=== PATIENT | female | born 1960 | race Caucasian/White ===

== ENCOUNTER 2019-02-10 11:21 | Outpatient (CLI) | payer OTHER, SELFPAY ==
[2019-02-10 11:37] LABS: Basophils Absolute Auto 0.11 K/mm3 (0.00-0.10); Basophils Percent Auto 0.9 % (0.0-1.0); Eosinophils Absolute Auto 0.34 K/mm3 (0.02-0.50); Eosinophils Percent Auto 2.9 % (1.0-6.0); Hematocrit 50.7 % (35.0-49.0); Immature Granulocyte Absolute 0.04 K/mm3 (0.00-0.00); Immature Granulocyte Percent A 0.3 % (0.0-0.0); Lymphocytes Absolute Auto 2.85 K/mm3 (1.10-4.50); Mean Corpuscular HGB Conc 31.6 g/dL (32.0-36.0); Mean Corpuscular Hemoglobin 30.5 pg (27.0-31.0); Mean Corpuscular Volume 96.6 fL (78.0-102.0); Mean Platelet Volume 9.9 fl (9.2-11.8); Monocytes Absolute Auto 1.31 K/mm3 (0.10-0.90); Neutrophils Absolute Auto 7.2 K/mm3 (1.7-7.2); Neutrophils Percent Auto 60.9 % (50.0-70.0); Platelet Count Result 319 K/mm3 (150-420); Red Blood Count 5.25 M/mm3 (4.20-5.40); Red Cell Distribution Width 14.5 % (11.6-14.4); White Blood Count 11.9 K/mm3 (4.8-10.8)
[2019-02-10 11:46] LABS: Add Urine Microscopic? YES; Appearance Urine Clear (Clear); Bilirubin Urine Negative (Negative); Blood Urine Negative (Negative); Color Urine Yellow (Yellow); Glucose Urine UA Negative (Negative); Ketones Urine Negative (Negative); Leukocyte Esterase Ur Negative (Negative); Nitrate Urine Negative (Negative); Protein Urine 1+ (Negative); Specific Grav Ur >= 1.030 (1.010-1.020); Urobilinogen Urine 0.2 mg/dL (0.2-1.0)
[2019-02-10 12:06] LABS: Bacteria Urine 1+ /hpf; RBC Urine 0-2 /hpf (0-2); Squamous Epithelial Cell Urine Moderate /hpf (Few); WBC Urine 0-3 /hpf (0-3)
[2019-02-10 12:45] LABS: Erythrocyte Sedimentation Rate 6 mm/hr (0-20)
[2019-02-10 13:26] LABS: Alanine Aminotransferase 14 U/L (14-59); Albumin Level 3.6 g/dL (3.4-5.0); Alkaline Phosphatase 106 U/L (46-116); Anion Gap 13.3 mmol/L (7-16); Aspartate Amino Transferase 11 U/L (15-37); Bilirubin,Total 0.4 mg/dL (0.00-1.00); Blood Urea Nitrogen 12 mg/dL (7-18); CRP 1.4 mg/dL (0.0-0.9); Carbon Dioxide 29 mmol/L (21-32); Chloride 105 mmol/L (98-108); Estimated Glomerular Filt Rate > 60; Glucose 107 mg/dL (70-99); Osmolality Calculated 295 mOsm/kg (285-295); Potassium 4.3 mmol/L (3.5-5.1); Sodium 143 mmol/L (136-145); Total Protein 7.3 g/dL (6.4-8.2)
== END 2019-02-10 11:22 | disposition home or self-care (01) ==
PROVIDERS: PCP Internal Medicine; Visit Provider Internal Medicine
DX: M05.9 Rheumatoid arthritis with rheumatoid factor, unspecified (principal); I27.20 Pulmonary hypertension, unspecified; M85.80 Other specified disorders of bone density and structure, unspecified site; Z99.81 Dependence on supplemental oxygen; M06.30 Rheumatoid nodule, unspecified site; R74.0 Nonspecific elevation of levels of transaminase and lactic acid dehydrogenase [LDH]
CPT/HCPCS: 36415; 80053; 81001; 85025; 85652; 86140

== ENCOUNTER 2019-06-01 12:06 | Outpatient (CLI) | payer OTHER, SELFPAY ==
--- NOTE | ~2019-06-01 | XR_ITS ---
EXAMINATION: XR chest 2V DATE: 06/01/2019 12:28 INDICATION: Cough. Chronic obstructive pulmonary disease. TECHNIQUE: Frontal and lateral views of the chest were obtained. COMPARISON: Chest 2 views 09/06/2018, chest CT 09/01/2018 FINDINGS: There is mild atelectasis in left mid and lower lung zones. There are airspace opacities in right lower lung zone. No pleural effusion or pneumothorax. The heart size is normal. IMPRESSION: 1. Airspace opacities in right lower lung zone with interval improvement, consistent with atelectasis /scarring versus pneumonia. 2. Mild atelectasis in left mid and lower lung zones. Reviewed, dictated and finalized at location A. GER MAINTENANCE IMPRESSION: 1. Airspace opacities in right lower lung zone with interval improvement, consi stent with atelectasis/scarring versus pneumonia. 2. Mild atelectasis in left mid and lower lung zones.
[2019-06-01 12:33] LABS: Influenza Control Valid (Valid)
== END 2019-06-01 12:07 | disposition home or self-care (01) ==
LOC: CHSLAB 12:08
PROVIDERS: PCP Family Medicine; Visit Provider Family Medicine
DX: R05 Cough (principal)
CPT/HCPCS: 71046; 87804

== ENCOUNTER 2019-10-11 07:08 | Outpatient (CLI) | payer OTHER, SELFPAY ==
[2019-10-11 07:26] LABS: Basophils Absolute Auto 0.16 K/mm3 (0.00-0.10); Basophils Percent Auto 1.4 % (0.0-1.0); Eosinophils Absolute Auto 0.34 K/mm3 (0.02-0.50); Hematocrit 47.6 % (35.0-49.0); Hemoglobin 15.4 g/dL (12.0-15.0); Immature Granulocyte Absolute 0.04 K/mm3 (0.00-0.00); Immature Granulocyte Percent A 0.4 % (0.0-0.0); Lymphocytes Absolute Auto 2.42 K/mm3 (1.10-4.50); Lymphocytes Percent Auto 21.2 % (18.0-42.0); Mean Corpuscular HGB Conc 32.4 g/dL (32.0-36.0); Mean Corpuscular Hemoglobin 32.1 pg (27.0-31.0); Mean Corpuscular Volume 99.2 fL (78.0-102.0); Mean Platelet Volume 9.6 fl (9.2-11.8); Monocytes Absolute Auto 1.23 K/mm3 (0.10-0.90); Monocytes Percent Auto 10.8 % (2.0-11.0); Neutrophils Absolute Auto 7.2 K/mm3 (1.7-7.2); Neutrophils Percent Auto 63.2 % (50.0-70.0); Platelet Count Result 320 K/mm3 (150-420); Red Cell Distribution Width 13.5 % (11.6-14.4); White Blood Count 11.4 K/mm3 (4.8-10.8)
[2019-10-11 07:58] LABS: Creatinine Urine 87.43 mg/dL (40-278)
[2019-10-11 07:59] LABS: MALB Creatinine Ratio 281.5 mg/g (0-30); Microalbumin Urine Random 246.2 mg/L
[2019-10-11 08:25] LABS: Alanine Aminotransferase 18 U/L (14-59); Albumin Level 3.6 g/dL (3.4-5.0); Alkaline Phosphatase 105 U/L (46-116); Anion Gap 10.3 mmol/L (7-16); Aspartate Amino Transferase 12 U/L (15-37); Bilirubin,Total 0.4 mg/dL (0.00-1.00); Blood Urea Nitrogen 13 mg/dL (7-18); Calcium 8.8 mg/dL (8.5-10.1); Carbon Dioxide 30 mmol/L (21-32); Chloride 102 mmol/L (98-108); Cholesterol 215 mg/dL (0-200); Estimated Glomerular Filt Rate > 60; Glucose 115 mg/dL (70-99); HDL Direct 81 mg/dL (40-60); LDL Cholesterol Calculated 124 mg/dL (<130); Osmolality Calculated 287 mOsm/kg (285-295); Potassium 4.3 mmol/L (3.5-5.1); Sodium 138 mmol/L (136-145); Total Protein 7.3 g/dL (6.4-8.2); Triglycerides 51 mg/dL (0-150)
== END 2019-10-11 07:09 | disposition home or self-care (01) ==
PROVIDERS: PCP Family Medicine; Visit Provider Family Medicine
DX: E78.2 Mixed hyperlipidemia (principal); E11.9 Type 2 diabetes mellitus without complications; I10 Essential (primary) hypertension; D50.9 Iron deficiency anemia, unspecified
CPT/HCPCS: 36415; 80053; 80061; 82043; 83036; 85025

== ENCOUNTER 2020-01-20 08:15 | Outpatient (CLI) | payer OTHER, SELFPAY ==
[2020-01-20 08:27] LABS: Basophils Absolute Auto 0.14 K/mm3 (0.00-0.10); Basophils Percent Auto 1.4 % (0.0-1.0); Eosinophils Absolute Auto 0.38 K/mm3 (0.02-0.50); Eosinophils Percent Auto 3.8 % (1.0-6.0); Hematocrit 49.9 % (35.0-49.0); Hemoglobin 15.3 g/dL (12.0-15.0); Immature Granulocyte Absolute 0.04 K/mm3 (0.00-0.00); Immature Granulocyte Percent A 0.4 % (0.0-0.0); Lymphocytes Absolute Auto 3.26 K/mm3 (1.10-4.50); Lymphocytes Percent Auto 32.5 % (18.0-42.0); Mean Corpuscular HGB Conc 30.7 g/dL (32.0-36.0); Mean Corpuscular Hemoglobin 30.8 pg (27.0-31.0); Mean Corpuscular Volume 100.6 fL (78.0-102.0); Mean Platelet Volume 9.5 fl (9.2-11.8); Monocytes Absolute Auto 1.11 K/mm3 (0.10-0.90); Monocytes Percent Auto 11.1 % (2.0-11.0); Neutrophils Absolute Auto 5.1 K/mm3 (1.7-7.2); Neutrophils Percent Auto 50.8 % (50.0-70.0); Platelet Count Result 294 K/mm3 (150-420); Red Blood Count 4.96 M/mm3 (4.20-5.40); Red Cell Distribution Width 12.7 % (11.6-14.4)
[2020-01-20 08:37] LABS: Hemoglobin A1C 5.1 % (<5.7)
[2020-01-20 09:27] LABS: Anion Gap 8 mmol/L (8-16); Blood Urea Nitrogen 16 mg/dL (7-18); Carbon Dioxide 29 mmol/L (21-32); Chloride 104 mmol/L (98-108); Cholesterol 163 mg/dL (0-200); Estimated Glomerular Filt Rate > 60; Glucose 116 mg/dL (70-99); HDL Direct 68 mg/dL (40-60); LDL Cholesterol Calculated 83 mg/dL (<130); Osmolality Calculated 294 mOsm/kg (285-295); Potassium 4.5 mmol/L (3.5-5.1); Sodium 141 mmol/L (136-145); Triglycerides 61 mg/dL (0-150)
== END 2020-01-20 08:16 | disposition home or self-care (01) ==
LOC: CHSLAB 08:16
PROVIDERS: PCP Family Medicine; Visit Provider Family Medicine
DX: E11.65 Type 2 diabetes mellitus with hyperglycemia (principal)
CPT/HCPCS: 36415; 80048; 80061; 83036; 85025

== ENCOUNTER 2020-02-01 10:31 | Outpatient (CLI) | payer OTHER, SELFPAY ==
--- NOTE | ~2020-02-01 | XR_ITS ---
EXAMINATION: XR lumbar spine 2-3V EXAM DATE: 02/01/2020 10:57 INDICATION: Low back pain for 6 months, lower extremity numbness on the left side. No known injury. TECHNIQUE: Lumber spine frontal, lateral, lateral L5-S1 projections for interpretation. Comparison is made to prior examination from 12/28/2018. FINDINGS: There is moderate disc disease at L2-3, mild at the other lumbar levels. The vertebral bod ies are aligned in the AP dimension. Mild upper lumbar, moderate lower lumbar facet arthropathy. Mini mal lumbar levoscoliosis. No endplate erosive change. Sacrum, sacroiliac joints, sacral arcuate lines are intact. Paraspinal soft tissue is unremarkable. Difficult appreciate any significant interval ch gaudencio. IMPRESSION: 1. Mild to moderate lumbar spondylosis. Reviewed, dictated and finalized at location B. 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
[2020-02-01 12:04] LABS: Thyroid Stimulating Hormone 1.49 uIU/mL (0.36-3.74)
== END 2020-02-01 10:32 | disposition home or self-care (01) ==
LOC: CHSLAB 10:33
PROVIDERS: PCP Family Medicine; Visit Provider Family Medicine
DX: L63.9 Alopecia areata, unspecified (principal); M54.5 Low back pain; M47.816 Spondylosis without myelopathy or radiculopathy, lumbar region
CPT/HCPCS: 36415; 72100; 84443

== ENCOUNTER 2020-05-12 09:57 | Outpatient (CLI) | payer OTHER, SELFPAY ==
[2020-05-12 10:21] LABS: Basophils Absolute Auto 0.18 K/mm3 (0.00-0.10); Basophils Percent Auto 1.5 % (0.0-1.0); Eosinophils Percent Auto 5.1 % (1.0-6.0); Hemoglobin 16.7 g/dL (12.0-15.0); Immature Granulocyte Absolute 0.04 K/mm3 (0.00-0.00); Immature Granulocyte Percent A 0.3 % (0.0-0.0); Lymphocytes Percent Auto 20.5 % (18.0-42.0); Mean Corpuscular HGB Conc 31.5 g/dL (32.0-36.0); Mean Corpuscular Volume 95.2 fL (78.0-102.0); Mean Platelet Volume 9.7 fl (9.2-11.8); Monocytes Absolute Auto 1.43 K/mm3 (0.10-0.90); Monocytes Percent Auto 12.2 % (2.0-11.0); Neutrophils Absolute Auto 7.1 K/mm3 (1.7-7.2); Neutrophils Percent Auto 60.4 % (50.0-70.0); Platelet Count Result 349 K/mm3 (150-420); Red Blood Count 5.57 M/mm3 (4.20-5.40); Red Cell Distribution Width 14.5 % (11.6-14.4); White Blood Count 11.7 K/mm3 (4.8-10.8)
[2020-05-12 10:24] LABS: Add Urine Microscopic? NO; Appearance Urine Clear (Clear); Bilirubin Urine Negative (Negative); Blood Urine Negative (Negative); Color Urine Yellow (Yellow); Glucose Urine UA Negative (Negative); Ketones Urine Negative (Negative); Leukocyte Esterase Ur Negative (Negative); Nitrate Urine Negative (Negative); Protein Urine Negative (Negative); Specific Grav Ur 1.015 (1.010-1.020); Urobilinogen Urine 0.2 mg/dL (0.2-1.0); pH Urine 5.5 (5.0-8.0)
[2020-05-12 10:29] LABS: Hemoglobin A1C 6.6 % (<5.7)
[2020-05-12 10:51] LABS: MALB Creatinine Ratio 265.5 mg/g (0-30); Microalbumin Urine Random 111.8 mg/L
== END 2020-05-12 09:58 | disposition home or self-care (01) ==
LOC: CHSLAB 09:59
PROVIDERS: PCP Family Medicine; Visit Provider Family Medicine
DX: E11.9 Type 2 diabetes mellitus without complications (principal); E78.2 Mixed hyperlipidemia; I10 Essential (primary) hypertension
CPT/HCPCS: 36415; 81003; 82043; 83036; 84443; 85025

== ENCOUNTER 2020-08-11 12:47 | Outpatient (CLI) | payer OTHER, SELFPAY ==
[2020-08-11 12:59] LABS: Basophils Absolute Auto 0.14 K/mm3 (0.00-0.10); Basophils Percent Auto 1.1 % (0.0-1.0); Eosinophils Absolute Auto 0.34 K/mm3 (0.02-0.50); Eosinophils Percent Auto 2.6 % (1.0-6.0); Hematocrit 60.2 % (35.0-49.0); Hemoglobin 18.8 g/dL (12.0-15.0); Immature Granulocyte Absolute 0.05 K/mm3 (0.00-0.00); Immature Granulocyte Percent A 0.4 % (0.0-0.0); Lymphocytes Absolute Auto 2.57 K/mm3 (1.10-4.50); Lymphocytes Percent Auto 19.7 % (18.0-42.0); Mean Corpuscular HGB Conc 31.2 g/dL (32.0-36.0); Mean Corpuscular Hemoglobin 29.7 pg (27.0-31.0); Mean Corpuscular Volume 95.1 fL (78.0-102.0); Mean Platelet Volume 9.7 fl (9.2-11.8); Monocytes Absolute Auto 1.08 K/mm3 (0.10-0.90); Monocytes Percent Auto 8.3 % (2.0-11.0); Neutrophils Absolute Auto 8.9 K/mm3 (1.7-7.2); Neutrophils Percent Auto 67.9 % (50.0-70.0); Platelet Count Result 283 K/mm3 (150-420); Red Blood Count 6.33 M/mm3 (4.20-5.40); Red Cell Distribution Width 14.8 % (11.6-14.4); White Blood Count 13.1 K/mm3 (4.8-10.8)
[2020-08-11 13:08] LABS: Hemoglobin A1C 6.6 % (<5.7)
[2020-08-11 13:31] LABS: Magnesium 1.7 mg/dL (1.8-2.4)
== END 2020-08-11 12:48 | disposition home or self-care (01) ==
LOC: CHSLAB 12:49
PROVIDERS: PCP Family Medicine; Visit Provider Family Medicine
DX: E11.65 Type 2 diabetes mellitus with hyperglycemia (principal); E83.42 Hypomagnesemia; E78.2 Mixed hyperlipidemia
CPT/HCPCS: 36415; 83036; 83735; 85025

== ENCOUNTER 2020-11-30 09:57 | Outpatient (CLI) | payer OTHER, SELFPAY ==
[2020-11-30 10:08] LABS: Basophils Absolute Auto 0.13 K/mm3 (0.00-0.10); Eosinophils Absolute Auto 0.43 K/mm3 (0.02-0.50); Eosinophils Percent Auto 3.2 % (1.0-6.0); Hematocrit 60.5 % (35.0-49.0); Immature Granulocyte Absolute 0.05 K/mm3 (0.00-0.00); Immature Granulocyte Percent A 0.4 % (0.0-0.0); Lymphocytes Percent Auto 23.7 % (18.0-42.0); Mean Corpuscular HGB Conc 31.4 g/dL (32.0-36.0); Mean Corpuscular Hemoglobin 30.6 pg (27.0-31.0); Mean Corpuscular Volume 97.4 fL (78.0-102.0); Mean Platelet Volume 9.7 fl (9.2-11.8); Monocytes Absolute Auto 1.01 K/mm3 (0.10-0.90); Monocytes Percent Auto 7.5 % (2.0-11.0); Neutrophils Absolute Auto 8.7 K/mm3 (1.7-7.2); Neutrophils Percent Auto 64.2 % (50.0-70.0); Platelet Count Result 284 K/mm3 (150-420); Red Blood Count 6.21 M/mm3 (4.20-5.40); Red Cell Distribution Width 15.4 % (11.6-14.4); White Blood Count 13.5 K/mm3 (4.8-10.8)
[2020-11-30 10:19] LABS: Hemoglobin A1C 7.2 % (<5.7)
[2020-11-30 10:57] LABS: Alanine Aminotransferase 41 U/L (14-59); Albumin Level 3.5 g/dL (3.4-5.0); Alkaline Phosphatase 124 U/L (46-116); Anion Gap 6 mmol/L (8-16); Aspartate Amino Transferase 22 U/L (15-37); Bilirubin,Total 0.3 mg/dL (0.00-1.00); Blood Urea Nitrogen 16 mg/dL (7-18); Calcium 9.2 mg/dL (8.5-10.1); Carbon Dioxide 32 mmol/L (21-32); Chloride 104 mmol/L (98-108); Estimated Glomerular Filt Rate > 60; Glucose 128 mg/dL (70-99); Osmolality Calculated 297 mOsm/kg (285-295); Potassium 4.6 mmol/L (3.5-5.1); Sodium 142 mmol/L (136-145); Total Protein 7.6 g/dL (6.4-8.2)
== END 2020-11-30 09:58 | disposition home or self-care (01) ==
LOC: CHSLAB 09:59
PROVIDERS: PCP Family Medicine; Visit Provider Family Medicine
DX: E11.9 Type 2 diabetes mellitus without complications (principal)
CPT/HCPCS: 36415; 80053; 83036; 84443; 85025

== ENCOUNTER 2021-04-16 11:15 | Outpatient (CLI) | payer OTHER, SELFPAY ==
[2021-04-16 11:42] LABS: Basophils Absolute Auto 0.11 K/mm3 (0.00-0.10); Eosinophils Absolute Auto 0.44 K/mm3 (0.02-0.50); Eosinophils Percent Auto 4.1 % (1.0-6.0); Hemoglobin 20.1 g/dL (12.0-15.0); Immature Granulocyte Absolute 0.03 K/mm3 (0.00-0.00); Immature Granulocyte Percent A 0.3 % (0.0-0.0); Lymphocytes Absolute Auto 2.34 K/mm3 (1.10-4.50); Lymphocytes Percent Auto 21.7 % (18.0-42.0); Mean Corpuscular HGB Conc 31.4 g/dL (32.0-36.0); Mean Corpuscular Hemoglobin 31.6 pg (27.0-31.0); Mean Corpuscular Volume 100.6 fL (78.0-102.0); Mean Platelet Volume 9.7 fl (9.2-11.8); Monocytes Absolute Auto 1.03 K/mm3 (0.10-0.90); Monocytes Percent Auto 9.6 % (2.0-11.0); Neutrophils Absolute Auto 6.8 K/mm3 (1.7-7.2); Neutrophils Percent Auto 63.3 % (50.0-70.0); Platelet Count Result 281 K/mm3 (150-420); Red Blood Count 6.36 M/mm3 (4.20-5.40); Red Cell Distribution Width 14.7 % (11.6-14.4); White Blood Count 10.8 K/mm3 (4.8-10.8)
[2021-04-16 16:12] LABS: Alanine Aminotransferase 31 U/L (14-59); Albumin Level 3.7 g/dL (3.4-5.0); Alkaline Phosphatase 117 U/L (46-116); Anion Gap 10 mmol/L (8-16); Aspartate Amino Transferase 19 U/L (15-37); Bilirubin,Total 0.3 mg/dL (0.00-1.00); Blood Urea Nitrogen 12 mg/dL (7-18); Calcium 9.3 mg/dL (8.5-10.1); Carbon Dioxide 31 mmol/L (21-32); Chloride 101 mmol/L (98-108); Cholesterol 259 mg/dL (0-200); Estimated Glomerular Filt Rate > 60; Glucose 109 mg/dL (70-99); HDL Direct 75 mg/dL (40-60); LDL Cholesterol Calculated 167 mg/dL (<130); Osmolality Calculated 294 mOsm/kg (285-295); Potassium 5.3 mmol/L (3.5-5.1); Sodium 142 mmol/L (136-145); Triglycerides 83 mg/dL (0-150)
== END 2021-04-16 11:16 | disposition home or self-care (01) ==
LOC: CHSLAB 11:17
PROVIDERS: PCP Family Medicine; Visit Provider Family Medicine
DX: E11.9 Type 2 diabetes mellitus without complications (principal); I10 Essential (primary) hypertension; E78.5 Hyperlipidemia, unspecified
CPT/HCPCS: 36415; 80053; 80061; 83036; 85025

== ENCOUNTER 2021-05-20 11:32 | Outpatient (CLI) | payer MEDICARE, MEDICAID, SELFPAY ==
[2021-05-20 12:08] LABS: Basophils Absolute Auto 0.11 K/mm3 (0.00-0.10); Basophils Percent Auto 0.9 % (0.0-1.0); Eosinophils Absolute Auto 0.28 K/mm3 (0.02-0.50); Eosinophils Percent Auto 2.3 % (1.0-6.0); Hemoglobin 20.4 g/dL (12.0-15.0); Immature Granulocyte Absolute 0.03 K/mm3 (0.00-0.00); Immature Granulocyte Percent A 0.3 % (0.0-0.0); Lymphocytes Absolute Auto 2.02 K/mm3 (1.10-4.50); Lymphocytes Percent Auto 16.9 % (18.0-42.0); Mean Corpuscular HGB Conc 31.4 g/dL (32.0-36.0); Mean Corpuscular Hemoglobin 31.2 pg (27.0-31.0); Mean Corpuscular Volume 99.5 fL (78.0-102.0); Mean Platelet Volume 10.1 fl (9.2-11.8); Monocytes Absolute Auto 0.89 K/mm3 (0.10-0.90); Monocytes Percent Auto 7.4 % (2.0-11.0); Neutrophils Absolute Auto 8.6 K/mm3 (1.7-7.2); Neutrophils Percent Auto 72.2 % (50.0-70.0); Platelet Count Result 270 K/mm3 (150-420); Red Blood Count 6.53 M/mm3 (4.20-5.40); Red Cell Distribution Width 14.6 % (11.6-14.4)
== END 2021-05-20 11:33 | disposition home or self-care (01) ==
LOC: CHSLAB 11:37
PROVIDERS: PCP Family Medicine; Visit Provider Internal Medicine Hematology & Oncology
DX: D75.1 Secondary polycythemia (principal)
CPT/HCPCS: 36415; 85025

== ENCOUNTER 2021-08-07 16:37 | Outpatient (CLI) | payer MEDICARE, MEDICAID, SELFPAY ==
[2021-08-07 16:51] LABS: Basophils Absolute Auto 0.15 K/mm3 (0.00-0.10); Eosinophils Absolute Auto 0.27 K/mm3 (0.02-0.50); Eosinophils Percent Auto 1.8 % (1.0-6.0); Hematocrit 57.9 % (35.0-49.0); Hemoglobin 18.4 g/dL (12.0-15.0); Immature Granulocyte Absolute 0.07 K/mm3 (0.00-0.00); Immature Granulocyte Percent A 0.5 % (0.0-0.0); Lymphocytes Absolute Auto 2.66 K/mm3 (1.10-4.50); Mean Corpuscular HGB Conc 31.8 g/dL (32.0-36.0); Mean Corpuscular Hemoglobin 31.3 pg (27.0-31.0); Mean Corpuscular Volume 98.5 fL (78.0-102.0); Mean Platelet Volume 9.9 fl (9.2-11.8); Monocytes Absolute Auto 1.35 K/mm3 (0.10-0.90); Monocytes Percent Auto 9.1 % (2.0-11.0); Neutrophils Absolute Auto 10.3 K/mm3 (1.7-7.2); Neutrophils Percent Auto 69.6 % (50.0-70.0); Platelet Count Result 343 K/mm3 (150-420); Red Blood Count 5.88 M/mm3 (4.20-5.40); Red Cell Distribution Width 14.3 % (11.6-14.4); White Blood Count 14.8 K/mm3 (4.8-10.8)
[2021-08-07 17:01] LABS: Hemoglobin A1C 5.8 % (<5.7)
[2021-08-07 17:15] LABS: Alanine Aminotransferase 28 U/L (14-59); Albumin Level 3.5 g/dL (3.4-5.0); Alkaline Phosphatase 118 U/L (46-116); Anion Gap 7 mmol/L (8-16); Aspartate Amino Transferase 10 U/L (15-37); Bilirubin,Total 0.2 mg/dL (0.00-1.00); Blood Urea Nitrogen 16 mg/dL (7-18); Calcium 9.3 mg/dL (8.5-10.1); Carbon Dioxide 31 mmol/L (21-32); Chloride 103 mmol/L (98-108); Estimated Glomerular Filt Rate > 60; Potassium 4.3 mmol/L (3.5-5.1); Sodium 141 mmol/L (136-145); Thyroid Stimulating Hormone 0.91 uIU/mL (0.36-3.74); Total Protein 8.3 g/dL (6.4-8.2)
[2021-08-07 17:21] LABS: Glucose 99 mg/dL (70-99); Osmolality Calculated 293 mOsm/kg (285-295)
== END 2021-08-07 16:38 | disposition home or self-care (01) ==
LOC: CHSLAB 16:39
PROVIDERS: PCP Family Medicine; Visit Provider Internal Medicine Hematology & Oncology
DX: D75.1 Secondary polycythemia (principal); I10 Essential (primary) hypertension; E11.65 Type 2 diabetes mellitus with hyperglycemia
CPT/HCPCS: 36415; 80053; 83036; 84443; 85025

== ENCOUNTER 2021-11-13 07:43 | Outpatient (CLI) | payer MEDICARE, MEDICAID, SELFPAY ==
[2021-11-13 07:56] LABS: Basophils Absolute Auto 0.15 K/mm3 (0.00-0.10); Basophils Percent Auto 1.1 % (0.0-1.0); Eosinophils Percent Auto 2.9 % (1.0-6.0); Hematocrit 50.6 % (35.0-49.0); Hemoglobin 15.7 g/dL (12.0-15.0); Immature Granulocyte Absolute 0.05 K/mm3 (0.00-0.00); Immature Granulocyte Percent A 0.4 % (0.0-0.0); Lymphocytes Absolute Auto 3.46 K/mm3 (1.10-4.50); Lymphocytes Percent Auto 25.5 % (18.0-42.0); Mean Corpuscular Volume 96.7 fL (78.0-102.0); Mean Platelet Volume 9.4 fl (9.2-11.8); Monocytes Absolute Auto 1.41 K/mm3 (0.10-0.90); Monocytes Percent Auto 10.4 % (2.0-11.0); Neutrophils Absolute Auto 8.1 K/mm3 (1.7-7.2); Neutrophils Percent Auto 59.7 % (50.0-70.0); Platelet Count Result 404 K/mm3 (150-420); Red Blood Count 5.23 M/mm3 (4.20-5.40); Red Cell Distribution Width 14.3 % (11.6-14.4); White Blood Count 13.6 K/mm3 (4.8-10.8)
[2021-11-13 08:13] LABS: Anion Gap 3 mmol/L (8-16); Blood Urea Nitrogen 14 mg/dL (7-18); Calcium 8.7 mg/dL (8.5-10.1); Carbon Dioxide 32 mmol/L (21-32); Chloride 104 mmol/L (98-108); Cholesterol 203 mg/dL (0-200); Estimated Glomerular Filt Rate > 60; Glucose 110 mg/dL (70-99); HDL Direct 78 mg/dL (40-60); LDL Cholesterol Calculated 111 mg/dL (<130); Osmolality Calculated 289 mOsm/kg (285-295); Potassium 4.5 mmol/L (3.5-5.1); Sodium 139 mmol/L (136-145); Triglycerides 68 mg/dL (0-150)
[2021-11-13 08:15] LABS: Hemoglobin A1C 6.3 % (<5.7)
== END 2021-11-13 07:44 | disposition home or self-care (01) ==
LOC: CHSLAB 07:46
PROVIDERS: PCP Family Medicine; Visit Provider Internal Medicine Hematology & Oncology
DX: D75.1 Secondary polycythemia (principal); I10 Essential (primary) hypertension; E11.9 Type 2 diabetes mellitus without complications; E78.2 Mixed hyperlipidemia
CPT/HCPCS: 36415; 80048; 80061; 83036; 85025

== ENCOUNTER 2022-03-03 16:58 | Outpatient (CLI) | payer MEDICARE, SELFPAY ==
[2022-03-03 17:30] LABS: Basophils Absolute Auto 0.12 K/mm3 (0.00-0.10); Eosinophils Absolute Auto 0.32 K/mm3 (0.02-0.50); Eosinophils Percent Auto 2.6 % (1.0-6.0); Hematocrit 50.6 % (35.0-49.0); Hemoglobin 15.3 g/dL (12.0-15.0); Immature Granulocyte Absolute 0.04 K/mm3 (0.00-0.00); Immature Granulocyte Percent A 0.3 % (0.0-0.0); Lymphocytes Absolute Auto 2.87 K/mm3 (1.10-4.50); Lymphocytes Percent Auto 23.3 % (18.0-42.0); Mean Corpuscular HGB Conc 30.2 g/dL (32.0-36.0); Mean Corpuscular Hemoglobin 27.4 pg (27.0-31.0); Mean Corpuscular Volume 90.5 fL (78.0-102.0); Mean Platelet Volume 9.7 fl (9.2-11.8); Monocytes Absolute Auto 1.24 K/mm3 (0.10-0.90); Monocytes Percent Auto 10.1 % (2.0-11.0); Neutrophils Absolute Auto 7.7 K/mm3 (1.7-7.2); Neutrophils Percent Auto 62.7 % (50.0-70.0); Platelet Count Result 421 K/mm3 (150-420); Red Blood Count 5.59 M/mm3 (4.20-5.40); Red Cell Distribution Width 15.7 % (11.6-14.4); White Blood Count 12.3 K/mm3 (4.8-10.8)
[2022-03-03 17:38] LABS: Hemoglobin A1C 6.2 % (<5.7)
[2022-03-03 17:41] LABS: Anion Gap 6 mmol/L (8-16); Blood Urea Nitrogen 15 mg/dL (7-18); Carbon Dioxide 33 mmol/L (21-32); Chloride 106 mmol/L (98-108); Estimated Glomerular Filt Rate > 60; Glucose 128 mg/dL (70-99); Osmolality Calculated 302 mOsm/kg (285-295); Potassium 4.6 mmol/L (3.5-5.1); Sodium 145 mmol/L (136-145)
== END 2022-03-03 16:59 | disposition home or self-care (01) ==
LOC: CHSLAB 17:02
PROVIDERS: PCP Family Medicine; Visit Provider Family Medicine
DX: E11.9 Type 2 diabetes mellitus without complications (principal)
CPT/HCPCS: 36415; 80048; 83036; 85025

== ENCOUNTER 2022-07-30 14:35 | Outpatient (CLI) | payer MEDICARE, SELFPAY ==
[2022-07-30 14:56] LABS: Basophils Absolute Auto 0.14 K/mm3 (0.00-0.10); Eosinophils Absolute Auto 0.35 K/mm3 (0.02-0.50); Eosinophils Percent Auto 2.5 % (1.0-6.0); Hematocrit 49.9 % (35.0-49.0); Hemoglobin 15.1 g/dL (12.0-15.0); Immature Granulocyte Absolute 0.04 K/mm3 (0.00-0.00); Immature Granulocyte Percent A 0.3 % (0.0-0.0); Lymphocytes Absolute Auto 2.41 K/mm3 (1.10-4.50); Lymphocytes Percent Auto 17.5 % (18.0-42.0); Mean Corpuscular HGB Conc 30.3 g/dL (32.0-36.0); Mean Corpuscular Hemoglobin 28.2 pg (27.0-31.0); Mean Corpuscular Volume 93.3 fL (78.0-102.0); Mean Platelet Volume 9.7 fl (9.2-11.8); Monocytes Absolute Auto 1.28 K/mm3 (0.10-0.90); Monocytes Percent Auto 9.3 % (2.0-11.0); Neutrophils Absolute Auto 9.6 K/mm3 (1.7-7.2); Neutrophils Percent Auto 69.4 % (50.0-70.0); Platelet Count Result 388 K/mm3 (150-420); Red Blood Count 5.35 M/mm3 (4.20-5.40); Red Cell Distribution Width 15.8 % (11.6-14.4); White Blood Count 13.8 K/mm3 (4.8-10.8)
[2022-07-30 14:58] LABS: Appearance Urine Clear (Clear); Bilirubin Urine Negative (Negative); Blood Urine Trace-Intact (Negative); Color Urine Light Yellow (Yellow); Glucose Urine UA Negative (Negative); Ketones Urine Negative (Negative); Leukocyte Esterase Ur Negative (Negative); Nitrate Urine Negative (Negative); Protein Urine Trace (Negative); Specific Grav Ur <= 1.005 (1.010-1.020); Urobilinogen Urine 0.2 mg/dL (0.2-1.0)
[2022-07-30 15:02] LABS: Add Urine Microscopic? YES; RBC Urine None seen /hpf (0-2); Squamous Epithelial Cell Urine Few /hpf (Few); WBC Urine None seen /hpf (0-3)
[2022-07-30 15:03] LABS: Bacteria Urine Rare /hpf
[2022-07-30 15:09] LABS: Hemoglobin A1C 6.4 % (<5.7)
[2022-07-30 15:12] LABS: Creatinine Urine < 13.00 mg/dL (40-278)
[2022-07-30 15:16] LABS: Microalbumin Urine Random 158.7 mg/L
[2022-07-30 15:43] LABS: Alanine Aminotransferase 18 U/L (14-59); Albumin Level 3.2 g/dL (3.4-5.0); Alkaline Phosphatase 138 U/L (46-116); Anion Gap 6 mmol/L (8-16); Aspartate Amino Transferase 12 U/L (15-37); Bilirubin,Total 0.2 mg/dL (0.00-1.00); Blood Urea Nitrogen 10 mg/dL (7-18); Carbon Dioxide 34 mmol/L (21-32); Chloride 104 mmol/L (98-108); Estimated Glomerular Filt Rate > 60; Glucose 109 mg/dL (70-99); Osmolality Calculated 298 mOsm/kg (285-295); Potassium 4.5 mmol/L (3.5-5.1); Sodium 144 mmol/L (136-145); Total Protein 7.9 g/dL (6.4-8.2)
[2022-08-03 19:24] LABS: Vitamin D 25 Hydroxy 16 ng/mL (30-100)
== END 2022-07-30 14:36 | disposition home or self-care (01) ==
LOC: CHSLAB 14:39
PROVIDERS: PCP Family Medicine; Visit Provider Family Medicine
DX: E11.9 Type 2 diabetes mellitus without complications (principal); E55.9 Vitamin D deficiency, unspecified
CPT/HCPCS: 36415; 80053; 81001; 82043; 82306; 83036; 84443; 85025

== ENCOUNTER 2022-08-28 12:55 | Outpatient (CLI) | payer MEDICARE, MEDICAID, SELFPAY ==
[2022-08-28 13:52] LABS: Basophils Absolute Auto 0.14 K/mm3 (0.00-0.10); Basophils Percent Auto 1.1 % (0.0-1.0); Eosinophils Absolute Auto 0.28 K/mm3 (0.02-0.50); Eosinophils Percent Auto 2.3 % (1.0-6.0); Hematocrit 53.6 % (35.0-49.0); Hemoglobin 15.9 g/dL (12.0-15.0); Immature Granulocyte Absolute 0.05 K/mm3 (0.00-0.00); Immature Granulocyte Percent A 0.4 % (0.0-0.0); Mean Corpuscular HGB Conc 29.7 g/dL (32.0-36.0); Mean Corpuscular Hemoglobin 27.3 pg (27.0-31.0); Mean Corpuscular Volume 91.9 fL (78.0-102.0); Mean Platelet Volume 10.4 fl (9.2-11.8); Monocytes Absolute Auto 0.96 K/mm3 (0.10-0.90); Monocytes Percent Auto 7.8 % (2.0-11.0); Neutrophils Absolute Auto 8.4 K/mm3 (1.7-7.2); Neutrophils Percent Auto 67.4 % (50.0-70.0); Platelet Count Result 424 K/mm3 (150-420); Red Blood Count 5.83 M/mm3 (4.20-5.40); Red Cell Distribution Width 14.8 % (11.6-14.4); White Blood Count 12.4 K/mm3 (4.8-10.8)
[2022-08-28 15:16] LABS: Anion Gap 5 mmol/L (8-16); Blood Urea Nitrogen 11 mg/dL (7-18); Calcium 9.3 mg/dL (8.5-10.1); Carbon Dioxide 35 mmol/L (21-32); Chloride 103 mmol/L (98-108); Estimated Glomerular Filt Rate > 60; Glucose 112 mg/dL (70-99); Osmolality Calculated 296 mOsm/kg (285-295); Potassium 4.7 mmol/L (3.5-5.1); Sodium 143 mmol/L (136-145)
== END 2022-08-28 12:56 | disposition home or self-care (01) ==
PROVIDERS: PCP Family Medicine; Visit Provider Internal Medicine Hematology & Oncology
DX: D75.1 Secondary polycythemia (principal)
CPT/HCPCS: 36415; 80048; 85025

== ENCOUNTER 2022-11-08 16:23 | Emergency (ER) | payer MEDICARE, MEDICAID, SELFPAY ==
[2022-11-08] VITALS (28 sets, daily range): BP systolic 132–191; BP diastolic 51–100; PULSE 88–112; RESP 16–39; TEMP 36.1–36.4; O2SAT 90–97
--- NOTE | ~2022-11-08 | XR_ITS ---
EXAMINATION: XR chest 1V portable DATE: 11/08/2022 16:40 INDICATION: Shortness of breath. Cough. TECHNIQUE: A single frontal view of the chest was obtained. COMPARISON: Chest 2 views 06/01/2019, chest CT 09/01/18 FINDINGS: There is a diffuse interstitial pattern in the lungs. There are are mild airspace opacities in the mid and lower lung zones. There are small pleural effusions. No pneumothorax. Cardiomegaly is noted. IMPRESSION: 1. Diffuse lung disease, likely mild pulmonary edema and mild atelectasis. 2. Small pleural effusions. 3. Cardiomegaly. Reviewed, dictated and finalized at location E.
--- NOTE | 2022-11-08 16:28 | ECG_ITS ---
Measurements Intervals [place] Rate: 111 P: 57 NE: 171 QRS: -31 QRSD: 81 T: 56 QT: 347 QTc: 472 Interpretive Statements SINUS TACHYCARDIA LEFT AXIS DEVIATION [QRS AXIS < -30] SEPTAL MYOCARDIAL INFARCTION , PROBABLY OLD [40+ ms Q WAVE IN V1/V2] ABNORMAL ECG NO PREVIOUS ECG AVAILABLE FOR COMPARISON Electronically Signed On 11-09-2022 9:59:10 CDT by Ish Peralta M.D.
--- NOTE | 2022-11-08 16:37 | ED.SOB ---
HPI - SOB/Dyspnea General Chief Complaint: Shortness of Breath/Dyspnea Stated Complaint: Respiratory Distress Time Seen by Provider: 11/08/22 16:28 Source: patient and EMS Mode of arrival: EMS Limitations: clinical condition History of Present Illness HPI Narrative: patient is a 62-year-old female with known COPD. Patient has been having trouble for the past hour at home. EMS arrived and she was 60% on room air. She was given 2 DuoNebs and Solu-Medrol 125 mg. She has proceeded to get better and was placed on CPAP. No active chest pain. Acute shortness of breath. No history of CHF. patient has history of polycythemia vera and gets blood drawn which was done last week to remove hemoglobin. Also patient has chronic elevated white blood count secondary to rheumatoid arthritis. MD elicited complaint: shortness of breath Pertinent past history: COPD Onset (ago): hour(s) Context: recent illness ( Patient has been coughing with some congestion for the past week) and anxiety Timing: constant Severity: similar to previous episodes Exacerbating factors: nothing Relieving factors: nothing Known history of: COPD Associated symptoms: chest pain Treatment prior to arrival: oxygen, bronchodilator and NIPPV Related Data Home oxygen amount: none Home Medications Medication Instructions Recorded Confirmed aspirin 325 mg tablet 325 mg PO DAILY 10/08/21 10/30/22 bupropion HCl 150 mg 24 hr tablet, 150 mg PO QAM 10/08/21 10/30/22 extended release losartan 50 mg tablet 50 mg PO DAILY 10/08/21 10/30/22 metformin 500 mg tablet 500 mg PO BID 10/08/21 10/30/22 keuvehfhjzao-zxfkegbo-ckcpcv tablet 1 tablet PO DAILY 10/08/21 10/30/22 venlafaxine 75 mg tablet,extended 75 mg PO DAILY 10/08/21 10/30/22 release 24 hr ergocalciferol (vitamin D2) 1,250 1,250 mcg PO WEEKLY 09/04/22 10/30/22 mcg (50,000 unit) capsule (Vitamin D2) Allergies Allergy/AdvReac Type Severity Reaction Status Date / Time clarithromycin Allergy Unknown Rash Verified 11/08/22 16:36 clindamycin Allergy Unknown Rash Verified 11/08/22 16:36 Review of Systems Review of Systems: All systems reviewed & are unremarkable except as noted in HPI and below Constitutional: Constitutional: Reports no additional constitutional complaints Eyes: Eyes: Reports no additional eye complaints ENT: Reports system reviewed and no additional complaints, except as documented Cardiovascular: Cardiovascular: Reports no additional cardiovascular complaints Respiratory: Respiratory: Reports no additional respiratory complaints Gastrointestinal: Gastrointestinal: Reports no additional gastrointestinal complaints Genitourinary: Genitourinary: Reports no additional female genitourinary complaints Musculoskeletal: Musculoskeletal: Reports no additional musculoskeletal complaints Integumentary/Breasts: Skin/Breast: Reports system reviewed and no additional complaints, except as docu Neurologic: Reports system reviewed and no additional complaints, except as documented Psychiatric: Psychiatric: Reports no additional psychiatric complaints Endocrine: Endocrine: Reports no additional endocrine complaints Hematologic/Lymphatic: Hematologic/Lymphatic: Reports no additional hematologic/lymphatic complaints Allergic/Immunologic: Allergic/Immunologic: Reports no additional allergic/immunologic complaints PMFSH Social History Social History Smoking status: Current every day smoker Exam Const: General: alert, diaphoretic and ill appearing Nutritional Appearance: well nourished Limitations: other limitations (CPAP in place) HENMT: Head: normal to inspection Ears: external ears normal Face/Nose/Sinus: Normal external nose present Eyes: Conjunctivae: conjunctivae normal Pupils: Equal, round and reactive pupils present EOM: EOMs intact bilaterally Neck: Neck: normal visual inspection Chest: Chest palpation & inspection: no
[2022-11-08 16:47] LABS: Basophils Absolute Auto 0.08 K/mm3 (0.00-0.10); Basophils Percent Auto 0.4 % (0.0-1.0); Eosinophils Absolute Auto 0.04 K/mm3 (0.02-0.50); Eosinophils Percent Auto 0.2 % (1.0-6.0); Hematocrit 52.1 % (35.0-49.0); Hemoglobin 14.9 g/dL (12.0-15.0); Immature Granulocyte Absolute 0.09 K/mm3 (0.00-0.00); Immature Granulocyte Percent A 0.5 % (0.0-0.0); Lymphocytes Absolute Auto 1.09 K/mm3 (1.10-4.50); Lymphocytes Percent Auto 5.9 % (18.0-42.0); Mean Corpuscular HGB Conc 28.6 g/dL (32.0-36.0); Mean Corpuscular Hemoglobin 26.4 pg (27.0-31.0); Mean Corpuscular Volume 92.4 fL (78.0-102.0); Mean Platelet Volume 10.8 fl (9.2-11.8); Monocytes Absolute Auto 1.45 K/mm3 (0.10-0.90); Monocytes Percent Auto 7.9 % (2.0-11.0); Neutrophils Absolute Auto 15.6 K/mm3 (1.7-7.2); Neutrophils Percent Auto 85.1 % (50.0-70.0); Nucleated Red Blood Cells Absolute Auto 0.02 K/mm3 (0.00-0.00); Nucleated Red Blood Cells Perc 0.1 % (0-0.0); Platelet Count Result 410 K/mm3 (150-420); Red Blood Count 5.64 M/mm3 (4.20-5.40); Red Cell Distribution Width 17.3 % (11.6-14.4); White Blood Count 18.4 K/mm3 (4.8-10.8)
[2022-11-08 16:58] LABS: INR 0.9; Partial Thromboplastin Time 26.1 SEC (23.90-30.70); Prothrombin Time 10.2 Seconds (9.50-12.10)
[2022-11-08 17:01] LABS: Base Excess ABG 10.6 mmol/L (0-2); HCO3 ABG 40.9 mmol/L (23-29); Oxygen Content ABG 19.3 %vol (16.0-22.0); Oxyhemoglobin 90.7 % (94-100); PO2 ABG 78.6 mmHg (80-90); Total Hemoglobin 15.1 g/dL (12.0-18.0); pH ABG 7.31 (7.35-7.45)
[2022-11-08 17:03] LABS: Alanine Aminotransferase 12 U/L (14-59); Albumin Level 2.8 g/dL (3.4-5.0); Alkaline Phosphatase 142 U/L (46-116); Anion Gap 6 mmol/L (8-16); Aspartate Amino Transferase < 10 U/L (15-37); Bilirubin,Total 0.3 mg/dL (0.00-1.00); Blood Urea Nitrogen 14 mg/dL (7-18); Calcium 9.2 mg/dL (8.5-10.1); Carbon Dioxide 38 mmol/L (21-32); Chloride 100 mmol/L (98-108); Estimated CRCL calculation 97 ml/min; Estimated Glomerular Filt Rate > 60; Glucose 178 mg/dL (70-99); Lactic Acid Reflex 1.3 mmol/L (0.4-2.0); Osmolality Calculated 302 mOsm/kg (285-295); Potassium 3.9 mmol/L (3.5-5.1); Sodium 144 mmol/L (136-145); Total Protein 8.3 g/dL (6.4-8.2); Troponin I 34.2 ng/L (0.00-60.4)
[2022-11-08 17:05] LABS: Device CPAP; Modified Allen's Test Pass; Site Drawn LEFT RADIAL
[2022-11-08] MEDS: FUROSEMIDE INJ 20 MG/2 ML VIAL IV PUSH (17:05)
[2022-11-08 17:06] LABS: PCO2 ABG 83.1 mmHg (35-45)
[2022-11-08] MEDS: SODIUM CHLORIDE 0.9% IV 1,000 ML 999 ML IV CONT (17:06)
[2022-11-08] MEDS: PIPERACILLN/TAZ 3.375GM/NS50ML 3.375 GM/50 ML BAG IVPB (17:07)
[2022-11-08 17:31] LABS: NT Pro B Type Natriuretic Pept 2932 pg/mL (0-125)
[2022-11-08 17:52] LABS: Influenza A QL RT-PCR Negative (Negative); Influenza B QL RT-PCR Negative (Negative); SARS-CoV-2 RNA PCR Negative (Negative)
[2022-11-08 17:57] LABS: Base Excess ABG 7.6 mmol/L (0-2); HCO3 ABG 35.9 mmol/L (23-29); Oxygen Content ABG 18.7 %vol (16.0-22.0); Oxygen Saturation ABG 91.5 % (95-97); Oxyhemoglobin 87.5 % (94-100); PCO2 ABG 66.6 mmHg (35-45); PO2 ABG 62.6 mmHg (80-90); Total Hemoglobin 15.2 g/dL (12.0-18.0); pH ABG 7.35 (7.35-7.45)
[2022-11-08 17:58] LABS: RSV RNA, RT-PCR Negative (Negative)
[2022-11-08 17:58] LABS: Device BIPAP; Modified Allen's Test Pass; Site Drawn LEFT RADIAL
[2022-11-08 17:59] LABS: Expiratory Pressure 6 cmH2O; Inspiratory Pressure 12 cmH2O
[2022-11-08 18:03] LABS: Appearance Urine Clear (Clear); Bilirubin Urine Negative (Negative); Blood Urine Trace-Intact (Negative); Color Urine Light Yellow (Yellow); Glucose Urine UA Negative (Negative); Ketones Urine 1+ (Negative); Leukocyte Esterase Ur Negative LEU/UL (Negative); Nitrate Urine Negative (Negative); Protein Urine 2+ (Negative); Specific Grav Ur 1.025 (1.010-1.020); Urobilinogen Urine 0.2 mg/dL (0.2-1.0)
[2022-11-08 18:08] LABS: Add Urine Microscopic? YES; Amorphous Sediment Urine Few; RBC Urine 0-2 /hpf (0-2); Squamous Epithelial Cell Urine Few /hpf (Few)
[2022-11-08 18:09] LABS: Bacteria Urine Trace /hpf
--- NOTE | 2022-11-15 12:12 | PC.NURSE ---
Final blood culture report: No growth in 5 days, no further treatment or action needed.
== END 2022-11-08 20:17 | disposition short-term general hospital (02) ==
PROVIDERS: Emergency Provider Emergency Medicine; PCP Family Medicine
DX: J44.1 Chronic obstructive pulmonary disease with (acute) exacerbation (principal); I50.9 Heart failure, unspecified; J18.9 Pneumonia, unspecified organism; F17.200 Nicotine dependence, unspecified, uncomplicated; Z20.822 Contact with and (suspected) exposure to COVID-19
CPT/HCPCS: 36415; 36600; 71045; 80053; 81001; 82805; 83605; 83880; 84484; 85025; 85610; 85730; 87040; 87637; 93005; 96361; 96365; 96375; 99285; J1940; J2543; J7030

== ENCOUNTER 2022-11-08 21:04 | Inpatient (IN) | payer MEDICARE, MEDICAID, SELFPAY ==
--- NOTE | ~2022-11-08 | XR_ITS ---
EXAMINATION: XR chest 1V portable DATE: 11/10/2022 09:30 INDICATION: Pneumonia. Fluid overload. TECHNIQUE: A single frontal view of the chest was obtained. COMPARISON: Chest single view 11/08/2022 FINDINGS: There are small pleural effusions. There are airspace opacities in the mid and lower lung z ones. No pneumothorax. Cardiomegaly is noted. IMPRESSION: 1. Stable airspace opacities in the mid and lower lung zones, consistent with atelectasis versus pneu monia. 2. Stable small pleural effusions. 3. Cardiomegaly. Reviewed, dictated and finalized at location A. IMPRESSION: 1. Stable airspace opacities in the mid and lower lung zones, consistent with a telectasis versus pneumonia. 2. Stable small pleural effusions. 3. Cardiomegaly.
--- NOTE | ~2022-11-08 | CT_ITS ---
EXAMINATION: CTA chest PE protocol DATE: 11/10/2022 18:25 INDICATION: R/O PE. ILD TECHNIQUE: Computed tomography angiography (CTA) of the chest was performed with 100 mL Omnipaque-350 intravenous contrast timed to evaluate the pulmonary arteries. Coronal maximum intensity projection 3D-reconstructions were created by the technologist. The dose-length product (DLP) was 794.77 mGy-cm. Automated exposure control and iterative reconstruction technique were employed. COMPARISON: 09/01/2018; x-ray chest 11/10/2022. FINDINGS: Lung parenchyma and airways: Scattered lung scarring. Minimal dependent atelectasis. Airways clear. Pleura: Unremarkable. Thoracic inlet, axillae and chest wall: Subcentimeter left thyroid lobe hypodensity, requiring no add itional workup. No axillary lymphadenopathy Thoracic aorta: Normal. Mediastinum: Enlarged precarinal, subcarinal and bilateral hilar lymph nodes. Enlarged central pulmon ba arteries as can be seen with pulmonary arterial hypertension. Heart and pericardium: Cardiomegaly. Mild mitral and aortic valve calcification. Coronary artery calcifications: Mild. Upper abdomen: No significant finding. Bones: No acute osseous finding. Severe arthritic changes in the bilateral shoulders. Erosive arthrit ic changes in the bilateral sternoclavicular joints, decreased associated soft tissue mass, biopsy-pr oven rheumatoid arthritis. Pulmonary arteries: Study quality: Adequate. No pulmonary emboli detected. IMPRESSION: No CT evidence of acute pulmonary embolus. Mediastinal lymphadenopathy. Scattered areas of lung scarring and atelectasis, no focal consolidation concerning for pneumonia. Reviewed, dictated and finalized at location K. IMPRESSION: No CT evidence of acute pulmonary embolus. Mediastinal lymphadenopathy. Scattered areas of lung scarring and atelectasis, no focal consolidation concer steve for pneumonia.
--- NOTE | ~2022-11-08 | XR_ITS ---
EXAMINATION: XR chest 1V portable DATE: 11/08/2022 21:22 INDICATION: Respiratory failure. TECHNIQUE: A single frontal view of the chest was obtained. COMPARISON: Chest single view 11/08/2022 at 4:35 PM FINDINGS: There are airspace opacities in the mid and lower lung zones. There are small pleural effus ions. No pneumothorax. Cardiomegaly is noted. IMPRESSION: 1. Airspace opacities in the mid and lower lung zones with mild worsening on the right, consistent wi th atelectasis versus pneumonia. 2. Stable small pleural effusions. 3. Cardiomegaly. Reviewed, dictated and finalized at location E. IMPRESSION: 1. Airspace opacities in the mid and lower lung zones with mild worsening on th e right, consistent with atelectasis versus pneumonia. 2. Stable small pleural effusions. 3. Cardiomegaly.
--- NOTE | 2022-11-08 21:10 | PM.IMHP ---
H&P: HPI History of Present Illness Date/Time: 11/08/22 21:10 Chief Complaint: SOB Narrative: THIS IS A 62-YEAR-OLD FEMALE WITH PAST MEDICAL HISTORY SIGNIFICANT FOR CHRONIC RESPIRATORY FAILURE WITH HYPOXIA AND HYPERCARBIA PATIENT IS ON 2 L BY NASAL CANNULA AT REST AND 4 L WITH ACTIVITY AT HOME AT NIGHTTIME SHE WEARS OXYGEN WELL 2 L, COPD/EMPHYSEMA, TYPE 2 DIABETES MELLITUS, TOBACCO DEPENDENCE. PATIENT COMES A TRANSFER FROM ON EMERGENCY ROOM FROM OUTSIDE HOSPITAL DUE TO RESPIRATORY FAILURE REQUIRING BIPAP. HISTORY TAKING IS LIMITED DUE TO THE USE OF BIPAP AT THE TIME OF MY VISIT PATIENT IS ON BIPAP THERAPY. PRELIMINARY WORKUP WAS SIGNIFICANT FOR ABG WITH PH OF 7.31 PCO2 83 PO2 78 EXAMINATION: XR chest 1V portable DATE: 11/08/2022 21:22 INDICATION: Respiratory failure. TECHNIQUE: A single frontal view of the chest was obtained. COMPARISON: Chest single view 11/08/2022 at 4:35 PM FINDINGS: There are airspace opacities in the mid and lower lung zones. There are small pleural effusions. No pneumothorax. Cardiomegaly is noted. IMPRESSION: 1. Airspace opacities in the mid and lower lung zones with mild worsening on the right, consistent with atelectasis versus pneumonia. 2. Stable small pleural effusions. 3. Cardiomegaly. EKG Rate 111 MN 171 QRSd 81 QT 347 QTc 472 --[place]-- P 57 QRS -31 T 56 SINUS TACHYCARDIA LEFT AXIS DEVIATION [QRS AXIS < -30] SEPTAL MYOCARDIAL INFARCTION , PROBABLY OLD [40+ ms Q WAVE IN V1/V2] NO PREVIOUS ECG AVAI Review of Systems Review of Systems: ROS unobtainable: Yes unobtainable due to medical condition ( RESPIRATORY FAILURE ON BIPAP) [facility] Social History Social History Years smoked: 40 Smoking status: Current every day smoker Tobacco type: cigarettes Second hand tobacco smoke exposure: Yes Alcohol intake: former Drinks per week: 7 Substance use: never Substance use type: does not use Lack of Transportation: No Lack of Food: Never True Current Housing: I Have Housing Concerned About Future Housing: No Difficulty Paying Gas/Electric Bills: No Difficulty Paying for Meds: No Currently Unemployed: No Education: Associate Degree Difficulty w/ Childcare or Family Care: No Spiritual care concerns: No Meds Home Medications and Allergies Home Medications Medication Instructions Recorded Confirmed Type aspirin 325 mg tablet 325 mg PO DAILY 10/08/21 11/08/22 History bupropion HCl 150 mg 24 hr tablet, 150 mg PO QAM 10/08/21 11/08/22 History extended release losartan 50 mg tablet 50 mg PO DAILY 10/08/21 11/08/22 History metformin 500 mg tablet 500 mg PO BID 10/08/21 11/08/22 History vhdvleyojmdw-bivwhfig-pifons tablet 1 tablet PO DAILY 10/08/21 11/08/22 History venlafaxine 75 mg tablet,extended 75 mg PO DAILY 10/08/21 11/08/22 History release 24 hr ergocalciferol (vitamin D2) 1,250 1,250 mcg PO WEEKLY 09/04/22 11/08/22 History mcg (50,000 unit) capsule (Vitamin D2) Allergies Allergy/AdvReac Type Severity Reaction Status Date / Time clarithromycin Allergy Unknown Rash Verified 11/08/22 16:36 clindamycin Allergy Unknown Rash Verified 11/08/22 16:36 Exam Narrative: PATIENT IS IN SEMI UPRIGHT POSITION IN BED BIPAP ON Const: General: comfortable, no acute distress, well developed, alert, awake, ill appearing chronically and obese Nutritional Appearance: average body habitus Orientation/consciousness: patient oriented x3 HENMT: Head: normal to inspection, normocephalic and atraumatic Ears: hearing grossly normal bilaterally Face/Nose/Sinus: normal facial exam Face and sinus: normal facial exam Eyes: General: appearance normal, both eyes and all related structures Pupils: Equal, round and reactive pupils present EOM: EOMs intact bilaterally Neck: Neck: full ROM, no lymphadenopathy and no JVD Thyroid: thyroid normal Lymphatic: no lymphadenopathy noted Resp: Effort &
[2022-11-08 21:11] VITALS: BP 102/87; PULSE 104; RESP 28; TEMP 36.4; O2SAT 90
--- NOTE | 2022-11-08 21:19 | ADMGEN ---
This patient, Minda Francois, was admitted to IMU Room 214-01 at 2111. Patient/family oriented to hospital policies and general routines including ID bracelet, bed and alarms, visiting hours, pain management, procedures, bathroom and other care routines, personal items, smoking policy, room service/diet, and visiting hours. Information on how to activate the Rapid Response Team has been discussed. Patient/Family are encouraged to report perceived risks to care and to ask questions if they do not understand what they are told or what they should do.
[2022-11-08 21:23] VITALS: PULSE 121; RESP 40; O2SAT 92
[2022-11-08 21:36] VITALS: BMI 33.6
[2022-11-08 21:45] LABS: Basophils Absolute Auto 0.1 K/mm3 (0.0-0.1); Basophils Percent Auto 0.5 % (0.2-1.2); Hematocrit 52.6 % (37.0-47.0); Hemoglobin 15.2 g/dL (12.0-15.0); Immature Granulocyte Absolute 0.07 K/mm3 (0.00-0.031); Immature Granulocyte Percent A 0.4 % (0-0.5); Lymphocytes Absolute Auto 0.33 K/mm3 (0.9-3.2); Lymphocytes Percent Auto 1.8 % (18.3-44.2); Mean Corpuscular HGB Conc 28.9 g/dl (32-36); Mean Corpuscular Hemoglobin 26.6 pg (26-34); Mean Platelet Volume 10.5 fl (7.4-10.4); Monocytes Absolute Auto 0.1 K/mm3 (0.1-0.6); Monocytes Percent Auto 0.7 % (2.6-8.5); Neutrophils Absolute Auto 17.8 K/mm3 (1.3-6.7); Neutrophils Percent Auto 96.6 % (45.5-73.1); Nucleated Red Blood Cells Perc 0.1 % (0.0-0.2); Platelet Count Result 358 k/mm3 (150-375); Red Blood Count 5.72 M/mm3 (4.2-5.4); Red Cell Distribution Width 18.4 % (11.5-14.5); White Blood Count 18.5 K/mm3 (4.5-10.0)
[2022-11-08 21:53] LABS: Hypochromasia 1+ (NORMAL); Platelet Estimate Adequate (Adequate); Schistocytes None Seen (NORMAL)
[2022-11-08] MEDS: MORPHINE SULFATE (*CRX) 2 MG/ML INJ IV PUSH (21:53)
[2022-11-08 21:56] VITALS: BMI 33.6
[2022-11-08 21:56] LABS: Prothrombin Time 13.1 Seconds (11.1-14.7)
[2022-11-08 21:57] LABS: Anion Gap 6 mmol/L (8-16); Blood Urea Nitrogen 14 mg/dL (7-17); Calcium 8.7 mg/dL (8.4-10.2); Carbon Dioxide 39 mmol/L (22-30); Chloride 95 mmol/L (98-107); Estimated CRCL calculation 137 ml/min; Estimated Glomerular Filt Rate > 60; Glucose 215 mg/dL (65-110); Lactic Acid Reflex 1.2 mmol/L (0.7-2.0); Magnesium 1.9 mg/dL (1.6-2.3); Phosphorus 3.9 mg/dL (2.5-4.5); Potassium 4.2 mmol/L (3.4-5.0); Sodium 140 mmol/L (137-145)
[2022-11-08 22:00] VITALS: PULSE 105
[2022-11-08 22:06] LABS: NT Pro B Type Natriuretic Pept 3010 pg/mL (19.9-100)
[2022-11-08 23:45] VITALS: BP 112/75; PULSE 84; RESP 30; TEMP 36.7; O2SAT 92
[2022-11-09] VITALS (34 sets, daily range): BP systolic 89–163; BP diastolic 61–79; PULSE 54–105; RESP 20–32; TEMP 35.8–36.6; O2SAT 92–100
[2022-11-09] MEDS: methylPREDNISolone SOD SUCC 125 MG VIAL 60 MG IV PUSH ×5 (00:09→23:49)
[2022-11-09] MEDS: IPRATROPIUM BR 0.02% INH SOLN 0.5 MG/2.5 ML VIAL INHALATION ×6 (00:11→19:50)
[2022-11-09] MEDS: ALBUTEROL SULFATE NEB 2.5 MG/3 ML INH INHALATION ×6 (00:11→19:50)
[2022-11-09 00:33] LABS: Alveolar/Arterial O2 Gradient 210.5 mmHg; Base Excess ABG 8.3 mEq/l (+/-2.0); Carboxyhemoglobin 2.2 % THb (0-2.0); Fractional Inspired Oxygen 50 %; HCO3 ABG 37.8 mEq/l (22.0-26.0); Methemoglobin ABG 0.3 %THb (0-1.5); Oxygen Saturation ABG 89.3 % (95.0-100.0); Oxyhemoglobin 88.4 % THb (90.0-100.0); PO2 ABG 62.6 mmHg (80.0-100.0); PO2 FiO2 Ratio Arterial Blood 1.25 %; Reduced Hemoglobin 9.1 %THb (0-5.0); Total Hemoglobin 16.1 g/dL (12.0-18.0); pH ABG 7.326 (7.350-7.450)
[2022-11-09 00:36] LABS: Device BIPAP; Modified Allen's Test Pass; Site Drawn LEFT RADIAL
[2022-11-09 00:37] LABS: Expiratory Pressure 6 cmH2O; Inspiratory Pressure 12 cmH2O
[2022-11-09] MEDS: MORPHINE SULFATE (*CRX) 2 MG/ML INJ IV PUSH ×2 (01:57→05:33)
[2022-11-09] MEDS: cefTRIAXone 2 GM/NS 100 ML 2 GM/100 ML BAG IVPB (04:18)
[2022-11-09] MEDS: DOXYCYCLINE 100 MG/NS 100 ML 100 MG/100 ML BAG IVPB (04:19)
[2022-11-09 06:01] LABS: Alveolar/Arterial O2 Gradient 326.5 mmHg; Base Excess ABG 7.8 mEq/l (+/-2.0); Fractional Inspired Oxygen 70 %; Oxygen Content ABG 18.8 %vol (16.0-22.0); Oxyhemoglobin 94.4 % THb (90.0-100.0); PO2 ABG 91.9 mmHg (80.0-100.0); PO2 FiO2 Ratio Arterial Blood 1.31 %; Total Hemoglobin 14.1 g/dL (12.0-18.0); pH ABG 7.311 (7.350-7.450)
[2022-11-09 06:04] LABS: PCO2 ABG 75.1 mmHg (35.0-45.0); Site Drawn RIGHT RADIAL
[2022-11-09 06:05] LABS: Device BIPAP; Expiratory Pressure 10 cmH2O; Inspiratory Pressure 18 cmH2O; Modified Allen's Test Pass
[2022-11-09] MEDS: VENLAFAXINE HCL XR 75 MG CAP.ER.24H PO (10:17)
[2022-11-09] MEDS: LOSARTAN POTASSIUM 50 MG TABLET PO (10:17)
[2022-11-09] MEDS: ASPIRIN 325 MG TABLET PO (10:17)
[2022-11-09] MEDS: ENOXAPARIN 40 MG/0.4 ML SYRINGE SUB-Q (10:18)
[2022-11-09] MEDS: buPROPion HCL XL (24 HR) 150 MG TABCR PO (10:18)
--- NOTE | 2022-11-09 11:10 | PM.IMPN ---
Progress Note: A&P Assessment and Plan (1) Acute on chronic respiratory failure with hypoxia and hypercapnia: Code(s): J96.21 - Acute and chronic respiratory failure with hypoxia; J96.22 - Acute and chronic respiratory failure with hypercapnia Status: Acute Assessment and Plan: ADMIT TO IMU CURRENTLY ON BIPAP TRY AND KEEP OXYGEN SATURATION BETWEEN 92-94% CONTINUOUS PULSE OX CONTINUOUS TELEMETRY PULMONOLOGY CONSULT SUPPORTIVE CARE CONTINUE TO MONITOR (2) Emphysema/COPD: Code(s): J43.9 - Emphysema, unspecified Status: Acute Assessment and Plan: ACUTE EXACERBATION BREATHING TREATMENTS Q.4 HOURS (3) Tobacco dependence: Code(s): F17.200 - Nicotine dependence, unspecified, uncomplicated Status: Acute Assessment and Plan: NICOTINE PATCH NEEDED (4) Pneumonia: Code(s): J18.9 - Pneumonia, unspecified organism Status: Acute Assessment and Plan: WILL START ROCEPHIN AND DOXYCYCLINE CULTURES IN PROGRESS Subjective Date/time seen: 11/09/22 11:10 Interval history: No complaints On BiPAP Exam Narrative: PATIENT IS IN SEMI UPRIGHT POSITION IN BED BIPAP ON Const: General: comfortable, no acute distress, well developed, alert, awake, ill appearing chronically, average body habitus and obese Nutritional Appearance: average body habitus and obese Orientation/consciousness: patient oriented x3 HENMT: Head: normal to inspection, normocephalic and atraumatic Ears: hearing grossly normal bilaterally Face/Nose/Sinus: normal facial exam Face and sinus: normal facial exam Eyes: General: appearance normal, both eyes and all related structures Pupils: Equal, round and reactive pupils present EOM: EOMs intact bilaterally Neck: Neck: full ROM, no lymphadenopathy and no JVD Thyroid: thyroid normal Lymphatic: no lymphadenopathy noted Resp: Effort & Inspection: normal respiratory effort, no audible wheezes, not labored, no paradoxical thoraco-abdom movements, not tachypneic and symmetric chest movement Auscultation: diminished lung sounds Cardio: Jugular venous distension: no JVD Rate: regular rate Rhythm: regular rhythm Heart sounds: S1 normal heart sound present and S2 normal heart sound present GI: Inspection: Pannus present and obesity : General: Yes deferred Skin: Rashes: no rashes Wounds: no wounds Neuro: General: patient oriented x3, CN's II-XI intact bilaterally and Unable to assess gait Cranial nerves: Yes CN's II-XII intact bilaterally and Yes Equal, round and reactive pupils present Cognition (Neuro): normal cognition Speech: normal speech Gait exam (Neuro): Unable to assess gait Motor exam (neuro): 5/5 motor strength present throughout Extrem: General: normal to inspection, full ROM, no joint enlargement and no pedal edema Objective Data Vital Signs Vital Signs: Vital Signs - 24 hr 11/08/22 21:11 11/08/22 21:23 11/08/22 22:00 Temperature 97.6 F Pulse Rate 104 H 121 H 105 H Respiratory Rate 28 H 40 H Blood Pressure 102/87 Pulse Oximetry 90 92 Oxygen Delivery BiPAP Oxygen Flow Rate Fraction of Inspired Oxygen 11/08/22 23:45 11/09/22 00:11 11/09/22 00:27 Temperature 98.1 F Pulse Rate 84 99 100 Respiratory Rate 30 H 32 H 32 H Blood Pressure 112/75 Pulse Oximetry 92 Oxygen Delivery Oxygen Flow Rate Fraction of Inspired Oxygen 11/09/22 00:00 11/09/22 00:00 11/09/22 01:09 Temperature Pulse Rate 87 87 96 Respiratory Rate 24 H 20 Blood Pressure Pulse Oximetry 93 98 Oxygen Delivery BiPAP BiPAP Oxygen Flow Rate 18 22 Fraction of Inspired Oxygen 50 70 11/09/22 02:00 11/09/22 04:00 11/09/22 04:00 Temperature 98 F Pulse Rate 85 87 Respiratory Rate 23 H Blood Pressure 89/63 L 147/68 H Pulse Oximetry 98 Oxygen Delivery Oxygen Flow Rate Fraction of Inspired Oxygen 11/09/22 04:57 11/09/22 02:20 11/09/22 04:00 Temperature Pulse
[2022-11-09 12:03] LABS: Alveolar/Arterial O2 Gradient 266.3 mmHg; Base Excess ABG 12.8 mEq/l (+/-2.0); Fractional Inspired Oxygen 65 %; HCO3 ABG 43.4 mEq/l (22.0-26.0); Oxygen Content ABG 19.6 %vol (16.0-22.0); Oxygen Saturation ABG 96.7 % (95.0-100.0); Oxyhemoglobin 95.2 % THb (90.0-100.0); PO2 ABG 101.2 mmHg (80.0-100.0); PO2 FiO2 Ratio Arterial Blood 1.56 %; Total Hemoglobin 14.6 g/dL (12.0-18.0)
[2022-11-09 12:06] LABS: PCO2 ABG 88.2 mmHg (35.0-45.0)
[2022-11-09 12:07] LABS: Device NON-INVASIVE VENT; Modified Allen's Test Pass; Non-Invasive Expiratory Pressure 10 CMH2O; Non-Invasive Inspiratory Pressure 18 CMH2O; Non-Invasive Vent Rate 22 /MIN; Site Drawn RIGHT RADIAL
[2022-11-09 17:59] LABS: Alveolar/Arterial O2 Gradient 162.7 mmHg; Base Excess ABG 13.6 mEq/l (+/-2.0); Carboxyhemoglobin 2.2 % THb (0-2.0); Fractional Inspired Oxygen 45 %; HCO3 ABG 43.1 mEq/l (22.0-26.0); Methemoglobin ABG 0.3 %THb (0-1.5); Oxygen Content ABG 18.3 %vol (16.0-22.0); Oxygen Saturation ABG 91.9 % (95.0-100.0); Oxyhemoglobin 90.4 % THb (90.0-100.0); PO2 ABG 68.3 mmHg (80.0-100.0); PO2 FiO2 Ratio Arterial Blood 1.52 %; Reduced Hemoglobin 7.1 %THb (0-5.0); Total Hemoglobin 14.4 g/dL (12.0-18.0); pH ABG 7.355 (7.350-7.450)
[2022-11-09 18:01] LABS: Device NON-INVASIVE VENT; Modified Allen's Test Pass; Non-Invasive Expiratory Pressure 10 CMH2O; Non-Invasive Inspiratory Pressure 18 CMH2O; Non-Invasive Vent Rate 22 /MIN; Site Drawn RIGHT RADIAL
[2022-11-09] MEDS: ACETAMINOPHEN 500 MG TABLET 1000 MG PO (21:30)
[2022-11-09] MEDS: LORazepam INJ (*CRX) 2 MG/ML VIAL 1 MG IV PUSH (21:31)
[2022-11-10] VITALS (28 sets, daily range): BP systolic 108–156; BP diastolic 53–90; PULSE 78–107; RESP 17–31; TEMP 36.1–37.4; O2SAT 89–100
--- NOTE | 2022-11-10 | ECHO_ITS ---
Patient Info Name: Minda Francois Age: 62 years : 1960 Gender: Female Ht: 66 in Wt: 209 lbs BSA: 2.14 m2 HR: 87 bpm BP: 156 / 82 mmHg Heart Rhythm: Sinus Rhythm Technical Quality: Fair Exam Date: 11/10/2022 11:15 AM Exam Location: [facility] Patient Status: Inpatient Admit Date: 11/08/2022 Staff Ordering Physician: Rupa Whitfield MD [place] Operator: Kim Barry RDCS Attending Provider: Rupa Whitfield MD Referring Physician: Roseann LUNDBERG; Exam Type: CA echo doppler color flow Study Info Indications - respiratory failure Complete two-dimensional, color flow and Doppler transthoracic echocardiogram is performed. Summary 1. Complete two-dimensional, color flow and Doppler transthoracic echocardiogram is performed. 2. Left ventricular chamber dimension is mildly enlarged. 3. Left ventricular systolic function is normal, estimated at 55-60%. 4. The left ventricular diastolic function is abnormal. 5. E/e' 23 is elevated. 6. Right atrial chamber dimension is mildly enlarged. 7. The aortic valve is not well visualized. Cannot determine number of aortic valve leaflets. 8. The mitral valve has moderately calcified annulus. 9. There is trace tricuspid valve regurgitation. 10. No pulmonary hypertension, estimated pulmonary arterial systolic pressure is 26 mmHg. Left Ventricle E/e' 23 is elevated. Left ventricular chamber dimension is mildly enlarged. Left ventricular systolic function is normal, estimated at 55-60%. The left ventricular diastolic function is abnormal. Right Ventricle Right ventricular systolic function is normal and with normal TAPSE 2.1 cm. Right ventricular chamber dimension is normal. Left Atria Left atrial chamber dimension is normal. Right Atria Right atrial chamber dimension is mildly enlarged. Aortic Valve The aortic valve is not well visualized. Cannot determine number of aortic valve leaflets. There is no aortic valve stenosis based on valve gradients and velocity. There is no aortic valve regurgitation. Pulmonic Valve There is no pulmonic regurgitation. Mitral Valve The mitral valve has moderately calcified annulus. There is no mitral valve stenosis. There is no mitral valve regurgitation. Tricuspid Valve There is trace tricuspid valve regurgitation. No pulmonary hypertension, estimated pulmonary arterial systolic pressure is 26 mmHg. Pericardium/Pleural There is no pericardial effusion. Inferior Vena Cava Normal inferior vena cava with >50% collapse upon inspiration consistent with normal right atrial pressure, 5 mmHg. Aorta The aortic root size at the sinus of Valsalva is normal. Left Ventricular Outflow Tract Name Value Normal LVOT 2D LVOT Diameter 2.0 cm LVOT Doppler LVOT Peak Gradient 3 mmHg LVOT Mean Gradient 1 mmHg LVOT VTI 18 cm LVOT VTI/AV VTI Ratio 0.7 LVOT Stroke Volume 54 ml LVOT CO 4.4 l/min LVOT CI 2.0 l/min/m2 Pulmonic Valve
[2022-11-10] MEDS: IPRATROPIUM BR 0.02% INH SOLN 0.5 MG/2.5 ML VIAL INHALATION ×6 (00:11→20:39)
[2022-11-10] MEDS: ALBUTEROL SULFATE NEB 2.5 MG/3 ML INH INHALATION ×6 (00:12→20:39)
[2022-11-10] MEDS: cefTRIAXone 2 GM/NS 100 ML 2 GM/100 ML BAG IVPB (04:26)
[2022-11-10] MEDS: DOXYCYCLINE 100 MG/NS 100 ML 100 MG/100 ML BAG IVPB (04:26)
[2022-11-10 04:52] LABS: Basophils Percent Auto 0.1 % (0.2-1.2); Hematocrit 45.7 % (37.0-47.0); Hemoglobin 13.4 g/dL (12.0-15.0); Immature Granulocyte Absolute 0.09 K/mm3 (0.00-0.031); Immature Granulocyte Percent A 0.5 % (0-0.5); Lymphocytes Absolute Auto 0.38 K/mm3 (0.9-3.2); Lymphocytes Percent Auto 2.2 % (18.3-44.2); Mean Corpuscular HGB Conc 29.3 g/dl (32-36); Mean Corpuscular Hemoglobin 26.4 pg (26-34); Mean Corpuscular Volume 90.1 fl (80-100); Mean Platelet Volume 10.3 fl (7.4-10.4); Monocytes Absolute Auto 0.5 K/mm3 (0.1-0.6); Monocytes Percent Auto 2.8 % (2.6-8.5); Neutrophils Percent Auto 94.4 % (45.5-73.1); Platelet Count Result 385 k/mm3 (150-375); Red Blood Count 5.07 M/mm3 (4.2-5.4); Red Cell Distribution Width 17.1 % (11.5-14.5); White Blood Count 16.9 K/mm3 (4.5-10.0)
[2022-11-10 05:12] LABS: Blood Urea Nitrogen 41 mg/dL (7-17); Calcium 8.8 mg/dL (8.4-10.2); Carbon Dioxide > 40 mmol/L (22-30); Chloride 95 mmol/L (98-107); Estimated CRCL calculation 113 ml/min; Estimated Glomerular Filt Rate > 60; Glucose 216 mg/dL (65-110); Potassium 4.6 mmol/L (3.4-5.0); Sodium 136 mmol/L (137-145)
[2022-11-10] MEDS: methylPREDNISolone SOD SUCC 125 MG VIAL 60 MG IV PUSH ×3 (05:22→17:32)
[2022-11-10 05:27] LABS: Platelet Estimate Adequate (Adequate)
[2022-11-10 05:28] LABS: Schistocytes None Seen (NORMAL)
[2022-11-10 05:29] LABS: Hypochromasia 1+ (NORMAL)
[2022-11-10 05:42] LABS: Alveolar/Arterial O2 Gradient 272.6 mmHg; Base Excess ABG 12.1 mEq/l (+/-2.0); Carboxyhemoglobin 0.9 % THb (0-2.0); Fractional Inspired Oxygen 60 %; Methemoglobin ABG 0.3 %THb (0-1.5); Oxygen Content ABG 18.3 %vol (16.0-22.0); Oxygen Saturation ABG 95.5 % (95.0-100.0); Oxyhemoglobin 94.8 % THb (90.0-100.0); PO2 ABG 81.1 mmHg (80.0-100.0); PO2 FiO2 Ratio Arterial Blood 1.35 %; Total Hemoglobin 13.7 g/dL (12.0-18.0); pH ABG 7.391 (7.350-7.450)
[2022-11-10 05:46] LABS: Modified Allen's Test Pass; PCO2 ABG 67.4 mmHg (35.0-45.0); Site Drawn RIGHT RADIAL
[2022-11-10 05:47] LABS: Device NON-INVASIVE VENT
[2022-11-10 05:48] LABS: Non-Invasive Expiratory Pressure 8 CMH2O; Non-Invasive Inspiratory Pressure 20 CMH2O; Non-Invasive Vent Rate 16 /MIN
[2022-11-10] MEDS: ENOXAPARIN 40 MG/0.4 ML SYRINGE SUB-Q (09:01)
[2022-11-10] MEDS: buPROPion HCL XL (24 HR) 150 MG TABCR PO (09:01)
[2022-11-10] MEDS: LOSARTAN POTASSIUM 50 MG TABLET PO (09:01)
[2022-11-10] MEDS: VENLAFAXINE HCL XR 75 MG CAP.ER.24H PO (09:01)
[2022-11-10] MEDS: ASPIRIN 325 MG TABLET PO (09:01)
[2022-11-10 10:52] LABS: NT Pro B Type Natriuretic Pept 1630 pg/mL (19.9-100)
[2022-11-10 11:00] LABS: Free T4 Free Thyroxine 1.31 ng/mL (0.78-2.19)
[2022-11-10 11:19] LABS: Thyroid Stimulating Hormone 0.038 uIU/mL (0.465-4.680)
--- NOTE | 2022-11-10 12:55 | PM.IMPN ---
Progress Note: A&P Assessment and Plan (1) Acute on chronic respiratory failure with hypoxia and hypercapnia: Code(s): J96.21 - Acute and chronic respiratory failure with hypoxia; J96.22 - Acute and chronic respiratory failure with hypercapnia Status: Acute Assessment and Plan: ADMIT TO IMU Now off BiPAP. Continue nebulizers, antibiotics, prednisone. Appreciate pulmonary input. Continue oxygen. (2) Emphysema/COPD: Code(s): J43.9 - Emphysema, unspecified Status: Acute Assessment and Plan: Acute exacerbation, see plan above (3) Tobacco dependence: Code(s): F17.200 - Nicotine dependence, unspecified, uncomplicated Status: Acute Assessment and Plan: NICOTINE PATCH NEEDED (4) Pneumonia: Code(s): J18.9 - Pneumonia, unspecified organism Status: Acute Assessment and Plan: WILL START ROCEPHIN AND DOXYCYCLINE CULTURES IN PROGRESS Subjective Date/time seen: 11/10/22 12:55 Interval history: Breathing is better. Taken off BiPAP this morning. She is now on high-flow nasal cannula. Wants to eat. Exam Narrative: PATIENT IS IN SEMI UPRIGHT POSITION IN BED BIPAP ON Const: General: comfortable, no acute distress, well developed, alert, awake, ill appearing chronically, average body habitus and obese Nutritional Appearance: average body habitus and obese Orientation/consciousness: patient oriented x3 HENMT: Head: normal to inspection, normocephalic and atraumatic Ears: hearing grossly normal bilaterally Face/Nose/Sinus: normal facial exam Face and sinus: normal facial exam Eyes: General: appearance normal, both eyes and all related structures Pupils: Equal, round and reactive pupils present EOM: EOMs intact bilaterally Neck: Neck: full ROM, no lymphadenopathy and no JVD Thyroid: thyroid normal Lymphatic: no lymphadenopathy noted Resp: Effort & Inspection: normal respiratory effort, no audible wheezes, not labored, no paradoxical thoraco-abdom movements, not tachypneic and symmetric chest movement Auscultation: diminished lung sounds Cardio: Jugular venous distension: no JVD Rate: regular rate Rhythm: regular rhythm Heart sounds: S1 normal heart sound present and S2 normal heart sound present GI: Inspection: Pannus present and obesity : General: Yes deferred Skin: Rashes: no rashes Wounds: no wounds Neuro: General: patient oriented x3, CN's II-XI intact bilaterally and Unable to assess gait Cranial nerves: Yes CN's II-XII intact bilaterally and Yes Equal, round and reactive pupils present Cognition (Neuro): normal cognition Speech: normal speech Gait exam (Neuro): Unable to assess gait Motor exam (neuro): 5/5 motor strength present throughout Extrem: General: normal to inspection, full ROM, no joint enlargement and no pedal edema Objective Data Vital Signs Vital Signs: Vital Signs - 24 hr 11/09/22 16:46 11/09/22 16:54 11/09/22 16:55 Temperature Pulse Rate 90 90 94 Respiratory Rate 29 H 29 H 28 H Blood Pressure Pulse Oximetry 93 Oxygen Delivery BiPAP Fraction of Inspired Oxygen 11/09/22 14:00 11/09/22 16:00 11/09/22 16:00 Temperature Pulse Rate 97 102 H Respiratory Rate Blood Pressure Pulse Oximetry 94 Oxygen Delivery BiPAP Fraction of Inspired Oxygen 40 11/09/22 16:00 11/09/22 18:00 11/09/22 18:19 Temperature 96.4 F L Pulse Rate 92 94 92 Respiratory Rate 27 H 26 H Blood Pressure 120/79 Pulse Oximetry 95 94 Oxygen Delivery BiPAP Fraction of Inspired Oxygen 11/09/22 19:50 11/09/22 19:57 11/09/22 19:59 Temperature Pulse Rate 94 95 86 Respiratory Rate 25 H 25 H 25 H Blood Pressure Pulse Oximetry 94 Oxygen Delivery BiPAP Fraction of Inspired Oxygen 11/09/22 21:17 11/09/22 22:59 11/09/22 23:43 Temperature 97.5 F L 97.9 F Pulse Rate 99 95 81 Respiratory Rate 28 H 23 H 22 H Blood Pressure 136/69 145/73 H Pulse Oximetry 94 94 92
--- NOTE | 2022-11-10 13:23 | PM.CNPUL ---
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 She has removed the birds from her house and only had intermittent issues when she walks outside and gets exposed to the chickens that live on her property. Over the last few years she has not been outside due to her chronic back pain. On 10/31/2022 the patient was exposed to these check ins and immediately developed shortness of breath and wheezing which progressively worsened until she presented on 11/08/2021. 11/10 The patient stated she was improved and that she has felt 50% back to normal, she had no phlegm production in the cough was 80% better. She had wheezing on exam. She felt she could come off the BiPAP and I placed her on high-flow nasal cannula at 6 L and her saturations were 88%. She only tolerated this for 1 hour and was placed back on BiPAP. Plan: I will treat this as an acute allergic reaction to birds and will continue Solu-Medrol at 60 mg IV q.6 hours. I will continue albuterol and ipratropium nebulizers q.[address] Swanson. Will follow with you. (2) Emphysema/COPD: Code(s): J43.9 - Emphysema, unspecified Status: Acute Assessment and Plan: The patient has approximately 25 pack year history tobacco use in currently smoking a few puffs a day, alpha 1 anti trypsin genotype MS with a normal level, PFTs on 11/09/2018 with a severe obstructive abnormality, an FEV1 of 0.97, 38% predicted, FEV1: FVC ratio 68%, positive bronchodilator response, total lung capacity 89% and a DLCO unadjusted for hemoglobin and carboxyhemoglobin at 55 and when adjusted for alveolar volume at 111. Patient is on 2 L oxygen at rest and 4 with ambulation and 2 when she sleeps. 11/10/22 Plan: The patient may also have COPD. Will continue with IV steroids, albuterol and ipratropium nebulizers q.4 hours and empiric antibiotics. (3) Acute on chronic respiratory failure with hypoxia and hypercapnia: Code(s): J96.21 - Acute and chronic respiratory failure with hypoxia; J96.22 - Acute and chronic respiratory failure with hypercapnia Status: Acute Assessment and Plan: Etiology of patient's acute on chronic hypercarbic and hypoxemic respiratory failure include chronic hypersensitivity pneumonitis, COPD, obesity hypoventilation syndrome, thyroid disease and untreated obstructive sleep apnea 11/10: when I entered the room the patient was on BiPAP rate of 16 breathing 20 5 times a minute pressures 20/8, inspiratory time 1.2 sec, rise of 3 and 60% FiO2 with saturations 99%. The patient stated the mask was very uncomfortable. Since he has pressures were intolerable I placed her on a noninvasive ventilator with the AVAPS mode and adjusted the settings to comfort resulting in rate of 20, tidal volume 500, EPAP 7, minimal inspiratory pressure 8, maximal inspiratory pressure 25, inspiratory time 1.2, rise of 5, the slowest, and FiO2 of 40%. Plan: Low likelihood for bacterial infection but at this time will continue ceftriaxone and doxycycline pending cultures. I will order CT angiogram of the chest to exclude PE. I will order an echocardiogram to assess LV function, RV function and pulmonary pressures. I will repeat a BMP and check thyroid studies. History of Present Illness History of Present Illness Consult date: 11/10/22 Chief complaint: acute respiratory failure Narrative: 11/10/2022: This is a new pulmonary consult for respiratory failure. 62-year-old with a history of bird dander hypersensitivity diagnosed in 1999, asthma, COPD on 2 L oxygen at rest and 4 L with activity, obstructive sleep apnea with a sleep study in July of 2018 but has not worn her
--- NOTE | 2022-11-10 20:02 | PC.NURSE ---
pt went to CT on bipap with RN and respiratory present. pt tolerated procedure well.
[2022-11-10] MEDS: ACETAMINOPHEN 325 MG TABLET 650 MG PO (20:25)
[2022-11-10] MEDS: MORPHINE SULFATE (*CRX) 2 MG/ML INJ IV PUSH (21:00)
[2022-11-11] VITALS (28 sets, daily range): BP systolic 139–158; BP diastolic 50–86; PULSE 65–105; RESP 18–30; TEMP 36.1–37.1; O2SAT 80–98
[2022-11-11] MEDS: methylPREDNISolone SOD SUCC 125 MG VIAL 60 MG IV PUSH ×2 (00:38→04:29)
[2022-11-11] MEDS: IPRATROPIUM BR 0.02% INH SOLN 0.5 MG/2.5 ML VIAL INHALATION ×6 (00:44→20:46)
[2022-11-11] MEDS: ALBUTEROL SULFATE NEB 2.5 MG/3 ML INH INHALATION ×6 (00:44→20:47)
[2022-11-11] MEDS: cefTRIAXone 2 GM/NS 100 ML 2 GM/100 ML BAG IVPB (04:30)
[2022-11-11] MEDS: DOXYCYCLINE 100 MG/NS 100 ML 100 MG/100 ML BAG IVPB ×2 (04:30→16:50)
[2022-11-11 04:39] LABS: Glucose Point of Care 219 mg/dl (65-105)
[2022-11-11 04:54] LABS: Alveolar/Arterial O2 Gradient 163.2 mmHg; Fractional Inspired Oxygen 45 %; Oxygen Content ABG 19.6 %vol (16.0-22.0); Oxygen Saturation ABG 97.5 % (95.0-100.0); Oxyhemoglobin 96.3 % THb (90.0-100.0); PCO2 ABG 54.6 mmHg (35.0-45.0); PO2 ABG 95.5 mmHg (80.0-100.0); PO2 FiO2 Ratio Arterial Blood 2.12 %; Total Hemoglobin 14.4 g/dL (12.0-18.0); pH ABG 7.461 (7.350-7.450)
[2022-11-11 04:56] LABS: Modified Allen's Test Pass; Site Drawn RIGHT RADIAL
[2022-11-11 04:57] LABS: Device NON-INVASIVE VENT
[2022-11-11 04:59] LABS: Non-Invasive Vent Rate 20 /MIN
[2022-11-11] MEDS: ONDANSETRON INJ 4 MG/2 ML VIAL IV PUSH (06:22)
[2022-11-11] MEDS: VENLAFAXINE HCL XR 75 MG CAP.ER.24H PO (08:23)
[2022-11-11] MEDS: buPROPion HCL XL (24 HR) 150 MG TABCR PO (08:24)
[2022-11-11] MEDS: ENOXAPARIN 40 MG/0.4 ML SYRINGE SUB-Q (08:24)
[2022-11-11] MEDS: ASPIRIN 325 MG TABLET PO (08:24)
[2022-11-11] MEDS: ACETAMINOPHEN 325 MG TABLET 650 MG PO ×2 (08:24→17:53)
[2022-11-11] MEDS: LOSARTAN POTASSIUM 50 MG TABLET PO (08:24)
--- NOTE | 2022-11-11 09:15 | PM.PNPUL ---
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 She has removed the birds from her house and only had intermittent issues when she walks outside and gets exposed to the chickens that live on her property. Over the last few years she has not been outside due to her chronic back pain. On 10/31/2022 the patient was exposed to these check ins and immediately developed shortness of breath and wheezing which progressively worsened until she presented on 11/08/2021. 11/10 The patient stated she was improved and that she has felt 50% back to normal, she had no phlegm production in the cough was 80% better. She had wheezing on exam. She felt she could come off the BiPAP and I placed her on high-flow nasal cannula at 6 L and her saturations were 88%. She only tolerated this for 1 hour and was placed back on BiPAP. Plan: I will treat this as an acute allergic reaction to birds and will continue Solu-Medrol at 60 mg IV q.6 hours. I will continue albuterol and ipratropium nebulizers q.4 hours. 11/11: Patient states she was improved today. She says she was 75% back to her normal. She has a little bit of cough but her [place] green mucus is now resolved. She has no wheezes. She is afebrile. Plan: I will place patient on prednisone 40 mg p.o. q.day and continue albuterol and ipratropium nebulizers q.[address] Swanson. Will follow with you. (2) Emphysema/COPD: Code(s): J43.9 - Emphysema, unspecified Status: Acute Assessment and Plan: The patient has approximately 30 pack year history tobacco use in currently smoking a few puffs a day, alpha 1 anti trypsin genotype MS with a normal level, PFTs on 11/09/2018 with a severe obstructive abnormality, an FEV1 of 0.97, 38% predicted, FEV1: FVC ratio 68%, positive bronchodilator response, total lung capacity 89% and a DLCO unadjusted for hemoglobin and carboxyhemoglobin at 55 and when adjusted for alveolar volume at 111. Patient has chronic hypercarbic respiratory failure and chronic hypoxemic respiratory failure on 2 L oxygen at rest and 4 with ambulation and 2 when she sleeps. Patient was on albuterol inhaler and albuterol nebulizers at home and these did provide help and she was using the inhaler 3 to 4 times a day when she was at her baseline. During this acute illness she was using albuterol inhaler 6 times a day and albuterol nebulizer 3 times a day. The patient has COPD with chronic hypercarbic respiratory failure with initial blood gas of 7.31/83/78 on admission and a serum bicarbonate of 38 on 11/08/2022. On 03/03/2022 patient's serum bicarbonate was 33. The patient would benefit from noninvasive ventilation to prevent further deterioration and subsequent hospitalizations. She has failed BiPAP previously and during this admission could not tolerate the pressures. I have placed her on noninvasive ventilation with the AVAPS mode and she has tolerated this well. 11/10/22 Plan: The patient has COPD. Will continue with IV steroids, albuterol and ipratropium nebulizers q.4 hours and empiric antibiotics. 11/11: Patient has no wheezing today and as above I will decrease her to prednisone 40 mg a day continue albuterol and ipratropium nebulizers. (3) Acute on chronic respiratory failure with hypoxia and hypercapnia: Code(s): J96.21 - Acute and chronic respiratory failure with hypoxia; J96.22 - Acute and chronic respiratory failure with hypercapnia Status: Acute Assessment and Plan: The patient has COPD with chronic hypercarbic respiratory failure with initial blood gas of 7.31/83/78 on admission and a serum bicarbonate of 38 on 11/08/2022. On 03/03/20
--- NOTE | 2022-11-11 10:39 | PCRCNOTE ---
Addendum entered by [employer], FIELD MACHINIST 11/11/22 10:41: PT. HAS OXYGEN WITH [facility] ALREADY. Original Note: TRILOGY ORDER AND PAPERWORK SENT TO [facility] [phone]. PLEASE CALL THEM WHEN PATIENT IS READY TO DISCHARGE.
[2022-11-11] MEDS: predniSONE 20 MG TABLET 40 MG PO (11:23)
[2022-11-11] MEDS: INSULIN ASPART (*BKC) 100 UNITS/ML SUB-Q ×3 (11:34→20:29)
--- NOTE | 2022-11-11 11:43 | PM.IMPN ---
Progress Note: A&P Assessment and Plan (1) Acute on chronic respiratory failure with hypoxia and hypercapnia: Code(s): J96.21 - Acute and chronic respiratory failure with hypoxia; J96.22 - Acute and chronic respiratory failure with hypercapnia Status: Acute Assessment and Plan: ADMIT TO IMU Now off BiPAP. Continue nebulizers, antibiotics, prednisone. Appreciate pulmonary input. Plan to try Non invasive ventilator at night - adjustments per pulmnoary. Continue oxygen. (2) Emphysema/COPD: Code(s): J43.9 - Emphysema, unspecified Status: Acute Assessment and Plan: Acute exacerbation, see plan above (3) Tobacco dependence: Code(s): F17.200 - Nicotine dependence, unspecified, uncomplicated Status: Acute Assessment and Plan: NICOTINE PATCH NEEDED (4) Pneumonia: Code(s): J18.9 - Pneumonia, unspecified organism Status: Acute Assessment and Plan: cta noted -? pna ? need for abx - will defer to pulmonary Subjective Date/time seen: 11/11/22 11:43 Interval history: No new complaints. Breathing is better. Exam Narrative: PATIENT IS IN SEMI UPRIGHT POSITION IN BED BIPAP ON Const: General: comfortable, no acute distress, well developed, alert, awake, ill appearing chronically, average body habitus and obese Nutritional Appearance: average body habitus and obese Orientation/consciousness: patient oriented x3 HENMT: Head: normal to inspection, normocephalic and atraumatic Ears: hearing grossly normal bilaterally Face/Nose/Sinus: normal facial exam Face and sinus: normal facial exam Eyes: General: appearance normal, both eyes and all related structures Pupils: Equal, round and reactive pupils present EOM: EOMs intact bilaterally Neck: Neck: full ROM, no lymphadenopathy and no JVD Thyroid: thyroid normal Lymphatic: no lymphadenopathy noted Resp: Effort & Inspection: normal respiratory effort, no audible wheezes, not labored, no paradoxical thoraco-abdom movements, not tachypneic and symmetric chest movement Auscultation: diminished lung sounds Cardio: Jugular venous distension: no JVD Rate: regular rate Rhythm: regular rhythm Heart sounds: S1 normal heart sound present and S2 normal heart sound present GI: Inspection: Pannus present and obesity : General: Yes deferred Skin: Rashes: no rashes Wounds: no wounds Neuro: General: patient oriented x3, CN's II-XI intact bilaterally and Unable to assess gait Cranial nerves: Yes CN's II-XII intact bilaterally and Yes Equal, round and reactive pupils present Cognition (Neuro): normal cognition Speech: normal speech Gait exam (Neuro): Unable to assess gait Motor exam (neuro): 5/5 motor strength present throughout Extrem: General: normal to inspection, full ROM, no joint enlargement and no pedal edema Objective Data Vital Signs Vital Signs: Vital Signs - 24 hr 11/10/22 12:00 11/10/22 12:00 11/10/22 12:00 Temperature 99.4 F Pulse Rate 78 107 H 83 Respiratory Rate 24 H 22 H Blood Pressure 151/64 H Pulse Oximetry 95 98 Pulse Oximetry [With Activity During Therapy Session] Oxygen Delivery BiPAP Oxygen Flow Rate Fraction of Inspired Oxygen 60 11/10/22 14:00 11/10/22 16:27 11/10/22 16:28 Temperature Pulse Rate 107 H 92 97 Respiratory Rate 27 H 27 H Blood Pressure Pulse Oximetry 92 Pulse Oximetry [With Activity During Therapy Session] Oxygen Delivery CPAP Oxygen Flow Rate Fraction of Inspired Oxygen 11/10/22 11:53 11/10/22 16:00 11/10/22 16:00 Temperature 97.6 F Pulse Rate 85 100 97 Respiratory Rate 24 H 17 27 H Blood Pressure 108/78 Pulse Oximetry 95 92 Pulse Oximetry [With Activity During Therapy Session] Oxygen Delivery BiPAP Oxygen Flow Rate Fraction of Inspired Oxygen 60 11/10/22 16:00 11/10/22 18:00 11/10/22 20:40 Temperature Pulse Rate 103 H 97 102 H Respiratory Rate 31 H Blood Pressure P
[2022-11-11 12:35] LABS: Glucose Point of Care 296 mg/dl (65-105)
[2022-11-11 16:44] LABS: Glucose Point of Care 234 mg/dl (65-105)
[2022-11-11 20:02] LABS: Glucose Point of Care 269 mg/dl (65-105)
[2022-11-12] VITALS (32 sets, daily range): BP systolic 148–164; BP diastolic 67–84; PULSE 62–110; RESP 16–28; TEMP 36–36.5; O2SAT 84–99
[2022-11-12] MEDS: MORPHINE SULFATE (*CRX) 2 MG/ML INJ IV PUSH ×2 (02:14→21:51)
[2022-11-12] MEDS: ALBUTEROL SULFATE NEB 2.5 MG/3 ML INH INHALATION ×3 (04:49→20:22)
[2022-11-12] MEDS: IPRATROPIUM BR 0.02% INH SOLN 0.5 MG/2.5 ML VIAL INHALATION ×3 (04:49→20:22)
[2022-11-12 05:09] LABS: Alveolar/Arterial O2 Gradient 107.9 mmHg; Base Excess ABG 10.6 mEq/l (+/-2.0); Fractional Inspired Oxygen 36 %; HCO3 ABG 39.1 mEq/l (22.0-26.0); Oxygen Content ABG 18.2 %vol (16.0-22.0); Oxyhemoglobin 91.3 % THb (90.0-100.0); PO2 ABG 67.2 mmHg (80.0-100.0); PO2 FiO2 Ratio Arterial Blood 1.87 %; Total Hemoglobin 14.2 g/dL (12.0-18.0); pH ABG 7.363 (7.350-7.450)
[2022-11-12] MEDS: DOXYCYCLINE 100 MG/NS 100 ML 100 MG/100 ML BAG IVPB ×2 (05:15→16:22)
[2022-11-12] MEDS: cefTRIAXone 2 GM/NS 100 ML 2 GM/100 ML BAG IVPB (05:15)
[2022-11-12 05:16] LABS: Device OTHER DEVICE; Modified Allen's Test Pass; PCO2 ABG 70.3 mmHg (35.0-45.0); Site Drawn LEFT RADIAL
[2022-11-12 06:39] LABS: Hematocrit 43.9 % (37.0-47.0); Hemoglobin 12.9 g/dL (12.0-15.0); Mean Corpuscular HGB Conc 29.4 g/dl (32-36); Mean Corpuscular Hemoglobin 26.3 pg (26-34); Mean Corpuscular Volume 89.4 fl (80-100); Platelet Count Result 333 k/mm3 (150-375); Red Blood Count 4.91 M/mm3 (4.2-5.4); Red Cell Distribution Width 16.8 % (11.5-14.5)
[2022-11-12 07:09] LABS: Blood Urea Nitrogen 37 mg/dL (7-17); Calcium 8.2 mg/dL (8.4-10.2); Carbon Dioxide > 40 mmol/L (22-30); Chloride 94 mmol/L (98-107); Estimated CRCL calculation 113 ml/min; Estimated Glomerular Filt Rate > 60; Glucose 129 mg/dL (65-110); Potassium 4.1 mmol/L (3.4-5.0); Sodium 136 mmol/L (137-145)
--- NOTE | 2022-11-12 08:01 | PM.PNPUL ---
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 She has removed the birds from her house and only had intermittent issues when she walks outside and gets exposed to the chickens that live on her property. Over the last few years she has not been outside due to her chronic back pain. On 10/31/2022 the patient was exposed to these check ins and immediately developed shortness of breath and wheezing which progressively worsened until she presented on 11/08/2021. 11/10 The patient stated she was improved and that she has felt 50% back to normal, she had no phlegm production in the cough was 80% better. She had wheezing on exam. She felt she could come off the BiPAP and I placed her on high-flow nasal cannula at 6 L and her saturations were 88%. She only tolerated this for 1 hour and was placed back on BiPAP. Plan: I will treat this as an acute allergic reaction to birds and will continue Solu-Medrol at 60 mg IV q.6 hours. I will continue albuterol and ipratropium nebulizers q.4 hours. 11/11: Patient states she was improved today. She says she was 75% back to her normal. She has a little bit of cough but her [place] green mucus is now resolved. She has no wheezes. She is afebrile. Plan: I will place patient on prednisone 40 mg p.o. q.day and continue albuterol and ipratropium nebulizers q.4 hours. 11/12 patient states she is breathing better than she has in the last year. She continues to improve. She has a dry cough but no phlegm and no hemoptysis. Currently she is on 6 L nasal cannula saturations 96%. White blood cell count 12.0, creatinine 0.5. Patient wore the hospital noninvasive ventilator overnight and did well. Plan: Continue prednisone 40 mg p.o. q.day, will continue albuterol and ipratropium nebulizers today. Patient tells me she has made arrangements for her chickens to be moved 1/4 mi away from her residence. The plan is to have patient's home noninvasive ventilator set up in the hospital tonight and wear it tonight and be discharged tomorrow. If patient remains stable overnight will plan on discharge on 11/13/2022 on these pulmonary medications: Prednisone 40 mg PO Q day X 2 days Doxycycline 100 mg PO BID X 2 days Beta agonist and muscarinic antagonist that insurance will cover. She does not tolerate dry powder inhalers (stiolto respimat 2.5/2.5 at 1 puff BID, bevespi aerosphere 9 mcg/4.8 at 2 puffs BID, combivent respimat at 2 puffs Q 4 HR or separate albuterol and atrovent inhalers at 2 puffs Q 4 HR) Oxygen at rest and with ambulation perform a home O2 assessment which I have ordered today. When she naps or sleeps, home noninvasive ventilator through [facility] Patient with the AVAPS AE mode with a rate of 20, tidal volume 500, EPAP minimum 5, EPAP maximum 20, pressure support minimum 8, pressure support maximum 25 and 6 L bleed in. Discussed with Dr. Swanson. Will follow with you. (2) Emphysema/COPD: Code(s): J43.9 - Emphysema, unspecified Status: Acute Assessment and Plan: The patient has approximately 30 pack year history tobacco use in currently smoking a few puffs a day, alpha 1 anti trypsin genotype MS with a normal level, PFTs on 11/09/2018 with a severe obstructive abnormality, an FEV1 of 0.97, 38% predicted, FEV1: FVC ratio 68%, positive bronchodilator response, total lung capacity 89% and a DLCO unadjusted for hemoglobin and carboxyhemoglobin at 55 and when adjusted for alveolar volume at 111. Patient has chronic hypercarbic respiratory failure and chronic hypoxemic respiratory failure on 2 L oxygen at rest and 4 with ambulation and 2 when she sleeps. Patient was on albuterol inhaler and al
[2022-11-12] MEDS: LOSARTAN POTASSIUM 50 MG TABLET PO (08:17)
[2022-11-12] MEDS: ERGOCALCIFEROL 50,000 UNITS CAPSULE 50000 UNITS PO (08:17)
[2022-11-12] MEDS: predniSONE 20 MG TABLET 40 MG PO (08:17)
[2022-11-12] MEDS: VENLAFAXINE HCL XR 75 MG CAP.ER.24H PO (08:17)
[2022-11-12] MEDS: ASPIRIN 325 MG TABLET PO (08:17)
[2022-11-12] MEDS: buPROPion HCL XL (24 HR) 150 MG TABCR PO (08:17)
[2022-11-12] MEDS: ENOXAPARIN 40 MG/0.4 ML SYRINGE SUB-Q (08:18)
[2022-11-12 08:32] LABS: Glucose Point of Care 114 mg/dl (65-105)
--- NOTE | 2022-11-12 11:12 | HOMEO2EVAL ---
Evaluation was performed at [facility] Home Oxygen Evaluation RC: Home Oxygen (O2) Evaluation Start: 11/12/22 08:19 Freq: ONCE Status: Active Protocol: RPE Activity Type Activity Date Activity User E-sign Co-sign Detail Recorded Client Recorded Date Recorded By Document 11/12/22 10:20 [email or web address] [email or web address] 11/12/22 11:12 DJO Document 11/12/22 10:25 [email or web address] [email or web address] 11/12/22 11:12 DJO Document 11/12/22 10:30 [email or web address] [email or web address] 11/12/22 11:12 DJO Document 11/12/22 10:35 [email or web address] [email or web address] 11/12/22 11:12 DJO Document 11/12/22 10:40 [email or web address] [email or web address] 11/12/22 11:12 DJO Document 11/12/22 10:45 [email or web address] [email or web address] 11/12/22 11:12 DJO Document 11/12/22 10:50 [email or web address] [email or web address] 11/12/22 11:12 DJO Document 11/12/22 11:10 [email or web address] [email or web address] 11/12/22 11:12 DJO 11/12/22 11/12/22 11/12/22 10:20 10:25 10:30 Home O2 Evaluation [Oxygen] -Test Phase Resting Resting Resting -Oxygen Delivery Room Air Nasal Cannula Nasal Cannula -Oxygen Flow Rate (L/min) 2 3 [Pulse Oximetry] -Pulse Oximetry (90-100 %) 85 L 88 L 91 [Pulse Rate] -Pulse Rate (60-100 beats/min) 82 79 78 [Evaluation] -Activity Tolerance [Charges] -Treatment Charges O2 Evaluation - Inpatient 11/12/22 11/12/22 11/12/22 10:35 10:40 10:45 Home O2 Evaluation [Oxygen] -Test Phase Exercise Exercise Exercise -Oxygen Delivery Nasal Cannula Nasal Cannula Nasal Cannula -Oxygen Flow Rate (L/min) 4 6 7 [Pulse Oximetry] -Pulse Oximetry (90-100 %) 84 L 85 L 87 L [Pulse Rate] -Pulse Rate (60-100 beats/min) 95 96 96 [Evaluation] -Activity Tolerance [Charges] -Treatment Charges 11/12/22 11/12/22 10:50 11:10 Home O2 Evaluation [Oxygen] -Test Phase Exercise Resting -Oxygen Delivery Nasal Cannula Nasal Cannula -Oxygen Flow Rate (L/min) 8 3 [Pulse Oximetry] -Pulse Oximetry (90-100 %) 90 91 [Pulse Rate] -Pulse Rate (60-100 beats/min) 97 79 [Evaluation] -Activity Tolerance Good [Charges] -Treatment Charges
--- NOTE | 2022-11-12 11:17 | PM.IMPN ---
Progress Note: A&P Assessment and Plan (1) Acute on chronic respiratory failure with hypoxia and hypercapnia: Code(s): J96.21 - Acute and chronic respiratory failure with hypoxia; J96.22 - Acute and chronic respiratory failure with hypercapnia Status: Acute Assessment and Plan: Patient feels much better. Currently treated for pneumonia and COPD exacerbation. Tolerating noninvasive ventilation. Plan is for patient to have home noninvasive ventilation which will be set up this evening. She can be discharged tomorrow on her home oxygen and noninvasive ventilation. Appreciate Pulmonary input (2) Emphysema/COPD: Code(s): J43.9 - Emphysema, unspecified Status: Acute Assessment and Plan: Patient with acute COPD exacerbation. Currently on prednisone. Only faint wheezing appreciated. Continue steroids. Continue nebulizer treatments. (3) Pneumonia: Code(s): J18.9 - Pneumonia, unspecified organism Status: Acute Assessment and Plan: Chest x-ray results noted. Patient did have a CTA of the chest on 11/10/2022 which shows scattered lung scarring and dependent atelectasis otherwise clear lung spence. No pulmonary embolism. Patient has been started on antibiotics probably for acute bronchitis. She did have an elevated white count on admission prior to starting steroids. No fevers. Continue current antibiotics. (4) Tobacco dependence: Code(s): F17.200 - Nicotine dependence, unspecified, uncomplicated Status: Acute Assessment and Plan: Patient was educated about the benefits of smoking cessation Subjective Date/time seen: 11/12/22 11:17 Interval history: 62yo female with hx of bird dander hypersensitivity diagnosed in 1999, asthma, COPD, chronic resp failure on 2 L O2 at rest and 4 L with activity, LUIS but has not worn her CPAP in over a year and PCV with her last blood draw 1 week ago here for shortness of breath, wheezing and dyspnea on exertion.? Assuming care. Chart reviewed. She feels well today. She denies chest pain or shortness of breath. She just walked back from the bathroom and had very little dyspnea on exertion. No nausea or vomiting. Exam Narrative: AF 97.7 164/84 79 16 91% 3L Gen - NARD lying almost flat in bed Chest - bibasilar dry crackles with distant breath sounds with faint expiratory wheezes CV - RRR S1/S2. Tele showing PVCs and one episode on NSVT Abd - Soft, obese, NT, Positive BS Ext - No pedal edema Psych - Nml mood and affect Skin - Warm and dry Objective Data Vital Signs Vital Signs: Vital Signs - 24 hr 11/11/22 12:00 11/11/22 12:00 11/11/22 13:07 Temperature 97.3 F L Pulse Rate 100 99 Respiratory Rate 20 20 Blood Pressure 154/71 H Pulse Oximetry 90 94 Oxygen Delivery Nasal Cannula Oxygen Flow Rate 5 Fraction of Inspired Oxygen 11/11/22 13:35 11/11/22 12:00 11/11/22 14:00 Temperature Pulse Rate 102 H 94 86 Respiratory Rate 20 Blood Pressure Pulse Oximetry Oxygen Delivery Oxygen Flow Rate Fraction of Inspired Oxygen 11/11/22 16:00 11/11/22 16:00 11/11/22 16:00 Temperature 97.6 F Pulse Rate 93 90 Respiratory Rate 19 Blood Pressure 151/63 H Pulse Oximetry 97 92 Oxygen Delivery Nasal Cannula Oxygen Flow Rate 5 Fraction of Inspired Oxygen 11/11/22 17:30 11/11/22 17:47 11/11/22 18:00 Temperature Pulse Rate 101 H 98 97 Respiratory Rate 18 18 Blood Pressure Pulse Oximetry Oxygen Delivery Oxygen Flow Rate Fraction of Inspired Oxygen 11/11/22 20:00 11/11/22 20:48 11/11/22 20:49 Temperature 97.7 F Pulse Rate 79 93 Respiratory Rate 29 H 18 Blood Pressure 139/55 L Pulse Oximetry 98 93 Oxygen Delivery High Flow Nasal Cannula Oxygen Flow Rate 6 Fraction of Inspired Oxygen 11/11/22 22:32 11/11/22 20:00 11/11/22 20:00 Temperature Pulse Rate 94 90 97 Respiratory Rate 27 H 25 H
--- NOTE | 2022-11-12 11:53 | PCOTNOTE ---
Patient unable to participate at this time. Patient having a device set-up for home at this time.
[2022-11-12 12:05] LABS: Glucose Point of Care 184 mg/dl (65-105)
[2022-11-12] MEDS: INSULIN ASPART (*BKC) 100 UNITS/ML SUB-Q ×3 (17:23→20:30)
[2022-11-12 17:43] LABS: Glucose Point of Care 356 mg/dl (65-105)
[2022-11-12 19:59] LABS: Glucose Point of Care 211 mg/dl (65-105)
[2022-11-13] VITALS (11 sets, daily range): BP systolic 148–173; BP diastolic 73–88; PULSE 66–108; RESP 20–24; TEMP 36.1–36.6; O2SAT 91–96
--- NOTE | 2022-11-13 02:51 | PC.NURSE ---
Patient unable to tolerate home trelegy machine and is insisting on discontinuing treatment. Hospitalist and MANUAL TRAINING TEACHER notified. Patient will be moved to hospital non-invasion ventilation.
[2022-11-13 03:16] LABS: Alveolar/Arterial O2 Gradient 192.6 mmHg; Base Excess ABG 13.2 mEq/l (+/-2.0); Fractional Inspired Oxygen 44 %; HCO3 ABG 39.7 mEq/l (22.0-26.0); Oxygen Saturation ABG 89.7 % (95.0-100.0); PCO2 ABG 57.5 mmHg (35.0-45.0); PO2 ABG 55.6 mmHg (80.0-100.0); PO2 FiO2 Ratio Arterial Blood 1.26 %; Total Hemoglobin 14.6 g/dL (12.0-18.0); pH ABG 7.457 (7.350-7.450)
[2022-11-13 03:18] LABS: Device BIPAP; Modified Allen's Test Pass; Site Drawn RIGHT RADIAL
[2022-11-13 03:21] LABS: Oxyhemoglobin 87.8 % THb (90.0-100.0)
--- NOTE | 2022-11-13 03:42 | PCRCNOTE ---
PT DID NOT TOLERATE HOME TRILOGY WELL. HAD TO TAKE PT OFF EARLY DUE TO ANXIETY ATTACK, BUT STILL ENOUGH INFO FOR APNEA LINK AND ABG DONE.
[2022-11-13] MEDS: cefTRIAXone 2 GM/NS 100 ML 2 GM/100 ML BAG IVPB (04:46)
[2022-11-13] MEDS: DOXYCYCLINE 100 MG/NS 100 ML 100 MG/100 ML BAG IVPB (04:48)
[2022-11-13] MEDS: ALBUTEROL SULFATE NEB 2.5 MG/3 ML INH INHALATION (08:00)
[2022-11-13] MEDS: IPRATROPIUM BR 0.02% INH SOLN 0.5 MG/2.5 ML VIAL INHALATION (08:00)
[2022-11-13 08:45] LABS: Glucose Point of Care 126 mg/dl (65-105)
--- NOTE | 2022-11-13 09:01 | PM.PNPUL ---
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 She has removed the birds from her house and only had intermittent issues when she walks outside and gets exposed to the chickens that live on her property. Over the last few years she has not been outside due to her chronic back pain. On 10/31/2022 the patient was exposed to these check ins and immediately developed shortness of breath and wheezing which progressively worsened until she presented on 11/08/2021. 11/10 The patient stated she was improved and that she has felt 50% back to normal, she had no phlegm production in the cough was 80% better. She had wheezing on exam. She felt she could come off the BiPAP and I placed her on high-flow nasal cannula at 6 L and her saturations were 88%. She only tolerated this for 1 hour and was placed back on BiPAP. Plan: I will treat this as an acute allergic reaction to birds and will continue Solu-Medrol at 60 mg IV q.6 hours. I will continue albuterol and ipratropium nebulizers q.4 hours. 11/11: Patient states she was improved today. She says she was 75% back to her normal. She has a little bit of cough but her [place] green mucus is now resolved. She has no wheezes. She is afebrile. Plan: I will place patient on prednisone 40 mg p.o. q.day and continue albuterol and ipratropium nebulizers q.4 hours. 11/12 patient states she is breathing better than she has in the last year. She continues to improve. She has a dry cough but no phlegm and no hemoptysis. Currently she is on 6 L nasal cannula saturations 96%. White blood cell count 12.0, creatinine 0.5. Patient wore the hospital noninvasive ventilator overnight and did well. Plan: Continue prednisone 40 mg p.o. q.day, will continue albuterol and ipratropium nebulizers today. Patient tells me she has made arrangements for her chickens to be moved 1/4 mi away from her residence. The plan is to have [facility] and be discharged tomorrow. 11/13 patient continues to do well and states she is breathing better than she has in the last year. Minimal cough, no phlegm or hemoptysis. Currently she is on 4 L with saturations 89%. No wheezing on exam. If patient remains stable overnight will plan on discharge on 11/13/2022 on these pulmonary medications: Prednisone 40 mg PO Q day X 2 days Doxycycline 100 mg PO BID X 2 days Bevespi aerosphere 9 mcg/4.8 at 2 puffs BID, Rescue albuterol 2 puffs q.4 hours p.r.n. shortness of breath Rescue albuterol nebulizer 2.5 mg q.4 hours p.r.n. shortness of breath Oxygen she requires 3 L at rest and 8 with exertion. High flow concentrator arranged. When she naps or sleeps, home noninvasive ventilator through [facility] [place] Patient with the AVAPS AE mode with a rate of 20, tidal volume 500, EPAP minimum 5, EPAP maximum 20, pressure support minimum 8, pressure support maximum 25 and 7 L bleed in. Follow-up in the Pulmonary Clinic in 3-4 weeks. I gave her our business card and informed our emerging solutions executive. 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 Patient
[2022-11-13] MEDS: buPROPion HCL XL (24 HR) 150 MG TABCR PO (09:39)
[2022-11-13] MEDS: DOXYCYCLINE HYCLATE 100 MG TABLET PO (09:39)
[2022-11-13] MEDS: predniSONE 20 MG TABLET 40 MG PO (09:39)
[2022-11-13] MEDS: ASPIRIN 325 MG TABLET PO (09:39)
[2022-11-13] MEDS: LOSARTAN POTASSIUM 50 MG TABLET PO (09:39)
[2022-11-13] MEDS: VENLAFAXINE HCL XR 75 MG CAP.ER.24H PO (09:40)
[2022-11-13] MEDS: ENOXAPARIN 40 MG/0.4 ML SYRINGE SUB-Q (09:40)
--- NOTE | 2022-11-13 11:41 | PM.DS ---
DS: Admitting Diagnosis Discharge Date 11/13/22 Admitting Diagnosis Shortness of breath DS: Discharge Diagnosis Discharge Diagnosis (1) Acute on chronic respiratory failure with hypoxia and hypercapnia: Code(s): J96.21 - Acute and chronic respiratory failure with hypoxia; J96.22 - Acute and chronic respiratory failure with hypercapnia Status: Acute (2) Emphysema/COPD: Code(s): J43.9 - Emphysema, unspecified Status: Acute (3) Pneumonia: Code(s): J18.9 - Pneumonia, unspecified organism Status: Acute (4) Tobacco dependence: Code(s): F17.200 - Nicotine dependence, unspecified, uncomplicated Status: Acute DS: Summary Hospital Course Reason for hospitalization: 62yo female with hx of bird dander hypersensitivity diagnosed in 1999, asthma, COPD, chronic resp failure on 2 L O2 at rest and 4 L with activity, LUIS but has not worn her CPAP in over a year and PCV with her last blood draw 1 week ago here for shortness of breath, wheezing and dyspnea on exertion.? Please see H&P for details Hospital Course: Patient presents with SOB and was found to have pneumonia and COPD exacerbation.?She was treated with noninvasive ventilation.? She was treated with steroids and nebulizer treatments. Patient did have a CTA of the chest on 11/10/2022 which shows scattered lung scarring and dependent atelectasis otherwise clear lung spence.? No pulmonary embolism.? Patient has been started on antibiotics probably for acute bronchitis vs occult PNA.? She did have an elevated white count on admission prior to starting steroids.? No fevers.?WBC trended down. Patient continues to smoke. She was educated about the benefits of smoking cessation. Pulmonary was consulted. Patient tolerated noninvasive ventilation. Her settings were adjusted. Patient had clinical improvement. She overall did well was able be discharged 11/13/2022. Status at Discharge Cognitive/behavioral status at discharge: stable Time Spent with Patient Time attestation: Total time spent providing and/or coordinating discharge services: 35 minutes Time spent: Greater than 30 minutes Exam Narrative: AF 96.9 173/88 89 20 93% 4L Gen - NARD Chest - clear, distant breath sounds CV - RRR S1/S2. Tele showing no significant dysrhythmias Abd - Soft, obese, NT, Positive BS Ext - No pedal edema Psych - Nml mood and affect Skin - Warm and dry DS: Data Data Completed and Pending Labs on day of discharge: Labs from last 24 hours 11/13/22 11/13/22 11/12/22 07:42 02:55 19:40 Puncture Site Right radial ABG pH 7.457 H ABG pCO2 57.5 H ABG pO2 55.6 L ABG PO2/FiO2 Ratio 1.26 ABG HCO3 39.7 H ABG O2 Saturation 89.7 L ABG O2 Content 18.0 ABG Base Excess 13.2 A-a Gradient 192.6 Oxyhemoglobin 87.8 L* Total Hemoglobin 14.6 O2 Delivery Device Bipap O2 Liters/Min 6.0 FiO2 44 Expiratory Pressure Pending Inspiratory Pressure Pending POC Capillary Glucose 126 H 211 H 11/12/22 11/12/22 17:04 11:40 Puncture Site ABG pH ABG pCO2 ABG pO2 ABG PO2/FiO2 Ratio ABG HCO3 ABG O2 Saturation ABG O2 Content ABG Base Excess A-a Gradient Oxyhemoglobin Total Hemoglobin O2 Delivery Device O2 Liters/Min FiO2 Expiratory Pressure Inspiratory Pressure POC Capillary Glucose 356 H 184 H Preliminary micro results at discharge 11/09/22 04:24 Blood Culture - Preliminary Blood 11/09/22 04:24 Blood Culture - Preliminary Blood Discharge Plan Discharge Attending physician on discharge: Jaime Shaikh Consulting providers: Lucía Sahni Discharging Clinician: Jaime Shaikh Anticipated Discharge Date/Time: 11/13/22 11:46 Patient Disposition: Home, Self-Care Activity: as tolerated Diet: diabetic Discharge Instructions: Please check glucose before meals and before bed. Record and bring into your d
[2022-11-13 11:51] LABS: Glucose Point of Care 264 mg/dl (65-105)
--- NOTE | 2022-11-13 11:51 | PCRCNOTE ---
2 [employer] [facility] tanks are in pt room for transport home. RN notified
[2022-11-13] MEDS: INSULIN ASPART (*BKC) 100 UNITS/ML SUB-Q (12:02)
== END 2022-11-13 13:43 | disposition home or self-care (01) | DRG 189 ==
PROVIDERS: Chiropractor; Internal Medicine Pulmonary Disease; Admitting Provider Internal Medicine; PCP Family Medicine; Visit Provider Internal Medicine
DX: J96.22 Acute and chronic respiratory failure with hypercapnia (principal); J67.8 Hypersensitivity pneumonitis due to other organic dusts; J44.0 Chronic obstructive pulmonary disease with (acute) lower respiratory infection; J96.21 Acute and chronic respiratory failure with hypoxia; E11.9 Type 2 diabetes mellitus without complications; M06.9 Rheumatoid arthritis, unspecified; T78.49XA Other allergy, initial encounter; F17.210 Nicotine dependence, cigarettes, uncomplicated; Z79.82 Long term (current) use of aspirin; Z99.81 Dependence on supplemental oxygen
CPT/HCPCS: 36415; 36600; 71045; 71275; 80048; 82375; 82805; 82948; 83050; 83605; 83735; 83880; 84100; 84439; 84443; 85025; 85027; 85610; 87040; 93306; 94002; 94003; 94618; 94640; 94762; 97161; 97165; 97530; 97535; A9270; J0696; J1650; J1815; J2060; J2270; J2405; J2930; J7512; Q9967

== ENCOUNTER 2022-12-08 10:41 | Outpatient (CLI) | payer OTHER, SELFPAY ==
[2022-12-08 11:08] LABS: Basophils Percent Auto 0.9 % (0.0-1.0); Eosinophils Absolute Auto 0.35 K/mm3 (0.02-0.50); Eosinophils Percent Auto 3.3 % (1.0-6.0); Hematocrit 48.1 % (35.0-49.0); Hemoglobin 14.7 g/dL (12.0-15.0); Immature Granulocyte Absolute 0.05 K/mm3 (0.00-0.00); Immature Granulocyte Percent A 0.5 % (0.0-0.0); Lymphocytes Absolute Auto 2.25 K/mm3 (1.10-4.50); Mean Corpuscular HGB Conc 30.6 g/dL (32.0-36.0); Mean Corpuscular Volume 88.3 fL (78.0-102.0); Mean Platelet Volume 9.6 fl (9.2-11.8); Monocytes Absolute Auto 1.15 K/mm3 (0.10-0.90); Monocytes Percent Auto 10.7 % (2.0-11.0); Neutrophils Absolute Auto 6.8 K/mm3 (1.7-7.2); Neutrophils Percent Auto 63.6 % (50.0-70.0); Platelet Count Result 321 K/mm3 (150-420); Red Blood Count 5.45 M/mm3 (4.20-5.40); White Blood Count 10.7 K/mm3 (4.8-10.8)
[2022-12-08 11:09] LABS: Appearance Urine Clear (Clear); Bilirubin Urine Negative (Negative); Blood Urine Trace-Intact (Negative); Color Urine Light Yellow (Yellow); Glucose Urine UA Negative (Negative); Ketones Urine Negative (Negative); Leukocyte Esterase Ur Negative (Negative); Nitrate Urine Negative (Negative); Protein Urine 2+ (Negative); Specific Grav Ur >= 1.030 (1.010-1.020); Urobilinogen Urine 0.2 mg/dL (0.2-1.0)
[2022-12-08 11:14] LABS: Add Urine Microscopic? YES; Bacteria Urine 2+ /hpf; RBC Urine 0-2 /hpf (0-2); Squamous Epithelial Cell Urine Few /hpf (Few); WBC Urine None seen /hpf (0-3)
[2022-12-08 11:23] LABS: Hemoglobin A1C 7.1 % (<5.7)
[2022-12-08 11:29] LABS: Creatinine Urine 110.82 mg/dL (40-278); MALB Creatinine Ratio 360.9 mg/g (0-30); Microalbumin Urine Random > 400.0 mg/L
[2022-12-08 12:04] LABS: Alanine Aminotransferase 19 U/L (14-59); Albumin Level 3.4 g/dL (3.4-5.0); Alkaline Phosphatase 110 U/L (46-116); Anion Gap 9 mmol/L (8-16); Aspartate Amino Transferase 11 U/L (15-37); Bilirubin,Total 0.2 mg/dL (0.00-1.00); Blood Urea Nitrogen 13 mg/dL (7-18); Calcium 9.1 mg/dL (8.5-10.1); Carbon Dioxide 28 mmol/L (21-32); Chloride 105 mmol/L (98-108); Estimated Glomerular Filt Rate > 60; Glucose 133 mg/dL (70-99); Osmolality Calculated 296 mOsm/kg (285-295); Potassium 4.4 mmol/L (3.5-5.1); Sodium 142 mmol/L (136-145); Thyroid Stimulating Hormone 0.61 uIU/mL (0.36-3.74); Total Protein 6.9 g/dL (6.4-8.2)
== END 2022-12-08 10:42 | disposition home or self-care (01) ==
LOC: CHSLAB 10:43
PROVIDERS: PCP Family Medicine; Visit Provider Family Medicine
DX: E11.9 Type 2 diabetes mellitus without complications (principal)
CPT/HCPCS: 36415; 80053; 81001; 82043; 83036; 84443; 85025

== ENCOUNTER 2023-04-16 11:01 | Outpatient (CLI) | payer OTHER, SELFPAY ==
--- NOTE | 2023-04-21 09:03 | WPDPFTINT ---
PFT Procedure Performed PFT Procedure Performed Spirometry with Pre/Post Bronchodilator Plethysmography (Lung Vol) Diffusing Cap (DLCO) Flow Vol Loop PFT Interpretation DOS: 04/16/2023 REQUESTING: Dr. Santiago Deleon REASON FOR TESTING: emphysema PULMONARY FUNCTION TESTS Spirometry: pre bronchodilator FEV1 is 1.00 L, 41%, severely reduced. Pre bronchodilator FVC is 1.63 L, 53%, moderately reduced. FEV1/FVC ratio is 62%, reduced consistent with airflow obstruction. After bronchodilator, FEV1 is 1.13 L, 46% predicted, 12% increase. After bronchodilator FVC is 1.79 L, 59% predicted, a 10% increase. These are not statistically significant changes. The post bronchodilator FEV1/FVC ratio is 63%. Lung volumes: Total lung capacity is 6.87 L, 130% predicted consistent with mild hyperinflation. Residual volume is 4.93 L, 244% predicted, consistent with severe air trapping. RV/TLC is 72% extremely high. Airway resistance is 313%, elevated. Diffusion: DLCO is 17.1, 68% predicted, borderline decreased. DLCO/VA is 4.48, 119% normal. Flow volume loop: There is coving of the expiratory limb consistent with airflow obstruction. IMPRESSION: This study shows severe obstructive ventilatory impairment with insignificant response to bronchodilator, mild hyperinflation with severe air trapping, borderline diffusion impairment that corrects for alveolar volume. Lack of response to bronchodilator should not preclude use of clinically indicated. There are no prior studies for comparison. Lucía Sahni MD
== END 2023-04-16 11:02 | disposition home or self-care (01) ==
LOC: CHSCARD 11:03
PROVIDERS: PCP Family Medicine; Visit Provider Internal Medicine Pulmonary Disease
DX: J43.9 Emphysema, unspecified (principal); R94.2 Abnormal results of pulmonary function studies
CPT/HCPCS: 94060; 94726; 94729

== ENCOUNTER 2023-05-19 12:22 | Outpatient (CLI) | payer OTHER, SELFPAY ==
--- NOTE | ~2023-05-19 | XR_ITS ---
Clinical Indication: URI PA and lateral views of the chest: Comparison: The Findings: Probable minimal right pleural effusion present. There is mild bibasilar atelectatic change .. Cardiomediastinal silhouette is within normal limits. Bones and soft tissues are unremarkable. Impression: Minimal right pleural effusion with probable mild bibasilar atelectatic change. Possible COPD. Reviewed, dictated and finalized at location M. CON[employer]CTOR [employer] ETCH OPERATOR Impression: Minimal right pleural effusion with probable mild bibasilar atelectatic change. Possible COPD.
== END 2023-05-19 12:23 | disposition home or self-care (01) ==
PROVIDERS: PCP Family Medicine; Visit Provider Family Medicine
DX: J06.9 Acute upper respiratory infection, unspecified (principal); J90 Pleural effusion, not elsewhere classified
CPT/HCPCS: 71046

== ENCOUNTER 2023-12-03 11:12 | Outpatient (CLI) | payer OTHER, SELFPAY ==
[2023-12-03 11:26] LABS: Hematocrit 44.5 % (35.0-49.0); Hemoglobin 14.1 g/dL (12.0-15.0); Mean Corpuscular HGB Conc 31.7 g/dL (32-36); Mean Corpuscular Hemoglobin 30.1 pg (27.0-31.0); Mean Corpuscular Volume 95.1 fL (78.0-102.0); Mean Platelet Volume 9.5 fl (9.2-11.8); Platelet Count Result 400 K/mm3 (150-420); Red Blood Count 4.68 M/mm3 (4.20-5.40); Red Cell Distribution Width 13.2 % (11.6-14.4); White Blood Count 15.7 K/mm3 (4.8-10.8)
[2023-12-03 11:51] LABS: Appearance Urine Clear (Clear); Color Urine Light Yellow (Yellow); Glucose Urine UA Negative (Negative); Protein Urine Trace (Negative); Specific Grav Ur 1.015 (1.010-1.020)
[2023-12-03 11:52] LABS: Add Urine Microscopic? YES; Bacteria Urine 3+ /hpf; Bilirubin Urine Negative (Negative); Blood Urine Negative (Negative); Ketones Urine Negative (Negative); Leukocyte Esterase Ur Negative (Negative); Nitrate Urine Negative (Negative); RBC Urine 0-2 /hpf (0-2); Squamous Epithelial Cell Urine Few /hpf (Few); Urobilinogen Urine 0.2 mg/dL (0.2-1.0); WBC Urine 0-3 /hpf (0-3)
[2023-12-04 09:26] LABS: Alanine Aminotransferase 21 U/L (6-35); Albumin Level 4.4 g/dL (3.5-5.1); Alkaline Phosphatase 117 U/L (38-126); Anion Gap 13 mmol/L (4-12); Aspartate Amino Transferase 22 U/L (14-36); Bilirubin,Total 0.4 mg/dL (0.2-1.3); Blood Urea Nitrogen 19 mg/dL (7-17); Calcium 9.8 mg/dL (8.4-10.2); Carbon Dioxide 27 mmol/L (22-30); Chloride 101 mmol/L (98-107); Cholesterol 167 mg/dL (0-200); Estimated Glomerular Filt Rate > 60; Glucose 188 mg/dL (65-110); HDL Direct 78 mg/dL; LDL Cholesterol Calculated 72 mg/dL (<130); Osmolality Calculated 299 mOsm/kg (285-295); Potassium 5.4 mmol/L (3.4-5.0); Sodium 141 mmol/L (137-145); Triglycerides 83 mg/dL (<150)
[2023-12-04 10:30] LABS: MALB Creatinine Ratio 731.5 mg/g (0-30); Microalbumin Urine Random 241.4 mg/L (0-16.7)
[2023-12-04 12:44] LABS: Hemoglobin A1C 7.1 % (<5.7)
== END 2023-12-03 11:13 | disposition home or self-care (01) ==
PROVIDERS: PCP Family Medicine; Visit Provider Family Medicine
DX: E11.65 Type 2 diabetes mellitus with hyperglycemia (principal); D50.9 Iron deficiency anemia, unspecified
CPT/HCPCS: 36415; 80053; 80061; 81001; 82043; 83036; 84443; 85027

== ENCOUNTER 2023-12-09 11:07 | Outpatient (CLI) | payer OTHER, SELFPAY ==
[2023-12-09 11:50] LABS: Creatinine Urine 98.84 mg/dL (40-278)
[2023-12-09 12:37] LABS: MALB Creatinine Ratio 404.6 mg/g (0-30); Microalbumin Urine Random > 400.0 mg/L
[2023-12-09 13:18] LABS: Anion Gap 11 mmol/L (4-12); Blood Urea Nitrogen 19 mg/dL (7-18); Calcium 9.6 mg/dL (8.5-10.1); Carbon Dioxide 27 mmol/L (21-32); Chloride 103 mmol/L (98-108); Estimated Glomerular Filt Rate > 60; Glucose 161 mg/dL (70-99); Osmolality Calculated 297 mOsm/kg (285-295); Potassium 4.6 mmol/L (3.5-5.1); Sodium 141 mmol/L (136-145)
== END 2023-12-09 11:08 | disposition home or self-care (01) ==
LOC: CHSLAB 11:09
PROVIDERS: PCP Family Medicine; Visit Provider Family Medicine
DX: I10 Essential (primary) hypertension (principal)
CPT/HCPCS: 36415; 80048; 82043

== ENCOUNTER 2024-02-01 11:29 | Outpatient (CLI) | payer OTHER, SELFPAY ==
[2024-02-01 11:56] LABS: Hematocrit 43.9 % (35.0-49.0); Hemoglobin 14.4 g/dL (12.0-15.0); Mean Corpuscular HGB Conc 32.8 g/dL (32-36); Mean Corpuscular Hemoglobin 30.1 pg (27.0-31.0); Mean Corpuscular Volume 91.8 fL (78.0-102.0); Mean Platelet Volume 9.8 fl (9.2-11.8); Platelet Count Result 369 K/mm3 (150-420); Red Blood Count 4.78 M/mm3 (4.20-5.40); Red Cell Distribution Width 13.1 % (11.6-14.4); White Blood Count 11.2 K/mm3 (4.8-10.8)
[2024-02-01 11:58] LABS: Add Urine Microscopic? YES; Appearance Urine Clear (Clear); Bilirubin Urine Negative (Negative); Blood Urine Negative (Negative); Color Urine Light Yellow (Yellow); Glucose Urine UA 1+ (Negative); Ketones Urine Negative (Negative); Leukocyte Esterase Ur Negative LEU/UL (Negative); Nitrate Urine Negative (Negative); Protein Urine 2+ (Negative); Urobilinogen Urine 0.2 mg/dL (0.2-1.0)
[2024-02-01 12:04] LABS: Bacteria Urine 1+ /hpf; RBC Urine None seen /hpf (0-2); Squamous Epithelial Cell Urine Few /hpf (Few); WBC Urine None seen /hpf (0-3)
[2024-02-01 12:05] LABS: Eosinophil Urine 0 % (0-0); Urine Eos QC 2nd Tech Confirmed
[2024-02-01 12:20] LABS: MALB Creatinine Ratio 2025.6 mg/g (0-30); Microalbumin Urine Random 332.2 mg/L
[2024-02-01 12:58] LABS: Albumin Level 3.5 g/dL (3.4-5.0); Anion Gap 13 mmol/L (4-12); Blood Urea Nitrogen 12 mg/dL (7-18); Calcium 9.1 mg/dL (8.5-10.1); Carbon Dioxide 24 mmol/L (21-32); Chloride 105 mmol/L (98-108); Estimated Glomerular Filt Rate > 60; Glucose 227 mg/dL (70-99); Osmolality Calculated 300 mOsm/kg (285-295); Phosphorus 3.7 mg/dL (2.6-4.7); Potassium 4.6 mmol/L (3.5-5.1); Sodium 142 mmol/L (136-145)
[2024-02-02 13:02] LABS: Complement C3 180 mg/dL (83-193)
[2024-02-02 13:39] LABS: Parathyroid Intact 41 pg/mL (16-77)
[2024-02-03 05:49] LABS: Vitamin D 25 Hydroxy 62 ng/mL (30-100)
[2024-02-03 07:23] LABS: Hepatitis B Surface Antigen NON-REACTIVE (NON-REACTIVE); Hepatitis C Virus Antibody NON-REACTIVE (NON-REACTIVE)
[2024-02-03 09:28] LABS: Creatinine, Random Urine 21 mg/dL (20-275); Total Prot/Creat ratio mg/mg 2.571 (0.024-0.184); Total Protein/Creatinine Ratio 2571 mg/g creat (24-184)
[2024-02-04 14:58] LABS: Anti Nuclear Antibody Pattern Nuclear, Speckled
[2024-02-04 15:22] LABS: Anti Glomerular Basement Memb <1.0 AI
[2024-02-05 17:54] LABS: Alpha 1 Globulin 0.3 g/dL (0.2-0.3); Beta 1 Globulin 0.5 g/dL (0.4-0.6); Gamma Globulin 0.9 g/dL (0.8-1.7)
[2024-02-10 23:29] LABS: ANCA Screen NEGATIVE (NEGATIVE)
== END 2024-02-01 11:30 | disposition home or self-care (01) ==
PROVIDERS: PCP Family Medicine; Visit Provider Internal Medicine Nephrology
DX: R80.9 Proteinuria, unspecified (principal); E11.65 Type 2 diabetes mellitus with hyperglycemia; D50.9 Iron deficiency anemia, unspecified; D75.1 Secondary polycythemia; E55.9 Vitamin D deficiency, unspecified; Z11.59 Encounter for screening for other viral diseases
CPT/HCPCS: 36415; 80069; 81001; 82043; 82306; 82570; 83520; 83970; 84155; 84156; 84165; 84166; 85027; 85999; 86036; 86038; 86039; 86160; 86803; 87340

== ENCOUNTER 2024-02-29 12:22 | Outpatient (CLI) | payer OTHER, SELFPAY ==
[2024-02-29 12:43] LABS: Hematocrit 45.1 % (35.0-49.0); Hemoglobin 14.4 g/dL (12.0-15.0); Mean Corpuscular HGB Conc 31.9 g/dL (32-36); Mean Corpuscular Hemoglobin 29.4 pg (27.0-31.0); Mean Platelet Volume 9.7 fl (9.2-11.8); Platelet Count Result 386 K/mm3 (150-420); Red Cell Distribution Width 13.2 % (11.6-14.4); White Blood Count 12.3 K/mm3 (4.8-10.8)
[2024-02-29 13:12] LABS: Creatinine Urine < 13.00 mg/dL (40-278)
[2024-02-29 13:29] LABS: Albumin Level 3.8 g/dL (3.4-5.0); Anion Gap 8 mmol/L (4-12); Blood Urea Nitrogen 13 mg/dL (7-18); Calcium 9.7 mg/dL (8.5-10.1); Carbon Dioxide 30 mmol/L (21-32); Chloride 104 mmol/L (98-108); Estimated Glomerular Filt Rate > 60; Glucose 194 mg/dL (70-99); Osmolality Calculated 299 mOsm/kg (285-295); Sodium 142 mmol/L (136-145)
[2024-02-29 13:32] LABS: Microalbumin Urine Random 144.8 mg/L
[2024-03-03 08:40] LABS: Anti Nuclear Antibody Pattern Nuclear, Speckled
== END 2024-02-29 12:23 | disposition home or self-care (01) ==
LOC: CHSLAB 12:24
PROVIDERS: PCP Family Medicine; Visit Provider Internal Medicine Nephrology
DX: R80.9 Proteinuria, unspecified (principal)
CPT/HCPCS: 36415; 80069; 82043; 85027; 86038; 86039

== ENCOUNTER 2024-04-13 21:00 | Emergency (ER) | payer OTHER, SELFPAY ==
[2024-04-13] VITALS (18 sets, daily range): BP systolic 165–201; BP diastolic 65–78; PULSE 73–108; RESP 18–22; TEMP 36.6–37.1; O2SAT 92–95
--- NOTE | ~2024-04-13 | CT_ITS ---
EXAMINATION: CT abdomen pelvis wo con DATE: 04/13/2024 21:56 INDICATION: Perineal pain TECHNIQUE: Computed tomography (CT) of the abdomen and pelvis was performed without intravenous contr ast. The dose-length product was 1107.83 mGy-cm. Automated exposure control and iterative reconstruct ion technique were employed. COMPARISON: CT dated 11/12/2004 FINDINGS: The liver, spleen, pancreas, adrenal glands and right kidney are unremarkable. No stones or significant hydronephrosis. Colonic diverticulosis without evidence for diverticulitis. There is ath erosclerosis without aneurysm. No lymphadenopathy. Gallbladder is present. No abnormal pelvic masses or fluid collections. No free air or free fluid. Moderate lumbar spondylosis most advanced at L2-3. T here is bibasilar atelectasis/scarring. IMPRESSION: 1. No acute abdominal abnormality. Reviewed, dictated and finalized at location A. 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
--- NOTE | 2024-04-13 21:12 | ED_ITS ---
HPI - Female Genitourinary General Chief complaint: Urogenital-Female Stated complaint: urinary Time Seen by Provider: 04/13/24 21:12 Source: patient and EMS Mode of arrival: ambulatory Limitations: no limitations History of Present Illness HPI Narrative: 63-year-old female, smoker with COPD on home oxygen 3 liters/minute, AVAPS, hypertension, diabetes mellitus, rheumatoid arthritis, proteinuria status post CT-guided left kidney biopsy 5 days ago developed perineal pain, nausea and vomiting. The patient was started on Cipro by her primary care physician. She presents to the ED with a 2 day history of -- perineal/vaginal spasms. No abdominal pain. No vaginal discharge. -- subjective fever with chills -- hematuria. no clots noted. No dysuria noted. MD elicited complaint: pelvic pain Pertinent past history: hysterectomy and diabetes Onset (ago): day(s) ( Two days) Related Data Home Medications ?Medication ?Instructions ?Recorded ?Confirmed ?Last Taken ?Type aspirin 325 mg tablet 325 mg PO DAILY 10/08/21 10/07/23 Unknown History bupropion HCl 150 mg 24 hr tablet, 150 mg PO QAM 10/08/21 10/07/23 Unknown History extended release losartan 50 mg tablet 50 mg PO DAILY 10/08/21 10/07/23 Unknown History metformin 500 mg tablet 500 mg PO BID 10/08/21 10/07/23 Unknown History [id number] tablet 1 tablet PO DAILY 10/08/21 10/07/23 Unknown History venlafaxine 75 mg tablet,extended 75 mg PO DAILY 10/08/21 10/07/23 Unknown History release 24 hr ergocalciferol (vitamin D2) 1,250 1,250 mcg PO WEEKLY 09/04/22 10/07/23 Unknown History mcg (50,000 unit) capsule (Vitamin D2) Allergies Allergy/AdvReac Type Severity Reaction Status Date / Time clarithromycin Allergy Unknown Rash Verified 04/13/24 21:38 clindamycin Allergy Unknown Rash Verified 04/13/24 21:38 Review of Systems 2 Review of Systems: All systems reviewed & are unremarkable except as noted in HPI and below Constitutional: Constitutional: Reports as per HPI and Reports no additional constitutional complaints Eyes: Eyes: Reports as per HPI and Reports no additional eye complaints ENT: Reports system reviewed and no additional complaints, except as documented and Reports as per HPI Cardiovascular: Cardiovascular: Reports as per HPI and Reports no additional cardiovascular complaints Respiratory: Respiratory: Reports as per HPI and Reports no additional respiratory complaints Gastrointestinal: Gastrointestinal: Reports as per HPI and Reports no additional gastrointestinal complaints Genitourinary: Genitourinary: Reports hematuria, Reports nocturia, Reports dysuria and Reports pelvic pain Musculoskeletal: Musculoskeletal: Reports no additional musculoskeletal complaints and Reports as per HPI Integumentary/Breasts: Skin/Breast: Reports system reviewed and no additional complaints, except as docu and Reports as per HPI Neurologic: Reports system reviewed and no additional complaints, except as documented and Reports as per HPI Psychiatric: Psychiatric: Reports no additional psychiatric complaints, Reports as per HPI and Reports anxiety Endocrine: Endocrine: Reports no additional endocrine complaints and Reports as per HPI Hematologic/Lymphatic: Hematologic/Lymphatic: Reports no additional hematologic/lymphatic complaints and Reports as per HPI Allergic/Immunologic: Allergic/Immunologic: Reports no additional allergic/immunologic complaints and Reports as per HPI [facility] Surgical History Surgical History (Updated 04/14/24 @ 00:00 by Dale England MD) H/O biopsy of kidney Social History Social History Years smoked: 40 Smoking status: Former smoker (Quit 11/08/2022) Tobacco type: cigarettes Second hand tobacco smoke exposure: Yes Smoking end date: 01/07/23 Alcohol intake: former Drinks per week: 7 Substance use: never Substance use type: does not use Lack of Transportation: No Lack of Food: Never True Current Housing: I Have Housing Concerned About Future Housing: No Difficulty Paying Gas/Electric Bills: No Difficulty Paying for Meds: No Currently Unemployed: No Education: Associate Degree Difficulty w/ Childcare or Family Care: No Spiritual care concerns: No Exam 2 Narrative: tachycardia with a heart rate of 108. Blood pressure 166/78. Afebrile. Respiratory rate of 22. Oxygen saturation of 92% on 4 L of O2. Const: General: ill appearing Nutritional Appearance: obese O rientation/consciousness: patient oriented x3 Limitations: no limitations HENMT: Head: normal to inspection Ears: external ears normal F geovanny/Nose/Sinus: Normal external nose present Face and sinus: normal facial exam Mouth: Yes Normal oral and palatal mucosa present Throat: posterior oropharynx normal ( Crowded oropharynx. Unable to visualize the posterior pharyngeal wall) Eyes: Conjunctivae: conjunctivae normal Pupils: Equal, round and reactive pupils present EOM: EOMs intact bilaterally Direct Ophthalmoscopy: no photophobia Neck: Neck: normal visual inspection, no lymphadenopathy and no meningeal signs Chest: Chest palpation & inspection: normal inspection of the chest Resp: Effort & Inspection: uses accessory muscles Auscultation: rhonchi and diminished lung sounds Cardio: Rate: tachycardic Rhythm: regular rhythm GI: GI Palp: Yes Soft to palpation Auscultation: normal bowel sounds O ther: no tenderness/rigidity / rebound. : General: Yes bladder normal to palpation and Yes no CVA tenderness E xternal Female Exam: normal external appearance Speculum Exam - Vagina: n ormal appearance of the vagina Speculum Exam - Cervix: normal appearance of the cervix ( Vaginal orifice was very narrow. Unable to pass the speculum. ) Other: unable to introduce the 4 finger into the vagina. No tenderness noted. No vaginal discharge noted. Urinary Catheter: Urinary Catheter: urine dark ( No clots noted in the urine.) and other ( Blood clots noted around the urethral orifice.) Back/Spine/Pelvis: Back: no CVA tenderness Skin: General skin exam: normal color Other: Chronic venous stasis changes both legs. Neuro: General: patient oriented x3, moves all extremities, no meningeal signs, no focal motor deficits and CN's II-XI intact bilaterally Cranial nerves: Yes Nystagmus not present Speech: normal speech Extrem: General: normal to inspection and no clubbing, cyanosis or edema Psych: Appearance: grossly normal Affect: Anxious affect present A ttitude: cooperative Course Course Emergency Course: Pelvic pain-- No tenderness noted on pelvic examination. CT of the abdomen and pelvis did not show any acute findings. no fluid collection in the pelvis noted. Patient received Dilaudid with resolution of pelvic pain. hematuria/ UTI-- patient has been started on Cipro. Would give 1 L of IV fluids to flush the bladder. the patient's H&H decreased from 14.4/45.1 done on February 28 to a current reading of 13.2/39.7. hyperglycemia-- Will give 3 units of subcu insulin Vital Signs Vital signs: Vital Signs Temperature 36.6 C 04/13/24 21:03 Pulse Rate 73 04/13/24 21:03 Respiratory Rate 18 04/13/24 21:03 Blood Pressure 188/65 H 01/15/25 21:03 Pulse Oximetry 93 04/13/24 21:03 Oxygen Delivery Room Air 04/13/24 21:03 Temperature 37.1 C 04/13/24 23:15 Pulse Rate 108 H 04/13/24 23:15 Respiratory Rate 22 H 04/13/24 23:15 Blood Pressure 166/78 H 04/13/24 21:37 Pulse Oximetry 92 04/13/24 23:30 Oxygen Delivery Nasal Cannula 04/13/24 23:15 Oxygen Flow Rate 4 04/13/24 23:15 MDM - Female Genitourinary MDM Narrative Medical decision making narrative: pelvic pain hematuria hyperglycemia Differential Diagnosis Differential diagnosis: Likely urinary tract infection Medical Records Attestation: I reviewed the patient's medical records. Lab Data Attestation: I reviewed the patient's lab results. 04/13/24 22:00 04/13/24 22:00 Labs: Lab Results 04/13/24 Range/Units 22:00 WBC 17.7 H (4.8-10.8) K/mm3 RBC 4.60 (4.20-5.40) M/mm3 Hgb 13.2 (12.0-15.0) g/dL Hct 39.7 (35.0-49.0) % MCV 86.3 (78.0-102.0) fL MCH 28.7 (27.0-31.0) pg MCHC 33.2 (32-36) g/dL RDW 13.5 (11.6-14.4) % Plt Count 206 (150-420) K/mm3 MPV 11.3 (9.2-11.8) fl Immature Gran % (Auto) 0.8 H (0.0-0.0) % Neut % (Auto) 79.7 H (50.0-70.0) % Lymph % (Auto) 7.8 L (18.0-42.0) % [place] % (Auto) 10.5 (2.0-11.0) % Eos % (Auto) 0.8 L (1.0-6.0) % Baso % (Auto) 0.4 (0.0-1.0) % Lymph # (Auto) 1.38 (1.10-4.50) K/mm3 Summers # (Auto) 1.87 H (0.10-0.90) K/mm3 Eos # (Auto) 0.15 (0.02-0.50) K/mm3 Baso # (Auto) 0.07 (0.00-0.10) K/mm3 Abs Immat Gran (auto) 0.15 H (0.00-0.00) K/mm3 Absolute Neuts (auto) 14.11 H (1.70-7.20) K/mm3 Absolute Nucleated RBC 0.00 (0.00-0.00) K/mm3 Nucleated RBC % 0.0 (0-0.0) % PT 9.8 (9.50-12.1) Seconds INR 0.9 APTT 23.9 (23.9-30.70) Sec Sodium 137 (136-145) mmol/L Potassium 3.3 L (3.5-5.1) mmol/L Chloride 98 (98-108) mmol/L Carbon Dioxide 25 (21-32) mmol/L Anion Gap 14 H (4-12) mmol/L BUN 19 H (7-18) mg/dL Creatinine 0.85 (0.55-1.02) mg/dL Estim Creat Clear Calc 69 ml/min Estimated GFR > 60 (59 - ) Glucose 319 H (70-99) mg/dL Calculated Osmolality 298 H (285-295) mOsm/kg Lactic Acid 1.4 (0.4-2.0) mmol/L Calcium 9.1 (8.5-10.1) mg/dL Total Bilirubin 0.4 (0.00-1.00) mg/dL AST 13 L (15-37) U/L ALT 29 (14-59) U/L Alkaline Phosphatase 141 H (46-116) U/L Total Protein 7.2 (6.4-8.2) g/dL Albumin 2.5 L (3.4-5.0) g/dL Lipase 21 (16-77) U/L Urine Color Dark brown (Yellow) Urine Appearance Cloudy A (Clear) Urine pH 6.5 (5.0-8.0) Ur Specific [place] 1.020 (1.010-1.020) Urine Protein 3+ H (Negative) Urine Glucose (UA) 3+ H (Negative) Urine Ketones 2+ H (Negative) Ur Blood (Man) 3+ H (Negative) Urine Nitrate Positive H (Negative) Urine Bilirubin Negative (Negative) Urine Urobilinogen 2.0 H (0.2-1.0) mg/dL Leukocyte Esterase Rfl 2+ H (Negative) DANNY/UL Urine RBC >75 H (0-2) /hpf Urine WBC >75 H (0-3) /hpf Ur Squamous Epith Cells Moderate H (Few) /hpf Urine Bacteria 3+ H (None) /hpf Discharge Plan Discharge Clinical Impression: Pelvic pain, Hyperglycemia Urinary tract infection Qualifiers: Urinary tract infection type: site unspecified Hematuria presence: with hematuria Qualified Code(s): N39.0 - Urinary tract infection, site not specified Patient Disposition: Home, Self-Care Condition: Stable Instructions: Antibiotic Form, Urinary Tract Infection in Women (ED), Hematuria (ED) Additional Instructions: continue Cipro Patient Language: Icelandic Prescriptions: No Action losartan 50 mg Tablet 50 mg PO DAILY metformin 500 mg Tablet 500 mg PO BID aspirin 325 mg Tablet 325 mg PO DAILY [id number]-[id number]-[id number] Tablet 1 tablet PO DAILY bupropion HCl 150 mg Tablet Extended Release 24 Hr 150 mg PO QAM venlafaxine 75 mg Tablet Extended Release 24hr 75 mg PO DAILY ergocalciferol (vitamin D2) [Vitamin D2] 1,250 mcg (50,000 unit) Capsule 1,250 mcg PO WEEKLY albuterol sulfate [ProAir HFA] 90 mcg/actuation HFA aerosol inhaler 2 puff inhalation QID PRN (Reason: shortness of breath or wheezing) Qty: 8.5 0RF Bevespi Aerosphere 9-4.8 mcg HFA aerosol inhaler 2 puff inhalation BID Qty: 10.7 1RF Follow-up/Referrals: Negro Hein MD [Primary Care Provider] - Time of Disposition: 00:11
--- NOTE | 2024-04-13 21:41 | PC.NURSE ---
patient to imaging via wheelchair per radiation oncologist.
[2024-04-13 22:03] LABS: Basophils Absolute Auto 0.07 K/mm3 (0.00-0.10); Basophils Percent Auto 0.4 % (0.0-1.0); Eosinophils Absolute Auto 0.15 K/mm3 (0.02-0.50); Eosinophils Percent Auto 0.8 % (1.0-6.0); Hematocrit 39.7 % (35.0-49.0); Hemoglobin 13.2 g/dL (12.0-15.0); Immature Granulocyte Absolute 0.15 K/mm3 (0.00-0.00); Immature Granulocyte Percent A 0.8 % (0.0-0.0); Lymphocytes Absolute Auto 1.38 K/mm3 (1.10-4.50); Lymphocytes Percent Auto 7.8 % (18.0-42.0); Mean Corpuscular HGB Conc 33.2 g/dL (32-36); Mean Corpuscular Hemoglobin 28.7 pg (27.0-31.0); Mean Corpuscular Volume 86.3 fL (78.0-102.0); Mean Platelet Volume 11.3 fl (9.2-11.8); Monocytes Absolute Auto 1.87 K/mm3 (0.10-0.90); Monocytes Percent Auto 10.5 % (2.0-11.0); Neutrophils Absolute Auto 14.11 K/mm3 (1.70-7.20); Neutrophils Percent Auto 79.7 % (50.0-70.0); Platelet Count Result 206 K/mm3 (150-420); Red Cell Distribution Width 13.5 % (11.6-14.4); White Blood Count 17.7 K/mm3 (4.8-10.8)
[2024-04-13 22:04] LABS: Appearance Urine Cloudy (Clear); Bilirubin Urine Negative (Negative); Blood Urine 3+ (Negative); Glucose Urine UA 3+ (Negative); Ketones Urine 2+ (Negative); Leukocyte Esterase Ur 2+ LEU/UL (Negative); Nitrate Urine Positive (Negative); Protein Urine 3+ (Negative); pH Urine 6.5 (5.0-8.0)
[2024-04-13 22:12] LABS: Add Urine Microscopic? YES; Color Urine Dark Brown (Yellow)
[2024-04-13 22:13] LABS: Bacteria Urine 3+ /hpf; RBC Urine >75 /hpf (0-2); Squamous Epithelial Cell Urine Moderate /hpf (Few); WBC Urine >75 /hpf (0-3)
[2024-04-13 22:18] LABS: INR 0.9; Partial Thromboplastin Time 23.9 Sec (23.9-30.70); Prothrombin Time 9.8 Seconds (9.50-12.1)
[2024-04-13 22:22] LABS: Lactic Acid Reflex 1.4 mmol/L (0.4-2.0)
[2024-04-13 22:25] LABS: Alanine Aminotransferase 29 U/L (14-59); Albumin Level 2.5 g/dL (3.4-5.0); Alkaline Phosphatase 141 U/L (46-116); Anion Gap 14 mmol/L (4-12); Aspartate Amino Transferase 13 U/L (15-37); Bilirubin,Total 0.4 mg/dL (0.00-1.00); Blood Urea Nitrogen 19 mg/dL (7-18); Calcium 9.1 mg/dL (8.5-10.1); Carbon Dioxide 25 mmol/L (21-32); Chloride 98 mmol/L (98-108); Estimated CRCL calculation 69 ml/min; Estimated Glomerular Filt Rate > 60; Glucose 319 mg/dL (70-99); Osmolality Calculated 298 mOsm/kg (285-295); Potassium 3.3 mmol/L (3.5-5.1); Sodium 137 mmol/L (136-145); Total Protein 7.2 g/dL (6.4-8.2)
[2024-04-13 22:26] LABS: Lipase 21 U/L (16-77)
--- NOTE | 2024-04-13 22:50 | PC.NURSE ---
RN at bedside to medicate patient however IV placed per EMS not working. After evaluating IV, line was pulled due to kink in catheter and new IV started. patient medicated per order, see MAR and spouse at bedside. call light within reach.
[2024-04-13] MEDS: ONDANSETRON HCL ODT 4 MG TABLET PO (22:57)
[2024-04-13] MEDS: HYDROmorphone HCL INJ (*CRX) 2 MG/ML VIAL 0.5 MG IV PUSH (22:57)
[2024-04-13] MEDS: LACTATED RINGERS 1,000 ML 999 ML IV CONT (22:58)
--- NOTE | 2024-04-13 23:28 | PC.NURSE ---
RN at bedside as IV pump beeping. restarted. IV site evaluated and remains WNL. RN monitoring. spouse left for home, RN will phone patient daughter for ride later if needed. call light within reach. lights dimmed for comfort and patient adjusted on stretcher.
[2024-04-14] VITALS (18 sets, daily range): BP systolic 144–176; BP diastolic 53–85; PULSE 105; RESP 22; TEMP 36.4; O2SAT 91–95
--- NOTE | 2024-04-14 00:10 | PC.NURSE ---
RN at bedside as audit practice intern for pelvic exam. spouse at bedside. shazia
[2024-04-14] MEDS: INSULIN HUMAN REGULAR (*BKC) 1,000 UNITS/10 ML VIAL 3 UNITS SUB-Q (00:24)
--- NOTE | 2024-04-14 00:57 | PC.NURSE ---
RN phoned patient daughter, Aliyah who will be up to get her mother after work; around 30-40 minutes. Patient resting on stretcher, ivf infused. patient reports pain remains albeit less intense. call light within reach.
--- NOTE | 2024-04-16 13:28 | PC.NURSE ---
blood culture preliminary NO GROWTH TO DATE
--- NOTE | 2024-04-16 13:29 | PC.NURSE ---
URINE CULTURE FINAL NO GROWTH
== END 2024-04-14 02:08 | disposition home or self-care (01) ==
PROVIDERS: Emergency Provider Internal Medicine Critical Care Medicine; PCP Family Medicine
DX: E11.65 Type 2 diabetes mellitus with hyperglycemia (principal); N39.0 Urinary tract infection, site not specified; R10.2 Pelvic and perineal pain; J44.9 Chronic obstructive pulmonary disease, unspecified; I10 Essential (primary) hypertension; Z87.891 Personal history of nicotine dependence
CPT/HCPCS: 36415; 74176; 80053; 81001; 83605; 83690; 85025; 85610; 85730; 87040; 87086; 96361; 96372; 96374; 96375; 99284; A9270; J1171; J1815; J7120

== ENCOUNTER 2024-05-09 10:19 | Outpatient (CLI) | payer OTHER, SELFPAY ==
--- NOTE | ~2024-05-09 | CT_ITS ---
EXAMINATION: CT lung screening DATE: 05/09/2024 10:38 INDICATION: SMOKER SCREENING-QUIT X1.5YR AGO,CHRONIC SOB TECHNIQUE: Computed tomography (CT) of the chest was performed without intravenous contrast. Addition al 3D reconstructions utilizing coronal maximum intensity projection (MIP) were performed. Automated exposure control and iterative reconstruction technique were employed. The dose-length product was 19 6.67 mGy-cm. COMPARISON: 11/10/2022 FINDINGS: Postoperative change the left lung with suture line extending along the posterior left upper lobe and lingula. Linear discoid atelectasis/scarring in the bilateral lower lobes, lingula and anteroinferio r aspect of the bilateral upper lobes. Small calcified nodule at the right apex consistent with old g ranulomatous disease. For millimeter noncalcified nodule in the subpleural right middle lobe. 2 mm no dule along the inferior right major fissure. No pulmonary edema, pleural effusion or pneumothorax. He art size normal. Atherosclerotic coronary artery calcification is and aortic valve calcific lesion. T horacic aorta is normal in caliber. There is dense atherosclerotic calcification along the aortic arc h and particularly at the origin of the left subclavian artery where there appears be a likely hemody namically significant stenosis. No pathologically enlarged thoracic lymphadenopathy. Visualized upper abdomen is unremarkable. Mild thoracic spondylosis. 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 IMPRESSION: 1. . Lung-RADS category 2: Benign appearance or behavior. Continue annual screening with noncontrast low-dose chest CT in 12 months. 2. Prominent atherosclerotic calcifications with potentially minimally since stenosis at the origin o f the left subclavian artery. 2. 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 Reviewed, dictated and finalized at location A. TTING INTERVIEWER IMPRESSION: 1. . Lung-RADS category 2: Benign appearance or behavior. Continue annual scree steve with noncontrast low-dose chest CT in 12 months. 2. Prominent atherosclerotic calcifications with potentially minimally since st enosis at the origin of the left subclavian artery. 2. 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
--- OUTSIDE RECORDS SUMMARY | 2024-05-09 11:10 | XMS_ITS | Patient Health Summary ---
Author Organization [facility] Address [address] [place] [address] Care Team Providers Care Chief Juvenile Probation Officer Name Role Phone Negro Hein MD Primary Care Provider [phone] Note from [facility],non-owned Affiliates and Associated Physician Practices is amultiple site organization consisting of ambulatory clinics and hospital sitesin [place], [place], [place] and [place]. This disclosure is being madepursuant to the Care Everywhere program and may not contain all information available regarding this patient. Last updated 17.[facility] Allergies * Clindamycin(Urticaria) -Medium Criticality * Lisinopril(Rash) -Medium Criticality Medications * Be aware that medications may not be up to date on this document. Alwaysverify current medications with the patient. * citalopram (CELEXA) 40 MG tablet(Started 06/25/2018) Take 40 mg by mouth once daily * losartan (COZAAR) 50 MG tablet(Started 07/19/2018) Take by mouth once daily * metFORMIN (GLUCOPHAGE) 500 MG tablet(Started 07/19/2018) 500 mg 2 times daily with morning and evening meal * albuterol HFA (PROVENTIL;VENTOLIN;PROAIR) 108 (90 Base) MCG/ACT inhaler (Started 07/05/2018) Inhale 2 puffs by mouth every 6 hours * acetaminophen (TYLENOL) 500 MG tablet Take 500 mg by mouth every 4 hours as needed for Fever or Pain Maximum allowable Acetaminophen amount = 4 Grams (4000 mg) / 24 hours. * aspirin (ASPIRIN) 81 MG tablet Take 81 mg by mouth once daily * ANORO ELLIPTA 62.5-25 MCG/INH inhaler(Started 10/22/2018) Inhale 62.5 mcg by mouth 2 times daily as needed * hydroxychloroquine (PLAQUENIL) 200 MG tablet(Started 09/08/2019) Take 1 tablet by mouth 2 times daily 3 refills by 09/07/2020 * sulfaSALAzine (AZULFIDINE) 500 MG tablet(Started 09/08/2019) Take 3 tablets by mouth 2 times daily 3 refills by 09/07/2020 * vitamin D, ergocalciferol, (DRISDOL) 1.25 MG (54425 UT) capsule(Started 09/15/2019) Take 1 capsule by mouth once a week Active Problems No known active problems Immunizations * INFLUENZA VACCINE, QUADR. (FLUZONE; FLULAVAL; FLUARIX; AFLURIA QUADRIVALENT; 6MO+), 0.5 ML (IIV4)(Given 01/11/2019) Social History Tobacco Use Types Packs/Day Years Used Date Smoking Tobacco: Every Day Cigarettes 1 40 Smokeless Tobacco: Never Alcohol Use Standard Drinks/Week Comments No 0 (1 standard drink = 0.6 oz pur e alcohol) Sex and Gender Information Value Date Recorded Sex Assigned at Not on file Gender Identity Not on file Sexual Orientation Not on file Last Filed Vital Signs Vital Sign Reading Time Taken Comments Blood Pressure 158/72 05/24/2019 12:10 PM INVOICE CLASSIFICATION CLERK Pulse 84 05/24/2019 12:10 PM INVOICE CLASSIFICATION CLERK Temperature 36.9 C (98.4 F) 05/24/2019 12:10 PM INVOICE CLASSIFICATION CLERK Respiratory Rate - - Oxygen Saturation - - Inhaled Oxygen Concentration - - Weight 83.5 kg (184 lb) 05/24/2019 12:10 PM INVOICE CLASSIFICATION CLERK Height 167.6 cm (5' 6 ) 05/24/2019 12:10 PM INVOICE CLASSIFICATION CLERK Body Mass Index 29.7 05/24/2019 12:10 PM INVOICE CLASSIFICATION CLERK Procedures * XR KNEE LEFT 2VW OR LESS(Performed 07/20/2018) Performed for Inflammatory arthritis, Rheumatoid nodule (HCC), Flexion contracture joint of multiple sites, Dry mouth, TMJ arthritis, Tobacco use disorder * XR KNEE RIGHT 2VW OR LESS(Performed 07/20/2018) Performed for Inflammatory arthritis, Rheumatoid nodule (HCC), Flexion contracture joint of multiple sites, Dry mouth, TMJ arthritis, Tobacco use disorder * XR WRIST LEFT 3VW OR MORE(Performed 07/20/2018) Performed for Inflammatory arthritis, Rheumatoid nodule (HCC), Flexion contracture joint of multiple sites, Dry mouth, TMJ arthritis, Tobacco use disorder * XR WRIST RIGHT 3VW OR MORE(Performed 07/20/2018) Performed for Inflammatory arthritis, Rheumatoid nodule (HCC), Flexion contracture joint of multiple sites, Dry mouth, TMJ arthritis, Tobacco use disorder * XR HAND LEFT 3VW OR MORE(Performed 07/20/2018) Performed for Inflammatory arthritis, Rheumatoid nodule (HCC), Flexion contracture joint of multiple sites, Dry mouth, TMJ arthritis, Tobacco use disorder * XR HAND RIGHT 3VW OR MORE(Performed 07/20/2018) Performed for Inflammatory arthritis, Rheumatoid nodule (HCC), Flexion contracture joint of multiple sites, Dry mouth, TMJ arthritis, Tobacco use disorder * XR FOOT LEFT 2VW(Performed 07/20/2018) Performed for Inflammatory arthritis, Rheumatoid nodule (HCC), Flexion contracture joint of multiple sites, Dry mouth, TMJ arthritis, Tobacco use disorder * XR FOOT RIGHT 2VW(Performed 07/20/2018) Performed for Inflammatory arthritis, Rheumatoid nodule (HCC), Flexion contracture joint of multiple sites, Dry mouth, TMJ arthritis, Tobacco use disorder * XR ELBOW RIGHT 2VW(Performed 07/20/2018) Performed for Inflammatory arthritis, Rheumatoid nodule (HCC), Flexion contracture joint of multiple sites, Dry mouth, TMJ arthritis, Tobacco use disorder * XR ELBOW LEFT 2VW(Performed 07/20/2018) Performed for Inflammatory arthritis, Rheumatoid nodule (HCC), Flexion contracture joint of multiple sites, Dry mouth, TMJ arthritis, Tobacco use disorder * XR ANKLE LEFT 2VW(Performed 07/20/2018) Performed for Inflammatory arthritis, Rheumatoid nodule (HCC), Flexion contracture joint of multiple sites, Dry mouth, TMJ arthritis, Tobacco use disorder * XR ANKLE RIGHT 2VW(Performed 07/20/2018) Performed for Inflammatory arthritis, Rheumatoid nodule (HCC), Flexion contracture joint of multiple sites, Dry mouth, TMJ arthritis, Tobacco use disorder * XR CHEST 2VW(Performed 07/20/2018) Performed for Inflammatory arthritis, Rheumatoid nodule (HCC), Flexion contracture joint of multiple sites, Dry mouth, TMJ arthritis, Tobacco use disorder * FLOYD STAINING PATTERNS REFLEXED(Performed 07/20/2018) Performed for Inflammatory arthritis, Rheumatoid nodule (HCC), Flexion contracture joint of multiple sites, Dry mouth, TMJ arthritis, Tobacco use disorder * RBC MORPHOLOGY(Performed 07/20/2018) Performed for Inflammatory arthritis, Rheumatoid nodule (HCC), Flexion contracture joint of multiple sites, Dry mouth, TMJ arthritis, Tobacco use disorder * QUANTIFERON-TB GOLD PLUS 4-TUBE(Performed 07/20/2018) Performed for Inflammatory arthritis * URIC ACID BLOOD(Performed 07/20/2018) Performed for Inflammatory arthritis, Rheumatoid nodule (HCC), Flexion contracture joint of multiple sites, Dry mouth, TMJ arthritis, Tobacco use disorder * HLA TYPING B27(Performed 07/20/2018) Performed for Inflammatory arthritis, Rheumatoid nodule (HCC), Flexion contracture joint of multiple sites, Dry mouth, TMJ arthritis, Tobacco use disorder * SS-B (SJOGREN'S) ANTIBODY(Performed 07/20/2018) Performed for Inflammatory arthritis, Rheumatoid nodule (HCC), Flexion contracture joint of multiple sites, Dry mouth, TMJ arthritis, Tobacco use disorder * SS-A (SJOGREN'S) ANTIBODY(Performed 07/20/2018) Performed for Inflammatory arthritis, Rheumatoid nodule (HCC), Flexion contracture joint of multiple sites, Dry mouth, TMJ arthritis, Tobacco use disorder * RHEUMATOID FACTOR BLOOD QUANTITATIVE(Performed 07/20/2018) Performed for Inflammatory arthritis, Rheumatoid nodule (HCC), Flexion contracture joint of multiple sites, Dry mouth, TMJ arthritis, Tobacco use disorder * CYCLIC CITRUL PEPTIDE ANTIBODY IGG/IGA (CCP)(Performed 07/20/2018) Performed for Inflammatory arthritis, Rheumatoid nodule (HCC), Flexion contracture joint of multiple sites, Dry mouth, TMJ arthritis, Tobacco use disorder * ANNA BLOOD SCREEN W/REFLEX TITER(Performed 07/20/2018) Performed for Inflammatory arthritis, Rheumatoid nodule (HCC), Flexion contracture joint of multiple sites, Dry mouth, TMJ arthritis, Tobacco use disorder * HIV-1 HIV-2 ANTIGEN/ANTIBODY(Performed 07/20/2018) Performed for Inflammatory arthritis, Rheumatoid nodule (HCC), Flexion contracture joint of multiple sites, Dry mouth, TMJ arthritis, Tobacco use disorder * HEPATITIS C ANTIBODY(Performed 07/20/2018) Performed for Inflammatory arthritis, Rheumatoid nodule (HCC), Flexion contracture joint of multiple sites, Dry mouth, TMJ arthritis, Tobacco use disorder * HEPATITIS B SURFACE ANTIGEN W RFLX CONFIRMATION(Performed 07/20/2018) Performed for Inflammatory arthritis, Rheumatoid nodule (HCC), Flexion contracture joint of multiple sites, Dry mouth, TMJ arthritis, Tobacco use disorder * T4 FREE(Performed 07/20/2018) Performed for Inflammatory arthritis, Rheumatoid nodule (HCC), Flexion contracture joint of multiple sites, Dry mouth, TMJ arthritis, Tobacco use disorder * THYROGLOBULIN ANTIBODY(Performed 07/20/2018) Performed for Inflammatory arthritis, Rheumatoid nodule (HCC), Flexion contracture joint of multiple sites, Dry mouth, TMJ arthritis, Tobacco use disorder * THYROID PEROXIDASE ANTIBODY(Performed 07/20/2018) Performed for Inflammatory arthritis, Rheumatoid nodule (HCC), Flexion contracture joint of multiple sites, Dry mouth, TMJ arthritis, Tobacco use disorder * TSH(Performed 07/20/2018) Performed for Inflammatory arthritis, Rheumatoid nodule (HCC), Flexion contracture joint of multiple sites, Dry mouth, TMJ arthritis, Tobacco use disorder * VITAMIN D 25-HYDROXY(Performed 07/20/2018) Performed for Inflammatory arthritis, Rheumatoid nodule (HCC), Flexion contracture joint of multiple sites, Dry mouth, TMJ arthritis, Tobacco use disorder * ERYTHROCYTE SEDIMENTATION RATE(Performed 07/20/2018) Performed for Inflammatory arthritis, Rheumatoid nodule (HCC), Flexion contracture joint of multiple sites, Dry mouth, TMJ arthritis, Tobacco use disorder * C-REACTIVE PROTEIN(Performed 07/20/2018) Performed for Inflammatory arthritis, Rheumatoid nodule (HCC), Flexion contracture joint of multiple sites, Dry mouth, TMJ arthritis, Tobacco use disorder * COMPREHENSIVE METABOLIC PANEL(Performed 07/20/2018) Performed for Inflammatory arthritis, Rheumatoid nodule (HCC), Flexion contracture joint of multiple sites, Dry mouth, TMJ arthritis, Tobacco use disorder * CBC W AUTO DIFFERENTIAL(Performed 07/20/2018) Performed for Inflammatory arthritis, Rheumatoid nodule (HCC), Flexion contracture joint of multiple sites, Dry mouth, TMJ arthritis, Tobacco use disorder * LDH BLOOD(Performed 07/20/2018) Performed for Inflammatory arthritis, Rheumatoid nodule (HCC), Flexion contracture joint of multiple sites, Dry mouth, TMJ arthritis, Tobacco use disorder * CK BLOOD(Performed 07/20/2018) Performed for Inflammatory arthritis, Rheumatoid nodule (HCC), Flexion contracture joint of multiple sites, Dry mouth, TMJ arthritis, Tobacco use disorder * ALDOLASE(Performed 07/20/2018) Performed for Inflammatory arthritis, Rheumatoid nodule (HCC), Flexion contracture joint of multiple sites, Dry mouth, TMJ arthritis, Tobacco use disorder Results * XR FOOT RIGHT 2VW (07/20/2018 10:39 AM CDT) Anatomical Region Laterality Modality Ankle / Foot Radiographic Sakshi ging 07/20/2018 12:5 2 PM CDT Impressions 07/21/2018 9:16 AM CDT IMPRESSION: 1. Right hand: Moderate to severe erosive arthritis, greatest at the third metacarpophalangeal joint. A lytic lesion involves much of the third digit proximal phalanx resulting in cortical thinning, probably representing a large erosion propagating through the shaft of the bone, less likely an enchondroma or lytic lesion of other etiology. 2. Left hand: Severe erosive arthropathy, greatest at the third and fifth metacarpophalangeal joints. 3. 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 4. 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 5. Right elbow: Moderate to severe erosive arthritis. Olecranon bursitis. joint effusion. 6. Left elbow: Mild to moderate erosive arthritis. Olecranon bursitis. Joint effusion. 7. Right knee: Mild tricompartmental arthritis without definite erosion. 8. Left knee: Mild tricompartmental arthritis with a relatively large erosion in the superior aspect of the patella. 9. Right ankle: Mild arthritis. 10. Left ankle: Mild arthritis. Effusion. 11. Right foot: Mild to moderate erosive arthritis in the forefoot. 12. Left foot: Mild to moderate erosive arthritis in the forefoot. Report dictated by Mallory Jeffries MD (president and chief operating officer). I, Dr. DAVID NOLAN MD have personally reviewed and interpreted this examination/study. This report was electronically signed by DAVID NOLAN MD on 07/21/2018 9:16 AM . Narrative 07/21/2018 9:16 AM CDT EXAMINATION: 1. Right hand: 3 views. 2. Left hand, 3 views. 3. Right wrist, 3 views. 4. Left wrist, 3 views. 5. Right elbow, 2 views. 6. Left elbow, 2 views. 7. Right ankle, 2 views. 8. Left ankle, 2 views. 9. Right foot, 2 views. 10. Left foot, 2 views. 11. Right knee, 2 views. Weightbearing exam. 12. Left knee, 2 views. Weightbearing exam. HISTORY: Erosive arthropathy , rheumatoid arthritis. COMPARISON: No prior study is available for comparison at the time of this dictation. FINDINGS: Right hand: Moderate to severe erosive arthritis is present at multiple joints, greatest at the third metacarpophalangeal joint where there is essentially [id number] contact. A lytic lesion is present in the third proximal phalanx involving most of the bone, resulting in severe cortical thinning. This probably represents a large erosion propagating through the shaft of the bone, less likely an enchondroma or other lytic lesion. Erosions are also seen at the second, fourth, fifth metacarpophalangeal joints and third proximal interphalangeal joint. Soft tissue nodules are present at the third and fifth proximal interphalangeal joints. There are also suggested the dorsal aspect of the metacarpal phalangeal joints. Soft tissue swelling is present around the arthritic joints. The bones are osteopenic including in the periarticular regions. No fracture is noted. Left hand: As on the right there is severe erosive arthritis at multiple joints, greatest at the second, third, and fifth metacarpophalangeal joints. There is more mild involvement of several interphalangeal joints. Large erosions are present including a 1.3 cm and in the third proximal phalanx base, a 1.3 cm erosions in the fifth metacarpal distal shaft/neck, and a smaller large erosion in the third metacarpal head. Soft tissue swelling is seen around several joints including nodular soft tissue swelling. There is osteopenia including in the periarticular regions. No fracture is noted. Right wrist: There is severe erosive arthropathy of the carpal bones with joint space narrowing, erosions, and ankylosis of several intercarpal joints. There is severe joint space narrowing of the radiocarpal and ulnar carpal joints. No fracture is noted. Soft tissue swelling is present. Osteopenia is noted. Left wrist: Advanced erosive arthropathy of the wrist with collapse and ankylosis of the carpal bones and multiple erosions. There is ankylosis of multiple intercarpal joints. No fracture is noted. Soft tissue swelling is present. Osteopenia is noted. Right elbow: No acute fracture or dislocation. There is severe erosive arthritis of the right elbow joint with joint space narrowing and erosions. There is a joint effusion. There is diffuse mild osteopenia. There is soft tissue swelling of the posterior aspect of the elbow which suggests olecranon bursitis. Left elbow: No acute fracture or dislocation. There is mild to moderate erosive arthropathy of the left elbow with erosions of the lateral and medial humeral condyles. There is focal soft tissue swelling of the posterior aspect of the elbow, consistent with olecranon bursitis. There is a joint effusion. Osteopenia is present. Right knee: No acute fracture or dislocation is identified. There is mild tricompartmental joint arthritis with subchondral sclerosis and osteophytes, without erosion. Diffuse mild osteopenia is noted. There is no joint effusion. There is an enthesophyte arising from the superior aspect of the patella. Left knee: No fracture or dislocation is identified. There is mild tricompartmental joint arthritis with subchondral sclerosis and osteophytes. There is a 1 cm erosion in the superior aspect of the patella. Diffuse mild osteopenia is noted. There is no joint effusion. There is an enthesophyte arising from the superior aspect of the patella. Right ankle: No acute fracture or dislocation is identified. There are some small subchondral cysts versus erosions in the medial malleolus and medial aspect of the talotibial joint. Soft tissue swelling is present. Small plantar and dorsal calcaneal spurs are present. Left ankle: No acute fracture or dislocation is identified. There are some erosions versus subchondral cyst in the medial malleolus. Soft tissue swelling is present. Small plantar and dorsal calcaneal spurs are present. An effusion is noted. Right foot: No fracture or dislocation is identified. There is hallux valgus. There is moderate osteoarthritis at the first metatarsophalangeal joint. There is moderate erosive arthritis at the first metatarsophalangeal joint and mild erosive arthritis at the fifth metatarsophalangeal joint. Soft tissue swelling is present, greatest on the first interphalangeal joint . Small plantar and calcaneal spurs are present. Left foot: No acute fracture or dislocation is identified. There is hallux valgus deformity of the first digit with deformity of the head of the first metatarsal. There is moderate arthritis at the first metatarsophalangeal joint, probably with small erosions. Erosions are noted at the first interphalangeal joint with overlying soft tissue swelling. The second through fifth metatarsophalangeal joints are not well evaluated due to positioning and possibly subluxation; arthritis is likely present at these joints. Diffuse osteopenia is present. Diffuse soft tissue tissue swelling is noted. Small plantar and dorsal calcaneal spurs are present. Procedure Note David Nolan MD - 07/21/2018 EXAMINATION: 1. Right hand: 3 views. 2. Left hand, 3 views. 3. Right wrist, 3 views. 4. Left wrist, 3 views. 5. Right elbow, 2 views. 6. Left elbow, 2 views. 7. Right ankle, 2 views. 8. Left ankle, 2 views. 9. Right foot, 2 views. 10. Left foot, 2 views. 11. Right knee, 2 views. Weightbearing exam. 12. Left knee, 2 views. Weightbearing exam. HISTORY: Erosive arthropathy , rheumatoid arthritis. COMPARISON: No prior study is available for comparison at the time of this dictation. FINDINGS: Right hand: Moderate to severe erosive arthritis is present at multiple joints, greatest at the third metacarpophalangeal joint where there is essentially [id number] contact. A lytic lesion is present in the third proximal phalanx involving most of the bone, resulting in severecortical thinning. This probably represents a large erosion propagating throughthe shaft of the bone, less likely an enchondroma or other lytic lesion. Erosions are also seen at the second, fourth, fifth metacarpophalangeal joints and third proximal interphalangeal joint. Soft tissue nodules are present at the third and fifth proximal interphalangeal joints. Thereare also suggested the dorsal aspect of the metacarpal phalangeal joints.Soft tissue swelling is present around the arthritic joints. The bones are osteopenic including in the periarticular regions. No fracture is noted. Left hand: As on the right there is severe erosive arthritis at multiple joints, greatest at the second, third, and fifth metacarpophalangeal joints.There is more mild involvement of several interphalangeal joints. Largeerosions are present including a 1.3 cm and in the third proximal phalanx base, a 1.3 cm erosions in the fifth metacarpal distal shaft/neck, and a smaller large erosion in the third metacarpal head. Soft tissue swelling is seen around several joints including nodular soft tissue swelling. There is osteopenia including in the periarticular regions. No fracture isnoted. Right wrist: There is severe erosive arthropathy of the carpal bones with joint space narrowing, erosions, and ankylosis of several intercarpal joints. Thereis severe joint space narrowing of the radiocarpal and ulnar carpal joints. No fracture is noted. Soft tissue swelling is present. Osteopenia is noted. Left wrist: Advanced erosive arthropathy of the wrist with collapse and ankylosis of the carpal bones and multiple erosions. There is ankylosis of multiple intercarpal joints. No fracture is noted. Soft tissue swelling ispresent. Osteopenia is noted. Right elbow: No acute fracture or dislocation. There is severe erosive arthritis ofthe right elbow joint with joint space narrowing and erosions. There is a joint effusion. There is diffuse mild osteopenia. There is soft tissue swelling of the posterior aspect of the elbow which suggests olecranon bursitis. Left elbow: No acute fracture or dislocation. There is mild to moderate erosive arthropathy of the left elbow with erosions of the lateral and medial humeral condyles. There is focal soft tissue swelling of the posterior aspect of the elbow, consistent with olecranon bursitis. There is a joint effusion. Osteopenia is present. Right knee: No acute fracture or dislocation is identified. There is mild tricompartmental joint arthritis with subchondral sclerosis and osteophytes, without erosion. Diffuse mild osteopenia is noted. There is no joint effusion. There is an enthesophyte arising from the superior aspect of the patella. Left knee: No fracture or dislocation is identified. There is mild tricompartmental joint arthritis with subchondral sclerosis and osteophytes. There is a 1 cm erosion in the superior aspect of the patella. Diffuse mildosteopenia is noted. There is no joint effusion. There is an enthesophyte arising from the superior aspect of the patella. Right ankle: No acute fracture or dislocation is identified. There are some small subchondral cysts versus erosions in the medial malleolus and medial aspect of the talotibial joint. Soft tissue swelling is present. Small plantar and dorsal calcaneal spurs are present. Left ankle: No acute fracture or dislocation is identified. There are some erosions versus subchondral cyst in the medial malleolus. Soft tissue swelling is present. Small plantar and dorsal calcaneal spurs are present. Aneffusion is noted. Right foot: No fracture or dislocation is identified. There is hallux valgus. Thereis moderate osteoarthritis at the first metatarsophalangeal joint. There is moderate erosive arthritis at the first metatarsophalangeal joint andmild erosive arthritis at the fifth metatarsophalangeal joint. Soft tissue swelling is present, greatest on the first interphalangeal joint . Small plantar and calcaneal spurs are present. Left foot: No acute fracture or dislocation is identified. There is hallux valgus deformity of the first digit with deformity of the head of the first metatarsal. There is moderate arthritis at the first metatarsophalangeal joint, probably with small erosions. Erosions are noted at the first interphalangeal joint with overlying soft tissue swelling. The second through fifth metatarsophalangeal joints are not well evaluated due to positioning and possibly subluxation; arthritis is likely present atthese joints. Diffuse osteopenia is present. Diffuse soft tissue tissueswelling is noted. Small plantar and dorsal calcaneal spurs are present. IMPRESSION: 1. Right hand: Moderate to severe erosive arthritis, greatest at thethird metacarpophalangeal joint. A lytic lesion involves much of the thirddigit proximal phalanx resulting in cortical thinning, probably representing a large erosion propagating through the shaft of the bone, less likely an enchondroma or lytic lesion of other etiology. 2. Left hand: Severe erosive arthropathy, greatest at the third andfifth metacarpophalangeal joints. 3. 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 4. 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 5. Right elbow: Moderate to severe erosive arthritis. Olecranonbursitis. joint effusion. 6. Left elbow: Mild to moderate erosive arthritis. Olecranon bursitis. Joint effusion. 7. Right knee: Mild tricompartmental arthritis without definite erosion. 8. Left knee: Mild tricompartmental arthritis with a relatively large erosion in the superior aspect of the patella. 9. Right ankle: Mild arthritis. 10. Left ankle: Mild arthritis. Effusion. 11. Right foot: Mild to moderate erosive arthritis in the forefoot. 12. Left foot: Mild to moderate erosive arthritis in the forefoot. Report dictated by Mallory Jeffries MD (president and chief operating officer). Dr. DAVID Mayen MD have personally reviewed and interpreted this examination/study. This report was electronically signed by DAVID NOLAN MD on07/21/2018 9:16 AM . Genesis Maradiaga DO DIAGNOSTIC IMAGING O RDERABLES * XR FOOT LEFT 2VW (07/20/2018 10:39 AM CDT) Anatomical Region Laterality Modality Ankle / Foot Radiographic Sakshi ging 07/20/2018 12:5 2 PM CDT Impressions 07/21/2018 9:16 AM CDT IMPRESSION: 1. Right hand: Moderate to severe erosive arthritis, greatest at the third metacarpophalangeal joint. A lytic lesion involves much of the third digit proximal phalanx resulting in cortical thinning, probably representing a large erosion propagating through the shaft of the bone, less likely an enchondroma or lytic lesion of other etiology. 2. Left hand: Severe erosive arthropathy, greatest at the third and fifth metacarpophalangeal joints. 3. 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 4. 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 5. Right elbow: Moderate to severe erosive arthritis. Olecranon bursitis. joint effusion. 6. Left elbow: Mild to moderate erosive arthritis. Olecranon bursitis. Joint effusion. 7. Right knee: Mild tricompartmental arthritis without definite erosion. 8. Left knee: Mild tricompartmental arthritis with a relatively large erosion in the superior aspect of the patella. 9. Right ankle: Mild arthritis. 10. Left ankle: Mild arthritis. Effusion. 11. Right foot: Mild to moderate erosive arthritis in the forefoot. 12. Left foot: Mild to moderate erosive arthritis in the forefoot. Report dictated by Mallory Jeffries MD (president and chief operating officer). Dr. DAVID Mayen MD have personally reviewed and interpreted this examination/study. This report was electronically signed by DAVID NOLAN MD on 07/21/2018 9:16 AM . Narrative 07/21/2018 9:16 AM CDT EXAMINATION: 1. Right hand: 3 views. 2. Left hand, 3 views. 3. Right wrist, 3 views. 4. Left wrist, 3 views. 5. Right elbow, 2 views. 6. Left elbow, 2 views. 7. Right ankle, 2 views. 8. Left ankle, 2 views. 9. Right foot, 2 views. 10. Left foot, 2 views. 11. Right knee, 2 views. Weightbearing exam. 12. Left knee, 2 views. Weightbearing exam. HISTORY: Erosive arthropathy , rheumatoid arthritis. COMPARISON: No prior study is available for comparison at the time of this dictation. FINDINGS: Right hand: Moderate to severe erosive arthritis is present at multiple joints, greatest at the third metacarpophalangeal joint where there is essentially [id number] contact. A lytic lesion is present in the third proximal phalanx involving most of the bone, resulting in severe cortical thinning. This probably represents a large erosion propagating through the shaft of the bone, less likely an enchondroma or other lytic lesion. Erosions are also seen at the second, fourth, fifth metacarpophalangeal joints and third proximal interphalangeal joint. Soft tissue nodules are present at the third and fifth proximal interphalangeal joints. There are also suggested the dorsal aspect of the metacarpal phalangeal joints. Soft tissue swelling is present around the arthritic joints. The bones are osteopenic including in the periarticular regions. No fracture is noted. Left hand: As on the right there is severe erosive arthritis at multiple joints, greatest at the second, third, and fifth metacarpophalangeal joints. There is more mild involvement of several interphalangeal joints. Large erosions are present including a 1.3 cm and in the third proximal phalanx base, a 1.3 cm erosions in the fifth metacarpal distal shaft/neck, and a smaller large erosion in the third metacarpal head. Soft tissue swelling is seen around several joints including nodular soft tissue swelling. There is osteopenia including in the periarticular regions. No fracture is noted. Right wrist: There is severe erosive arthropathy of the carpal bones with joint space narrowing, erosions, and ankylosis of several intercarpal joints. There is severe joint space narrowing of the radiocarpal and ulnar carpal joints. No fracture is noted. Soft tissue swelling is present. Osteopenia is noted. Left wrist: Advanced erosive arthropathy of the wrist with collapse and ankylosis of the carpal bones and multiple erosions. There is ankylosis of multiple intercarpal joints. No fracture is noted. Soft tissue swelling is present. Osteopenia is noted. Right elbow: No acute fracture or dislocation. There is severe erosive arthritis of the right elbow joint with joint space narrowing and erosions. There is a joint effusion. There is diffuse mild osteopenia. There is soft tissue swelling of the posterior aspect of the elbow which suggests olecranon bursitis. Left elbow: No acute fracture or dislocation. There is mild to moderate erosive arthropathy of the left elbow with erosions of the lateral and medial humeral condyles. There is focal soft tissue swelling of the posterior aspect of the elbow, consistent with olecranon bursitis. There is a joint effusion. Osteopenia is present. Right knee: No acute fracture or dislocation is identified. There is mild tricompartmental joint arthritis with subchondral sclerosis and osteophytes, without erosion. Diffuse mild osteopenia is noted. There is no joint effusion. There is an enthesophyte arising from the superior aspect of the patella. Left knee: No fracture or dislocation is identified. There is mild tricompartmental joint arthritis with subchondral sclerosis and osteophytes. There is a 1 cm erosion in the superior aspect of the patella. Diffuse mild osteopenia is noted. There is no joint effusion. There is an enthesophyte arising from the superior aspect of the patella. Right ankle: No acute fracture or dislocation is identified. There are some small subchondral cysts versus erosions in the medial malleolus and medial aspect of the talotibial joint. Soft tissue swelling is present. Small plantar and dorsal calcaneal spurs are present. Left ankle: No acute fracture or dislocation is identified. There are some erosions versus subchondral cyst in the medial malleolus. Soft tissue swelling is present. Small plantar and dorsal calcaneal spurs are present. An effusion is noted. Right foot: No fracture or dislocation is identified. There is hallux valgus. There is moderate osteoarthritis at the first metatarsophalangeal joint. There is moderate erosive arthritis at the first metatarsophalangeal joint and mild erosive arthritis at the fifth metatarsophalangeal joint. Soft tissue swelling is present, greatest on the first interphalangeal joint . Small plantar and calcaneal spurs are present. Left foot: No acute fracture or dislocation is identified. There is hallux valgus deformity of the first digit with deformity of the head of the first metatarsal. There is moderate arthritis at the first metatarsophalangeal joint, probably with small erosions. Erosions are noted at the first interphalangeal joint with overlying soft tissue swelling. The second through fifth metatarsophalangeal joints are not well evaluated due to positioning and possibly subluxation; arthritis is likely present at these joints. Diffuse osteopenia is present. Diffuse soft tissue tissue swelling is noted. Small plantar and dorsal calcaneal spurs are present. Procedure Note David Nolan MD - 07/21/2018 EXAMINATION: 1. Right hand: 3 views. 2. Left hand, 3 views. 3. Right wrist, 3 views. 4. Left wrist, 3 views. 5. Right elbow, 2 views. 6. Left elbow, 2 views. 7. Right ankle, 2 views. 8. Left ankle, 2 views. 9. Right foot, 2 views. 10. Left foot, 2 views. 11. Right knee, 2 views. Weightbearing exam. 12. Left knee, 2 views. Weightbearing exam. HISTORY: Erosive arthropathy , rheumatoid arthritis. COMPARISON: No prior study is available for comparison at the time of this dictation. FINDINGS: Right hand: Moderate to severe erosive arthritis is present at multiple joints, greatest at the third metacarpophalangeal joint where there is essentially [id number] contact. A lytic lesion is present in the third proximal phalanx involving most of the bone, resulting in severecortical thinning. This probably represents a large erosion propagating throughthe shaft of the bone, less likely an enchondroma or other lytic lesion. Erosions are also seen at the second, fourth, fifth metacarpophalangeal joints and third proximal interphalangeal joint. Soft tissue nodules are present at the third and fifth proximal interphalangeal joints. Thereare also suggested the dorsal aspect of the metacarpal phalangeal joints.Soft tissue swelling is present around the arthritic joints. The bones are osteopenic including in the periarticular regions. No fracture is noted. Left hand: As on the right there is severe erosive arthritis at multiple joints, greatest at the second, third, and fifth metacarpophalangeal joints.There is more mild involvement of several interphalangeal joints. Largeerosions are present including a 1.3 cm and in the third proximal phalanx base, a 1.3 cm erosions in the fifth metacarpal distal shaft/neck, and a smaller large erosion in the third metacarpal head. Soft tissue swelling is seen around several joints including nodular soft tissue swelling. There is osteopenia including in the periarticular regions. No fracture isnoted. Right wrist: There is severe erosive arthropathy of the carpal bones with joint space narrowing, erosions, and ankylosis of several intercarpal joints. Thereis severe joint space narrowing of the radiocarpal and ulnar carpal joints. No fracture is noted. Soft tissue swelling is present. Osteopenia is noted. Left wrist: Advanced erosive arthropathy of the wrist with collapse and ankylosis of the carpal bones and multiple erosions. There is ankylosis of multiple intercarpal joints. No fracture is noted. Soft tissue swelling ispresent. Osteopenia is noted. Right elbow: No acute fracture or dislocation. There is severe erosive arthritis ofthe right elbow joint with joint space narrowing and erosions. There is a joint effusion. There is diffuse mild osteopenia. There is soft tissue swelling of the posterior aspect of the elbow which suggests olecranon bursitis. Left elbow: No acute fracture or dislocation. There is mild to moderate erosive arthropathy of the left elbow with erosions of the lateral and medial humeral condyles. There is focal soft tissue swelling of the posterior aspect of the elbow, consistent with olecranon bursitis. There is a joint effusion. Osteopenia is present. Right knee: No acute fracture or dislocation is identified. There is mild tricompartmental joint arthritis with subchondral sclerosis and osteophytes, without erosion. Diffuse mild osteopenia is noted. There is no joint effusion. There is an enthesophyte arising from the superior aspect of the patella. Left knee: No fracture or dislocation is identified. There is mild tricompartmental joint arthritis with subchondral sclerosis and osteophytes. There is a 1 cm erosion in the superior aspect of the patella. Diffuse mildosteopenia is noted. There is no joint effusion. There is an enthesophyte arising from the superior aspect of the patella. Right ankle: No acute fracture or dislocation is identified. There are some small subchondral cysts versus erosions in the medial malleolus and medial aspect of the talotibial joint. Soft tissue swelling is present. Small plantar and dorsal calcaneal spurs are present. Left ankle: No acute fracture or dislocation is identified. There are some erosions versus subchondral cyst in the medial malleolus. Soft tissue swelling is present. Small plantar and dorsal calcaneal spurs are present. Aneffusion is noted. Right foot: No fracture or dislocation is identified. There is hallux valgus. Thereis moderate osteoarthritis at the first metatarsophalangeal joint. There is moderate erosive arthritis at the first metatarsophalangeal joint andmild erosive arthritis at the fifth metatarsophalangeal joint. Soft tissue swelling is present, greatest on the first interphalangeal joint . Small plantar and calcaneal spurs are present. Left foot: No acute fracture or dislocation is identified. There is hallux valgus deformity of the first digit with deformity of the head of the first metatarsal. There is moderate arthritis at the first metatarsophalangeal joint, probably with small erosions. Erosions are noted at the first interphalangeal joint with overlying soft tissue swelling. The second through fifth metatarsophalangeal joints are not well evaluated due to positioning and possibly subluxation; arthritis is likely present atthese joints. Diffuse osteopenia is present. Diffuse soft tissue tissueswelling is noted. Small plantar and dorsal calcaneal spurs are present. IMPRESSION: 1. Right hand: Moderate to severe erosive arthritis, greatest at thethird metacarpophalangeal joint. A lytic lesion involves much of the thirddigit proximal phalanx resulting in cortical thinning, probably representing a large erosion propagating through the shaft of the bone, less likely an enchondroma or lytic lesion of other etiology. 2. Left hand: Severe erosive arthropathy, greatest at the third andfifth metacarpophalangeal joints. 3. 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 4. 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 5. Right elbow: Moderate to severe erosive arthritis. Olecranonbursitis. joint effusion. 6. Left elbow: Mild to moderate erosive arthritis. Olecranon bursitis. Joint effusion. 7. Right knee: Mild tricompartmental arthritis without definite erosion. 8. Left knee: Mild tricompartmental arthritis with a relatively large erosion in the superior aspect of the patella. 9. Right ankle: Mild arthritis. 10. Left ankle: Mild arthritis. Effusion. 11. Right foot: Mild to moderate erosive arthritis in the forefoot. 12. Left foot: Mild to moderate erosive arthritis in the forefoot. Report dictated by Mallory Jeffries MD (president and chief operating officer). Dr. DAVID Mayen MD have personally reviewed and interpreted this examination/study. This report was electronically signed by DAVID NOLAN MD on07/21/2018 9:16 AM . Genesis Maradiaga DO DIAGNOSTIC IMAGING O RDERABLES * XR ANKLE RIGHT 2VW (07/20/2018 10:39 AM CDT) Anatomical Region Laterality Modality Lower Extremity Radiographic Skashi ging 07/20/2018 12:5 2 PM CDT Impressions 07/21/2018 9:16 AM CDT IMPRESSION: 1. Right hand: Moderate to severe erosive arthritis, greatest at the third metacarpophalangeal joint. A lytic lesion involves much of the third digit proximal phalanx resulting in cortical thinning, probably representing a large erosion propagating through the shaft of the bone, less likely an enchondroma or lytic lesion of other etiology. 2. Left hand: Severe erosive arthropathy, greatest at the third and fifth metacarpophalangeal joints. 3. 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 4. 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 5. Right elbow: Moderate to severe erosive arthritis. Olecranon bursitis. joint effusion. 6. Left elbow: Mild to moderate erosive arthritis. Olecranon bursitis. Joint effusion. 7. Right knee: Mild tricompartmental arthritis without definite erosion. 8. Left knee: Mild tricompartmental arthritis with a relatively large erosion in the superior aspect of the patella. 9. Right ankle: Mild arthritis. 10. Left ankle: Mild arthritis. Effusion. 11. Right foot: Mild to moderate erosive arthritis in the forefoot. 12. Left foot: Mild to moderate erosive arthritis in the forefoot. Report dictated by Mallory Jeffries MD (president and chief operating officer). IDr. DAVID MD have personally reviewed and interpreted this examination/study. This report was electronically signed by DAVID NOLAN MD on 07/21/2018 9:16 AM . Narrative 07/21/2018 9:16 AM CDT EXAMINATION: 1. Right hand: 3 views. 2. Left hand, 3 views. 3. Right wrist, 3 views. 4. Left wrist, 3 views. 5. Right elbow, 2 views. 6. Left elbow, 2 views. 7. Right ankle, 2 views. 8. Left ankle, 2 views. 9. Right foot, 2 views. 10. Left foot, 2 views. 11. Right knee, 2 views. Weightbearing exam. 12. Left knee, 2 views. Weightbearing exam. HISTORY: Erosive arthropathy , rheumatoid arthritis. COMPARISON: No prior study is available for comparison at the time of this dictation. FINDINGS: Right hand: Moderate to severe erosive arthritis is present at multiple joints, greatest at the third metacarpophalangeal joint where there is essentially [id number] contact. A lytic lesion is present in the third proximal phalanx involving most of the bone, resulting in severe cortical thinning. This probably represents a large erosion propagating through the shaft of the bone, less likely an enchondroma or other lytic lesion. Erosions are also seen at the second, fourth, fifth metacarpophalangeal joints and third proximal interphalangeal joint. Soft tissue nodules are present at the third and fifth proximal interphalangeal joints. There are also suggested the dorsal aspect of the metacarpal phalangeal joints. Soft tissue swelling is present around the arthritic joints. The bones are osteopenic including in the periarticular regions. No fracture is noted. Left hand: As on the right there is severe erosive arthritis at multiple joints, greatest at the second, third, and fifth metacarpophalangeal joints. There is more mild involvement of several interphalangeal joints. Large erosions are present including a 1.3 cm and in the third proximal phalanx base, a 1.3 cm erosions in the fifth metacarpal distal shaft/neck, and a smaller large erosion in the third metacarpal head. Soft tissue swelling is seen around several joints including nodular soft tissue swelling. There is osteopenia including in the periarticular regions. No fracture is noted. Right wrist: There is severe erosive arthropathy of the carpal bones with joint space narrowing, erosions, and ankylosis of several intercarpal joints. There is severe joint space narrowing of the radiocarpal and ulnar carpal joints. No fracture is noted. Soft tissue swelling is present. Osteopenia is noted. Left wrist: Advanced erosive arthropathy of the wrist with collapse and ankylosis of the carpal bones and multiple erosions. There is ankylosis of multiple intercarpal joints. No fracture is noted. Soft tissue swelling is present. Osteopenia is noted. Right elbow: No acute fracture or dislocation. There is severe erosive arthritis of the right elbow joint with joint space narrowing and erosions. There is a joint effusion. There is diffuse mild osteopenia. There is soft tissue swelling of the posterior aspect of the elbow which suggests olecranon bursitis. Left elbow: No acute fracture or dislocation. There is mild to moderate erosive arthropathy of the left elbow with erosions of the lateral and medial humeral condyles. There is focal soft tissue swelling of the posterior aspect of the elbow, consistent with olecranon bursitis. There is a joint effusion. Osteopenia is present. Right knee: No acute fracture or dislocation is identified. There is mild tricompartmental joint arthritis with subchondral sclerosis and osteophytes, without erosion. Diffuse mild osteopenia is noted. There is no joint effusion. There is an enthesophyte arising from the superior aspect of the patella. Left knee: No fracture or dislocation is identified. There is mild tricompartmental joint arthritis with subchondral sclerosis and osteophytes. There is a 1 cm erosion in the superior aspect of the patella. Diffuse mild osteopenia is noted. There is no joint effusion. There is an enthesophyte arising from the superior aspect of the patella. Right ankle: No acute fracture or dislocation is identified. There are some small subchondral cysts versus erosions in the medial malleolus and medial aspect of the talotibial joint. Soft tissue swelling is present. Small plantar and dorsal calcaneal spurs are present. Left ankle: No acute fracture or dislocation is identified. There are some erosions versus subchondral cyst in the medial malleolus. Soft tissue swelling is present. Small plantar and dorsal calcaneal spurs are present. An effusion is noted. Right foot: No fracture or dislocation is identified. There is hallux valgus. There is moderate osteoarthritis at the first metatarsophalangeal joint. There is moderate erosive arthritis at the first metatarsophalangeal joint and mild erosive arthritis at the fifth metatarsophalangeal joint. Soft tissue swelling is present, greatest on the first interphalangeal joint . Small plantar and calcaneal spurs are present. Left foot: No acute fracture or dislocation is identified. There is hallux valgus deformity of the first digit with deformity of the head of the first metatarsal. There is moderate arthritis at the first metatarsophalangeal joint, probably with small erosions. Erosions are noted at the first interphalangeal joint with overlying soft tissue swelling. The second through fifth metatarsophalangeal joints are not well evaluated due to positioning and possibly subluxation; arthritis is likely present at these joints. Diffuse osteopenia is present. Diffuse soft tissue tissue swelling is noted. Small plantar and dorsal calcaneal spurs are present. Procedure Note David Nolan MD - 07/21/2018 EXAMINATION: 1. Right hand: 3 views. 2. Left hand, 3 views. 3. Right wrist, 3 views. 4. Left wrist, 3 views. 5. Right elbow, 2 views. 6. Left elbow, 2 views. 7. Right ankle, 2 views. 8. Left ankle, 2 views. 9. Right foot, 2 views. 10. Left foot, 2 views. 11. Right knee, 2 views. Weightbearing exam. 12. Left knee, 2 views. Weightbearing exam. HISTORY: Erosive arthropathy , rheumatoid arthritis. COMPARISON: No prior study is available for comparison at the time of this dictation. FINDINGS: Right hand: Moderate to severe erosive arthritis is present at multiple joints, greatest at the third metacarpophalangeal joint where there is essentially [id number] contact. A lytic lesion is present in the third proximal phalanx involving most of the bone, resulting in severecortical thinning. This probably represents a large erosion propagating throughthe shaft of the bone, less likely an enchondroma or other lytic lesion. Erosions are also seen at the second, fourth, fifth metacarpophalangeal joints and third proximal interphalangeal joint. Soft tissue nodules are present at the third and fifth proximal interphalangeal joints. Thereare also suggested the dorsal aspect of the metacarpal phalangeal joints.Soft tissue swelling is present around the arthritic joints. The bones are osteopenic including in the periarticular regions. No fracture is noted. Left hand: As on the right there is severe erosive arthritis at multiple joints, greatest at the second, third, and fifth metacarpophalangeal joints.There is more mild involvement of several interphalangeal joints. Largeerosions are present including a 1.3 cm and in the third proximal phalanx base, a 1.3 cm erosions in the fifth metacarpal distal shaft/neck, and a smaller large erosion in the third metacarpal head. Soft tissue swelling is seen around several joints including nodular soft tissue swelling. There is osteopenia including in the periarticular regions. No fracture isnoted. Right wrist: There is severe erosive arthropathy of the carpal bones with joint space narrowing, erosions, and ankylosis of several intercarpal joints. Thereis severe joint space narrowing of the radiocarpal and ulnar carpal joints. No fracture is noted. Soft tissue swelling is present. Osteopenia is noted. Left wrist: Advanced erosive arthropathy of the wrist with collapse and ankylosis of the carpal bones and multiple erosions. There is ankylosis of multiple intercarpal joints. No fracture is noted. Soft tissue swelling ispresent. Osteopenia is noted. Right elbow: No acute fracture or dislocation. There is severe erosive arthritis ofthe right elbow joint with joint space narrowing and erosions. There is a joint effusion. There is diffuse mild osteopenia. There is soft tissue swelling of the posterior aspect of the elbow which suggests olecranon bursitis. Left elbow: No acute fracture or dislocation. There is mild to moderate erosive arthropathy of the left elbow with erosions of the lateral and medial humeral condyles. There is focal soft tissue swelling of the posterior aspect of the elbow, consistent with olecranon bursitis. There is a joint effusion. Osteopenia is present. Right knee: No acute fracture or dislocation is identified. There is mild tricompartmental joint arthritis with subchondral sclerosis and osteophytes, without erosion. Diffuse mild osteopenia is noted. There is no joint effusion. There is an enthesophyte arising from the superior aspect of the patella. Left knee: No fracture or dislocation is identified. There is mild tricompartmental joint arthritis with subchondral sclerosis and osteophytes. There is a 1 cm erosion in the superior aspect of the patella. Diffuse mildosteopenia is noted. There is no joint effusion. There is an enthesophyte arising from the superior aspect of the patella. Right ankle: No acute fracture or dislocation is identified. There are some small subchondral cysts versus erosions in the medial malleolus and medial aspect of the talotibial joint. Soft tissue swelling is present. Small plantar and dorsal calcaneal spurs are present. Left ankle: No acute fracture or dislocation is identified. There are some erosions versus subchondral cyst in the medial malleolus. Soft tissue swelling is present. Small plantar and dorsal calcaneal spurs are present. Aneffusion is noted. Right foot: No fracture or dislocation is identified. There is hallux valgus. Thereis moderate osteoarthritis at the first metatarsophalangeal joint. There is moderate erosive arthritis at the first metatarsophalangeal joint andmild erosive arthritis at the fifth metatarsophalangeal joint. Soft tissue swelling is present, greatest on the first interphalangeal joint . Small plantar and calcaneal spurs are present. Left foot: No acute fracture or dislocation is identified. There is hallux valgus deformity of the first digit with deformity of the head of the first metatarsal. There is moderate arthritis at the first metatarsophalangeal joint, probably with small erosions. Erosions are noted at the first interphalangeal joint with overlying soft tissue swelling. The second through fifth metatarsophalangeal joints are not well evaluated due to positioning and possibly subluxation; arthritis is likely present atthese joints. Diffuse osteopenia is present. Diffuse soft tissue tissueswelling is noted. Small plantar and dorsal calcaneal spurs are present. IMPRESSION: 1. Right hand: Moderate to severe erosive arthritis, greatest at thethird metacarpophalangeal joint. A lytic lesion involves much of the thirddigit proximal phalanx resulting in cortical thinning, probably representing a large erosion propagating through the shaft of the bone, less likely an enchondroma or lytic lesion of other etiology. 2. Left hand: Severe erosive arthropathy, greatest at the third andfifth metacarpophalangeal joints. 3. 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 4. 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 5. Right elbow: Moderate to severe erosive arthritis. Olecranonbursitis. joint effusion. 6. Left elbow: Mild to moderate erosive arthritis. Olecranon bursitis. Joint effusion. 7. Right knee: Mild tricompartmental arthritis without definite erosion. 8. Left knee: Mild tricompartmental arthritis with a relatively large erosion in the superior aspect of the patella. 9. Right ankle: Mild arthritis. 10. Left ankle: Mild arthritis. Effusion. 11. Right foot: Mild to moderate erosive arthritis in the forefoot. 12. Left foot: Mild to moderate erosive arthritis in the forefoot. Report dictated by Mallory Jeffries MD (president and chief operating officer). I, Dr. DAVID NOLAN MD have personally reviewed and interpreted this examination/study. This report was electronically signed by DAVID NOLAN MD on07/21/2018 9:16 AM . Genesis Tolentino Hiren DO DIAGNOSTIC IMAGING O RDERABLES * XR ANKLE LEFT 2VW (07/20/2018 10:39 AM CDT) Anatomical Region Laterality Modality Lower Extremity Radiographic Sakshi ging 07/20/2018 12:5 2 PM CDT Impressions 07/21/2018 9:16 AM CDT IMPRESSION: 1. Right hand: Moderate to severe erosive arthritis, greatest at the third metacarpophalangeal joint. A lytic lesion involves much of the third digit proximal phalanx resulting in cortical thinning, probably representing a large erosion propagating through the shaft of the bone, less likely an enchondroma or lytic lesion of other etiology. 2. Left hand: Severe erosive arthropathy, greatest at the third and fifth metacarpophalangeal joints. 3. 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 4. 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 5. Right elbow: Moderate to severe erosive arthritis. Olecranon bursitis. joint effusion. 6. Left elbow: Mild to moderate erosive arthritis. Olecranon bursitis. Joint effusion. 7. Right knee: Mild tricompartmental arthritis without definite erosion. 8. Left knee: Mild tricompartmental arthritis with a relatively large erosion in the superior aspect of the patella. 9. Right ankle: Mild arthritis. 10. Left ankle: Mild arthritis. Effusion. 11. Right foot: Mild to moderate erosive arthritis in the forefoot. 12. Left foot: Mild to moderate erosive arthritis in the forefoot. Report dictated by Mallory Jeffries MD (president and chief operating officer). I, Dr. DAVID NOLAN MD have personally reviewed and interpreted this examination/study. This report was electronically signed by DAVID NOLAN MD on 07/21/2018 9:16 AM . Narrative 07/21/2018 9:16 AM CDT EXAMINATION: 1. Right hand: 3 views. 2. Left hand, 3 views. 3. Right wrist, 3 views. 4. Left wrist, 3 views. 5. Right elbow, 2 views. 6. Left elbow, 2 views. 7. Right ankle, 2 views. 8. Left ankle, 2 views. 9. Right foot, 2 views. 10. Left foot, 2 views. 11. Right knee, 2 views. Weightbearing exam. 12. Left knee, 2 views. Weightbearing exam. HISTORY: Erosive arthropathy , rheumatoid arthritis. COMPARISON: No prior study is available for comparison at the time of this dictation. FINDINGS: Right hand: Moderate to severe erosive arthritis is present at multiple joints, greatest at the third metacarpophalangeal joint where there is essentially [id number] contact. A lytic lesion is present in the third proximal phalanx involving most of the bone, resulting in severe cortical thinning. This probably represents a large erosion propagating through the shaft of the bone, less likely an enchondroma or other lytic lesion. Erosions are also seen at the second, fourth, fifth metacarpophalangeal joints and third proximal interphalangeal joint. Soft tissue nodules are present at the third and fifth proximal interphalangeal joints. There are also suggested the dorsal aspect of the metacarpal phalangeal joints. Soft tissue swelling is present around the arthritic joints. The bones are osteopenic including in the periarticular regions. No fracture is noted. Left hand: As on the right there is severe erosive arthritis at multiple joints, greatest at the second, third, and fifth metacarpophalangeal joints. There is more mild involvement of several interphalangeal joints. Large erosions are present including a 1.3 cm and in the third proximal phalanx base, a 1.3 cm erosions in the fifth metacarpal distal shaft/neck, and a smaller large erosion in the third metacarpal head. Soft tissue swelling is seen around several joints including nodular soft tissue swelling. There is osteopenia including in the periarticular regions. No fracture is noted. Right wrist: There is severe erosive arthropathy of the carpal bones with joint space narrowing, erosions, and ankylosis of several intercarpal joints. There is severe joint space narrowing of the radiocarpal and ulnar carpal joints. No fracture is noted. Soft tissue swelling is present. Osteopenia is noted. Left wrist: Advanced erosive arthropathy of the wrist with collapse and ankylosis of the carpal bones and multiple erosions. There is ankylosis of multiple intercarpal joints. No fracture is noted. Soft tissue swelling is present. Osteopenia is noted. Right elbow: No acute fracture or dislocation. There is severe erosive arthritis of the right elbow joint with joint space narrowing and erosions. There is a joint effusion. There is diffuse mild osteopenia. There is soft tissue swelling of the posterior aspect of the elbow which suggests olecranon bursitis. Left elbow: No acute fracture or dislocation. There is mild to moderate erosive arthropathy of the left elbow with erosions of the lateral and medial humeral condyles. There is focal soft tissue swelling of the posterior aspect of the elbow, consistent with olecranon bursitis. There is a joint effusion. Osteopenia is present. Right knee: No acute fracture or dislocation is identified. There is mild tricompartmental joint arthritis with subchondral sclerosis and osteophytes, without erosion. Diffuse mild osteopenia is noted. There is no joint effusion. There is an enthesophyte arising from the superior aspect of the patella. Left knee: No fracture or dislocation is identified. There is mild tricompartmental joint arthritis with subchondral sclerosis and osteophytes. There is a 1 cm erosion in the superior aspect of the patella. Diffuse mild osteopenia is noted. There is no joint effusion. There is an enthesophyte arising from the superior aspect of the patella. Right ankle: No acute fracture or dislocation is identified. There are some small subchondral cysts versus erosions in the medial malleolus and medial aspect of the talotibial joint. Soft tissue swelling is present. Small plantar and dorsal calcaneal spurs are present. Left ankle: No acute fracture or dislocation is identified. There are some erosions versus subchondral cyst in the medial malleolus. Soft tissue swelling is present. Small plantar and dorsal calcaneal spurs are present. An effusion is noted. Right foot: No fracture or dislocation is identified. There is hallux valgus. There is moderate osteoarthritis at the first metatarsophalangeal joint. There is moderate erosive arthritis at the first metatarsophalangeal joint and mild erosive arthritis at the fifth metatarsophalangeal joint. Soft tissue swelling is present, greatest on the first interphalangeal joint . Small plantar and calcaneal spurs are present. Left foot: No acute fracture or dislocation is identified. There is hallux valgus deformity of the first digit with deformity of the head of the first metatarsal. There is moderate arthritis at the first metatarsophalangeal joint, probably with small erosions. Erosions are noted at the first interphalangeal joint with overlying soft tissue swelling. The second through fifth metatarsophalangeal joints are not well evaluated due to positioning and possibly subluxation; arthritis is likely present at these joints. Diffuse osteopenia is present. Diffuse soft tissue tissue swelling is noted. Small plantar and dorsal calcaneal spurs are present. Procedure Note David Nolan MD - 07/21/2018 EXAMINATION: 1. Right hand: 3 views. 2. Left hand, 3 views. 3. Right wrist, 3 views. 4. Left wrist, 3 views. 5. Right elbow, 2 views. 6. Left elbow, 2 views. 7. Right ankle, 2 views. 8. Left ankle, 2 views. 9. Right foot, 2 views. 10. Left foot, 2 views. 11. Right knee, 2 views. Weightbearing exam. 12. Left knee, 2 views. Weightbearing exam. HISTORY: Erosive arthropathy , rheumatoid arthritis. COMPARISON: No prior study is available for comparison at the time of this dictation. FINDINGS: Right hand: Moderate to severe erosive arthritis is present at multiple joints, greatest at the third metacarpophalangeal joint where there is essentially [id number] contact. A lytic lesion is present in the third proximal phalanx involving most of the bone, resulting in severecortical thinning. This probably represents a large erosion propagating throughthe shaft of the bone, less likely an enchondroma or other lytic lesion. Erosions are also seen at the second, fourth, fifth metacarpophalangeal joints and third proximal interphalangeal joint. Soft tissue nodules are present at the third and fifth proximal interphalangeal joints. Thereare also suggested the dorsal aspect of the metacarpal phalangeal joints.Soft tissue swelling is present around the arthritic joints. The bones are osteopenic including in the periarticular regions. No fracture is noted. Left hand: As on the right there is severe erosive arthritis at multiple joints, greatest at the second, third, and fifth metacarpophalangeal joints.There is more mild involvement of several interphalangeal joints. Largeerosions are present including a 1.3 cm and in the third proximal phalanx base, a 1.3 cm erosions in the fifth metacarpal distal shaft/neck, and a smaller large erosion in the third metacarpal head. Soft tissue swelling is seen around several joints including nodular soft tissue swelling. There is osteopenia including in the periarticular regions. No fracture isnoted. Right wrist: There is severe erosive arthropathy of the carpal bones with joint space narrowing, erosions, and ankylosis of several intercarpal joints. Thereis severe joint space narrowing of the radiocarpal and ulnar carpal joints. No fracture is noted. Soft tissue swelling is present. Osteopenia is noted. Left wrist: Advanced erosive arthropathy of the wrist with collapse and ankylosis of the carpal bones and multiple erosions. There is ankylosis of multiple intercarpal joints. No fracture is noted. Soft tissue swelling ispresent. Osteopenia is noted. Right elbow: No acute fracture or dislocation. There is severe erosive arthritis ofthe right elbow joint with joint space narrowing and erosions. There is a joint effusion. There is diffuse mild osteopenia. There is soft tissue swelling of the posterior aspect of the elbow which suggests olecranon bursitis. Left elbow: No acute fracture or dislocation. There is mild to moderate erosive arthropathy of the left elbow with erosions of the lateral and medial humeral condyles. There is focal soft tissue swelling of the posterior aspect of the elbow, consistent with olecranon bursitis. There is a joint effusion. Osteopenia is present. Right knee: No acute fracture or dislocation is identified. There is mild tricompartmental joint arthritis with subchondral sclerosis and osteophytes, without erosion. Diffuse mild osteopenia is noted. There is no joint effusion. There is an enthesophyte arising from the superior aspect of the patella. Left knee: No fracture or dislocation is identified. There is mild tricompartmental joint arthritis with subchondral sclerosis and osteophytes. There is a 1 cm erosion in the superior aspect of the patella. Diffuse mildosteopenia is noted. There is no joint effusion. There is an enthesophyte arising from the superior aspect of the patella. Right ankle: No acute fracture or dislocation is identified. There are some small subchondral cysts versus erosions in the medial malleolus and medial aspect of the talotibial joint. Soft tissue swelling is present. Small plantar and dorsal calcaneal spurs are present. Left ankle: No acute fracture or dislocation is identified. There are some erosions versus subchondral cyst in the medial malleolus. Soft tissue swelling is present. Small plantar and dorsal calcaneal spurs are present. Aneffusion is noted. Right foot: No fracture or dislocation is identified. There is hallux valgus. Thereis moderate osteoarthritis at the first metatarsophalangeal joint. There is moderate erosive arthritis at the first metatarsophalangeal joint andmild erosive arthritis at the fifth metatarsophalangeal joint. Soft tissue swelling is present, greatest on the first interphalangeal joint . Small plantar and calcaneal spurs are present. Left foot: No acute fracture or dislocation is identified. There is hallux valgus deformity of the first digit with deformity of the head of the first metatarsal. There is moderate arthritis at the first metatarsophalangeal joint, probably with small erosions. Erosions are noted at the first interphalangeal joint with overlying soft tissue swelling. The second through fifth metatarsophalangeal joints are not well evaluated due to positioning and possibly subluxation; arthritis is likely present atthese joints. Diffuse osteopenia is present. Diffuse soft tissue tissueswelling is noted. Small plantar and dorsal calcaneal spurs are present. IMPRESSION: 1. Right hand: Moderate to severe erosive arthritis, greatest at thethird metacarpophalangeal joint. A lytic lesion involves much of the thirddigit proximal phalanx resulting in cortical thinning, probably representing a large erosion propagating through the shaft of the bone, less likely an enchondroma or lytic lesion of other etiology. 2. Left hand: Severe erosive arthropathy, greatest at the third andfifth metacarpophalangeal joints. 3. 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 4. 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 5. Right elbow: Moderate to severe erosive arthritis. Olecranonbursitis. joint effusion. 6. Left elbow: Mild to moderate erosive arthritis. Olecranon bursitis. Joint effusion. 7. Right knee: Mild tricompartmental arthritis without definite erosion. 8. Left knee: Mild tricompartmental arthritis with a relatively large erosion in the superior aspect of the patella. 9. Right ankle: Mild arthritis. 10. Left ankle: Mild arthritis. Effusion. 11. Right foot: Mild to moderate erosive arthritis in the forefoot. 12. Left foot: Mild to moderate erosive arthritis in the forefoot. Report dictated by Mallory Jeffries MD (president and chief operating officer). I, Dr. DAVID NOLAN MD have personally reviewed and interpreted this examination/study. This report was electronically signed by DAVID NOLAN MD on07/21/2018 9:16 AM . Genesis Maradiaga DO DIAGNOSTIC IMAGING O RDERABLES * XR KNEE RIGHT 2VW OR LESS (07/20/2018 10:39 AM CDT) Anatomical Region Laterality Modality Lower Extremity Radiographic Sakshi ging 07/20/2018 12:5 2 PM CDT Impressions 07/21/2018 9:16 AM CDT IMPRESSION: 1. Right hand: Moderate to severe erosive arthritis, greatest at the third metacarpophalangeal joint. A lytic lesion involves much of the third digit proximal phalanx resulting in cortical thinning, probably representing a large erosion propagating through the shaft of the bone, less likely an enchondroma or lytic lesion of other etiology. 2. Left hand: Severe erosive arthropathy, greatest at the third and fifth metacarpophalangeal joints. 3. 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 4. 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 5. Right elbow: Moderate to severe erosive arthritis. Olecranon bursitis. joint effusion. 6. Left elbow: Mild to moderate erosive arthritis. Olecranon bursitis. Joint effusion. 7. Right knee: Mild tricompartmental arthritis without definite erosion. 8. Left knee: Mild tricompartmental arthritis with a relatively large erosion in the superior aspect of the patella. 9. Right ankle: Mild arthritis. 10. Left ankle: Mild arthritis. Effusion. 11. Right foot: Mild to moderate erosive arthritis in the forefoot. 12. Left foot: Mild to moderate erosive arthritis in the forefoot. Report dictated by Mallory Jeffries MD (president and chief operating officer). I, Dr. DAVID NOLAN MD have personally reviewed and interpreted this examination/study. This report was electronically signed by DAVID NOLAN MD on 07/21/2018 9:16 AM . Narrative 07/21/2018 9:16 AM CDT EXAMINATION: 1. Right hand: 3 views. 2. Left hand, 3 views. 3. Right wrist, 3 views. 4. Left wrist, 3 views. 5. Right elbow, 2 views. 6. Left elbow, 2 views. 7. Right ankle, 2 views. 8. Left ankle, 2 views. 9. Right foot, 2 views. 10. Left foot, 2 views. 11. Right knee, 2 views. Weightbearing exam. 12. Left knee, 2 views. Weightbearing exam. HISTORY: Erosive arthropathy , rheumatoid arthritis. COMPARISON: No prior study is available for comparison at the time of this dictation. FINDINGS: Right hand: Moderate to severe erosive arthritis is present at multiple joints, greatest at the third metacarpophalangeal joint where there is essentially [id number] contact. A lytic lesion is present in the third proximal phalanx involving most of the bone, resulting in severe cortical thinning. This probably represents a large erosion propagating through the shaft of the bone, less likely an enchondroma or other lytic lesion. Erosions are also seen at the second, fourth, fifth metacarpophalangeal joints and third proximal interphalangeal joint. Soft tissue nodules are present at the third and fifth proximal interphalangeal joints. There are also suggested the dorsal aspect of the metacarpal phalangeal joints. Soft tissue swelling is present around the arthritic joints. The bones are osteopenic including in the periarticular regions. No fracture is noted. Left hand: As on the right there is severe erosive arthritis at multiple joints, greatest at the second, third, and fifth metacarpophalangeal joints. There is more mild involvement of several interphalangeal joints. Large erosions are present including a 1.3 cm and in the third proximal phalanx base, a 1.3 cm erosions in the fifth metacarpal distal shaft/neck, and a smaller large erosion in the third metacarpal head. Soft tissue swelling is seen around several joints including nodular soft tissue swelling. There is osteopenia including in the periarticular regions. No fracture is noted. Right wrist: There is severe erosive arthropathy of the carpal bones with joint space narrowing, erosions, and ankylosis of several intercarpal joints. There is severe joint space narrowing of the radiocarpal and ulnar carpal joints. No fracture is noted. Soft tissue swelling is present. Osteopenia is noted. Left wrist: Advanced erosive arthropathy of the wrist with collapse and ankylosis of the carpal bones and multiple erosions. There is ankylosis of multiple intercarpal joints. No fracture is noted. Soft tissue swelling is present. Osteopenia is noted. Right elbow: No acute fracture or dislocation. There is severe erosive arthritis of the right elbow joint with joint space narrowing and erosions. There is a joint effusion. There is diffuse mild osteopenia. There is soft tissue swelling of the posterior aspect of the elbow which suggests olecranon bursitis. Left elbow: No acute fracture or dislocation. There is mild to moderate erosive arthropathy of the left elbow with erosions of the lateral and medial humeral condyles. There is focal soft tissue swelling of the posterior aspect of the elbow, consistent with olecranon bursitis. There is a joint effusion. Osteopenia is present. Right knee: No acute fracture or dislocation is identified. There is mild tricompartmental joint arthritis with subchondral sclerosis and osteophytes, without erosion. Diffuse mild osteopenia is noted. There is no joint effusion. There is an enthesophyte arising from the superior aspect of the patella. Left knee: No fracture or dislocation is identified. There is mild tricompartmental joint arthritis with subchondral sclerosis and osteophytes. There is a 1 cm erosion in the superior aspect of the patella. Diffuse mild osteopenia is noted. There is no joint effusion. There is an enthesophyte arising from the superior aspect of the patella. Right ankle: No acute fracture or dislocation is identified. There are some small subchondral cysts versus erosions in the medial malleolus and medial aspect of the talotibial joint. Soft tissue swelling is present. Small plantar and dorsal calcaneal spurs are present. Left ankle: No acute fracture or dislocation is identified. There are some erosions versus subchondral cyst in the medial malleolus. Soft tissue swelling is present. Small plantar and dorsal calcaneal spurs are present. An effusion is noted. Right foot: No fracture or dislocation is identified. There is hallux valgus. There is moderate osteoarthritis at the first metatarsophalangeal joint. There is moderate erosive arthritis at the first metatarsophalangeal joint and mild erosive arthritis at the fifth metatarsophalangeal joint. Soft tissue swelling is present, greatest on the first interphalangeal joint . Small plantar and calcaneal spurs are present. Left foot: No acute fracture or dislocation is identified. There is hallux valgus deformity of the first digit with deformity of the head of the first metatarsal. There is moderate arthritis at the first metatarsophalangeal joint, probably with small erosions. Erosions are noted at the first interphalangeal joint with overlying soft tissue swelling. The second through fifth metatarsophalangeal joints are not well evaluated due to positioning and possibly subluxation; arthritis is likely present at these joints. Diffuse osteopenia is present. Diffuse soft tissue tissue swelling is noted. Small plantar and dorsal calcaneal spurs are present. Procedure Note David Nolan MD - 07/21/2018 EXAMINATION: 1. Right hand: 3 views. 2. Left hand, 3 views. 3. Right wrist, 3 views. 4. Left wrist, 3 views. 5. Right elbow, 2 views. 6. Left elbow, 2 views. 7. Right ankle, 2 views. 8. Left ankle, 2 views. 9. Right foot, 2 views. 10. Left foot, 2 views. 11. Right knee, 2 views. Weightbearing exam. 12. Left knee, 2 views. Weightbearing exam. HISTORY: Erosive arthropathy , rheumatoid arthritis. COMPARISON: No prior study is available for comparison at the time of this dictation. FINDINGS: Right hand: Moderate to severe erosive arthritis is present at multiple joints, greatest at the third metacarpophalangeal joint where there is essentially [id number] contact. A lytic lesion is present in the third proximal phalanx involving most of the bone, resulting in severecortical thinning. This probably represents a large erosion propagating throughthe shaft of the bone, less likely an enchondroma or other lytic lesion. Erosions are also seen at the second, fourth, fifth metacarpophalangeal joints and third proximal interphalangeal joint. Soft tissue nodules are present at the third and fifth proximal interphalangeal joints. Thereare also suggested the dorsal aspect of the metacarpal phalangeal joints.Soft tissue swelling is present around the arthritic joints. The bones are osteopenic including in the periarticular regions. No fracture is noted. Left hand: As on the right there is severe erosive arthritis at multiple joints, greatest at the second, third, and fifth metacarpophalangeal joints.There is more mild involvement of several interphalangeal joints. Largeerosions are present including a 1.3 cm and in the third proximal phalanx base, a 1.3 cm erosions in the fifth metacarpal distal shaft/neck, and a smaller large erosion in the third metacarpal head. Soft tissue swelling is seen around several joints including nodular soft tissue swelling. There is osteopenia including in the periarticular regions. No fracture isnoted. Right wrist: There is severe erosive arthropathy of the carpal bones with joint space narrowing, erosions, and ankylosis of several intercarpal joints. Thereis severe joint space narrowing of the radiocarpal and ulnar carpal joints. No fracture is noted. Soft tissue swelling is present. Osteopenia is noted. Left wrist: Advanced erosive arthropathy of the wrist with collapse and ankylosis of the carpal bones and multiple erosions. There is ankylosis of multiple intercarpal joints. No fracture is noted. Soft tissue swelling ispresent. Osteopenia is noted. Right elbow: No acute fracture or dislocation. There is severe erosive arthritis ofthe right elbow joint with joint space narrowing and erosions. There is a joint effusion. There is diffuse mild osteopenia. There is soft tissue swelling of the posterior aspect of the elbow which suggests olecranon bursitis. Left elbow: No acute fracture or dislocation. There is mild to moderate erosive arthropathy of the left elbow with erosions of the lateral and medial humeral condyles. There is focal soft tissue swelling of the posterior aspect of the elbow, consistent with olecranon bursitis. There is a joint effusion. Osteopenia is present. Right knee: No acute fracture or dislocation is identified. There is mild tricompartmental joint arthritis with subchondral sclerosis and osteophytes, without erosion. Diffuse mild osteopenia is noted. There is no joint effusion. There is an enthesophyte arising from the superior aspect of the patella. Left knee: No fracture or dislocation is identified. There is mild tricompartmental joint arthritis with subchondral sclerosis and osteophytes. There is a 1 cm erosion in the superior aspect of the patella. Diffuse mildosteopenia is noted. There is no joint effusion. There is an enthesophyte arising from the superior aspect of the patella. Right ankle: No acute fracture or dislocation is identified. There are some small subchondral cysts versus erosions in the medial malleolus and medial aspect of the talotibial joint. Soft tissue swelling is present. Small plantar and dorsal calcaneal spurs are present. Left ankle: No acute fracture or dislocation is identified. There are some erosions versus subchondral cyst in the medial malleolus. Soft tissue swelling is present. Small plantar and dorsal calcaneal spurs are present. Aneffusion is noted. Right foot: No fracture or dislocation is identified. There is hallux valgus. Thereis moderate osteoarthritis at the first metatarsophalangeal joint. There is moderate erosive arthritis at the first metatarsophalangeal joint andmild erosive arthritis at the fifth metatarsophalangeal joint. Soft tissue swelling is present, greatest on the first interphalangeal joint . Small plantar and calcaneal spurs are present. Left foot: No acute fracture or dislocation is identified. There is hallux valgus deformity of the first digit with deformity of the head of the first metatarsal. There is moderate arthritis at the first metatarsophalangeal joint, probably with small erosions. Erosions are noted at the first interphalangeal joint with overlying soft tissue swelling. The second through fifth metatarsophalangeal joints are not well evaluated due to positioning and possibly subluxation; arthritis is likely present atthese joints. Diffuse osteopenia is present. Diffuse soft tissue tissueswelling is noted. Small plantar and dorsal calcaneal spurs are present. IMPRESSION: 1. Right hand: Moderate to severe erosive arthritis, greatest at thethird metacarpophalangeal joint. A lytic lesion involves much of the thirddigit proximal phalanx resulting in cortical thinning, probably representing a large erosion propagating through the shaft of the bone, less likely an enchondroma or lytic lesion of other etiology. 2. Left hand: Severe erosive arthropathy, greatest at the third andfifth metacarpophalangeal joints. 3. 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 4. 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 5. Right elbow: Moderate to severe erosive arthritis. Olecranonbursitis. joint effusion. 6. Left elbow: Mild to moderate erosive arthritis. Olecranon bursitis. Joint effusion. 7. Right knee: Mild tricompartmental arthritis without definite erosion. 8. Left knee: Mild tricompartmental arthritis with a relatively large erosion in the superior aspect of the patella. 9. Right ankle: Mild arthritis. 10. Left ankle: Mild arthritis. Effusion. 11. Right foot: Mild to moderate erosive arthritis in the forefoot. 12. Left foot: Mild to moderate erosive arthritis in the forefoot. Report dictated by Mallory Jeffries MD (president and chief operating officer). I, Dr. DAVID NOLAN MD have personally reviewed and interpreted this examination/study. This report was electronically signed by DAVID NOLAN MD on07/21/2018 9:16 AM . Genesis Maradiaga DO DIAGNOSTIC IMAGING O RDERABLES * XR KNEE LEFT 2VW OR LESS (07/20/2018 10:39 AM CDT) Anatomical Region Laterality Modality Lower Extremity Radiographic Sakshi ging 07/20/2018 12:5 2 PM CDT Impressions 07/21/2018 9:16 AM CDT IMPRESSION: 1. Right hand: Moderate to severe erosive arthritis, greatest at the third metacarpophalangeal joint. A lytic lesion involves much of the third digit proximal phalanx resulting in cortical thinning, probably representing a large erosion propagating through the shaft of the bone, less likely an enchondroma or lytic lesion of other etiology. 2. Left hand: Severe erosive arthropathy, greatest at the third and fifth metacarpophalangeal joints. 3. 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 4. 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 5. Right elbow: Moderate to severe erosive arthritis. Olecranon bursitis. joint effusion. 6. Left elbow: Mild to moderate erosive arthritis. Olecranon bursitis. Joint effusion. 7. Right knee: Mild tricompartmental arthritis without definite erosion. 8. Left knee: Mild tricompartmental arthritis with a relatively large erosion in the superior aspect of the patella. 9. Right ankle: Mild arthritis. 10. Left ankle: Mild arthritis. Effusion. 11. Right foot: Mild to moderate erosive arthritis in the forefoot. 12. Left foot: Mild to moderate erosive arthritis in the forefoot. Report dictated by Mallory Jeffries MD (president and chief operating officer). I, Dr. DAVID NOLAN MD have personally reviewed and interpreted this examination/study. This report was electronically signed by DAVID NOLAN MD on 07/21/2018 9:16 AM . Narrative 07/21/2018 9:16 AM CDT EXAMINATION: 1. Right hand: 3 views. 2. Left hand, 3 views. 3. Right wrist, 3 views. 4. Left wrist, 3 views. 5. Right elbow, 2 views. 6. Left elbow, 2 views. 7. Right ankle, 2 views. 8. Left ankle, 2 views. 9. Right foot, 2 views. 10. Left foot, 2 views. 11. Right knee, 2 views. Weightbearing exam. 12. Left knee, 2 views. Weightbearing exam. HISTORY: Erosive arthropathy , rheumatoid arthritis. COMPARISON: No prior study is available for comparison at the time of this dictation. FINDINGS: Right hand: Moderate to severe erosive arthritis is present at multiple joints, greatest at the third metacarpophalangeal joint where there is essentially [id number] contact. A lytic lesion is present in the third proximal phalanx involving most of the bone, resulting in severe cortical thinning. This probably represents a large erosion propagating through the shaft of the bone, less likely an enchondroma or other lytic lesion. Erosions are also seen at the second, fourth, fifth metacarpophalangeal joints and third proximal interphalangeal joint. Soft tissue nodules are present at the third and fifth proximal interphalangeal joints. There are also suggested the dorsal aspect of the metacarpal phalangeal joints. Soft tissue swelling is present around the arthritic joints. The bones are osteopenic including in the periarticular regions. No fracture is noted. Left hand: As on the right there is severe erosive arthritis at multiple joints, greatest at the second, third, and fifth metacarpophalangeal joints. There is more mild involvement of several interphalangeal joints. Large erosions are present including a 1.3 cm and in the third proximal phalanx base, a 1.3 cm erosions in the fifth metacarpal distal shaft/neck, and a smaller large erosion in the third metacarpal head. Soft tissue swelling is seen around several joints including nodular soft tissue swelling. There is osteopenia including in the periarticular regions. No fracture is noted. Right wrist: There is severe erosive arthropathy of the carpal bones with joint space narrowing, erosions, and ankylosis of several intercarpal joints. There is severe joint space narrowing of the radiocarpal and ulnar carpal joints. No fracture is noted. Soft tissue swelling is present. Osteopenia is noted. Left wrist: Advanced erosive arthropathy of the wrist with collapse and ankylosis of the carpal bones and multiple erosions. There is ankylosis of multiple intercarpal joints. No fracture is noted. Soft tissue swelling is present. Osteopenia is noted. Right elbow: No acute fracture or dislocation. There is severe erosive arthritis of the right elbow joint with joint space narrowing and erosions. There is a joint effusion. There is diffuse mild osteopenia. There is soft tissue swelling of the posterior aspect of the elbow which suggests olecranon bursitis. Left elbow: No acute fracture or dislocation. There is mild to moderate erosive arthropathy of the left elbow with erosions of the lateral and medial humeral condyles. There is focal soft tissue swelling of the posterior aspect of the elbow, consistent with olecranon bursitis. There is a joint effusion. Osteopenia is present. Right knee: No acute fracture or dislocation is identified. There is mild tricompartmental joint arthritis with subchondral sclerosis and osteophytes, without erosion. Diffuse mild osteopenia is noted. There is no joint effusion. There is an enthesophyte arising from the superior aspect of the patella. Left knee: No fracture or dislocation is identified. There is mild tricompartmental joint arthritis with subchondral sclerosis and osteophytes. There is a 1 cm erosion in the superior aspect of the patella. Diffuse mild osteopenia is noted. There is no joint effusion. There is an enthesophyte arising from the superior aspect of the patella. Right ankle: No acute fracture or dislocation is identified. There are some small subchondral cysts versus erosions in the medial malleolus and medial aspect of the talotibial joint. Soft tissue swelling is present. Small plantar and dorsal calcaneal spurs are present. Left ankle: No acute fracture or dislocation is identified. There are some erosions versus subchondral cyst in the medial malleolus. Soft tissue swelling is present. Small plantar and dorsal calcaneal spurs are present. An effusion is noted. Right foot: No fracture or dislocation is identified. There is hallux valgus. There is moderate osteoarthritis at the first metatarsophalangeal joint. There is moderate erosive arthritis at the first metatarsophalangeal joint and mild erosive arthritis at the fifth metatarsophalangeal joint. Soft tissue swelling is present, greatest on the first interphalangeal joint . Small plantar and calcaneal spurs are present. Left foot: No acute fracture or dislocation is identified. There is hallux valgus deformity of the first digit with deformity of the head of the first metatarsal. There is moderate arthritis at the first metatarsophalangeal joint, probably with small erosions. Erosions are noted at the first interphalangeal joint with overlying soft tissue swelling. The second through fifth metatarsophalangeal joints are not well evaluated due to positioning and possibly subluxation; arthritis is likely present at these joints. Diffuse osteopenia is present. Diffuse soft tissue tissue swelling is noted. Small plantar and dorsal calcaneal spurs are present. Procedure Note David Nolan MD - 07/21/2018 EXAMINATION: 1. Right hand: 3 views. 2. Left hand, 3 views. 3. Right wrist, 3 views. 4. Left wrist, 3 views. 5. Right elbow, 2 views. 6. Left elbow, 2 views. 7. Right ankle, 2 views. 8. Left ankle, 2 views. 9. Right foot, 2 views. 10. Left foot, 2 views. 11. Right knee, 2 views. Weightbearing exam. 12. Left knee, 2 views. Weightbearing exam. HISTORY: Erosive arthropathy , rheumatoid arthritis. COMPARISON: No prior study is available for comparison at the time of this dictation. FINDINGS: Right hand: Moderate to severe erosive arthritis is present at multiple joints, greatest at the third metacarpophalangeal joint where there is essentially [id number] contact. A lytic lesion is present in the third proximal phalanx involving most of the bone, resulting in severecortical thinning. This probably represents a large erosion propagating throughthe shaft of the bone, less likely an enchondroma or other lytic lesion. Erosions are also seen at the second, fourth, fifth metacarpophalangeal joints and third proximal interphalangeal joint. Soft tissue nodules are present at the third and fifth proximal interphalangeal joints. Thereare also suggested the dorsal aspect of the metacarpal phalangeal joints.Soft tissue swelling is present around the arthritic joints. The bones are osteopenic including in the periarticular regions. No fracture is noted. Left hand: As on the right there is severe erosive arthritis at multiple joints, greatest at the second, third, and fifth metacarpophalangeal joints.There is more mild involvement of several interphalangeal joints. Largeerosions are present including a 1.3 cm and in the third proximal phalanx base, a 1.3 cm erosions in the fifth metacarpal distal shaft/neck, and a smaller large erosion in the third metacarpal head. Soft tissue swelling is seen around several joints including nodular soft tissue swelling. There is osteopenia including in the periarticular regions. No fracture isnoted. Right wrist: There is severe erosive arthropathy of the carpal bones with joint space narrowing, erosions, and ankylosis of several intercarpal joints. Thereis severe joint space narrowing of the radiocarpal and ulnar carpal joints. No fracture is noted. Soft tissue swelling is present. Osteopenia is noted. Left wrist: Advanced erosive arthropathy of the wrist with collapse and ankylosis of the carpal bones and multiple erosions. There is ankylosis of multiple intercarpal joints. No fracture is noted. Soft tissue swelling ispresent. Osteopenia is noted. Right elbow: No acute fracture or dislocation. There is severe erosive arthritis ofthe right elbow joint with joint space narrowing and erosions. There is a joint effusion. There is diffuse mild osteopenia. There is soft tissue swelling of the posterior aspect of the elbow which suggests olecranon bursitis. Left elbow: No acute fracture or dislocation. There is mild to moderate erosive arthropathy of the left elbow with erosions of the lateral and medial humeral condyles. There is focal soft tissue swelling of the posterior aspect of the elbow, consistent with olecranon bursitis. There is a joint effusion. Osteopenia is present. Right knee: No acute fracture or dislocation is identified. There is mild tricompartmental joint arthritis with subchondral sclerosis and osteophytes, without erosion. Diffuse mild osteopenia is noted. There is no joint effusion. There is an enthesophyte arising from the superior aspect of the patella. Left knee: No fracture or dislocation is identified. There is mild tricompartmental joint arthritis with subchondral sclerosis and osteophytes. There is a 1 cm erosion in the superior aspect of the patella. Diffuse mildosteopenia is noted. There is no joint effusion. There is an enthesophyte arising from the superior aspect of the patella. Right ankle: No acute fracture or dislocation is identified. There are some small subchondral cysts versus erosions in the medial malleolus and medial aspect of the talotibial joint. Soft tissue swelling is present. Small plantar and dorsal calcaneal spurs are present. Left ankle: No acute fracture or dislocation is identified. There are some erosions versus subchondral cyst in the medial malleolus. Soft tissue swelling is present. Small plantar and dorsal calcaneal spurs are present. Aneffusion is noted. Right foot: No fracture or dislocation is identified. There is hallux valgus. Thereis moderate osteoarthritis at the first metatarsophalangeal joint. There is moderate erosive arthritis at the first metatarsophalangeal joint andmild erosive arthritis at the fifth metatarsophalangeal joint. Soft tissue swelling is present, greatest on the first interphalangeal joint . Small plantar and calcaneal spurs are present. Left foot: No acute fracture or dislocation is identified. There is hallux valgus deformity of the first digit with deformity of the head of the first metatarsal. There is moderate arthritis at the first metatarsophalangeal joint, probably with small erosions. Erosions are noted at the first interphalangeal joint with overlying soft tissue swelling. The second through fifth metatarsophalangeal joints are not well evaluated due to positioning and possibly subluxation; arthritis is likely present atthese joints. Diffuse osteopenia is present. Diffuse soft tissue tissueswelling is noted. Small plantar and dorsal calcaneal spurs are present. IMPRESSION: 1. Right hand: Moderate to severe erosive arthritis, greatest at thethird metacarpophalangeal joint. A lytic lesion involves much of the thirddigit proximal phalanx resulting in cortical thinning, probably representing a large erosion propagating through the shaft of the bone, less likely an enchondroma or lytic lesion of other etiology. 2. Left hand: Severe erosive arthropathy, greatest at the third andfifth metacarpophalangeal joints. 3. 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 4. 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 5. Right elbow: Moderate to severe erosive arthritis. Olecranonbursitis. joint effusion. 6. Left elbow: Mild to moderate erosive arthritis. Olecranon bursitis. Joint effusion. 7. Right knee: Mild tricompartmental arthritis without definite erosion. 8. Left knee: Mild tricompartmental arthritis with a relatively large erosion in the superior aspect of the patella. 9. Right ankle: Mild arthritis. 10. Left ankle: Mild arthritis. Effusion. 11. Right foot: Mild to moderate erosive arthritis in the forefoot. 12. Left foot: Mild to moderate erosive arthritis in the forefoot. Report dictated by Mallory Jeffries MD (president and chief operating officer). I, Dr. DAVID NOLAN MD have personally reviewed and interpreted this examination/study. This report was electronically signed by DAVID NOLAN MD on07/21/2018 9:16 AM . Genesis Maradiaga DO DIAGNOSTIC IMAGING O RDERABLES * XR HAND RIGHT 3VW OR MORE (07/20/2018 10:39 AM CDT) Anatomical Region Laterality Modality Wrist / Hand Radiographic Sakshi ging 07/20/2018 12:5 2 PM CDT Impressions 07/21/2018 9:16 AM CDT IMPRESSION: 1. Right hand: Moderate to severe erosive arthritis, greatest at the third metacarpophalangeal joint. A lytic lesion involves much of the third digit proximal phalanx resulting in cortical thinning, probably representing a large erosion propagating through the shaft of the bone, less likely an enchondroma or lytic lesion of other etiology. 2. Left hand: Severe erosive arthropathy, greatest at the third and fifth metacarpophalangeal joints. 3. 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 4. 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 5. Right elbow: Moderate to severe erosive arthritis. Olecranon bursitis. joint effusion. 6. Left elbow: Mild to moderate erosive arthritis. Olecranon bursitis. Joint effusion. 7. Right knee: Mild tricompartmental arthritis without definite erosion. 8. Left knee: Mild tricompartmental arthritis with a relatively large erosion in the superior aspect of the patella. 9. Right ankle: Mild arthritis. 10. Left ankle: Mild arthritis. Effusion. 11. Right foot: Mild to moderate erosive arthritis in the forefoot. 12. Left foot: Mild to moderate erosive arthritis in the forefoot. Report dictated by Mallory Jeffries MD (president and chief operating officer). I, Dr. DAVID NOLAN MD have personally reviewed and interpreted this examination/study. This report was electronically signed by DAVID NOLAN MD on 07/21/2018 9:16 AM . Narrative 07/21/2018 9:16 AM CDT EXAMINATION: 1. Right hand: 3 views. 2. Left hand, 3 views. 3. Right wrist, 3 views. 4. Left wrist, 3 views. 5. Right elbow, 2 views. 6. Left elbow, 2 views. 7. Right ankle, 2 views. 8. Left ankle, 2 views. 9. Right foot, 2 views. 10. Left foot, 2 views. 11. Right knee, 2 views. Weightbearing exam. 12. Left knee, 2 views. Weightbearing exam. HISTORY: Erosive arthropathy , rheumatoid arthritis. COMPARISON: No prior study is available for comparison at the time of this dictation. FINDINGS: Right hand: Moderate to severe erosive arthritis is present at multiple joints, greatest at the third metacarpophalangeal joint where there is essentially [id number] contact. A lytic lesion is present in the third proximal phalanx involving most of the bone, resulting in severe cortical thinning. This probably represents a large erosion propagating through the shaft of the bone, less likely an enchondroma or other lytic lesion. Erosions are also seen at the second, fourth, fifth metacarpophalangeal joints and third proximal interphalangeal joint. Soft tissue nodules are present at the third and fifth proximal interphalangeal joints. There are also suggested the dorsal aspect of the metacarpal phalangeal joints. Soft tissue swelling is present around the arthritic joints. The bones are osteopenic including in the periarticular regions. No fracture is noted. Left hand: As on the right there is severe erosive arthritis at multiple joints, greatest at the second, third, and fifth metacarpophalangeal joints. There is more mild involvement of several interphalangeal joints. Large erosions are present including a 1.3 cm and in the third proximal phalanx base, a 1.3 cm erosions in the fifth metacarpal distal shaft/neck, and a smaller large erosion in the third metacarpal head. Soft tissue swelling is seen around several joints including nodular soft tissue swelling. There is osteopenia including in the periarticular regions. No fracture is noted. Right wrist: There is severe erosive arthropathy of the carpal bones with joint space narrowing, erosions, and ankylosis of several intercarpal joints. There is severe joint space narrowing of the radiocarpal and ulnar carpal joints. No fracture is noted. Soft tissue swelling is present. Osteopenia is noted. Left wrist: Advanced erosive arthropathy of the wrist with collapse and ankylosis of the carpal bones and multiple erosions. There is ankylosis of multiple intercarpal joints. No fracture is noted. Soft tissue swelling is present. Osteopenia is noted. Right elbow: No acute fracture or dislocation. There is severe erosive arthritis of the right elbow joint with joint space narrowing and erosions. There is a joint effusion. There is diffuse mild osteopenia. There is soft tissue swelling of the posterior aspect of the elbow which suggests olecranon bursitis. Left elbow: No acute fracture or dislocation. There is mild to moderate erosive arthropathy of the left elbow with erosions of the lateral and medial humeral condyles. There is focal soft tissue swelling of the posterior aspect of the elbow, consistent with olecranon bursitis. There is a joint effusion. Osteopenia is present. Right knee: No acute fracture or dislocation is identified. There is mild tricompartmental joint arthritis with subchondral sclerosis and osteophytes, without erosion. Diffuse mild osteopenia is noted. There is no joint effusion. There is an enthesophyte arising from the superior aspect of the patella. Left knee: No fracture or dislocation is identified. There is mild tricompartmental joint arthritis with subchondral sclerosis and osteophytes. There is a 1 cm erosion in the superior aspect of the patella. Diffuse mild osteopenia is noted. There is no joint effusion. There is an enthesophyte arising from the superior aspect of the patella. Right ankle: No acute fracture or dislocation is identified. There are some small subchondral cysts versus erosions in the medial malleolus and medial aspect of the talotibial joint. Soft tissue swelling is present. Small plantar and dorsal calcaneal spurs are present. Left ankle: No acute fracture or dislocation is identified. There are some erosions versus subchondral cyst in the medial malleolus. Soft tissue swelling is present. Small plantar and dorsal calcaneal spurs are present. An effusion is noted. Right foot: No fracture or dislocation is identified. There is hallux valgus. There is moderate osteoarthritis at the first metatarsophalangeal joint. There is moderate erosive arthritis at the first metatarsophalangeal joint and mild erosive arthritis at the fifth metatarsophalangeal joint. Soft tissue swelling is present, greatest on the first interphalangeal joint . Small plantar and calcaneal spurs are present. Left foot: No acute fracture or dislocation is identified. There is hallux valgus deformity of the first digit with deformity of the head of the first metatarsal. There is moderate arthritis at the first metatarsophalangeal joint, probably with small erosions. Erosions are noted at the first interphalangeal joint with overlying soft tissue swelling. The second through fifth metatarsophalangeal joints are not well evaluated due to positioning and possibly subluxation; arthritis is likely present at these joints. Diffuse osteopenia is present. Diffuse soft tissue tissue swelling is noted. Small plantar and dorsal calcaneal spurs are present. Procedure Note David Nolan MD - 07/21/2018 EXAMINATION: 1. Right hand: 3 views. 2. Left hand, 3 views. 3. Right wrist, 3 views. 4. Left wrist, 3 views. 5. Right elbow, 2 views. 6. Left elbow, 2 views. 7. Right ankle, 2 views. 8. Left ankle, 2 views. 9. Right foot, 2 views. 10. Left foot, 2 views. 11. Right knee, 2 views. Weightbearing exam. 12. Left knee, 2 views. Weightbearing exam. HISTORY: Erosive arthropathy , rheumatoid arthritis. COMPARISON: No prior study is available for comparison at the time of this dictation. FINDINGS: Right hand: Moderate to severe erosive arthritis is present at multiple joints, greatest at the third metacarpophalangeal joint where there is essentially [id number] contact. A lytic lesion is present in the third proximal phalanx involving most of the bone, resulting in severecortical thinning. This probably represents a large erosion propagating throughthe shaft of the bone, less likely an enchondroma or other lytic lesion. Erosions are also seen at the second, fourth, fifth metacarpophalangeal joints and third proximal interphalangeal joint. Soft tissue nodules are present at the third and fifth proximal interphalangeal joints. Thereare also suggested the dorsal aspect of the metacarpal phalangeal joints.Soft tissue swelling is present around the arthritic joints. The bones are osteopenic including in the periarticular regions. No fracture is noted. Left hand: As on the right there is severe erosive arthritis at multiple joints, greatest at the second, third, and fifth metacarpophalangeal joints.There is more mild involvement of several interphalangeal joints. Largeerosions are present including a 1.3 cm and in the third proximal phalanx base, a 1.3 cm erosions in the fifth metacarpal distal shaft/neck, and a smaller large erosion in the third metacarpal head. Soft tissue swelling is seen around several joints including nodular soft tissue swelling. There is osteopenia including in the periarticular regions. No fracture isnoted. Right wrist: There is severe erosive arthropathy of the carpal bones with joint space narrowing, erosions, and ankylosis of several intercarpal joints. Thereis severe joint space narrowing of the radiocarpal and ulnar carpal joints. No fracture is noted. Soft tissue swelling is present. Osteopenia is noted. Left wrist: Advanced erosive arthropathy of the wrist with collapse and ankylosis of the carpal bones and multiple erosions. There is ankylosis of multiple intercarpal joints. No fracture is noted. Soft tissue swelling ispresent. Osteopenia is noted. Right elbow: No acute fracture or dislocation. There is severe erosive arthritis ofthe right elbow joint with joint space narrowing and erosions. There is a joint effusion. There is diffuse mild osteopenia. There is soft tissue swelling of the posterior aspect of the elbow which suggests olecranon bursitis. Left elbow: No acute fracture or dislocation. There is mild to moderate erosive arthropathy of the left elbow with erosions of the lateral and medial humeral condyles. There is focal soft tissue swelling of the posterior aspect of the elbow, consistent with olecranon bursitis. There is a joint effusion. Osteopenia is present. Right knee: No acute fracture or dislocation is identified. There is mild tricompartmental joint arthritis with subchondral sclerosis and osteophytes, without erosion. Diffuse mild osteopenia is noted. There is no joint effusion. There is an enthesophyte arising from the superior aspect of the patella. Left knee: No fracture or dislocation is identified. There is mild tricompartmental joint arthritis with subchondral sclerosis and osteophytes. There is a 1 cm erosion in the superior aspect of the patella. Diffuse mildosteopenia is noted. There is no joint effusion. There is an enthesophyte arising from the superior aspect of the patella. Right ankle: No acute fracture or dislocation is identified. There are some small subchondral cysts versus erosions in the medial malleolus and medial aspect of the talotibial joint. Soft tissue swelling is present. Small plantar and dorsal calcaneal spurs are present. Left ankle: No acute fracture or dislocation is identified. There are some erosions versus subchondral cyst in the medial malleolus. Soft tissue swelling is present. Small plantar and dorsal calcaneal spurs are present. Aneffusion is noted. Right foot: No fracture or dislocation is identified. There is hallux valgus. Thereis moderate osteoarthritis at the first metatarsophalangeal joint. There is moderate erosive arthritis at the first metatarsophalangeal joint andmild erosive arthritis at the fifth metatarsophalangeal joint. Soft tissue swelling is present, greatest on the first interphalangeal joint . Small plantar and calcaneal spurs are present. Left foot: No acute fracture or dislocation is identified. There is hallux valgus deformity of the first digit with deformity of the head of the first metatarsal. There is moderate arthritis at the first metatarsophalangeal joint, probably with small erosions. Erosions are noted at the first interphalangeal joint with overlying soft tissue swelling. The second through fifth metatarsophalangeal joints are not well evaluated due to positioning and possibly subluxation; arthritis is likely present atthese joints. Diffuse osteopenia is present. Diffuse soft tissue tissueswelling is noted. Small plantar and dorsal calcaneal spurs are present. IMPRESSION: 1. Right hand: Moderate to severe erosive arthritis, greatest at thethird metacarpophalangeal joint. A lytic lesion involves much of the thirddigit proximal phalanx resulting in cortical thinning, probably representing a large erosion propagating through the shaft of the bone, less likely an enchondroma or lytic lesion of other etiology. 2. Left hand: Severe erosive arthropathy, greatest at the third andfifth metacarpophalangeal joints. 3. 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 4. 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 5. Right elbow: Moderate to severe erosive arthritis. Olecranonbursitis. joint effusion. 6. Left elbow: Mild to moderate erosive arthritis. Olecranon bursitis. Joint effusion. 7. Right knee: Mild tricompartmental arthritis without definite erosion. 8. Left knee: Mild tricompartmental arthritis with a relatively large erosion in the superior aspect of the patella. 9. Right ankle: Mild arthritis. 10. Left ankle: Mild arthritis. Effusion. 11. Right foot: Mild to moderate erosive arthritis in the forefoot. 12. Left foot: Mild to moderate erosive arthritis in the forefoot. Report dictated by Mallory Jeffries MD (president and chief operating officer). I, Dr. DAVID NOLAN MD have personally reviewed and interpreted this examination/study. This report was electronically signed by DAVID NOLAN MD on07/21/2018 9:16 AM . Genesis Maradiaga DO DIAGNOSTIC IMAGING O RDERABLES * XR HAND LEFT 3VW OR MORE (07/20/2018 10:39 AM CDT) Anatomical Region Laterality Modality Wrist / Hand Radiographic Sakshi ging 07/20/2018 12:5 2 PM CDT Impressions 07/21/2018 9:16 AM CDT IMPRESSION: 1. Right hand: Moderate to severe erosive arthritis, greatest at the third metacarpophalangeal joint. A lytic lesion involves much of the third digit proximal phalanx resulting in cortical thinning, probably representing a large erosion propagating through the shaft of the bone, less likely an enchondroma or lytic lesion of other etiology. 2. Left hand: Severe erosive arthropathy, greatest at the third and fifth metacarpophalangeal joints. 3. 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 4. 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 5. Right elbow: Moderate to severe erosive arthritis. Olecranon bursitis. joint effusion. 6. Left elbow: Mild to moderate erosive arthritis. Olecranon bursitis. Joint effusion. 7. Right knee: Mild tricompartmental arthritis without definite erosion. 8. Left knee: Mild tricompartmental arthritis with a relatively large erosion in the superior aspect of the patella. 9. Right ankle: Mild arthritis. 10. Left ankle: Mild arthritis. Effusion. 11. Right foot: Mild to moderate erosive arthritis in the forefoot. 12. Left foot: Mild to moderate erosive arthritis in the forefoot. Report dictated by Mallory Jeffries MD (president and chief operating officer). I, Dr. DAVID NOLAN MD have personally reviewed and interpreted this examination/study. This report was electronically signed by DAVID NOLAN MD on 07/21/2018 9:16 AM . Narrative 07/21/2018 9:16 AM CDT EXAMINATION: 1. Right hand: 3 views. 2. Left hand, 3 views. 3. Right wrist, 3 views. 4. Left wrist, 3 views. 5. Right elbow, 2 views. 6. Left elbow, 2 views. 7. Right ankle, 2 views. 8. Left ankle, 2 views. 9. Right foot, 2 views. 10. Left foot, 2 views. 11. Right knee, 2 views. Weightbearing exam. 12. Left knee, 2 views. Weightbearing exam. HISTORY: Erosive arthropathy , rheumatoid arthritis. COMPARISON: No prior study is available for comparison at the time of this dictation. FINDINGS: Right hand: Moderate to severe erosive arthritis is present at multiple joints, greatest at the third metacarpophalangeal joint where there is essentially [id number] contact. A lytic lesion is present in the third proximal phalanx involving most of the bone, resulting in severe cortical thinning. This probably represents a large erosion propagating through the shaft of the bone, less likely an enchondroma or other lytic lesion. Erosions are also seen at the second, fourth, fifth metacarpophalangeal joints and third proximal interphalangeal joint. Soft tissue nodules are present at the third and fifth proximal interphalangeal joints. There are also suggested the dorsal aspect of the metacarpal phalangeal joints. Soft tissue swelling is present around the arthritic joints. The bones are osteopenic including in the periarticular regions. No fracture is noted. Left hand: As on the right there is severe erosive arthritis at multiple joints, greatest at the second, third, and fifth metacarpophalangeal joints. There is more mild involvement of several interphalangeal joints. Large erosions are present including a 1.3 cm and in the third proximal phalanx base, a 1.3 cm erosions in the fifth metacarpal distal shaft/neck, and a smaller large erosion in the third metacarpal head. Soft tissue swelling is seen around several joints including nodular soft tissue swelling. There is osteopenia including in the periarticular regions. No fracture is noted. Right wrist: There is severe erosive arthropathy of the carpal bones with joint space narrowing, erosions, and ankylosis of several intercarpal joints. There is severe joint space narrowing of the radiocarpal and ulnar carpal joints. No fracture is noted. Soft tissue swelling is present. Osteopenia is noted. Left wrist: Advanced erosive arthropathy of the wrist with collapse and ankylosis of the carpal bones and multiple erosions. There is ankylosis of multiple intercarpal joints. No fracture is noted. Soft tissue swelling is present. Osteopenia is noted. Right elbow: No acute fracture or dislocation. There is severe erosive arthritis of the right elbow joint with joint space narrowing and erosions. There is a joint effusion. There is diffuse mild osteopenia. There is soft tissue swelling of the posterior aspect of the elbow which suggests olecranon bursitis. Left elbow: No acute fracture or dislocation. There is mild to moderate erosive arthropathy of the left elbow with erosions of the lateral and medial humeral condyles. There is focal soft tissue swelling of the posterior aspect of the elbow, consistent with olecranon bursitis. There is a joint effusion. Osteopenia is present. Right knee: No acute fracture or dislocation is identified. There is mild tricompartmental joint arthritis with subchondral sclerosis and osteophytes, without erosion. Diffuse mild osteopenia is noted. There is no joint effusion. There is an enthesophyte arising from the superior aspect of the patella. Left knee: No fracture or dislocation is identified. There is mild tricompartmental joint arthritis with subchondral sclerosis and osteophytes. There is a 1 cm erosion in the superior aspect of the patella. Diffuse mild osteopenia is noted. There is no joint effusion. There is an enthesophyte arising from the superior aspect of the patella. Right ankle: No acute fracture or dislocation is identified. There are some small subchondral cysts versus erosions in the medial malleolus and medial aspect of the talotibial joint. Soft tissue swelling is present. Small plantar and dorsal calcaneal spurs are present. Left ankle: No acute fracture or dislocation is identified. There are some erosions versus subchondral cyst in the medial malleolus. Soft tissue swelling is present. Small plantar and dorsal calcaneal spurs are present. An effusion is noted. Right foot: No fracture or dislocation is identified. There is hallux valgus. There is moderate osteoarthritis at the first metatarsophalangeal joint. There is moderate erosive arthritis at the first metatarsophalangeal joint and mild erosive arthritis at the fifth metatarsophalangeal joint. Soft tissue swelling is present, greatest on the first interphalangeal joint . Small plantar and calcaneal spurs are present. Left foot: No acute fracture or dislocation is identified. There is hallux valgus deformity of the first digit with deformity of the head of the first metatarsal. There is moderate arthritis at the first metatarsophalangeal joint, probably with small erosions. Erosions are noted at the first interphalangeal joint with overlying soft tissue swelling. The second through fifth metatarsophalangeal joints are not well evaluated due to positioning and possibly subluxation; arthritis is likely present at these joints. Diffuse osteopenia is present. Diffuse soft tissue tissue swelling is noted. Small plantar and dorsal calcaneal spurs are present. Procedure Note David Nolan MD - 07/21/2018 EXAMINATION: 1. Right hand: 3 views. 2. Left hand, 3 views. 3. Right wrist, 3 views. 4. Left wrist, 3 views. 5. Right elbow, 2 views. 6. Left elbow, 2 views. 7. Right ankle, 2 views. 8. Left ankle, 2 views. 9. Right foot, 2 views. 10. Left foot, 2 views. 11. Right knee, 2 views. Weightbearing exam. 12. Left knee, 2 views. Weightbearing exam. HISTORY: Erosive arthropathy , rheumatoid arthritis. COMPARISON: No prior study is available for comparison at the time of this dictation. FINDINGS: Right hand: Moderate to severe erosive arthritis is present at multiple joints, greatest at the third metacarpophalangeal joint where there is essentially [id number]-mx-[id number] contact. A lytic lesion is present in the third proximal phalanx involving most of the bone, resulting in severecortical thinning. This probably represents a large erosion propagating throughthe shaft of the bone, less likely an enchondroma or other lytic lesion. Erosions are also seen at the second, fourth, fifth metacarpophalangeal joints and third proximal interphalangeal joint. Soft tissue nodules are present at the third and fifth proximal interphalangeal joints. Thereare also suggested the dorsal aspect of the metacarpal phalangeal joints.Soft tissue swelling is present around the arthritic joints. The bones are osteopenic including in the periarticular regions. No fracture is noted. Left hand: As on the right there is severe erosive arthritis at multiple joints, greatest at the second, third, and fifth metacarpophalangeal joints.There is more mild involvement of several interphalangeal joints. Largeerosions are present including a 1.3 cm and in the third proximal phalanx base, a 1.3 cm erosions in the fifth metacarpal distal shaft/neck, and a smaller large erosion in the third metacarpal head. Soft tissue swelling is seen around several joints including nodular soft tissue swelling. There is osteopenia including in the periarticular regions. No fracture isnoted. Right wrist: There is severe erosive arthropathy of the carpal bones with joint space narrowing, erosions, and ankylosis of several intercarpal joints. Thereis severe joint space narrowing of the radiocarpal and ulnar carpal joints. No fracture is noted. Soft tissue swelling is present. Osteopenia is noted. Left wrist: Advanced erosive arthropathy of the wrist with collapse and ankylosis of the carpal bones and multiple erosions. There is ankylosis of multiple intercarpal joints. No fracture is noted. Soft tissue swelling ispresent. Osteopenia is noted. Right elbow: No acute fracture or dislocation. There is severe erosive arthritis ofthe right elbow joint with joint space narrowing and erosions. There is a joint effusion. There is diffuse mild osteopenia. There is soft tissue swelling of the posterior aspect of the elbow which suggests olecranon bursitis. Left elbow: No acute fracture or dislocation. There is mild to moderate erosive arthropathy of the left elbow with erosions of the lateral and medial humeral condyles. There is focal soft tissue swelling of the posterior aspect of the elbow, consistent with olecranon bursitis. There is a joint effusion. Osteopenia is present. Right knee: No acute fracture or dislocation is identified. There is mild tricompartmental joint arthritis with subchondral sclerosis and osteophytes, without erosion. Diffuse mild osteopenia is noted. There is no joint effusion. There is an enthesophyte arising from the superior aspect of the patella. Left knee: No fracture or dislocation is identified. There is mild tricompartmental joint arthritis with subchondral sclerosis and osteophytes. There is a 1 cm erosion in the superior aspect of the patella. Diffuse mildosteopenia is noted. There is no joint effusion. There is an enthesophyte arising from the superior aspect of the patella. Right ankle: No acute fracture or dislocation is identified. There are some small subchondral cysts versus erosions in the medial malleolus and medial aspect of the talotibial joint. Soft tissue swelling is present. Small plantar and dorsal calcaneal spurs are present. Left ankle: No acute fracture or dislocation is identified. There are some erosions versus subchondral cyst in the medial malleolus. Soft tissue swelling is present. Small plantar and dorsal calcaneal spurs are present. Aneffusion is noted. Right foot: No fracture or dislocation is identified. There is hallux valgus. Thereis moderate osteoarthritis at the first metatarsophalangeal joint. There is moderate erosive arthritis at the first metatarsophalangeal joint andmild erosive arthritis at the fifth metatarsophalangeal joint. Soft tissue swelling is present, greatest on the first interphalangeal joint . Small plantar and calcaneal spurs are present. Left foot: No acute fracture or dislocation is identified. There is hallux valgus deformity of the first digit with deformity of the head of the first metatarsal. There is moderate arthritis at the first metatarsophalangeal joint, probably with small erosions. Erosions are noted at the first interphalangeal joint with overlying soft tissue swelling. The second through fifth metatarsophalangeal joints are not well evaluated due to positioning and possibly subluxation; arthritis is likely present atthese joints. Diffuse osteopenia is present. Diffuse soft tissue tissueswelling is noted. Small plantar and dorsal calcaneal spurs are present. IMPRESSION: 1. Right hand: Moderate to severe erosive arthritis, greatest at thethird metacarpophalangeal joint. A lytic lesion involves much of the thirddigit proximal phalanx resulting in cortical thinning, probably representing a large erosion propagating through the shaft of the bone, less likely an enchondroma or lytic lesion of other etiology. 2. Left hand: Severe erosive arthropathy, greatest at the third andfifth metacarpophalangeal joints. 3. 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 4. 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 5. Right elbow: Moderate to severe erosive arthritis. Olecranonbursitis. joint effusion. 6. Left elbow: Mild to moderate erosive arthritis. Olecranon bursitis. Joint effusion. 7. Right knee: Mild tricompartmental arthritis without definite erosion. 8. Left knee: Mild tricompartmental arthritis with a relatively large erosion in the superior aspect of the patella. 9. Right ankle: Mild arthritis. 10. Left ankle: Mild arthritis. Effusion. 11. Right foot: Mild to moderate erosive arthritis in the forefoot. 12. Left foot: Mild to moderate erosive arthritis in the forefoot. Report dictated by Mallory Jeffries MD (president and chief operating officer). Dr. DAVID Mayen MD have personally reviewed and interpreted this examination/study. This report was electronically signed by DAVID NOLAN MD on07/21/2018 9:16 AM . Genesis Maradiaga DO DIAGNOSTIC IMAGING O RDERABLES * XR WRIST RIGHT 3VW OR MORE (07/20/2018 10:39 AM CDT) Anatomical Region Laterality Modality Wrist / Hand Radiographic Sakshi ging 07/20/2018 12:5 2 PM CDT Impressions 07/21/2018 9:16 AM CDT IMPRESSION: 1. Right hand: Moderate to severe erosive arthritis, greatest at the third metacarpophalangeal joint. A lytic lesion involves much of the third digit proximal phalanx resulting in cortical thinning, probably representing a large erosion propagating through the shaft of the bone, less likely an enchondroma or lytic lesion of other etiology. 2. Left hand: Severe erosive arthropathy, greatest at the third and fifth metacarpophalangeal joints. 3. 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 4. 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 5. Right elbow: Moderate to severe erosive arthritis. Olecranon bursitis. joint effusion. 6. Left elbow: Mild to moderate erosive arthritis. Olecranon bursitis. Joint effusion. 7. Right knee: Mild tricompartmental arthritis without definite erosion. 8. Left knee: Mild tricompartmental arthritis with a relatively large erosion in the superior aspect of the patella. 9. Right ankle: Mild arthritis. 10. Left ankle: Mild arthritis. Effusion. 11. Right foot: Mild to moderate erosive arthritis in the forefoot. 12. Left foot: Mild to moderate erosive arthritis in the forefoot. Report dictated by Mallory Jeffries MD (president and chief operating officer). Dr. DAVID Mayen MD have personally reviewed and interpreted this examination/study. This report was electronically signed by DAVID NOLAN MD on 07/21/2018 9:16 AM . Narrative 07/21/2018 9:16 AM CDT EXAMINATION: 1. Right hand: 3 views. 2. Left hand, 3 views. 3. Right wrist, 3 views. 4. Left wrist, 3 views. 5. Right elbow, 2 views. 6. Left elbow, 2 views. 7. Right ankle, 2 views. 8. Left ankle, 2 views. 9. Right foot, 2 views. 10. Left foot, 2 views. 11. Right knee, 2 views. Weightbearing exam. 12. Left knee, 2 views. Weightbearing exam. HISTORY: Erosive arthropathy , rheumatoid arthritis. COMPARISON: No prior study is available for comparison at the time of this dictation. FINDINGS: Right hand: Moderate to severe erosive arthritis is present at multiple joints, greatest at the third metacarpophalangeal joint where there is essentially [id number] contact. A lytic lesion is present in the third proximal phalanx involving most of the bone, resulting in severe cortical thinning. This probably represents a large erosion propagating through the shaft of the bone, less likely an enchondroma or other lytic lesion. Erosions are also seen at the second, fourth, fifth metacarpophalangeal joints and third proximal interphalangeal joint. Soft tissue nodules are present at the third and fifth proximal interphalangeal joints. There are also suggested the dorsal aspect of the metacarpal phalangeal joints. Soft tissue swelling is present around the arthritic joints. The bones are osteopenic including in the periarticular regions. No fracture is noted. Left hand: As on the right there is severe erosive arthritis at multiple joints, greatest at the second, third, and fifth metacarpophalangeal joints. There is more mild involvement of several interphalangeal joints. Large erosions are present including a 1.3 cm and in the third proximal phalanx base, a 1.3 cm erosions in the fifth metacarpal distal shaft/neck, and a smaller large erosion in the third metacarpal head. Soft tissue swelling is seen around several joints including nodular soft tissue swelling. There is osteopenia including in the periarticular regions. No fracture is noted. Right wrist: There is severe erosive arthropathy of the carpal bones with joint space narrowing, erosions, and ankylosis of several intercarpal joints. There is severe joint space narrowing of the radiocarpal and ulnar carpal joints. No fracture is noted. Soft tissue swelling is present. Osteopenia is noted. Left wrist: Advanced erosive arthropathy of the wrist with collapse and ankylosis of the carpal bones and multiple erosions. There is ankylosis of multiple intercarpal joints. No fracture is noted. Soft tissue swelling is present. Osteopenia is noted. Right elbow: No acute fracture or dislocation. There is severe erosive arthritis of the right elbow joint with joint space narrowing and erosions. There is a joint effusion. There is diffuse mild osteopenia. There is soft tissue swelling of the posterior aspect of the elbow which suggests olecranon bursitis. Left elbow: No acute fracture or dislocation. There is mild to moderate erosive arthropathy of the left elbow with erosions of the lateral and medial humeral condyles. There is focal soft tissue swelling of the posterior aspect of the elbow, consistent with olecranon bursitis. There is a joint effusion. Osteopenia is present. Right knee: No acute fracture or dislocation is identified. There is mild tricompartmental joint arthritis with subchondral sclerosis and osteophytes, without erosion. Diffuse mild osteopenia is noted. There is no joint effusion. There is an enthesophyte arising from the superior aspect of the patella. Left knee: No fracture or dislocation is identified. There is mild tricompartmental joint arthritis with subchondral sclerosis and osteophytes. There is a 1 cm erosion in the superior aspect of the patella. Diffuse mild osteopenia is noted. There is no joint effusion. There is an enthesophyte arising from the superior aspect of the patella. Right ankle: No acute fracture or dislocation is identified. There are some small subchondral cysts versus erosions in the medial malleolus and medial aspect of the talotibial joint. Soft tissue swelling is present. Small plantar and dorsal calcaneal spurs are present. Left ankle: No acute fracture or dislocation is identified. There are some erosions versus subchondral cyst in the medial malleolus. Soft tissue swelling is present. Small plantar and dorsal calcaneal spurs are present. An effusion is noted. Right foot: No fracture or dislocation is identified. There is hallux valgus. There is moderate osteoarthritis at the first metatarsophalangeal joint. There is moderate erosive arthritis at the first metatarsophalangeal joint and mild erosive arthritis at the fifth metatarsophalangeal joint. Soft tissue swelling is present, greatest on the first interphalangeal joint . Small plantar and calcaneal spurs are present. Left foot: No acute fracture or dislocation is identified. There is hallux valgus deformity of the first digit with deformity of the head of the first metatarsal. There is moderate arthritis at the first metatarsophalangeal joint, probably with small erosions. Erosions are noted at the first interphalangeal joint with overlying soft tissue swelling. The second through fifth metatarsophalangeal joints are not well evaluated due to positioning and possibly subluxation; arthritis is likely present at these joints. Diffuse osteopenia is present. Diffuse soft tissue tissue swelling is noted. Small plantar and dorsal calcaneal spurs are present. Procedure Note David Nolan MD - 07/21/2018 EXAMINATION: 1. Right hand: 3 views. 2. Left hand, 3 views. 3. Right wrist, 3 views. 4. Left wrist, 3 views. 5. Right elbow, 2 views. 6. Left elbow, 2 views. 7. Right ankle, 2 views. 8. Left ankle, 2 views. 9. Right foot, 2 views. 10. Left foot, 2 views. 11. Right knee, 2 views. Weightbearing exam. 12. Left knee, 2 views. Weightbearing exam. HISTORY: Erosive arthropathy , rheumatoid arthritis. COMPARISON: No prior study is available for comparison at the time of this dictation. FINDINGS: Right hand: Moderate to severe erosive arthritis is present at multiple joints, greatest at the third metacarpophalangeal joint where there is essentially [id number] contact. A lytic lesion is present in the third proximal phalanx involving most of the bone, resulting in severecortical thinning. This probably represents a large erosion propagating throughthe shaft of the bone, less likely an enchondroma or other lytic lesion. Erosions are also seen at the second, fourth, fifth metacarpophalangeal joints and third proximal interphalangeal joint. Soft tissue nodules are present at the third and fifth proximal interphalangeal joints. Thereare also suggested the dorsal aspect of the metacarpal phalangeal joints.Soft tissue swelling is present around the arthritic joints. The bones are osteopenic including in the periarticular regions. No fracture is noted. Left hand: As on the right there is severe erosive arthritis at multiple joints, greatest at the second, third, and fifth metacarpophalangeal joints.There is more mild involvement of several interphalangeal joints. Largeerosions are present including a 1.3 cm and in the third proximal phalanx base, a 1.3 cm erosions in the fifth metacarpal distal shaft/neck, and a smaller large erosion in the third metacarpal head. Soft tissue swelling is seen around several joints including nodular soft tissue swelling. There is osteopenia including in the periarticular regions. No fracture isnoted. Right wrist: There is severe erosive arthropathy of the carpal bones with joint space narrowing, erosions, and ankylosis of several intercarpal joints. Thereis severe joint space narrowing of the radiocarpal and ulnar carpal joints. No fracture is noted. Soft tissue swelling is present. Osteopenia is noted. Left wrist: Advanced erosive arthropathy of the wrist with collapse and ankylosis of the carpal bones and multiple erosions. There is ankylosis of multiple intercarpal joints. No fracture is noted. Soft tissue swelling ispresent. Osteopenia is noted. Right elbow: No acute fracture or dislocation. There is severe erosive arthritis ofthe right elbow joint with joint space narrowing and erosions. There is a joint effusion. There is diffuse mild osteopenia. There is soft tissue swelling of the posterior aspect of the elbow which suggests olecranon bursitis. Left elbow: No acute fracture or dislocation. There is mild to moderate erosive arthropathy of the left elbow with erosions of the lateral and medial humeral condyles. There is focal soft tissue swelling of the posterior aspect of the elbow, consistent with olecranon bursitis. There is a joint effusion. Osteopenia is present. Right knee: No acute fracture or dislocation is identified. There is mild tricompartmental joint arthritis with subchondral sclerosis and osteophytes, without erosion. Diffuse mild osteopenia is noted. There is no joint effusion. There is an enthesophyte arising from the superior aspect of the patella. Left knee: No fracture or dislocation is identified. There is mild tricompartmental joint arthritis with subchondral sclerosis and osteophytes. There is a 1 cm erosion in the superior aspect of the patella. Diffuse mildosteopenia is noted. There is no joint effusion. There is an enthesophyte arising from the superior aspect of the patella. Right ankle: No acute fracture or dislocation is identified. There are some small subchondral cysts versus erosions in the medial malleolus and medial aspect of the talotibial joint. Soft tissue swelling is present. Small plantar and dorsal calcaneal spurs are present. Left ankle: No acute fracture or dislocation is identified. There are some erosions versus subchondral cyst in the medial malleolus. Soft tissue swelling is present. Small plantar and dorsal calcaneal spurs are present. Aneffusion is noted. Right foot: No fracture or dislocation is identified. There is hallux valgus. Thereis moderate osteoarthritis at the first metatarsophalangeal joint. There is moderate erosive arthritis at the first metatarsophalangeal joint andmild erosive arthritis at the fifth metatarsophalangeal joint. Soft tissue swelling is present, greatest on the first interphalangeal joint . Small plantar and calcaneal spurs are present. Left foot: No acute fracture or dislocation is identified. There is hallux valgus deformity of the first digit with deformity of the head of the first metatarsal. There is moderate arthritis at the first metatarsophalangeal joint, probably with small erosions. Erosions are noted at the first interphalangeal joint with overlying soft tissue swelling. The second through fifth metatarsophalangeal joints are not well evaluated due to positioning and possibly subluxation; arthritis is likely present atthese joints. Diffuse osteopenia is present. Diffuse soft tissue tissueswelling is noted. Small plantar and dorsal calcaneal spurs are present. IMPRESSION: 1. Right hand: Moderate to severe erosive arthritis, greatest at thethird metacarpophalangeal joint. A lytic lesion involves much of the thirddigit proximal phalanx resulting in cortical thinning, probably representing a large erosion propagating through the shaft of the bone, less likely an enchondroma or lytic lesion of other etiology. 2. Left hand: Severe erosive arthropathy, greatest at the third andfifth metacarpophalangeal joints. 3. 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 4. 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 5. Right elbow: Moderate to severe erosive arthritis. Olecranonbursitis. joint effusion. 6. Left elbow: Mild to moderate erosive arthritis. Olecranon bursitis. Joint effusion. 7. Right knee: Mild tricompartmental arthritis without definite erosion. 8. Left knee: Mild tricompartmental arthritis with a relatively large erosion in the superior aspect of the patella. 9. Right ankle: Mild arthritis. 10. Left ankle: Mild arthritis. Effusion. 11. Right foot: Mild to moderate erosive arthritis in the forefoot. 12. Left foot: Mild to moderate erosive arthritis in the forefoot. Report dictated by Mallory Jeffries MD (president and chief operating officer). I, Dr. DAVID NOLAN MD have personally reviewed and interpreted this examination/study. This report was electronically signed by DAVID NOLAN MD on07/21/2018 9:16 AM . Genesis Maradiaga DO DIAGNOSTIC IMAGING O RDERABLES * XR WRIST LEFT 3VW OR MORE (07/20/2018 10:39 AM CDT) Anatomical Region Laterality Modality Wrist / Hand Radiographic Sakshi ging 07/20/2018 12:5 2 PM CDT Impressions 07/21/2018 9:16 AM CDT IMPRESSION: 1. Right hand: Moderate to severe erosive arthritis, greatest at the third metacarpophalangeal joint. A lytic lesion involves much of the third digit proximal phalanx resulting in cortical thinning, probably representing a large erosion propagating through the shaft of the bone, less likely an enchondroma or lytic lesion of other etiology. 2. Left hand: Severe erosive arthropathy, greatest at the third and fifth metacarpophalangeal joints. 3. 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 4. 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 5. Right elbow: Moderate to severe erosive arthritis. Olecranon bursitis. joint effusion. 6. Left elbow: Mild to moderate erosive arthritis. Olecranon bursitis. Joint effusion. 7. Right knee: Mild tricompartmental arthritis without definite erosion. 8. Left knee: Mild tricompartmental arthritis with a relatively large erosion in the superior aspect of the patella. 9. Right ankle: Mild arthritis. 10. Left ankle: Mild arthritis. Effusion. 11. Right foot: Mild to moderate erosive arthritis in the forefoot. 12. Left foot: Mild to moderate erosive arthritis in the forefoot. Report dictated by Mallory Jeffries MD (president and chief operating officer). I, Dr. DAVID NOLAN MD have personally reviewed and interpreted this examination/study. This report was electronically signed by DAVID NOLAN MD on 07/21/2018 9:16 AM . Narrative 07/21/2018 9:16 AM CDT EXAMINATION: 1. Right hand: 3 views. 2. Left hand, 3 views. 3. Right wrist, 3 views. 4. Left wrist, 3 views. 5. Right elbow, 2 views. 6. Left elbow, 2 views. 7. Right ankle, 2 views. 8. Left ankle, 2 views. 9. Right foot, 2 views. 10. Left foot, 2 views. 11. Right knee, 2 views. Weightbearing exam. 12. Left knee, 2 views. Weightbearing exam. HISTORY: Erosive arthropathy , rheumatoid arthritis. COMPARISON: No prior study is available for comparison at the time of this dictation. FINDINGS: Right hand: Moderate to severe erosive arthritis is present at multiple joints, greatest at the third metacarpophalangeal joint where there is essentially [id number] contact. A lytic lesion is present in the third proximal phalanx involving most of the bone, resulting in severe cortical thinning. This probably represents a large erosion propagating through the shaft of the bone, less likely an enchondroma or other lytic lesion. Erosions are also seen at the second, fourth, fifth metacarpophalangeal joints and third proximal interphalangeal joint. Soft tissue nodules are present at the third and fifth proximal interphalangeal joints. There are also suggested the dorsal aspect of the metacarpal phalangeal joints. Soft tissue swelling is present around the arthritic joints. The bones are osteopenic including in the periarticular regions. No fracture is noted. Left hand: As on the right there is severe erosive arthritis at multiple joints, greatest at the second, third, and fifth metacarpophalangeal joints. There is more mild involvement of several interphalangeal joints. Large erosions are present including a 1.3 cm and in the third proximal phalanx base, a 1.3 cm erosions in the fifth metacarpal distal shaft/neck, and a smaller large erosion in the third metacarpal head. Soft tissue swelling is seen around several joints including nodular soft tissue swelling. There is osteopenia including in the periarticular regions. No fracture is noted. Right wrist: There is severe erosive arthropathy of the carpal bones with joint space narrowing, erosions, and ankylosis of several intercarpal joints. There is severe joint space narrowing of the radiocarpal and ulnar carpal joints. No fracture is noted. Soft tissue swelling is present. Osteopenia is noted. Left wrist: Advanced erosive arthropathy of the wrist with collapse and ankylosis of the carpal bones and multiple erosions. There is ankylosis of multiple intercarpal joints. No fracture is noted. Soft tissue swelling is present. Osteopenia is noted. Right elbow: No acute fracture or dislocation. There is severe erosive arthritis of the right elbow joint with joint space narrowing and erosions. There is a joint effusion. There is diffuse mild osteopenia. There is soft tissue swelling of the posterior aspect of the elbow which suggests olecranon bursitis. Left elbow: No acute fracture or dislocation. There is mild to moderate erosive arthropathy of the left elbow with erosions of the lateral and medial humeral condyles. There is focal soft tissue swelling of the posterior aspect of the elbow, consistent with olecranon bursitis. There is a joint effusion. Osteopenia is present. Right knee: No acute fracture or dislocation is identified. There is mild tricompartmental joint arthritis with subchondral sclerosis and osteophytes, without erosion. Diffuse mild osteopenia is noted. There is no joint effusion. There is an enthesophyte arising from the superior aspect of the patella. Left knee: No fracture or dislocation is identified. There is mild tricompartmental joint arthritis with subchondral sclerosis and osteophytes. There is a 1 cm erosion in the superior aspect of the patella. Diffuse mild osteopenia is noted. There is no joint effusion. There is an enthesophyte arising from the superior aspect of the patella. Right ankle: No acute fracture or dislocation is identified. There are some small subchondral cysts versus erosions in the medial malleolus and medial aspect of the talotibial joint. Soft tissue swelling is present. Small plantar and dorsal calcaneal spurs are present. Left ankle: No acute fracture or dislocation is identified. There are some erosions versus subchondral cyst in the medial malleolus. Soft tissue swelling is present. Small plantar and dorsal calcaneal spurs are present. An effusion is noted. Right foot: No fracture or dislocation is identified. There is hallux valgus. There is moderate osteoarthritis at the first metatarsophalangeal joint. There is moderate erosive arthritis at the first metatarsophalangeal joint and mild erosive arthritis at the fifth metatarsophalangeal joint. Soft tissue swelling is present, greatest on the first interphalangeal joint . Small plantar and calcaneal spurs are present. Left foot: No acute fracture or dislocation is identified. There is hallux valgus deformity of the first digit with deformity of the head of the first metatarsal. There is moderate arthritis at the first metatarsophalangeal joint, probably with small erosions. Erosions are noted at the first interphalangeal joint with overlying soft tissue swelling. The second through fifth metatarsophalangeal joints are not well evaluated due to positioning and possibly subluxation; arthritis is likely present at these joints. Diffuse osteopenia is present. Diffuse soft tissue tissue swelling is noted. Small plantar and dorsal calcaneal spurs are present. Procedure Note David Nolan MD - 07/21/2018 EXAMINATION: 1. Right hand: 3 views. 2. Left hand, 3 views. 3. Right wrist, 3 views. 4. Left wrist, 3 views. 5. Right elbow, 2 views. 6. Left elbow, 2 views. 7. Right ankle, 2 views. 8. Left ankle, 2 views. 9. Right foot, 2 views. 10. Left foot, 2 views. 11. Right knee, 2 views. Weightbearing exam. 12. Left knee, 2 views. Weightbearing exam. HISTORY: Erosive arthropathy , rheumatoid arthritis. COMPARISON: No prior study is available for comparison at the time of this dictation. FINDINGS: Right hand: Moderate to severe erosive arthritis is present at multiple joints, greatest at the third metacarpophalangeal joint where there is essentially [id number] contact. A lytic lesion is present in the third proximal phalanx involving most of the bone, resulting in severecortical thinning. This probably represents a large erosion propagating throughthe shaft of the bone, less likely an enchondroma or other lytic lesion. Erosions are also seen at the second, fourth, fifth metacarpophalangeal joints and third proximal interphalangeal joint. Soft tissue nodules are present at the third and fifth proximal interphalangeal joints. Thereare also suggested the dorsal aspect of the metacarpal phalangeal joints.Soft tissue swelling is present around the arthritic joints. The bones are osteopenic including in the periarticular regions. No fracture is noted. Left hand: As on the right there is severe erosive arthritis at multiple joints, greatest at the second, third, and fifth metacarpophalangeal joints.There is more mild involvement of several interphalangeal joints. Largeerosions are present including a 1.3 cm and in the third proximal phalanx base, a 1.3 cm erosions in the fifth metacarpal distal shaft/neck, and a smaller large erosion in the third metacarpal head. Soft tissue swelling is seen around several joints including nodular soft tissue swelling. There is osteopenia including in the periarticular regions. No fracture isnoted. Right wrist: There is severe erosive arthropathy of the carpal bones with joint space narrowing, erosions, and ankylosis of several intercarpal joints. Thereis severe joint space narrowing of the radiocarpal and ulnar carpal joints. No fracture is noted. Soft tissue swelling is present. Osteopenia is noted. Left wrist: Advanced erosive arthropathy of the wrist with collapse and ankylosis of the carpal bones and multiple erosions. There is ankylosis of multiple intercarpal joints. No fracture is noted. Soft tissue swelling ispresent. Osteopenia is noted. Right elbow: No acute fracture or dislocation. There is severe erosive arthritis ofthe right elbow joint with joint space narrowing and erosions. There is a joint effusion. There is diffuse mild osteopenia. There is soft tissue swelling of the posterior aspect of the elbow which suggests olecranon bursitis. Left elbow: No acute fracture or dislocation. There is mild to moderate erosive arthropathy of the left elbow with erosions of the lateral and medial humeral condyles. There is focal soft tissue swelling of the posterior aspect of the elbow, consistent with olecranon bursitis. There is a joint effusion. Osteopenia is present. Right knee: No acute fracture or dislocation is identified. There is mild tricompartmental joint arthritis with subchondral sclerosis and osteophytes, without erosion. Diffuse mild osteopenia is noted. There is no joint effusion. There is an enthesophyte arising from the superior aspect of the patella. Left knee: No fracture or dislocation is identified. There is mild tricompartmental joint arthritis with subchondral sclerosis and osteophytes. There is a 1 cm erosion in the superior aspect of the patella. Diffuse mildosteopenia is noted. There is no joint effusion. There is an enthesophyte arising from the superior aspect of the patella. Right ankle: No acute fracture or dislocation is identified. There are some small subchondral cysts versus erosions in the medial malleolus and medial aspect of the talotibial joint. Soft tissue swelling is present. Small plantar and dorsal calcaneal spurs are present. Left ankle: No acute fracture or dislocation is identified. There are some erosions versus subchondral cyst in the medial malleolus. Soft tissue swelling is present. Small plantar and dorsal calcaneal spurs are present. Aneffusion is noted. Right foot: No fracture or dislocation is identified. There is hallux valgus. Thereis moderate osteoarthritis at the first metatarsophalangeal joint. There is moderate erosive arthritis at the first metatarsophalangeal joint andmild erosive arthritis at the fifth metatarsophalangeal joint. Soft tissue swelling is present, greatest on the first interphalangeal joint . Small plantar and calcaneal spurs are present. Left foot: No acute fracture or dislocation is identified. There is hallux valgus deformity of the first digit with deformity of the head of the first metatarsal. There is moderate arthritis at the first metatarsophalangeal joint, probably with small erosions. Erosions are noted at the first interphalangeal joint with overlying soft tissue swelling. The second through fifth metatarsophalangeal joints are not well evaluated due to positioning and possibly subluxation; arthritis is likely present atthese joints. Diffuse osteopenia is present. Diffuse soft tissue tissueswelling is noted. Small plantar and dorsal calcaneal spurs are present. IMPRESSION: 1. Right hand: Moderate to severe erosive arthritis, greatest at thethird metacarpophalangeal joint. A lytic lesion involves much of the thirddigit proximal phalanx resulting in cortical thinning, probably representing a large erosion propagating through the shaft of the bone, less likely an enchondroma or lytic lesion of other etiology. 2. Left hand: Severe erosive arthropathy, greatest at the third andfifth metacarpophalangeal joints. 3. 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 4. 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 5. Right elbow: Moderate to severe erosive arthritis. Olecranonbursitis. joint effusion. 6. Left elbow: Mild to moderate erosive arthritis. Olecranon bursitis. Joint effusion. 7. Right knee: Mild tricompartmental arthritis without definite erosion. 8. Left knee: Mild tricompartmental arthritis with a relatively large erosion in the superior aspect of the patella. 9. Right ankle: Mild arthritis. 10. Left ankle: Mild arthritis. Effusion. 11. Right foot: Mild to moderate erosive arthritis in the forefoot. 12. Left foot: Mild to moderate erosive arthritis in the forefoot. Report dictated by Mallory Jeffries MD (president and chief operating officer). I, Dr. DAVID NOLAN MD have personally reviewed and interpreted this examination/study. This report was electronically signed by DAVID NOLAN MD on07/21/2018 9:16 AM . Genesis Maradiaga DO DIAGNOSTIC IMAGING O RDERABLES * XR ELBOW RIGHT 2VW (07/20/2018 10:39 AM CDT) Anatomical Region Laterality Modality Upper Extremity Radiographic Sakshi ging 07/20/2018 12:5 2 PM CDT Impressions 07/21/2018 9:16 AM CDT IMPRESSION: 1. Right hand: Moderate to severe erosive arthritis, greatest at the third metacarpophalangeal joint. A lytic lesion involves much of the third digit proximal phalanx resulting in cortical thinning, probably representing a large erosion propagating through the shaft of the bone, less likely an enchondroma or lytic lesion of other etiology. 2. Left hand: Severe erosive arthropathy, greatest at the third and fifth metacarpophalangeal joints. 3. 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 4. 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 5. Right elbow: Moderate to severe erosive arthritis. Olecranon bursitis. joint effusion. 6. Left elbow: Mild to moderate erosive arthritis. Olecranon bursitis. Joint effusion. 7. Right knee: Mild tricompartmental arthritis without definite erosion. 8. Left knee: Mild tricompartmental arthritis with a relatively large erosion in the superior aspect of the patella. 9. Right ankle: Mild arthritis. 10. Left ankle: Mild arthritis. Effusion. 11. Right foot: Mild to moderate erosive arthritis in the forefoot. 12. Left foot: Mild to moderate erosive arthritis in the forefoot. Report dictated by Mallory Jeffries MD (president and chief operating officer). I, Dr. DAVID NOLAN MD have personally reviewed and interpreted this examination/study. This report was electronically signed by DAVID NOLAN MD on 07/21/2018 9:16 AM . Narrative 07/21/2018 9:16 AM CDT EXAMINATION: 1. Right hand: 3 views. 2. Left hand, 3 views. 3. Right wrist, 3 views. 4. Left wrist, 3 views. 5. Right elbow, 2 views. 6. Left elbow, 2 views. 7. Right ankle, 2 views. 8. Left ankle, 2 views. 9. Right foot, 2 views. 10. Left foot, 2 views. 11. Right knee, 2 views. Weightbearing exam. 12. Left knee, 2 views. Weightbearing exam. HISTORY: Erosive arthropathy , rheumatoid arthritis. COMPARISON: No prior study is available for comparison at the time of this dictation. FINDINGS: Right hand: Moderate to severe erosive arthritis is present at multiple joints, greatest at the third metacarpophalangeal joint where there is essentially [id number] contact. A lytic lesion is present in the third proximal phalanx involving most of the bone, resulting in severe cortical thinning. This probably represents a large erosion propagating through the shaft of the bone, less likely an enchondroma or other lytic lesion. Erosions are also seen at the second, fourth, fifth metacarpophalangeal joints and third proximal interphalangeal joint. Soft tissue nodules are present at the third and fifth proximal interphalangeal joints. There are also suggested the dorsal aspect of the metacarpal phalangeal joints. Soft tissue swelling is present around the arthritic joints. The bones are osteopenic including in the periarticular regions. No fracture is noted. Left hand: As on the right there is severe erosive arthritis at multiple joints, greatest at the second, third, and fifth metacarpophalangeal joints. There is more mild involvement of several interphalangeal joints. Large erosions are present including a 1.3 cm and in the third proximal phalanx base, a 1.3 cm erosions in the fifth metacarpal distal shaft/neck, and a smaller large erosion in the third metacarpal head. Soft tissue swelling is seen around several joints including nodular soft tissue swelling. There is osteopenia including in the periarticular regions. No fracture is noted. Right wrist: There is severe erosive arthropathy of the carpal bones with joint space narrowing, erosions, and ankylosis of several intercarpal joints. There is severe joint space narrowing of the radiocarpal and ulnar carpal joints. No fracture is noted. Soft tissue swelling is present. Osteopenia is noted. Left wrist: Advanced erosive arthropathy of the wrist with collapse and ankylosis of the carpal bones and multiple erosions. There is ankylosis of multiple intercarpal joints. No fracture is noted. Soft tissue swelling is present. Osteopenia is noted. Right elbow: No acute fracture or dislocation. There is severe erosive arthritis of the right elbow joint with joint space narrowing and erosions. There is a joint effusion. There is diffuse mild osteopenia. There is soft tissue swelling of the posterior aspect of the elbow which suggests olecranon bursitis. Left elbow: No acute fracture or dislocation. There is mild to moderate erosive arthropathy of the left elbow with erosions of the lateral and medial humeral condyles. There is focal soft tissue swelling of the posterior aspect of the elbow, consistent with olecranon bursitis. There is a joint effusion. Osteopenia is present. Right knee: No acute fracture or dislocation is identified. There is mild tricompartmental joint arthritis with subchondral sclerosis and osteophytes, without erosion. Diffuse mild osteopenia is noted. There is no joint effusion. There is an enthesophyte arising from the superior aspect of the patella. Left knee: No fracture or dislocation is identified. There is mild tricompartmental joint arthritis with subchondral sclerosis and osteophytes. There is a 1 cm erosion in the superior aspect of the patella. Diffuse mild osteopenia is noted. There is no joint effusion. There is an enthesophyte arising from the superior aspect of the patella. Right ankle: No acute fracture or dislocation is identified. There are some small subchondral cysts versus erosions in the medial malleolus and medial aspect of the talotibial joint. Soft tissue swelling is present. Small plantar and dorsal calcaneal spurs are present. Left ankle: No acute fracture or dislocation is identified. There are some erosions versus subchondral cyst in the medial malleolus. Soft tissue swelling is present. Small plantar and dorsal calcaneal spurs are present. An effusion is noted. Right foot: No fracture or dislocation is identified. There is hallux valgus. There is moderate osteoarthritis at the first metatarsophalangeal joint. There is moderate erosive arthritis at the first metatarsophalangeal joint and mild erosive arthritis at the fifth metatarsophalangeal joint. Soft tissue swelling is present, greatest on the first interphalangeal joint . Small plantar and calcaneal spurs are present. Left foot: No acute fracture or dislocation is identified. There is hallux valgus deformity of the first digit with deformity of the head of the first metatarsal. There is moderate arthritis at the first metatarsophalangeal joint, probably with small erosions. Erosions are noted at the first interphalangeal joint with overlying soft tissue swelling. The second through fifth metatarsophalangeal joints are not well evaluated due to positioning and possibly subluxation; arthritis is likely present at these joints. Diffuse osteopenia is present. Diffuse soft tissue tissue swelling is noted. Small plantar and dorsal calcaneal spurs are present. Procedure Note David Nolan MD - 07/21/2018 EXAMINATION: 1. Right hand: 3 views. 2. Left hand, 3 views. 3. Right wrist, 3 views. 4. Left wrist, 3 views. 5. Right elbow, 2 views. 6. Left elbow, 2 views. 7. Right ankle, 2 views. 8. Left ankle, 2 views. 9. Right foot, 2 views. 10. Left foot, 2 views. 11. Right knee, 2 views. Weightbearing exam. 12. Left knee, 2 views. Weightbearing exam. HISTORY: Erosive arthropathy , rheumatoid arthritis. COMPARISON: No prior study is available for comparison at the time of this dictation. FINDINGS: Right hand: Moderate to severe erosive arthritis is present at multiple joints, greatest at the third metacarpophalangeal joint where there is essentially [id number] contact. A lytic lesion is present in the third proximal phalanx involving most of the bone, resulting in severecortical thinning. This probably represents a large erosion propagating throughthe shaft of the bone, less likely an enchondroma or other lytic lesion. Erosions are also seen at the second, fourth, fifth metacarpophalangeal joints and third proximal interphalangeal joint. Soft tissue nodules are present at the third and fifth proximal interphalangeal joints. Thereare also suggested the dorsal aspect of the metacarpal phalangeal joints.Soft tissue swelling is present around the arthritic joints. The bones are osteopenic including in the periarticular regions. No fracture is noted. Left hand: As on the right there is severe erosive arthritis at multiple joints, greatest at the second, third, and fifth metacarpophalangeal joints.There is more mild involvement of several interphalangeal joints. Largeerosions are present including a 1.3 cm and in the third proximal phalanx base, a 1.3 cm erosions in the fifth metacarpal distal shaft/neck, and a smaller large erosion in the third metacarpal head. Soft tissue swelling is seen around several joints including nodular soft tissue swelling. There is osteopenia including in the periarticular regions. No fracture isnoted. Right wrist: There is severe erosive arthropathy of the carpal bones with joint space narrowing, erosions, and ankylosis of several intercarpal joints. Thereis severe joint space narrowing of the radiocarpal and ulnar carpal joints. No fracture is noted. Soft tissue swelling is present. Osteopenia is noted. Left wrist: Advanced erosive arthropathy of the wrist with collapse and ankylosis of the carpal bones and multiple erosions. There is ankylosis of multiple intercarpal joints. No fracture is noted. Soft tissue swelling ispresent. Osteopenia is noted. Right elbow: No acute fracture or dislocation. There is severe erosive arthritis ofthe right elbow joint with joint space narrowing and erosions. There is a joint effusion. There is diffuse mild osteopenia. There is soft tissue swelling of the posterior aspect of the elbow which suggests olecranon bursitis. Left elbow: No acute fracture or dislocation. There is mild to moderate erosive arthropathy of the left elbow with erosions of the lateral and medial humeral condyles. There is focal soft tissue swelling of the posterior aspect of the elbow, consistent with olecranon bursitis. There is a joint effusion. Osteopenia is present. Right knee: No acute fracture or dislocation is identified. There is mild tricompartmental joint arthritis with subchondral sclerosis and osteophytes, without erosion. Diffuse mild osteopenia is noted. There is no joint effusion. There is an enthesophyte arising from the superior aspect of the patella. Left knee: No fracture or dislocation is identified. There is mild tricompartmental joint arthritis with subchondral sclerosis and osteophytes. There is a 1 cm erosion in the superior aspect of the patella. Diffuse mildosteopenia is noted. There is no joint effusion. There is an enthesophyte arising from the superior aspect of the patella. Right ankle: No acute fracture or dislocation is identified. There are some small subchondral cysts versus erosions in the medial malleolus and medial aspect of the talotibial joint. Soft tissue swelling is present. Small plantar and dorsal calcaneal spurs are present. Left ankle: No acute fracture or dislocation is identified. There are some erosions versus subchondral cyst in the medial malleolus. Soft tissue swelling is present. Small plantar and dorsal calcaneal spurs are present. Aneffusion is noted. Right foot: No fracture or dislocation is identified. There is hallux valgus. Thereis moderate osteoarthritis at the first metatarsophalangeal joint. There is moderate erosive arthritis at the first metatarsophalangeal joint andmild erosive arthritis at the fifth metatarsophalangeal joint. Soft tissue swelling is present, greatest on the first interphalangeal joint . Small plantar and calcaneal spurs are present. Left foot: No acute fracture or dislocation is identified. There is hallux valgus deformity of the first digit with deformity of the head of the first metatarsal. There is moderate arthritis at the first metatarsophalangeal joint, probably with small erosions. Erosions are noted at the first interphalangeal joint with overlying soft tissue swelling. The second through fifth metatarsophalangeal joints are not well evaluated due to positioning and possibly subluxation; arthritis is likely present atthese joints. Diffuse osteopenia is present. Diffuse soft tissue tissueswelling is noted. Small plantar and dorsal calcaneal spurs are present. IMPRESSION: 1. Right hand: Moderate to severe erosive arthritis, greatest at thethird metacarpophalangeal joint. A lytic lesion involves much of the thirddigit proximal phalanx resulting in cortical thinning, probably representing a large erosion propagating through the shaft of the bone, less likely an enchondroma or lytic lesion of other etiology. 2. Left hand: Severe erosive arthropathy, greatest at the third andfifth metacarpophalangeal joints. 3. 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 4. 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 5. Right elbow: Moderate to severe erosive arthritis. Olecranonbursitis. joint effusion. 6. Left elbow: Mild to moderate erosive arthritis. Olecranon bursitis. Joint effusion. 7. Right knee: Mild tricompartmental arthritis without definite erosion. 8. Left knee: Mild tricompartmental arthritis with a relatively large erosion in the superior aspect of the patella. 9. Right ankle: Mild arthritis. 10. Left ankle: Mild arthritis. Effusion. 11. Right foot: Mild to moderate erosive arthritis in the forefoot. 12. Left foot: Mild to moderate erosive arthritis in the forefoot. Report dictated by Mallory Jeffries MD (president and chief operating officer). I, Dr. DAVID NOLAN MD have personally reviewed and interpreted this examination/study. This report was electronically signed by DAVID NOLAN MD on07/21/2018 9:16 AM . Genesis Maradiaga DO DIAGNOSTIC IMAGING O RDERABLES * XR ELBOW LEFT 2VW (07/20/2018 10:39 AM CDT) Anatomical Region Laterality Modality Upper Extremity Radiographic Sakshi ging 07/20/2018 12:5 2 PM CDT Impressions 07/21/2018 9:16 AM CDT IMPRESSION: 1. Right hand: Moderate to severe erosive arthritis, greatest at the third metacarpophalangeal joint. A lytic lesion involves much of the third digit proximal phalanx resulting in cortical thinning, probably representing a large erosion propagating through the shaft of the bone, less likely an enchondroma or lytic lesion of other etiology. 2. Left hand: Severe erosive arthropathy, greatest at the third and fifth metacarpophalangeal joints. 3. 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 4. 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 5. Right elbow: Moderate to severe erosive arthritis. Olecranon bursitis. joint effusion. 6. Left elbow: Mild to moderate erosive arthritis. Olecranon bursitis. Joint effusion. 7. Right knee: Mild tricompartmental arthritis without definite erosion. 8. Left knee: Mild tricompartmental arthritis with a relatively large erosion in the superior aspect of the patella. 9. Right ankle: Mild arthritis. 10. Left ankle: Mild arthritis. Effusion. 11. Right foot: Mild to moderate erosive arthritis in the forefoot. 12. Left foot: Mild to moderate erosive arthritis in the forefoot. Report dictated by Mallory Jeffrise MD (president and chief operating officer). I, Dr. DAVID NOLAN MD have personally reviewed and interpreted this examination/study. This report was electronically signed by DAVID NOLAN MD on 07/21/2018 9:16 AM . Narrative 07/21/2018 9:16 AM CDT EXAMINATION: 1. Right hand: 3 views. 2. Left hand, 3 views. 3. Right wrist, 3 views. 4. Left wrist, 3 views. 5. Right elbow, 2 views. 6. Left elbow, 2 views. 7. Right ankle, 2 views. 8. Left ankle, 2 views. 9. Right foot, 2 views. 10. Left foot, 2 views. 11. Right knee, 2 views. Weightbearing exam. 12. Left knee, 2 views. Weightbearing exam. HISTORY: Erosive arthropathy , rheumatoid arthritis. COMPARISON: No prior study is available for comparison at the time of this dictation. FINDINGS: Right hand: Moderate to severe erosive arthritis is present at multiple joints, greatest at the third metacarpophalangeal joint where there is essentially [id number] contact. A lytic lesion is present in the third proximal phalanx involving most of the bone, resulting in severe cortical thinning. This probably represents a large erosion propagating through the shaft of the bone, less likely an enchondroma or other lytic lesion. Erosions are also seen at the second, fourth, fifth metacarpophalangeal joints and third proximal interphalangeal joint. Soft tissue nodules are present at the third and fifth proximal interphalangeal joints. There are also suggested the dorsal aspect of the metacarpal phalangeal joints. Soft tissue swelling is present around the arthritic joints. The bones are osteopenic including in the periarticular regions. No fracture is noted. Left hand: As on the right there is severe erosive arthritis at multiple joints, greatest at the second, third, and fifth metacarpophalangeal joints. There is more mild involvement of several interphalangeal joints. Large erosions are present including a 1.3 cm and in the third proximal phalanx base, a 1.3 cm erosions in the fifth metacarpal distal shaft/neck, and a smaller large erosion in the third metacarpal head. Soft tissue swelling is seen around several joints including nodular soft tissue swelling. There is osteopenia including in the periarticular regions. No fracture is noted. Right wrist: There is severe erosive arthropathy of the carpal bones with joint space narrowing, erosions, and ankylosis of several intercarpal joints. There is severe joint space narrowing of the radiocarpal and ulnar carpal joints. No fracture is noted. Soft tissue swelling is present. Osteopenia is noted. Left wrist: Advanced erosive arthropathy of the wrist with collapse and ankylosis of the carpal bones and multiple erosions. There is ankylosis of multiple intercarpal joints. No fracture is noted. Soft tissue swelling is present. Osteopenia is noted. Right elbow: No acute fracture or dislocation. There is severe erosive arthritis of the right elbow joint with joint space narrowing and erosions. There is a joint effusion. There is diffuse mild osteopenia. There is soft tissue swelling of the posterior aspect of the elbow which suggests olecranon bursitis. Left elbow: No acute fracture or dislocation. There is mild to moderate erosive arthropathy of the left elbow with erosions of the lateral and medial humeral condyles. There is focal soft tissue swelling of the posterior aspect of the elbow, consistent with olecranon bursitis. There is a joint effusion. Osteopenia is present. Right knee: No acute fracture or dislocation is identified. There is mild tricompartmental joint arthritis with subchondral sclerosis and osteophytes, without erosion. Diffuse mild osteopenia is noted. There is no joint effusion. There is an enthesophyte arising from the superior aspect of the patella. Left knee: No fracture or dislocation is identified. There is mild tricompartmental joint arthritis with subchondral sclerosis and osteophytes. There is a 1 cm erosion in the superior aspect of the patella. Diffuse mild osteopenia is noted. There is no joint effusion. There is an enthesophyte arising from the superior aspect of the patella. Right ankle: No acute fracture or dislocation is identified. There are some small subchondral cysts versus erosions in the medial malleolus and medial aspect of the talotibial joint. Soft tissue swelling is present. Small plantar and dorsal calcaneal spurs are present. Left ankle: No acute fracture or dislocation is identified. There are some erosions versus subchondral cyst in the medial malleolus. Soft tissue swelling is present. Small plantar and dorsal calcaneal spurs are present. An effusion is noted. Right foot: No fracture or dislocation is identified. There is hallux valgus. There is moderate osteoarthritis at the first metatarsophalangeal joint. There is moderate erosive arthritis at the first metatarsophalangeal joint and mild erosive arthritis at the fifth metatarsophalangeal joint. Soft tissue swelling is present, greatest on the first interphalangeal joint . Small plantar and calcaneal spurs are present. Left foot: No acute fracture or dislocation is identified. There is hallux valgus deformity of the first digit with deformity of the head of the first metatarsal. There is moderate arthritis at the first metatarsophalangeal joint, probably with small erosions. Erosions are noted at the first interphalangeal joint with overlying soft tissue swelling. The second through fifth metatarsophalangeal joints are not well evaluated due to positioning and possibly subluxation; arthritis is likely present at these joints. Diffuse osteopenia is present. Diffuse soft tissue tissue swelling is noted. Small plantar and dorsal calcaneal spurs are present. Procedure Note Davdi Nolan MD - 07/21/2018 EXAMINATION: 1. Right hand: 3 views. 2. Left hand, 3 views. 3. Right wrist, 3 views. 4. Left wrist, 3 views. 5. Right elbow, 2 views. 6. Left elbow, 2 views. 7. Right ankle, 2 views. 8. Left ankle, 2 views. 9. Right foot, 2 views. 10. Left foot, 2 views. 11. Right knee, 2 views. Weightbearing exam. 12. Left knee, 2 views. Weightbearing exam. HISTORY: Erosive arthropathy , rheumatoid arthritis. COMPARISON: No prior study is available for comparison at the time of this dictation. FINDINGS: Right hand: Moderate to severe erosive arthritis is present at multiple joints, greatest at the third metacarpophalangeal joint where there is essentially [id number] contact. A lytic lesion is present in the third proximal phalanx involving most of the bone, resulting in severecortical thinning. This probably represents a large erosion propagating throughthe shaft of the bone, less likely an enchondroma or other lytic lesion. Erosions are also seen at the second, fourth, fifth metacarpophalangeal joints and third proximal interphalangeal joint. Soft tissue nodules are present at the third and fifth proximal interphalangeal joints. Thereare also suggested the dorsal aspect of the metacarpal phalangeal joints.Soft tissue swelling is present around the arthritic joints. The bones are osteopenic including in the periarticular regions. No fracture is noted. Left hand: As on the right there is severe erosive arthritis at multiple joints, greatest at the second, third, and fifth metacarpophalangeal joints.There is more mild involvement of several interphalangeal joints. Largeerosions are present including a 1.3 cm and in the third proximal phalanx base, a 1.3 cm erosions in the fifth metacarpal distal shaft/neck, and a smaller large erosion in the third metacarpal head. Soft tissue swelling is seen around several joints including nodular soft tissue swelling. There is osteopenia including in the periarticular regions. No fracture isnoted. Right wrist: There is severe erosive arthropathy of the carpal bones with joint space narrowing, erosions, and ankylosis of several intercarpal joints. Thereis severe joint space narrowing of the radiocarpal and ulnar carpal joints. No fracture is noted. Soft tissue swelling is present. Osteopenia is noted. Left wrist: Advanced erosive arthropathy of the wrist with collapse and ankylosis of the carpal bones and multiple erosions. There is ankylosis of multiple intercarpal joints. No fracture is noted. Soft tissue swelling ispresent. Osteopenia is noted. Right elbow: No acute fracture or dislocation. There is severe erosive arthritis ofthe right elbow joint with joint space narrowing and erosions. There is a joint effusion. There is diffuse mild osteopenia. There is soft tissue swelling of the posterior aspect of the elbow which suggests olecranon bursitis. Left elbow: No acute fracture or dislocation. There is mild to moderate erosive arthropathy of the left elbow with erosions of the lateral and medial humeral condyles. There is focal soft tissue swelling of the posterior aspect of the elbow, consistent with olecranon bursitis. There is a joint effusion. Osteopenia is present. Right knee: No acute fracture or dislocation is identified. There is mild tricompartmental joint arthritis with subchondral sclerosis and osteophytes, without erosion. Diffuse mild osteopenia is noted. There is no joint effusion. There is an enthesophyte arising from the superior aspect of the patella. Left knee: No fracture or dislocation is identified. There is mild tricompartmental joint arthritis with subchondral sclerosis and osteophytes. There is a 1 cm erosion in the superior aspect of the patella. Diffuse mildosteopenia is noted. There is no joint effusion. There is an enthesophyte arising from the superior aspect of the patella. Right ankle: No acute fracture or dislocation is identified. There are some small subchondral cysts versus erosions in the medial malleolus and medial aspect of the talotibial joint. Soft tissue swelling is present. Small plantar and dorsal calcaneal spurs are present. Left ankle: No acute fracture or dislocation is identified. There are some erosions versus subchondral cyst in the medial malleolus. Soft tissue swelling is present. Small plantar and dorsal calcaneal spurs are present. Aneffusion is noted. Right foot: No fracture or dislocation is identified. There is hallux valgus. Thereis moderate osteoarthritis at the first metatarsophalangeal joint. There is moderate erosive arthritis at the first metatarsophalangeal joint andmild erosive arthritis at the fifth metatarsophalangeal joint. Soft tissue swelling is present, greatest on the first interphalangeal joint . Small plantar and calcaneal spurs are present. Left foot: No acute fracture or dislocation is identified. There is hallux valgus deformity of the first digit with deformity of the head of the first metatarsal. There is moderate arthritis at the first metatarsophalangeal joint, probably with small erosions. Erosions are noted at the first interphalangeal joint with overlying soft tissue swelling. The second through fifth metatarsophalangeal joints are not well evaluated due to positioning and possibly subluxation; arthritis is likely present atthese joints. Diffuse osteopenia is present. Diffuse soft tissue tissueswelling is noted. Small plantar and dorsal calcaneal spurs are present. IMPRESSION: 1. Right hand: Moderate to severe erosive arthritis, greatest at thethird metacarpophalangeal joint. A lytic lesion involves much of the thirddigit proximal phalanx resulting in cortical thinning, probably representing a large erosion propagating through the shaft of the bone, less likely an enchondroma or lytic lesion of other etiology. 2. Left hand: Severe erosive arthropathy, greatest at the third andfifth metacarpophalangeal joints. 3. 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 4. 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 5. Right elbow: Moderate to severe erosive arthritis. Olecranonbursitis. joint effusion. 6. Left elbow: Mild to moderate erosive arthritis. Olecranon bursitis. Joint effusion. 7. Right knee: Mild tricompartmental arthritis without definite erosion. 8. Left knee: Mild tricompartmental arthritis with a relatively large erosion in the superior aspect of the patella. 9. Right ankle: Mild arthritis. 10. Left ankle: Mild arthritis. Effusion. 11. Right foot: Mild to moderate erosive arthritis in the forefoot. 12. Left foot: Mild to moderate erosive arthritis in the forefoot. Report dictated by Mallory Jeffries MD (president and chief operating officer). I, Dr. DAVID NOLAN MD have personally reviewed and interpreted this examination/study. This report was electronically signed by DAVID NOLAN MD on07/21/2018 9:16 AM . Genesis Maradiaga DO DIAGNOSTIC IMAGING O RDERABLES * XR CHEST 2VW (07/20/2018 10:39 AM CDT) Anatomical Region Laterality Modality Chest Radiographic Sakshi ging 07/20/2018 11:0 8 AM CDT Impressions 07/20/2018 2:55 PM CDT IMPRESSION: 1.Right middle lobe opacification, suggestive of airspace disease. 2.Blunting of the bilateral costophrenic angles may represent trace pleural effusions versus pleural thickening/scarring. Report drafted by Munir Layton M.D. (resident) This report was approved by Munir Layton on 07/20/2018 2:[address] Callum Mayen M.D. have personally reviewed and interpreted this examination/study. This report was electronically signed by Callum PEREZ M.D. on 07/20/2018 2:55 PM . Narrative 07/20/2018 2:55 PM CDT EXAMINATION: XR CHEST 2VW HISTORY: eval for erosive dx COMPARISON: None. FINDINGS: There are mild bibasilar atelectatic changes. The right heart border is partially obscured with a density superimposing the heart on the lateral view suggestive of a right middle lobe airspace disease. There is blunting of the bilateral costophrenic angles. No pneumothorax is seen. The cardiomediastinal silhouette is normal. Degenerative changes are seen in the shoulders. Procedure Note Carmella Perez MD - 07/20/2018 EXAMINATION: XR CHEST 2VW HISTORY: eval for erosive dx COMPARISON: None. FINDINGS: There are mild bibasilar atelectatic changes. The right heart border is partially obscured with a density superimposing the heart on the lateral view suggestive of a right middle lobe airspace disease. There isblunting of the bilateral costophrenic angles. No pneumothorax is seen. The cardiomediastinal silhouette is normal. Degenerative changes are seen in the shoulders. IMPRESSION: 1.Right middle lobe opacification, suggestive of airspace disease. 2.Blunting of the bilateral costophrenic angles may represent trace pleural effusions versus pleural thickening/scarring. Report drafted by Munir Layton M.D. (resident) This report was approved by Munir Layton on 07/20/2018 2:15 PM . I, Dr. E. ISIN AKDUMAN, M.D. have personally reviewed and interpretedthis examination/study. This report was electronically signed by Callum PEREZ M.D. on 07/20/2018 2:55 PM . Genesis Maradiaga DO DIAGNOSTIC IMAGING O RDERABLES * HIV-1 HIV-2 ANTIGEN/ANTIBODY (07/20/2018 10:17 AM CDT) HIV Antigen/Antibod y 1 & 2 Non-reacti ve Non-react adriana 07/20/2018 12:38 PM CDT [facility] Comment: Neither HIV-1 p24 Antigen nor HIV-1/HIV-2 Antibodies are detected. Blood BLOOD SPECIMEN / Unknown Lab Venipuncture / Unknown 07/20/2018 10:17 AM CDT 07/20/2018 11:36 AM CDT Genesis Maradiaga DO LAB - HEMATOLOGY ORD ERABLES Performing Organization Address City/State/[facility] Co de Phone Number [address] [phone] * QUANTIFERON-TB GOLD PLUS 4-TUBE (07/20/2018 10:17 AM CDT) Pathologist [facility] QuantiFERON Criteria Comment 07/22/2018 6:07 PM CDT [facility] ([facility]) Comment: The QuantiFERON-TB Gold Plus result is determined by subtracting the Nil value from either TB antigen (Ag) tube. The mitogen tube serves as a control for the test. QuantiFERON TB1 Ag Value 0.03 IU/mL 07/22/2018 6:07 PM CDT [facility] ([facility]) QuantiFERON TB2 Ag Value 0.03 IU/mL 07/22/2018 6:07 PM CDT [facility] ([facility]) QuantiFERON Nil Value 0.04 IU/mL 07/22/2018 6:07 PM CDT [facility] ([facility]) QuantiFERON Mitogen Value >10.00 IU/mL 07/22/2018 6:07 PM CDT [facility] ([facility]) QuantiFERON-TB Gold Plus Negative Negative 07/22/2018 6:07 PM CDT [facility] ([facility]) Comment: The specimen received for QuantiFERON testing was incubated by the ordering institution. Specific procedures outlined in our Directory of Services and in the package insert for the QuantiFERON Gold (In Tube) test must be followed to enable for proper stimulation of cells for the production of interferon gamma. Blood BLOOD SPECIMEN / Unknown Lab Venipuncture / Unknown 07/20/2018 10:17 AM CDT 07/20/2018 10:50 AM CDT [facility] ([facility]) - 07/22/2018 6:07 PM CDT Performed at: [address] [id number] Business Analyst Project Manager: Dar Garcia PhD, Phone: [phone] Genesis Maradiaga DO LAB - CHEMISTRY ORDE NEIDA Performing Organization Address [facility] Co de Phone Number [facility] ([facility]) [address] [place] [address], [facility] * (ABNORMAL) CYCLIC CITRUL PEPTIDE ANTIBODY IGG/IGA (CCP) (07/20/2018 10:17 AM CDT) Pathologist [facility] CCP Antibodies IgG/IgA 139(H) 0 - 19 units 07/21/2018 11:05 PM CDT [facility] ([facility]) Comment: Negative <20 Weak positive 20 - 39 Moderate positive 40 - 59 Strong positive >59 Blood BLOOD SPECIMEN / Unknown Lab Venipuncture / Unknown 07/20/2018 10:17 AM CDT 07/20/2018 11:01 AM CDT [facility] ([facility]) - 07/21/2018 11:05 PM CDT Performed at: [address] [place] [id number] Business Analyst Project Manager: Van Parada MD, Phone: [phone] Genesis Maradiaga DO LAB - SEROLOGY ORDER OSBALDO Performing Organization Address [facility] Co de Phone Number [facility] ([facility]) [address] [place] [address], [facility] * (ABNORMAL) FLOYD STAINING PATTERNS REFLEXED (07/20/2018 10:17 AM CDT) Pathologist [facility] Homogeneous Pattern 1:640(H) 07/21/2018 2:11 PM CDT [facility] ([facility]) Speckled Pattern 1:640(H) 07/22/19 19 2:11 PM CDT [facility] ([facility]) Note Comment 07/21/2018 2:11 PM CDT [facility] ([facility]) Comment: A positive ANNA result may occur in healthy individuals (low titer) or be associated with a variety of diseases. See interpretation chart which is not all inclusive: Pattern Antigen Detected Suggested Disease Association Homogeneous DNA(ds,ss), SLE - High titers Nucleosomes, Histones Drug-induced SLE Speckled Sm, BRUSH TRIMMING MACHINE SETTER, SCL-70, SLE,MCTD,PSS (diffuse form), SS-A/SS-B Sjogrens Nucleolar SCL-70, PM-1/SCL High titers Scleroderma, PM/DM Centromere Centromere PSS (limited form) w/Crest syndrome variable Nuclear Dot [id number] Primary Biliary Cirrhosis Nuclear GP210, Primary Biliary Cirrhosis Membrane nia A,B,C Blood BLOOD SPECIMEN / Unknown Lab Venipuncture / Unknown 07/20/2018 10:17 AM CDT 07/20/2018 10:52 AM CDT Narrative [facility] ([facility]) - 07/21/2018 2:11 PM CDT Performed at: [address] [place] [address] [address] [place], [place] [id number] Business Analyst Project Manager: Dar Garcia PhD, Phone: [phone] Genesis Maradiaga DO LAB - PATHOLOGY/CYTO LOGY ORDERABLES Performing Organization Address City/[facility]/ZIP Co de Phone Number [facility] [address] [place] [address], [facility] * URIC ACID BLOOD (07/20/2018 10:17 AM CDT) Pathologist [facility] Uric Acid 5.3 2.6 - 7.2 mg/dL 07/20/2018 11:15 AM CDT [facility] Blood BLOOD SPECIMEN / Unknown Lab Venipuncture / Unknown 07/20/2018 10:17 AM CDT 07/20/2018 10:52 AM CDT Genesis Maradiaga DO LAB - CHEMISTRY ORDE NEIDA [address] [phone] * (ABNORMAL) RHEUMATOID FACTOR BLOOD QUANTITATIVE (07/20/2018 10:17 AM CDT) Rheumatoid Factor >200(H) <30 IU/mL 07/20/2018 11:28 AM CDT [facility] Comment: Result obtained by dilution. Blood BLOOD SPECIMEN / Unknown Lab Venipuncture / Unknown 07/20/2018 10:17 AM CDT 07/20/2018 10:52 AM CDT Genesis Maradiaga DO LAB - CHEMISTRY ANA MARIA CARRASQUILLO Performing Organization Address [facility]/ZIP Co de Phone Number [address] [phone] * (ABNORMAL) C-REACTIVE PROTEIN (07/20/2018 10:17 AM CDT) C-Reactive Protein 3.9(H) <=0.5 mg/dL 07/20/2018 12:21 PM CDT [facility] Blood BLOOD SPECIMEN / Unknown Lab Venipuncture / Unknown 07/20/2018 10:17 AM CDT 07/20/2018 11:36 AM CDT Genesis Maradiaga DO LAB - CHEMISTRY ANA MARIA CARRASQUILLO Performing Organization Address [facility] Co de Phone Number [address] [phone] * (ABNORMAL) ANNA BLOOD SCREEN W/REFLEX TITER (07/20/2018 10:17 AM CDT) Pathologist [facility] ANNA Positive( A) 07/21/2018 2:11 PM CDT [facility] ([facility]) Comment: Negative <1:80 Borderline 1:80 Positive >1:80 Speckled cytoplasmic fluorescence is present. The antibodies noted in this pattern may be associated with, but not restricted to, primary biliary cirrhosis (PBC), polymyositis and dermatomyositis (PM/DM), and/or systemic lupus erythematosus (SLE). Blood BLOOD SPECIMEN / Unknown Lab Venipuncture / Unknown 07/20/2018 10:17 AM CDT 07/20/2018 10:52 AM CDT Narrative [facility] ([facility]) - 07/21/2018 2:11 PM CDT Performed at: [address] [place] [id number] Business Analyst Project Manager: Dar Garcia PhD, Phone: [phone] Genesis Maradiaga DO LAB - CHEMISTRY ANA MARIA CARRASQUILLO Performing Organization Address [facility] Co de Phone Number [facility] ([facility]) [address] [place] [address] * THYROID PEROXIDASE ANTIBODY (07/20/2018 10:17 AM CDT) Thyroid Peroxidase TPO Antibody 23 0 - 34 IU/mL 07/21/2018 9:14 AM CDT [facility] ([facility]) Blood BLOOD SPECIMEN / Unknown Lab Venipuncture / Unknown 07/20/2018 10:17 AM CDT 07/20/2018 10:52 AM CDT Narrative [facility] ([facility]) - 07/21/2018 9:14 AM CDT Performed at: [address] [place] [id number] Business Analyst Project Manager: Dar Garcia PhD, Phone: [phone] Genesis Maradiaga DO LAB - CHEMISTRY ANA MARIA CARRASQUILLO Performing Organization Address [facility] de Phone Number [facility] ([facility]) [address] [place] [address] * THYROGLOBULIN ANTIBODY (07/20/2018 10:17 AM CDT) Thyroglobulin Antibody <1.0 0.0 - 0.9 IU/mL 07/21/2018 1:08 PM CDT [facility] ([facility]) Comment:Thyroglobulin Antibo dy measured by [facility] [employer] Blood BLOOD SPECIMEN / Unknown Lab Venipuncture / Unknown 07/20/2018 10:17 AM CDT 07/20/2018 11:34 AM CDT Narrative [facility] ([facility]) - 07/21/2018 1:08 PM CDT Performed at: [address] [place] [id number] Business Analyst Project Manager: Dar Garcia PhD, Phone: [phone] Genesis Maradiaga DO LAB - CHEMISTRY ANA MARIA CARRASQUILLO [facility] ([facility]) [address] [place] [address] * HLA TYPING B27 (07/20/2018 10:17 AM CDT) HLA-B27 Negative Negative 07/22/2018 5:36 PM CDT [facility] ([facility]) Comment: INTERPRETIVE INFORMATION: HLA-B27 HLA-B27 is a serologically defined allele of the human HLA-B locus. The presence of the HLA-B27 antigen is strongly associated with ankylosing spondylitis and related disorders. Test developed and characteristics determined by [employer]. See Compliance Statement B: [employer] Performed by [employer], [address] [place] [address] [email or web address], James Spivey MD, Lab. Director Blood BLOOD SPECIMEN / Unknown Lab Venipuncture / Unknown 07/20/2018 10:17 AM CDT 07/20/2018 10:55 AM CDT Genesis Maradiaga DO LAB - CHEMISTRY ANA MARIA CARRASQUILLO Performing Organization Address [facility] Co de Phone Number [facility] ([facility]) [address] [place] [address] * SS-B (SJOGRENS'S) ANTIBODY (07/20/2018 10:17 AM CDT) SS-B LA Antibody 4.9 0.0 - 19.9 Units 07/23/2018 12:24 PM CDT [facility] Comment: JUSTIN Antibody Numeric Result Interpretation: <20.0 Units: Negative 20.0 - 39.0 Units: Weakly Positive >39.0 Units: Positive Blood BLOOD SPECIMEN / Unknown Lab Venipuncture / Unknown 07/20/2018 10:17 AM CDT 07/20/2018 11:35 AM CDT Genesis Maradiaga DO LAB - CHEMISTRY ANA MARIA CARRASQUILLO [facility] [address] [place] [address] * SS-A (SJOGREN'S) ANTIBODY (07/20/2018 10:17 AM CDT) Pathologist [facility] SS-A (Ro) Antibody 5.3 0.0 - 19.9 Units 07/23/2018 12:23 PM CDT [facility] Comment: JUSTIN Antibody Numeric Result Interpretation: <20.0 Units: Negative 20.0 - 39.0 Units: Weakly Positive >39.0 Units: Positive Blood BLOOD SPECIMEN / Unknown Lab Venipuncture / Unknown 07/20/2018 10:17 AM CDT 07/20/2018 11:35 AM CDT Genesis A Hiren BISHOP LAB - CHEMISTRY [facility] Performing Organization Address [facility] Co de Phone Number [address] [phone] * (ABNORMAL) VITAMIN D 25-HYDROXY (07/20/2018 10:17 AM CDT) [facility] Vitamin D, 25 Hydroxy 5.7(L) See comment: ng/mL 07/20/2018 11:36 AM CDT [facility] Comment: The recommendations for 25-Hydroxy Vitamin D clinical decision points are as follows: Deficient: <20.0 ng/mL Insufficient: 20.0 - 29.9 ng/mL Sufficient: > or =30.0 ng/mL If the 25-Hydroxy Vitamin D results are inconsitent with clinical evidence, it is recommended that follow-up testing using a method such as LC/MS/MS be performed to confirm the result. Reference: The Endocrine Society Clinical Practice Guidelines. 2011 Blood BLOOD SPECIMEN / Unknown Lab Venipuncture / Unknown 07/20/2018 10:17 AM CDT 07/20/2018 10:52 AM CDT Genesis Webbnasim BISHOP LAB - CHEMISTRY KYREEAime CARRASQUILLO Performing Organization Address [facility]/ZIP Co de Phone Number [address] [phone] * (ABNORMAL) ALDOLASE (07/20/2018 10:17 AM CDT) Aldolase 12.7(H) 3.3 - 10.3 U/L 07/21/2018 2:11 PM CDT [facility] ([facility]) Blood BLOOD SPECIMEN / Unknown Lab Venipuncture / Unknown 07/20/2018 10:17 AM CDT 07/20/2018 10:52 AM CDT Narrative [facility] ([facility]) - 07/21/2018 2:11 PM CDT Performed at: [facility] [address] [place], [place] [id number] Business Analyst Project Manager: Dar Garcia PhD, Phone: [phone] Genesis Maradiaga DO LAB - CHEMISTRY ANA MARIA CARRASQUILLO [facility] ([facility]) [address] [place] [address] * (ABNORMAL) ERYTHROCYTE SEDIMENTATION RATE (07/20/2018 10:17 AM CDT) Pathologist [facility] Erythrocyte Sedimentation Rate Westergren 88(H) 0 - 30 MM/HR 07/20/2018 11:51 AM CDT [facility] Blood BLOOD SPECIMEN / Unknown Lab Venipuncture / Unknown 07/20/2018 10:17 AM CDT 07/20/2018 11:35 AM CDT Genesis Maradiaga DO LAB - HEMATOLOGY ORD ABAD [facility] [address] [place] [address] * (ABNORMAL) RBC MORPHOLOGY (07/20/2018 10:17 AM CDT) Anisocytosis 2+(A) None 07/20/2018 12:20 PM CDT [facility] Microcytes 2+(A) None 07/20/2018 12:20 PM CDT [facility] Hypochromia 2+(A) None 07/20/2018 12:20 PM CDT [facility] Ovalocytes 1+(A) None 07/20/2018 12:20 PM CDT [facility] Blood BLOOD SPECIMEN / Unknown Lab Venipuncture / Unknown 07/20/2018 10:17 AM CDT 07/20/2018 11:35 AM CDT Genesis Maradiaga DO LAB - HEMATOLOGY ORD ERABLES [facility] [address] [phone] * (ABNORMAL) CBC WITH DIFFERENTIAL (07/20/2018 10:17 AM CDT) WBC 16.5(H) 3.5 - 10.5 10 3/uL 07/20/2018 11:45 AM [facility] RBC 6.55(H) 3.90 - 5.00 10 6/uL 07/20/2018 11:45 AM [facility] Hemoglobin 13.0 12.0 - 15.5 g/dL 07/20/2018 11:45 AM [facility] Hematocrit 49.5(H) 35.0 - 45.0 % 07/20/2018 11:45 AM [facility] MCV 75.6(L) 81.0 - 97.0 fL 07/20/2018 11:45 AM [facility] MCH 19.8(L) 28.0 - 34.0 pg 07/20/2018 11:45 AM [facility] MCHC 26.3(L) 32.0 - 36.0 g/dL 07/20/2018 11:45 AM [facility] Platelet Count 374 150 - 400 10 3/uL 07/20/2018 11:45 AM [facility] RDW-SD 65.4(H) 36.0 - 50.0 fL 07/20/2018 11:45 AM [facility] RDW-CV 25.1(H) 11.2 - 14.8 % 07/20/2018 11:45 AM [facility] MPV 10.1 9.3 - 12.8 fL 07/20/2018 11:45 AM [facility] nRBC Absolute 0.00 0 10 3/uL 07/20/2018 11:45 AM [facility] nRBC Auto 0.0 0 /100 WBC 07/20/2018 11:45 AM [facility] Neutrophils % 83.6(H) 35.0 - 70.0 % 07/20/2018 11:45 AM [facility] Lymphocytes % 9.2(L) 19.7 - 55.1 % 07/20/2018 11:45 AM [facility] Monocytes % 5.5 3.0 - 15.0 % 07/20/2018 11:45 AM [facility] Eosinophils % 0.5 0.0 - 6.0 % 07/20/2018 11:45 AM [facility] Basophil % 0.8 0.0 - 1.5 % 07/20/2018 11:45 AM [facility] Neutrophils Absolute 13.7(H) 1.6 - 7.0 10 3/uL 07/20/2018 11:45 AM [facility] Lymphocyte Absolute 1.5 0.8 - 2.9 10 3/uL 07/20/2018 11:45 AM [facility] Monocytes Absolute 0.91(H) 0.14 - 0.66 10 3/uL 07/20/2018 11:45 AM [facility] Eosinophils Absolute 0.09 0.00 - 0.45 10 3/uL 07/20/2018 11:45 AM [facility] Basophils Absolute 0.13(H) 0.00 - 0.06 10 3/uL 07/20/2018 11:45 AM [facility] Reflex Status Morphology review to follow. 07/20/2018 11:45 AM [facility] Immature Granulocytes % 0.4 0.0 - 1.0 % 07/20/2018 11:45 AM [facility] Blood BLOOD SPECIMEN / Unknown Lab Venipuncture / Unknown 07/20/2018 10:17 AM CDT 07/20/2018 11:35 AM CDT Genesis Maradiaga DO LAB - HEMATOLOGY ORD ERABLES [facility] [address] [place] [address] * (ABNORMAL) COMPREHENSIVE METABOLIC PANEL (07/20/2018 10:17 AM CDT) BUN 12 7 - 26 mg/dL 07/20/2018 11:15 AM [facility] Creatinine 0.5(L) 0.6 - 1.2 mg/dL 07/20/2018 11:15 AM [facility] Sodium 140 136 - 145 mmol/L 07/20/2018 11:15 AM [facility] Potassium 3.7 3.5 - 4.5 mmol/L 07/20/2018 11:15 AM [facility] Chloride 98 98 - 107 mmol/L 07/20/2018 11:15 AM [facility] CO2 28 22 - 29 mmol/L 07/20/2018 11:15 AM [facility] Glucose 199(H) 70 - 115 mg/dL 07/20/2018 11:15 AM [facility] Calcium 9.0 8.4 - 10.2 mg/dL 07/20/2018 11:15 AM [facility] Protein Total 7.7 6.0 - 8.3 g/dL 07/20/2018 11:15 AM [facility] Albumin 3.0(L) 3.4 - 5.0 g/dL 07/20/2018 11:15 AM [facility] Bilirubin Total 0.4 0.2 - 1.2 mg/dL 07/20/2018 11:15 AM [facility] Alkaline Phosphatase 151(H) 40 - 150 Units/L 07/20/2018 11:15 AM [facility] ALT 12 0 - 55 Units/L 07/20/2018 11:15 AM [facility] AST 12 5 - 34 Units/L 07/20/2018 11:15 AM [facility] Anion Gap 18 8 - 18 07/20/2018 11:15 AM [facility] BUN/Creatinine Ratio 24(H) 7 - 23 07/20/2018 11:15 AM [facility] Osmolality Calculated 295 270 - 300 mOsm/kg 07/20/2018 11:15 AM [facility] Albumin/Globulin Ratio 0.6(L) 1.1 - 2.3 07/20/2018 11:15 AM [facility] eGFR >60 >60 mL/min/1.7 3 m2 07/20/2018 11:15 AM CDT [facility] Blood BLOOD SPECIMEN / Unknown Lab Venipuncture / Unknown 07/20/2018 10:17 AM CDT 07/20/2018 10:52 AM CDT Genesis Maradiaga DO LAB - CHEMISTRY ANA MARIA CARRASQUILLO [address] [phone] * (ABNORMAL) LDH BLOOD (07/20/2018 10:17 AM CDT) LDH Total 367(H) 125 - 243 Units/L 07/20/2018 11:15 AM CDT [facility] Blood BLOOD SPECIMEN / Unknown Lab Venipuncture / Unknown 07/20/2018 10:17 AM CDT 07/20/2018 10:52 AM CDT Genesis Maradiaga DO LAB - CHEMISTRY ANA MARIA CARRASQUILLO Performing Organization Address [facility]/ZIP Co de Phone Number [address] [phone] * HEPATITIS B SURFACE ANTIGEN W RFLX CONFIRMATION (07/20/2018 10:17 AM CDT) Pathologist [facility] Hepatitis B Virus Surface Antigen Non-reacti ve Non-reacti ve 07/20/2018 12:36 PM CDT [facility] Blood BLOOD SPECIMEN / Unknown Lab Venipuncture / Unknown 07/20/2018 10:17 AM CDT 07/20/2018 11:35 AM CDT Genesis Maradiaga DO LAB - CHEMISTRY ANA MARIA CARRASQUILLO Performing Organization Address City/[facility]/[place] [address], [facility] [phone] * CK BLOOD (07/20/2018 10:17 AM CDT) CK Total 37 30 - 200 Units/L 07/20/2018 11:15 AM CDT [facility] Blood BLOOD SPECIMEN / Unknown Lab Venipuncture / Unknown 07/20/2018 10:17 AM CDT 07/20/2018 10:52 AM CDT Genesis Maradiaga DO LAB - CHEMISTRY ANA MARIA CARRASQUILLO Performing Organization Address City/[facility]/ZIP Co de Phone Number [address] [phone] * TSH (07/20/2018 10:17 AM CDT) Pathologist [facility] TSH 0.872 0.350 - 4.940 uIU/mL 07/20/2018 11:35 AM CDT [facility] Blood BLOOD SPECIMEN / Unknown Lab Venipuncture / Unknown 07/20/2018 10:17 AM CDT 07/20/2018 10:52 AM CDT Genesis Maradiaga DO LAB - CHEMISTRY ANA MARIA CARRASQUILLO Performing Organization Address [facility]/[place] [address], [facility] [phone] * T4 FREE (07/20/2018 10:17 AM CDT) [facility] T4 Free 1.0 0.7 - 1.5 ng/dL 07/20/2018 1:13 PM CDT [facility] Blood BLOOD SPECIMEN / Unknown Lab Venipuncture / Unknown 07/20/2018 10:17 AM CDT 07/20/2018 11:35 AM CDT Genesis Maradiaga DO LAB - CHEMISTRY ANA MARIA CARRASQUILLO Performing Organization Address [place]/[facility]/[place] [address], [facility] [phone] * HEPATITIS C ANTIBODY (07/20/2018 10:17 AM CDT) Pathologist [facility] Hepatitis C Antibody Non-react adriana Non-reac tive 07/20/2018 12:38 PM CDT [facility] Comment: Hepatitis C Antibody screen indicates no serologic evidence of past or current infection with Hepatitis C Virus. Patients with unexplained liver disease who are immunocompromised or suspected of having acute Hepatitis C infection may benefit from Nucleic Acid Test (MARY) for Hepatitis C Viral RNA to confirm Hepatitis C status. Blood BLOOD SPECIMEN / Unknown Lab Venipuncture / Unknown 07/20/2018 10:17 AM CDT 07/20/2018 11:36 AM CDT Genesis Maradiaga DO LAB - CHEMISTRY ANA MARIA CARRASQUILLO [facility] Organization Address City/State/ZIP Co de Phone Number [address] [phone] Care Teams Chief Juvenile Probation Officer Relationship Specialty Start Date End Date Negro Hein MD [address] [place] [id number] PCP - General 12/23/17
--- OUTSIDE RECORDS SUMMARY | 2024-05-09 11:10 | XMS_ITS | Clinical Summary ---
Author Organization [facility] Address [address] [place] [id number] Care Team Providers Care Tibco Developer Name Role Phone Unavailable Primary Care Provider Unavailabl e Social History Tobacco Use Types Packs/Day Years Used Date Smoking Tobacco: Never Assessed Comments Unknown Sex and Gender Information Value Date Recorded Sex Assigned at Not on file Legal Sex Female 10:44 PM CDT Gender Identity Not on file Sexual Orientation Not on file Plan of Treatment Health Maintenance Due Date Last Done Comments Cervical Cancer Screening Pa p Smear (Age 30 to 64) Every 3 Years 1960 Colorectal Cancer Screening Colonoscopy (10 Years) 1960 Annual Physical 11/01/1963 Hepatitis C 1978 DTaP, Tdap and Td Vaccines ( 1 - Tdap) 11/01/1979 Cervical Cancer Screening Pa p with HPV Testing (Age 30 to 64) Every 5 Years 1990 Cervical Cancer Screening with HPV 1990 Mammogram Screening 2000 Zoster Vaccines (1 of 2) 2010 COVID-19 Vaccine (2023-2 5 season) 2023 Influenza Adult (#1) 2023 RSV Immunization or 60+ Years (1 - 1-dose 75+ series) 11/01/2035 Meningococcal B Vaccine Aged Out No l onger eligible based on patient's age to complete this topic Meningococcal Vaccine Aged Out No faizan teresa eligible based on patient's age to complete this topic Pneumococcal Vaccine: Pediat rics (0 to 5 Years) and At-Risk Patients (6 to 64 Years) Aged Out No longer eligible b ased on patient's age to complete this topic RSV Immunizations Under 20 Months Aged Out No longer eligible based on patient's age to complete this topic Insurance WADE
--- OUTSIDE RECORDS SUMMARY | 2024-05-09 11:10 | XMS_ITS | Referral Summary ---
Author Organization [facility] Address [address] [place] [address] Care Team Providers Care Fountain Waitress/Waiter Name Role Phone Negro Hein MD Primary Care Provider [phone] Source Comments [facility],non-owned Affiliates and Associated Physician Practices is amultiple site organization consisting of ambulatory clinics and hospital sitesin [place], [place], [place] and [place]. This disclosure is being madepursuant to the Care Everywhere program and may not contain all information available regarding this patient. Last updated 17.[facility] Allergies Active Allergy Reactions Criticality Noted Date Comments Clindamycin Urticaria Medium 02/06/2017 Lisinopril Rash Medium 05/04/2019 Medications * Be aware that medications may not be up to date on this document. Alwaysverify current medications with the patient. Medication Sig Dispensed Refills Start Date End Date Status citalopram (CELEXA) 40 MG tablet Take 40 mg by mouth once daily 06/25/2018 Active losartan (COZAAR) 50 MG tablet Take by mouth once daily 07/19/2018 Active metFORMIN (GLUCOPHAGE) 500 MG tablet 500 mg 2 times daily with morning and evening meal 07/19/2018 Active albuterol HFA (PROVENTIL;VENTOL IN;PROAIR) 108 (90 Base) MCG/ACT inhaler Inhale 2 puffs by mouth every 6 hours 07/05/2018 Active acetaminophen (TYLENOL) 500 MG tablet Take 500 mg by mouth every 4 hours as needed for Fever or Pain Maximum allowable Acetaminophen amount = 4 Grams (4000 mg) / 24 hours. Active aspirin (ASPIRIN) 81 MG tablet Take 81 mg by mouth once daily Active ANORO ELLIPTA 62.5-25 MCG/INH inhaler Inhale 62.5 mcg by mouth 2 times daily as needed 10/22/2018 Active hydroxychloroquin e (PLAQUENIL) 200 MG tablet Take 1 tablet by mouth 2 times daily 60 tablet 3 09/08/2019 Active sulfaSALAzine (AZULFIDINE) 500 MG tabletIndications :Seropositive rheumatoid arthritis (HCC),Pulmonary HTN (HCC),Bone erosion,Rheumatoi d nodule (HCC),Synovitis,J oint swelling,Elevated aldolase level,Elevated LDH,Positive ANNA (antinuclear antibody),TMJ arthritis Take 3 tablets by mouth 2 times daily 180 tablet 3 09/08/2019 Active vitamin D, ergocalciferol, (DRISDOL) 1.25 MG (51771 UT) capsuleIndication s:Hypovitaminosis D Take 1 capsule by mouth once a week 12 capsule 09/15/2019 Active Active Problems No known active problems Immunizations Name Administration Dates Next Due INFLUENZA VACCINE, QUADR. (F LUZONE; FLULAVAL; FLUARIX; AFLURIA QUADRIVALENT; 6MO+), 0.5 ML (IIV4) 01/11/2019 Social History Tobacco Use Types Packs/Day Years [...] Comments Blood Pressure 158/72 05/24/2019 12:10 PM [facility] Pulse 84 05/24/2019 12:10 PM [facility] Temperature 36.9 C (98.4 F) 05/24/2019 12:10 PM [facility] Respiratory Rate - - Oxygen Saturation - - Inhaled Oxygen Concentration - - Weight 83.5 kg (184 lb) 05/24/2019 12:10 PM [facility] Height 167.6 cm (5' 6 ) 05/24/2019 12:10 PM [facility] Body Mass Index 29.7 05/24/2019 12:10 PM [facility] Plan of Treatment Not on file Procedures Procedure Name Priority Date/Time Associated Diagnosis Comments COMPREHENSIVE METABOLIC PANEL Routine 07/20/2018 10:17 AM CDT Inflammatory arthritis Rheumatoid nodule (HCC) 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 Tobacco use disorder HEPATITIS C ANTIBODY Routine 07/20/2018 10:17 AM CDT Inflammatory arthritis Rheumatoid nodule (HCC) 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 Tobacco use disorder HIV-1 HIV-2 ANTIGEN/ANTIBODY Routine 07/20/2018 10:17 AM CDT Inflammatory arthritis Rheumatoid nodule (HCC) 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 Tobacco use disorder from Last 3 Months or Most Recently Relevant to Health Maintenance Results * HIV-1 HIV-2 ANTIGEN/ANTIBODY (07/20/2018 10:17 AM CDT) Pathologist [facility] HIV Antigen/Antibod y 1 & 2 Non-reacti ve Non-react adriana 07/20/2018 12:38 PM CDT [facility] Comment: Neither HIV-1 p24 Antigen nor HIV-1/HIV-2 Antibodies are detected. Blood BLOOD SPECIMEN / Unknown Lab Venipuncture / Unknown 07/20/2018 10:17 AM CDT 07/20/2018 11:36 AM CDT Genesis Maradiaga DO LAB - HEMATOLOGY ORD ERABLES [facility] [address] [place] [address] * (ABNORMAL) COMPREHENSIVE METABOLIC PANEL (07/20/2018 10:17 AM CDT) Pathologist [facility] BUN 12 7 - 26 mg/dL 07/20/2018 11:15 AM T [facility] Creatinine 0.5(L) 0.6 - 1.2 mg/dL 07/20/2018 11:15 AM [facility] Sodium 140 136 - 145 mmol/L 07/20/2018 11:15 AM [facility] Potassium 3.7 3.5 - 4.5 mmol/L 07/20/2018 11:15 AM [facility] Chloride 98 98 - 107 mmol/L 07/20/2018 11:15 AM [facility] CO2 28 22 - 29 mmol/L 07/20/2018 11:15 AM [facility] Glucose 199(H) 70 - 115 mg/dL 07/20/2018 11:15 AM [facility] Calcium 9.0 8.4 - 10.2 mg/dL 07/20/2018 11:15 AM [facility] Protein Total 7.7 6.0 - 8.3 g/dL 07/20/2018 11:15 AM [facility] Albumin 3.0(L) 3.4 - 5.0 g/dL 07/20/2018 11:15 AM [facility] Bilirubin Total 0.4 0.2 - 1.2 mg/dL 07/20/2018 11:15 AM [facility] Alkaline Phosphatase 151(H) 40 - 150 Units/L 07/20/2018 11:15 AM [facility] ALT 12 0 - 55 Units/L 07/20/2018 11:15 AM [facility] AST 12 5 - 34 Units/L 07/20/2018 11:15 AM [facility] Anion Gap 18 8 - 18 07/20/2018 11:15 AM [facility] BUN/Creatinine Ratio 24(H) 7 - 23 07/20/2018 11:15 AM [facility] Osmolality Calculated 295 270 - 300 mOsm/kg 07/20/2018 11:15 AM [facility] Albumin/Globulin Ratio 0.6(L) 1.1 - 2.3 07/20/2018 11:15 AM [facility] eGFR >60 >60 mL/min/1.7 3 m2 07/20/2018 11:15 AM [facility] Blood BLOOD SPECIMEN / Unknown Lab Venipuncture / Unknown 07/20/2018 10:17 AM CDT 07/20/2018 10:52 AM [facility] Genesis Maradiaga DO LAB - CHEMISTRY ANA [address]IA Street Organization Address City/State/ZIP Co de Phone Number [facility] [address] [phone] * HEPATITIS C ANTIBODY (07/20/2018 10:17 AM T) Hepatitis C Antibody Non-react adriana Non-reac tive 07/20/2018 12:38 PM CDT [facility] Comment: Hepatitis C Antibody screen indicates [...] DO LAB - CHEMISTRY ANA MARIA CARRASQUILLO [facility] [address] [phone] from Last 3 Months or Most Recently Relevant to Health Maintenance Care Teams Fountain Waitress/Waiter Relationship Specialty Start Date End Date Negro Hein MD [address] [place] [id number] PCP - General 12/23/17
--- OUTSIDE RECORDS SUMMARY | 2024-05-09 11:10 | XMS_ITS | Clinical Summary ---
Author Organization [facility] Address [address] [place] [address] Care Team Providers Care Carbon Cutter Name Role Phone Negro Hein MD Primary Care Provider [phone] Allergies Active Allergy Reactions Criticality Noted Date Comments Clindamycin Hives High 02/06/2017 Lisinopril Rash Medium 05/04/2019 Medications losartan (COZAAR) 50 mg tablet Take 50 mg by mouth daily. Active albuterol HFA 90 mcg inhaler Take 2 Puffs by inhalation every 6 hours as needed for Shortness of Breath. Active amLODIPine (NORVASC) 10 mg tablet 8 Active metFORMIN (GLUCOPHAGE) 500 mg tablet 500 mg 2 times daily with meals. 9 Active aspirin (ECOTRIN EC) 81 mg Tablet, Delayed Release (E.C.) Take 81 mg by mouth daily. Active acetaminophen (TYLENOL) 500 mg tablet Take 500 mg by mouth every 4 hours as needed. Active ergocalciferol (VITAMIN D2) 50,000 unit capsule Take 1 Capsule by mouth every 7 days. 0 Active varenicline (CHANTIX) 0.5 mg (11)- 1 mg (42) tablets STARTER dose pack Take as directed on package. 53 Tablet 2 Active buPROPion HCL (WELLBUTRIN XL) 150 mg Extended Release 24 hour tablet Take 150 mg by mouth daily. 2 Active venlafaxine (EFFEXOR XR) 75 mg Extended Release 24 hour capsule Take 75 mg by mouth daily. 2 Active Active Problems Problem Noted Date Diagnosed Date Erythrocytosis 02/17/2017 Tobacco use 02/06/2017 Family History Medical History Relation Name Comments Other Brother 1 Relation Name Status Comments Brother 1 Brother 2 Brother 3 Alive Brother 4 Alive Brother 5 Alive Father Mother Sister 1 Alive Sister 2 Alive Sister 3 Alive Social History Tobacco Use Types Packs/Day Years Used Date Smoking Tobacco: Every Day Cigarettes 1 25 Smokeless Tobacco: Never Tobacco Cessation:Ready to Q uit: Not Asked; Counseling Given: Not Answered Alcohol Use Standard Drinks/Week Comments No 0 (1 standard drink = 0.6 oz pur e alcohol) Comments No Sex and Gender Information Value Date Recorded Sex Assigned at Not on file Legal Sex Female 11:37 AM CDT Gender Identity Not on file Sexual Orientation Not on file Last Filed Vital Signs Vital Sign Reading Time Taken Comments Blood Pressure 133/81 10/10/2022 10:52 AM CDT Pulse 98 10/10/2022 10:50 AM CDT Temperature 36 C (96.8 F) 10/10/2022 10:50 AM CDT Respiratory Rate 10 10/10/2022 10:50 AM CDT Oxygen Saturation 98% 10/10/2022 10:50 AM CDT Inhaled Oxygen Concentration - - Weight 91.6 kg (202 lb) 10/10/2022 10:50 AM CDT Height 167.6 cm (5' 6 ) 11/20/2021 1:15 PM CDT Body Mass Index 32.6 11/20/2021 1:15 PM CDT Plan of Treatment Health Maintenance Due Date Last Done Comments PNEUMOCOCCAL VACCINE 0-64 YEARS (1 of 2 - PCV) 967 DTAP/TDAP/TD VACCINES (1 - Tdap) 11/01/1979 CERVICAL CANCER SCREENING 1990 BREAST CANCER SCREENING 2000 COLORECTAL SCREENING 2005 Colorectal Cancer Screening 2005 FIT-DNA Q 3 years 2005 FIT/FOBT Q 1 year 2005 Flex Sig/CT Colonography Q 5 years 2005 ZOSTER VACCINE (1 of 2) 2010 INFLUENZA VACCINE (#1) 2023 01/11/2019 RSV VACCINE (60+ or ) (1 - 1-dose 75+ series) 11/01/[address] [place] [address] [id number] [facility] [employer] [facility] [id number] [facility] MCR Care Teams Carbon Cutter Relationship Specialty Start Date End Date Negro Hein MD [address] [place] [address] PCP - General Family Practice 05/06/21
--- OUTSIDE RECORDS SUMMARY | 2024-05-09 11:10 | XMS_ITS | Clinical Summary ---
Author Organization [facility] Address [address] [address] Care Team Providers Care Tenant Selector Name Role Phone Negro Hein MD Primary Care Provider [phone] Source Comments [facility],non-owned Affiliates and Associated Physician Practices is amultiple site organization consisting of ambulatory clinics and hospital sitesin [place], [place], [place] and [place]. This disclosure is being madepursuant to the Care Everywhere program and may not contain all information available regarding this patient. Last updated 17.[employer] [facility] Allergies Active Allergy Reactions Criticality Noted Date [...] Active vitamin D, ergocalciferol, (DRISDOL) 1.25 MG (09190 UT) capsuleIndication s:Hypovitaminosis D Take 1 capsule by mouth once a week 12 capsule 09/15/2019 Active Active Problems No known active problems Immunizations Name Administration Dates Next Due INFLUENZA VACCINE, QUADR. (F LUZONE; FLULAVAL; FLUARIX; AFLURIA QUADRIVALENT; 6MO+), 0.5 ML (IIV4) 01/11/2019 Family History Medical History Relation Name Comments Leukemia Brother Arthritis - Rheumatoid Father CAD (Coronary Artery Disease) Father CAD (Coronary Artery Disease) Mother Relation Name Status Comments Brother Father Mother Social History Tobacco Use Types Packs/Day Years [...] Comments Blood Pressure 158/72 05/24/2019 12:10 PM TOOLING INSPECTOR Pulse 84 05/24/2019 12:10 PM TOOLING INSPECTOR Temperature 36.9 C (98.4 F) 05/24/2019 12:10 PM TOOLING INSPECTOR Respiratory Rate - - Oxygen Saturation - - Inhaled Oxygen Concentration - - Weight 83.5 kg (184 lb) 05/24/2019 12:10 PM TOOLING INSPECTOR Height 167.6 cm (5' 6 ) 05/24/2019 12:10 PM TOOLING INSPECTOR Body Mass Index 29.7 05/24/2019 12:10 PM TOOLING INSPECTOR Plan of Treatment Health Maintenance Due Date Last Done Comments HERMINIA (AGES 45-75) - COL ON CA SCREENING 1960 COLON MONITORING 1960 COLONOSCOPY - COLON CA SCREENING 1960 CT COLONOGRAPHY - COLON CA SCREENING 1960 Colorectal Cancer Screening 1960 FIT - COLON CA SCREENING 1960 FLEX SIG - COLON CA SCREENING 1960 LIPID TESTING 1960 MAMMOGRAM 1960 PAP SMEAR 1960 DTAP/TDAP/TD VACCINES (1 - Tdap) 11/01/1979 PNEUMOCOCCAL VACCINE 50+ (1 of 2 - PCV) 11/01/1979 PNEUMOCOCCAL VACCINE (1 of 2 - PCV) 11/01/1979 LUNG CANCER SCREENING 2010 ZOSTER VACCINE (1 of 2) 2010 SCREENING FOR DIABETES 07/20/2021 07/20/2018 COVID-19 VACCINE (1 - 2023-2 5 season) 2023 INFLUENZA VACCINE (#1) 2023 01/11/2019 DEPRESSION SCREENING 03/30/2024 Respiratory Syncytial Virus (RSV) Vaccine Pt: or over 60 yrs (1 - 1-dose 75+ series) 11/01/2035 HEPATITIS C SCREENING Completed 07/20/2018 HIV SCREENING Completed 07/20/2018 HEPATITIS B VACCINE Aged Out No longe r eligible based on patient's age to complete this topic HIB VACCINE Aged Out No longer eligi ble based on patient's age to complete this topic HPV VACCINE Aged Out No longer eligi ble based on patient's age to complete this topic MENINGOCOCCAL (Group B) VACCINE Aged Out No longer eligible based on patient's age to complete this topic MENINGOCOCCAL VACCINE Aged Out No faizan teresa eligible based on patient's age to complete this topic Procedures Procedure Name Priority Date/Time Associated Diagnosis [...] HIV-2 ANTIGEN/ANTIBODY (07/20/2018 10:17 AM CDT) Pathologist [facility] HIV Antigen/Antibod y 1 & 2 Non-reacti ve Non-react adriana 07/20/2018 12:38 PM CDT [facility] Comment: Neither HIV-1 p24 Antigen nor HIV-1/HIV-2 Antibodies are detected. Blood BLOOD SPECIMEN / Unknown Lab Venipuncture / Unknown 07/20/2018 10:17 AM CDT 07/20/2018 11:36 AM CDT Genesis Maradiaga DO LAB - HEMATOLOGY ORD ERABLES Performing Organization Address City/State/[facility] Co de Phone Number [facility] [address] [place] [address] * (ABNORMAL) COMPREHENSIVE METABOLIC PANEL (07/20/2018 10:17 AM CDT) Pathologist [facility] BUN 12 7 - 26 mg/dL 07/20/2018 11:15 AM [facility] Creatinine 0.5(L) 0.6 - 1.2 mg/dL 07/20/2018 11:15 AM [facility] Sodium 140 136 - 145 mmol/L 07/20/2018 11:15 AM [facility] Potassium 3.7 3.5 - 4.5 mmol/L 07/20/2018 11:15 AM [facility] Chloride 98 98 - 107 mmol/L 07/20/2018 11:15 AM [facility] CO2 28 22 - 29 mmol/L 07/20/2018 11:15 AM [facility] Glucose 199(H) 70 - 115 mg/dL 07/20/2018 11:15 AM [facility] Calcium 9.0 8.4 - 10.2 mg/dL 07/20/2018 11:15 AM [facility] Protein Total 7.7 6.0 - 8.3 g/dL 07/20/2018 11:15 AM [facility] Albumin 3.0(L) 3.4 - 5.0 g/dL 07/20/2018 11:15 AM [facility] Bilirubin Total 0.4 0.2 - 1.2 mg/dL 07/20/2018 11:15 AM [facility] Alkaline Phosphatase 151(H) 40 - 150 Units/L 07/20/2018 11:15 AM [facility] ALT 12 0 - 55 Units/L 07/20/2018 11:15 AM [facility] AST 12 5 - 34 Units/L 07/20/2018 11:15 AM [facility] Anion Gap 18 8 - 18 07/20/2018 11:15 AM [facility] BUN/Creatinine Ratio 24(H) 7 - 23 07/20/2018 11:15 AM [facility] Osmolality Calculated 295 270 - 300 mOsm/kg 07/20/2018 11:15 AM [facility] Albumin/Globulin Ratio 0.6(L) 1.1 - 2.3 07/20/2018 11:15 AM [facility] eGFR >60 >60 mL/min/1.7 3 m2 07/20/2018 11:15 AM [facility] Blood BLOOD SPECIMEN / Unknown Lab Venipuncture / Unknown 07/20/2018 10:17 AM CDT 07/20/2018 10:52 AM [facility] Genesis Maradiaga DO LAB - CHEMISTRY ANA MARIA CARRASQUILLO [facility] Organization Address City/State/[facility] Co de Phone Number [facility] [address] [place] [address] * HEPATITIS C ANTIBODY (07/20/2018 10:17 AM CDT) Hepatitis C Antibody Non-react adriana Non-reac tive 07/20/2018 12:38 PM [facility] Comment: Hepatitis C Antibody screen indicates [...] DO LAB - CHEMISTRY [place] [address], [facility] [phone] from Last 3 Months or Most Recently Relevant to Health Maintenance Care Teams Tenant Selector Relationship Specialty Start Date End Date Negro Hein MD [address] [place] [address] PCP - General 12/23/17
--- OUTSIDE RECORDS SUMMARY | 2024-05-09 11:11 | XMS_ITS ---
Author Organization Unknown Address [address] [place] [address] [phone] Phone Care Team Providers Care Animal Ride Attendant Name Role Phone TAISHA MOSES Attending Unavailable Immunization Immunization Date Status Additional Notes Code Code System Influenza, split virus, quadrivalent, PF 02/21/2017 Completed 150 CVX Influenza, split virus, quadrivalent, PF 01/11/2019 Completed 150 CVX Influenza, split virus, quadrivalent, PF 11/21/2021 Completed 150 CVX Influenza, split virus, quadrivalent, PF 12/08/2022 Completed 150 CVX COVID-19, mRNA, LNP-S, PF, 3 0 mcg/0.3 mL dose 07/26/2020 Completed 208 CVX COVID-19, mRNA, LNP-S, PF, 3 0 mcg/0.3 mL dose 08/17/2020 Completed 208 CVX Pneumococcal conjugate PCV20 , polysaccharide [id number] conjugate, adjuvant, PF 07/31/2022 Completed 216 CVX Results US KIDNEY AND BLADDER - Comp leted: 02/09/2024 09:22 LOINC: EXAM DESCRIPTION: US KIDNEY AND BLADDER REASON FOR STUDY: MICROALBUMINURIA TECHNIQUE: Ultrasound of the kidneys and urinary bladder was performed with grayscale imaging. COMPARISON: None FINDINGS: RIGHT KIDNEY: The right kidney measures 11.6 x 6.2 x 4.1 cm. There is no hydronephrosis. There is normal cortical thickness and echogenicity. LEFT KIDNEY: The left kidney measures 15.0 x 5.4 x 4.4 cm. There is no hydronephrosis. There is normal cortical thickness and echogenicity. URINARY BLADDER: The urinary bladder, as visualized, appears unremarkable. The bilateral ureteral jets are visualized. Prevoid urinary bladder volume is 575 mL. Postvoid volume is 17 mL. OTHER: No other additional findings. IMPRESSION: 1. 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 The status of the left ureter in this regard is uncertain. Multiphase CT IVP could be used for additional evaluation. 2. Right kidney is within normal limits in size, but duplication of the right renal collecting system also can not be excluded. 3. No definite focal renal masses. No hydronephrosis. THIS IS AN ELECTRONICALLY VERIFIED FINAL REPORT 02/12/2024 8:38 AM - Electronically signed by Jameel Teague M.D. RB: PAUL Report ID: [id number] Reading Location: [id number] Social History Type Status Start Date End Date Code Code Syst em Sex Female Hospital Discharge Instructions Should you have any questions prior to discharge, please contact a member of your healthcare team. If you have left the hospital and have any questions, please contact your primary care physician. Reason For Referral No Data Found Plan of Treatment Kidney & Bladder (44335) 02/09/2024 Encounters Encounter Diagnosis Start Date Code Code Sys tem Proteinuria 02/09/2024 [id number] SNOMED-CT Personal Care Team Section Performer Name Performer Role Active Date Inactive Da te Imaging Narrative Notes
== END 2024-05-09 10:20 | disposition home or self-care (01) ==
LOC: CHSIMG 10:21
PROVIDERS: PCP Family Medicine; Visit Provider Internal Medicine Pulmonary Disease
DX: Z12.2 Encounter for screening for malignant neoplasm of respiratory organs (principal); Z87.891 Personal history of nicotine dependence; M13.88 Other specified arthritis, other site
CPT/HCPCS: 71271

== ENCOUNTER 2024-05-23 13:15 | Outpatient (CLI) | payer OTHER, SELFPAY ==
[2024-05-23 13:34] LABS: Add Urine Microscopic? YES; Appearance Urine Clear (Clear); Bilirubin Urine Negative (Negative); Blood Urine Negative (Negative); Color Urine Light Yellow (Yellow); Glucose Urine UA 3+ (Negative); Ketones Urine Trace (Negative); Leukocyte Esterase Ur Negative (Negative); Nitrate Urine Negative (Negative); Protein Urine 2+ (Negative); Specific Grav Ur 1.025 (1.010-1.020); Urobilinogen Urine 0.2 mg/dL (0.2-1.0); pH Urine 5.5 (5.0-8.0)
[2024-05-23 13:59] LABS: Bacteria Urine Trace /hpf; RBC Urine None seen /hpf (0-2); Squamous Epithelial Cell Urine Few /hpf (Few); WBC Urine None seen /hpf (0-3)
--- OUTSIDE RECORDS SUMMARY | 2024-05-23 15:11 | XMS_ITS | Clinical Summary ---
Author Organization [facility] Address [address] [place] [address] Care Team Providers Care Hotel And Dining Room Cashier Name Role Phone Negro Hein MD Primary Care Provider [phone] Allergies Active Allergy Reactions Criticality Noted Date [...] Health Maintenance Due Date Last Done Comments DTAP/TDAP/TD VACCINES (1 - Tdap) 11/01/1979 CERVICAL CANCER SCREENING 1990 BREAST CANCER SCREENING 2000 COLORECTAL SCREENING 2005 Colorectal Cancer Screening 2005 FIT-DNA Q 3 years 2005 FIT/FOBT Q 1 year 2005 Flex Sig/CT Colonography Q 5 years 2005 ZOSTER VACCINE (1 of 2) 2010 INFLUENZA VACCINE (#1) 2023 01/11/2019 RSV VACCINE (60+ or ) (1 - 1-dose 75+ series) 11/01/2035 Insurance [facility]1983 [id number] [facility] MCR FORMERLY [facility], [facility]1983 [id number] [facility] MCR Care Teams Hotel And Dining Room Cashier Relationship Specialty Start Date End Date Negro Hein MD [address] [place] [address] PCP - General Family Practice 05/06/21
--- OUTSIDE RECORDS SUMMARY | 2024-05-23 15:11 | XMS_ITS | Referral Summary ---
Author Organization [facility] Address [address] [place] [address] Care Team Providers Care Wool Brusher Name Role Phone Negro Hein MD Primary Care Provider [phone] Source Comments [facility],non-owned Affiliates and Associated Physician Practices is amultiple site organization consisting of ambulatory clinics and hospital sitesin [place], [place], [place] and [place]. This disclosure is being madepursuant to the Care Everywhere program and may not contain all information available regarding this patient. Last updated 17.[facility] Allergies Active Allergy Reactions Criticality Noted Date [...] Active vitamin D, ergocalciferol, (DRISDOL) 1.25 MG (48296 UT) capsuleIndication s:Hypovitaminosis D Take 1 capsule [...] Comments Blood Pressure 158/72 05/24/2019 12:10 PM TRANSFORMATION MANAGER [facility] 84 05/24/2019 12:10 PM TRANSFORMATION MANAGER Temperature 36.9 C (98.4 F) 05/24/2019 12:10 PM TRANSFORMATION MANAGER Respiratory Rate - - Oxygen Saturation - - Inhaled Oxygen Concentration - - Weight 83.5 kg (184 lb) 05/24/2019 12:10 PM TRANSFORMATION MANAGER Height 167.6 cm (5' 6 ) 05/24/2019 12:10 PM TRANSFORMATION MANAGER Body Mass Index 29.7 05/24/2019 12:10 PM TRANSFORMATION MANAGER Plan of Treatment Not on file Procedures [...] HIV-2 ANTIGEN/ANTIBODY (07/20/2018 10:17 AM CDT) Pathologist [facility] HIV Antigen/Antibod y 1 & 2 Non-reacti ve Non-react adriana 07/20/2018 12:38 PM CDT [facility] Comment: Neither HIV-1 p24 Antigen nor HIV-1/HIV-2 Antibodies are detected. Blood BLOOD SPECIMEN / Unknown Lab Venipuncture / Unknown 07/20/2018 10:17 AM CDT 07/20/2018 11:36 AM CDT Genesis Maradiaga DO LAB - HEMATOLOGY ORD ERABLES [facility] [address] [place] [address] * (ABNORMAL) COMPREHENSIVE METABOLIC PANEL (07/20/2018 10:17 AM CDT) Pathologist [facility] BUN 12 7 - 26 mg/dL 07/20/2018 11:15 AM T [facility] Creatinine 0.5(L) 0.6 - 1.2 mg/dL 07/20/2018 11:15 AM [facility] Sodium 140 136 - 145 mmol/L 07/20/2018 11:15 AM [facility] Potassium 3.7 3.5 - 4.5 mmol/L 07/20/2018 11:15 AM [facility] Chloride 98 98 - 107 mmol/L 07/20/2018 11:15 AM [facility] CO2 28 22 - 29 mmol/L 07/20/2018 11:15 AM [facility] Glucose 199(H) 70 - 115 mg/dL 07/20/2018 11:15 AM [facility] Calcium 9.0 8.4 - 10.2 mg/dL 07/20/2018 11:15 AM [facility] Protein Total 7.7 6.0 - 8.3 g/dL 07/20/2018 11:15 AM [facility] Albumin 3.0(L) 3.4 - 5.0 g/dL 07/20/2018 11:15 AM [facility] Bilirubin Total 0.4 0.2 - 1.2 mg/dL 07/20/2018 11:15 AM [facility] Alkaline Phosphatase 151(H) 40 - 150 Units/L 07/20/2018 11:15 AM [facility] ALT 12 0 - 55 Units/L 07/20/2018 11:15 AM [facility] AST 12 5 - 34 Units/L 07/20/2018 11:15 AM [facility] Anion Gap 18 8 - 18 07/20/2018 11:15 AM [facility] BUN/Creatinine Ratio 24(H) 7 - 23 07/20/2018 11:15 AM [facility] Osmolality Calculated 295 270 - 300 mOsm/kg 07/20/2018 11:15 AM [facility] Albumin/Globulin Ratio 0.6(L) 1.1 - 2.3 07/20/2018 11:15 AM [facility] eGFR >60 >60 mL/min/1.7 3 m2 07/20/2018 11:15 AM [facility] Blood BLOOD SPECIMEN / Unknown Lab Venipuncture / Unknown 07/20/2018 10:17 AM CDT 07/20/2018 10:52 AM [facility] Genesis Maradiaga DO LAB - CHEMISTRY ANA [address] Street Organization Address City/State/ZIP Co de Phone Number [facility] [address] [phone] * HEPATITIS C ANTIBODY (07/20/2018 10:17 AM [...] DO LAB - CHEMISTRY ANA MARIA CARRASQUILLO [facility] [address] [phone] from Last 3 Months or Most Recently Relevant to Health Maintenance Care Teams Wool Brusher Relationship Specialty Start Date End Date Negro Hein MD [address] [place] [id number] PCP - General 12/23/17
--- OUTSIDE RECORDS SUMMARY | 2024-05-23 15:11 | XMS_ITS | Patient Health Summary ---
Author Organization [facility] Address [address] [place] [address] Care Team Providers Care Lemon Picker Name Role Phone Negro Hein MD Primary Care Provider [phone] Note from [facility],non-owned Affiliates and Associated Physician Practices is amultiple site organization consisting of ambulatory clinics and hospital sitesin [place], [place], [place] and [place]. This disclosure is being madepursuant to the Care Everywhere program and may not contain all information available regarding this patient. 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 Report dictated by Mallory Jeffries MD (residential care facility manager). I, Dr. DAVID NOLAN MD have personally [...] third metacarpophalangeal joint where there is essentially guwp-qy-snzh contact. A lytic lesion is present in [...] third metacarpophalangeal joint where there is essentially nrhr-yk-xfzk contact. A lytic lesion is present in [...] forefoot. Report dictated by Mallory Jeffries MD (residential care facility manager). Dr. DAVID Mayen MD have personally reviewed [...] forefoot. Report dictated by Mallory Jeffries MD (residential care facility manager). Dr. DAVID Mayen MD have personally reviewed [...] third metacarpophalangeal joint where there is essentially dgba-oa-nplb contact. A lytic lesion is present in [...] third metacarpophalangeal joint where there is essentially afob-ob-kyeh contact. A lytic lesion is present in [...] forefoot. Report dictated by Mallory Jeffries MD (residential care facility manager). Dr. DAVID Mayen MD have personally reviewed [...] forefoot. Report dictated by Mallory Jeffries MD (residential care facility manager). IDr. DAVID MD have personally reviewed and [...] third metacarpophalangeal joint where there is essentially sjyt-bd-tbyh contact. A lytic lesion is present in [...] third metacarpophalangeal joint where there is essentially wqui-sj-smxk contact. A lytic lesion is present in [...] forefoot. Report dictated by Mallory Jeffries MD (residential care facility manager). I, Dr. DAVID NOLAN MD have personally [...] forefoot. Report dictated by Mallory Jeffries MD (residential care facility manager). I, Dr. DAVID NOLAN MD have personally [...] third metacarpophalangeal joint where there is essentially afqc-kd-mivy contact. A lytic lesion is present in [...] third metacarpophalangeal joint where there is essentially vemt-xl-surp contact. A lytic lesion is present in [...] forefoot. Report dictated by Mallory Jeffries MD (residential care facility manager). I, Dr. DAVID NOLAN MD have personally [...] forefoot. Report dictated by Mallory Jeffries MD (residential care facility manager). I, Dr. DAVID NOLAN MD have personally [...] third metacarpophalangeal joint where there is essentially rfbb-dj-lfiu contact. A lytic lesion is present in [...] third metacarpophalangeal joint where there is essentially caxg-pd-esbo contact. A lytic lesion is present in [...] forefoot. Report dictated by Mallory Jeffries MD (residential care facility manager). I, Dr. DAVID NOLAN MD have personally [...] forefoot. Report dictated by Mallory Jeffries MD (residential care facility manager). I, Dr. DAVID NOLAN MD have personally [...] third metacarpophalangeal joint where there is essentially rnwm-ax-xbpy contact. A lytic lesion is present in [...] third metacarpophalangeal joint where there is essentially xxpg-pm-ekjq contact. A lytic lesion is present in [...] forefoot. Report dictated by Mallory Jeffries MD (residential care facility manager). I, Dr. DAVID NOLAN MD have personally [...] forefoot. Report dictated by Mallory Jeffries MD (residential care facility manager). I, Dr. DAVID NOLAN MD have personally [...] third metacarpophalangeal joint where there is essentially toth-ve-mevo contact. A lytic lesion is present in [...] third metacarpophalangeal joint where there is essentially ewhn-yd-pcek contact. A lytic lesion is present in [...] forefoot. Report dictated by Mallory Jeffries MD (residential care facility manager). I, Dr. DAVID NOLAN MD have personally [...] forefoot. Report dictated by Mallory Jeffries MD (residential care facility manager). I, Dr. DAVID NOLAN MD have personally [...] third metacarpophalangeal joint where there is essentially nmuy-pr-hcwg contact. A lytic lesion is present in [...] third metacarpophalangeal joint where there is essentially vogw-ij-uccq contact. A lytic lesion is present in [...] forefoot. Report dictated by Mallory Jeffries MD (residential care facility manager). Dr. DAVID Mayen MD have personally reviewed [...] forefoot. Report dictated by Mallory Jeffries MD (residential care facility manager). Dr. DAVID Mayen MD have personally reviewed [...] third metacarpophalangeal joint where there is essentially dmmz-rn-sejg contact. A lytic lesion is present in [...] third metacarpophalangeal joint where there is essentially knat-hq-qafw contact. A lytic lesion is present in [...] forefoot. Report dictated by Mallory Jeffries MD (residential care facility manager). I, Dr. DAVID NOLAN MD have personally [...] forefoot. Report dictated by Mallory Jeffries MD (residential care facility manager). I, Dr. DAVID NOLAN MD have personally [...] third metacarpophalangeal joint where there is essentially dkgt-mz-pftx contact. A lytic lesion is present in [...] third metacarpophalangeal joint where there is essentially pcxw-bu-cjtb contact. A lytic lesion is present in [...] forefoot. Report dictated by Mallory Jeffries MD (residential care facility manager). I, Dr. DAVID NOLAN MD have personally [...] forefoot. Report dictated by Mallory Jeffries MD (residential care facility manager). I, Dr. DAVID NOLAN MD have personally [...] third metacarpophalangeal joint where there is essentially alzw-du-gzdr contact. A lytic lesion is present in [...] third metacarpophalangeal joint where there is essentially tbbi-bl-cjme contact. A lytic lesion is present in [...] forefoot. Report dictated by Mallory Jeffries MD (residential care facility manager). I, Dr. DAVID NOLAN MD have personally [...] forefoot. Report dictated by Mallory Jeffries MD (residential care facility manager). I, Dr. DAVID NOLAN MD have personally [...] third metacarpophalangeal joint where there is essentially vbnc-hi-akpq contact. A lytic lesion is present in [...] third metacarpophalangeal joint where there is essentially sioq-er-vvsf contact. A lytic lesion is present in [...] forefoot. Report dictated by Mallory Jeffries MD (residential care facility manager). I, Dr. DAVID NOLAN MD have personally [...] This report was electronically signed by Callum CROCKER M.D. on 07/20/2018 2:55 PM . Narrative [...] seen in the shoulders. Procedure Note Carmella Crocker MD - 07/20/2018 EXAMINATION: XR CHEST 2VW [...] This report was electronically signed by Callum CROCKER M.D. on 07/20/2018 2:55 PM . Genesis Maradiaga DO DIAGNOSTIC IMAGING O RDERABLES * HIV-1 HIV-2 ANTIGEN/ANTIBODY (07/20/2018 10:17 AM CDT) HIV Antigen/Antibod y 1 & 2 Non-reacti ve Non-react adriana 07/20/2018 12:[address] [facility] Comment: Neither HIV-1 p24 Antigen nor HIV-1/HIV-2 Antibodies are detected. Blood BLOOD SPECIMEN / Unknown Lab Venipuncture / Unknown 07/20/2018 10:17 AM CDT 07/20/2018 11:36 AM CDT Genesis Maradiaga DO LAB - HEMATOLOGY ORD ERABLES Performing Organization Address City/State/[facility] Co de Phone Number [address] [phone] * QUANTIFERON-TB GOLD PLUS 4-TUBE (07/20/2018 10:17 AM CDT) Pathologist [facility] QuantiFERON Criteria Comment 07/22/2018 6:07 PM CDT [facility] ([facility]) Comment: The QuantiFERON-TB Gold Plus result is determined by subtracting the Nil value from either TB antigen (Ag) tube. The mitogen tube serves as a control for the test. QuantiFERON TB1 Ag Value 0.03 IU/mL 07/22/2018 6:07 PM CDT [facility] ([facility]) QuantiFERON TB2 Ag Value 0.03 IU/mL 07/22/2018 6:07 PM CDT [facility] ([facility]) QuantiFERON Nil Value 0.04 IU/mL 07/22/2018 6:07 PM CDT [facility] ([facility]) QuantiFERON Mitogen Value >10.00 IU/mL 07/22/2018 6:07 PM CDT [facility] ([facility]) QuantiFERON-TB Gold Plus Negative Negative 07/22/2018 6:07 PM CDT [facility] ([facility]) Comment: The specimen received for QuantiFERON testing [...] 10:17 AM CDT 07/20/2018 10:50 AM CDT [facility] ([facility]) - 07/22/2018 6:07 PM CDT Performed at: [address] [id number] Firer Boiler: Dar Garcia PhD, Phone: [phone] Genesis Maradiaga DO LAB - CHEMISTRY ORDE NEIDA Performing Organization Address [facility] Co de Phone Number [facility] ([facility]) [address] [place] [address], [facility] * (ABNORMAL) CYCLIC CITRUL PEPTIDE ANTIBODY IGG/IGA (CCP) (07/20/2018 10:17 AM CDT) Pathologist [facility] CCP Antibodies IgG/IgA 139(H) 0 - 19 units 07/21/2018 11:05 PM CDT [facility] ([facility]) Comment: Negative <20 Weak positive 20 - 39 Moderate positive 40 - 59 Strong positive >59 Blood BLOOD SPECIMEN / Unknown Lab Venipuncture / Unknown 07/20/2018 10:17 AM CDT 07/20/2018 11:01 AM CDT [facility] ([facility]) - 07/21/2018 11:05 PM CDT Performed at: [address] [place] [address] [id number] Firer Boiler: Van Parada MD, Phone: [phone] Genesis Maradiaga DO LAB - SEROLOGY ORDER OSBALDO Performing Organization Address [facility] Co de Phone Number [facility] ([facility]) [address] [place] [address], [facility] * (ABNORMAL) FLOYD STAINING PATTERNS REFLEXED (07/20/2018 10:17 AM CDT) Pathologist [facility] Homogeneous Pattern 1:640(H) 07/21/2018 2:11 PM CDT [facility] ([facility]) Speckled Pattern 1:640(H) 07/22/19 19 2:11 PM CDT [facility] ([facility]) Note Comment 07/21/2018 2:11 PM CDT [facility] ([facility]) Comment: A positive ANNA result may occur in healthy individuals (low titer) or be associated with a variety of diseases. See interpretation chart which is not all inclusive: Pattern Antigen Detected Suggested Disease Association Homogeneous DNA(ds,ss), SLE - High titers Nucleosomes, Histones Drug-induced SLE Speckled Sm, ELEVATOR ERECTOR HELPER, SCL-70, SLE,MCTD,PSS (diffuse form), SS-A/SS-B Sjogrens Nucleolar SCL-70, PM-1/SCL High titers Scleroderma, PM/DM Centromere Centromere PSS (limited form) w/Crest syndrome variable Nuclear Dot Sp100,[id number]-fznltg Primary Biliary Cirrhosis Nuclear GP210, Primary Biliary Cirrhosis Membrane nia A,B,C Blood BLOOD SPECIMEN / Unknown Lab Venipuncture / Unknown 07/20/2018 10:17 AM CDT 07/20/2018 10:52 AM CDT Narrative [facility] ([facility]) - 07/21/2018 2:11 PM CDT Performed at: [address] [place] [address] [address] [place], [place] [id number] Firer Boiler: Dar Garcia PhD, Phone: [phone] Genesis Maradiaga DO LAB - PATHOLOGY/CYTO LOGY ORDERABLES Performing Organization Address City/[facility]/ZIP Co de Phone Number [facility]) [address] [place] [address], [facility] * URIC ACID BLOOD (07/20/2018 10:17 AM CDT) Pathologist [facility] Uric Acid 5.3 2.6 - 7.2 mg/dL 07/20/2018 11:15 AM CDT [facility] Blood BLOOD SPECIMEN / Unknown Lab Venipuncture / Unknown 07/20/2018 10:17 AM CDT 07/20/2018 10:52 AM CDT Genesis Maradiaga DO LAB - CHEMISTRY ORDE NEIDA [address] [phone] * (ABNORMAL) RHEUMATOID FACTOR BLOOD QUANTITATIVE (07/20/2018 10:17 AM CDT) Rheumatoid Factor >200(H) <30 IU/mL 07/20/2018 11:28 AM CDT [facility] Comment: Result obtained by dilution. Blood BLOOD SPECIMEN / Unknown Lab Venipuncture / Unknown 07/20/2018 10:17 AM CDT 07/20/2018 10:52 AM CDT Genesis Maradiaga DO LAB - CHEMISTRY ANA MARIA CARRASQUILLO Performing Organization Address [facility]/ZIP Co de Phone Number [address] [phone] * (ABNORMAL) C-REACTIVE PROTEIN (07/20/2018 10:17 AM CDT) C-Reactive Protein 3.9(H) <=0.5 mg/dL 07/20/2018 12:21 PM CDT [facility] Blood BLOOD SPECIMEN / Unknown Lab Venipuncture / Unknown 07/20/2018 10:17 AM CDT 07/20/2018 11:36 AM CDT Genesis Maradiaga DO LAB - CHEMISTRY ANA MARIA CARRASQUILLO Performing Organization Address [facility] Co de Phone Number [address] [phone] * (ABNORMAL) ANNA BLOOD SCREEN W/REFLEX TITER (07/20/2018 10:17 AM CDT) Pathologist [facility] ANNA Positive( A) 07/21/2018 2:11 PM CDT [facility] ([facility]) Comment: Negative <1:80 Borderline 1:80 Positive >1:80 Speckled cytoplasmic fluorescence is present. The antibodies noted in this pattern may be associated with, but not restricted to, primary biliary cirrhosis (PBC), polymyositis and dermatomyositis (PM/DM), and/or systemic lupus erythematosus (SLE). Blood BLOOD SPECIMEN / Unknown Lab Venipuncture / Unknown 07/20/2018 10:17 AM CDT 07/20/2018 10:52 AM CDT Narrative [facility] ([facility]) - 07/21/2018 2:11 PM CDT Performed at: [address] [place] [id number] Firer Boiler: Dar Garcia PhD, Phone: [phone] Genesis Maradiaga DO LAB - CHEMISTRY ANA MARIA CARRASQUILLO Performing Organization Address [facility] Co de Phone Number [facility] ([facility]) [address] [place] [address] * THYROID PEROXIDASE ANTIBODY (07/20/2018 10:17 AM CDT) Thyroid Peroxidase TPO Antibody 23 0 - 34 IU/mL 07/21/2018 9:14 AM CDT [facility] ([facility]) Blood BLOOD SPECIMEN / Unknown Lab Venipuncture / Unknown 07/20/2018 10:17 AM CDT 07/20/2018 10:52 AM CDT Narrative [facility] ([facility]) - 07/21/2018 9:14 AM CDT Performed at: [address] [place] [address] [id number] Firer Boiler: Dar Garcia PhD, Phone: [phone] Genesis Maradiaga DO LAB - CHEMISTRY ANA MARIA CARRASQUILLO Performing Organization Address [facility] de Phone Number [facility] ([facility]) [address] [place] [address] * THYROGLOBULIN ANTIBODY (07/20/2018 10:17 AM CDT) Thyroglobulin Antibody <1.0 0.0 - 0.9 IU/mL 07/21/2018 1:08 PM CDT [facility] ([facility]) Comment:Thyroglobulin Antibo dy measured by [facility] [place] [employer] Blood BLOOD SPECIMEN / Unknown Lab Venipuncture / Unknown 07/20/2018 10:17 AM CDT 07/20/2018 11:34 AM CDT Narrative [facility] ([facility]) - 07/21/2018 1:08 PM CDT Performed at: [address] [place] [address] [id number] Firer Boiler: Dar Garcia PhD, Phone: [phone] Genesis Maradiaga DO LAB - CHEMISTRY ANA MARIA CARRASQUILLO [facility] ([facility]) [address] [place] [address] * HLA TYPING B27 (07/20/2018 10:17 AM CDT) HLA-B27 Negative Negative 07/22/2018 5:36 PM CDT [facility] ([facility]) Comment: INTERPRETIVE INFORMATION: HLA-B27 HLA-B27 is a serologically defined allele of the human HLA-B locus. The presence of the HLA-B27 antigen is strongly associated with ankylosing spondylitis and related disorders. Test developed and characteristics determined by [facility]. See Compliance Statement B: [employer] Performed by [facility], [address] [place] [address] [email or web address], James Spivey MD, Lab. Director Blood BLOOD SPECIMEN / Unknown Lab Venipuncture / Unknown 07/20/2018 10:17 AM CDT 07/20/2018 10:55 AM CDT Genesis Maradiaga DO LAB - CHEMISTRY ANA MARIA CARRASQUILLO Performing Organization Address [facility] Co de Phone Number [facility] ([facility]) [address] [place] [address] * SS-B (SJOGRENS'S) ANTIBODY (07/20/2018 10:17 AM CDT) SS-B LA Antibody 4.9 0.0 - 19.9 Units 07/23/2018 12:[address] [facility] Comment: JUSTIN Antibody Numeric Result Interpretation: <20.0 Units: Negative 20.0 - 39.0 Units: Weakly Positive >39.0 Units: Positive Blood BLOOD SPECIMEN / Unknown Lab Venipuncture / Unknown 07/20/2018 10:17 AM CDT 07/20/2018 11:35 AM CDT Genesis Maradiaga DO LAB - CHEMISTRY ANA MARIA CARRASQUILLO [facility] [address] [place] [address] * SS-A (SJOGREN'S) ANTIBODY (07/20/2018 10:17 AM CDT) Pathologist [facility] SS-A (Ro) Antibody 5.3 0.0 - 19.9 Units 07/23/2018 12:23 PM CDT [facility] Comment: JUSTIN Antibody Numeric Result Interpretation: <20.0 Units: Negative 20.0 - 39.0 Units: Weakly Positive >39.0 Units: Positive Blood BLOOD SPECIMEN / Unknown Lab Venipuncture / Unknown 07/20/2018 10:17 AM CDT 07/20/2018 11:35 AM CDT Genesis A Hiren BISHOP LAB - CHEMISTRY [facility] Performing Organization Address [facility] Co de Phone Number [address] [phone] * (ABNORMAL) VITAMIN D 25-HYDROXY (07/20/2018 10:17 AM CDT) [facility] Vitamin D, 25 Hydroxy 5.7(L) See comment: ng/mL 07/20/2018 11:36 AM CDT [facility] Comment: The recommendations for 25-Hydroxy Vitamin [...] - CHEMISTRY KYREEAime CARRASQUILLO Performing Organization Address [facility]/ZIP Co de Phone Number [address] [phone] * (ABNORMAL) ALDOLASE (07/20/2018 10:17 AM CDT) Aldolase 12.7(H) 3.3 - 10.3 U/L 07/21/2018 2:11 PM CDT [facility] ([facility]) Blood BLOOD SPECIMEN / Unknown Lab Venipuncture / Unknown 07/20/2018 10:17 AM CDT 07/20/2018 10:52 AM CDT Narrative [facility] ([facility]) - 07/21/2018 2:11 PM CDT Performed at: [facility] [address] [place], [place] [id number] Firer Boiler: Dar Garcia PhD, Phone: [phone] Genesis Maradiaga DO LAB - CHEMISTRY ANA MARIA CARRASQUILLO [facility] ([facility]) [address] [place] [address] * (ABNORMAL) ERYTHROCYTE SEDIMENTATION RATE (07/20/2018 10:17 AM CDT) Pathologist [facility] Erythrocyte Sedimentation Rate Westergren 88(H) 0 - 30 MM/HR 07/20/2018 11:[address] [facility] Blood BLOOD SPECIMEN / Unknown Lab Venipuncture / Unknown 07/20/2018 10:17 AM CDT 07/20/2018 11:35 AM CDT Genesis Maradiaga DO LAB - HEMATOLOGY ORD ABDA [facility] [address] [place] [address] * (ABNORMAL) RBC MORPHOLOGY (07/20/2018 10:17 AM CDT) Anisocytosis 2+(A) None 07/20/2018 12:[address] [facility] Microcytes 2+(A) None 07/20/2018 12:[address] [facility] Hypochromia 2+(A) None 07/20/2018 12:[address] [facility] Ovalocytes 1+(A) None 07/20/2018 12:[address] [facility] Blood BLOOD SPECIMEN / Unknown Lab Venipuncture / Unknown 07/20/2018 10:17 AM CDT 07/20/2018 11:35 AM CDT Genesis Maradiaga DO LAB - HEMATOLOGY ORD ERABLES [facility] [address] [phone] * (ABNORMAL) CBC WITH DIFFERENTIAL (07/20/2018 10:17 AM CDT) WBC 16.5(H) 3.5 - 10.5 10 3/uL 07/20/2018 11:[address] [facility] RBC 6.55(H) 3.90 - 5.00 10 6/uL 07/20/2018 11:[address] [facility] Hemoglobin 13.0 12.0 - 15.5 g/dL 07/20/2018 11:[address] [facility] Hematocrit 49.5(H) 35.0 - 45.0 % 07/20/2018 11:[address] [facility] MCV 75.6(L) 81.0 - 97.0 fL 07/20/2018 11:[address] [facility] MCH 19.8(L) 28.0 - 34.0 pg 07/20/2018 11:[address] [facility] MCHC 26.3(L) 32.0 - 36.0 g/dL 07/20/2018 11:[address] [facility] Platelet Count 374 150 - 400 10 3/uL 07/20/2018 11:[address] [facility] RDW-SD 65.4(H) 36.0 - 50.0 fL 07/20/2018 11:[address] [facility] RDW-CV 25.1(H) 11.2 - 14.8 % 07/20/2018 11:[address] [facility] MPV 10.1 9.3 - 12.8 fL 07/20/2018 11:[address] [facility] nRBC Absolute 0.00 0 10 3/uL 07/20/2018 11:[address] [facility] nRBC Auto 0.0 0 /100 WBC 07/20/2018 11:[address] [facility] Neutrophils % 83.6(H) 35.0 - 70.0 % 07/20/2018 11:[address] [facility] Lymphocytes % 9.2(L) 19.7 - 55.1 % 07/20/2018 11:[address] [facility] Monocytes % 5.5 3.0 - 15.0 % 07/20/2018 11:[address] [facility] Eosinophils % 0.5 0.0 - 6.0 % 07/20/2018 11:[address] [facility] Basophil % 0.8 0.0 - 1.5 % 07/20/2018 11:[address] [facility] Neutrophils Absolute 13.7(H) 1.6 - 7.0 10 3/uL 07/20/2018 11:[address] [facility] Lymphocyte Absolute 1.5 0.8 - 2.9 10 3/uL 07/20/2018 11:[address] [facility] Monocytes Absolute 0.91(H) 0.14 - 0.66 10 3/uL 07/20/2018 11:[address] [facility] Eosinophils Absolute 0.09 0.00 - 0.45 10 3/uL 07/20/2018 11:[address] [facility] Basophils Absolute 0.13(H) 0.00 - 0.06 10 3/uL 07/20/2018 11:[address] [facility] Reflex Status Morphology review to follow. 07/20/2018 11:[address] [facility] Immature Granulocytes % 0.4 0.0 - 1.0 % 07/20/2018 11:[address] [facility] Blood BLOOD SPECIMEN / Unknown Lab Venipuncture / Unknown 07/20/2018 10:17 AM CDT 07/20/2018 11:35 AM CDT Genesis Maradiaga DO LAB - HEMATOLOGY ORD ERABLES [facility] [address] [place] [address] * (ABNORMAL) COMPREHENSIVE METABOLIC PANEL (07/20/2018 10:17 AM CDT) BUN 12 7 - 26 mg/dL 07/20/2018 11:[address] [facility] Creatinine 0.5(L) 0.6 - 1.2 mg/dL 07/20/2018 11:[address] [facility] Sodium 140 136 - 145 mmol/L 07/20/2018 11:[address] [facility] Potassium 3.7 3.5 - 4.5 mmol/L 07/20/2018 11:[address] [facility] Chloride 98 98 - 107 mmol/L 07/20/2018 11:[address] [facility] CO2 28 22 - 29 mmol/L 07/20/2018 11:[address] [facility] Glucose 199(H) 70 - 115 mg/dL 07/20/2018 11:[address] [facility] Calcium 9.0 8.4 - 10.2 mg/dL 07/20/2018 11:[address] [facility] Protein Total 7.7 6.0 - 8.3 g/dL 07/20/2018 11:[address] [facility] Albumin 3.0(L) 3.4 - 5.0 g/dL 07/20/2018 11:[address] [facility] Bilirubin Total 0.4 0.2 - 1.2 mg/dL 07/20/2018 11:[address] [facility] Alkaline Phosphatase 151(H) 40 - 150 Units/L 07/20/2018 11:[address] [facility] ALT 12 0 - 55 Units/L 07/20/2018 11:[address] [facility] AST 12 5 - 34 Units/L 07/20/2018 11:[address] [facility] Anion Gap 18 8 - 18 07/20/2018 11:[address] [facility] BUN/Creatinine Ratio 24(H) 7 - 23 07/20/2018 11:[address] [facility] Osmolality Calculated 295 270 - 300 mOsm/kg 07/20/2018 11:[address] [facility] Albumin/Globulin Ratio 0.6(L) 1.1 - 2.3 07/20/2018 11:[address] [facility] eGFR >60 >60 mL/min/1.7 3 m2 07/20/2018 11:15 AM CDT [facility] Blood BLOOD SPECIMEN / Unknown Lab Venipuncture / Unknown 07/20/2018 10:17 AM CDT 07/20/2018 10:52 AM CDT Genesis Maradiaga DO LAB - CHEMISTRY ANA [facility]IA CARRASQUILLO [address] [phone] * (ABNORMAL) LDH BLOOD (07/20/2018 10:17 AM CDT) LDH Total 367(H) 125 - 243 Units/L 07/20/2018 11:15 AM CDT [facility] Blood BLOOD SPECIMEN / Unknown Lab Venipuncture / Unknown 07/20/2018 10:17 AM CDT 07/20/2018 10:52 AM CDT Genesis Maradiaga DO LAB - CHEMISTRY ANA [facility]IA CARR[place]QU[place]O Performing Organization Address [facility]/ZIP Co de Phone Number [address] [phone] * HEPATITIS B SURFACE ANTIGEN W RFLX CONFIRMATION (07/20/2018 10:17 AM CDT) Pathologist [facility] Hepatitis B Virus Surface Antigen Non-reacti ve Non-reacti ve 07/20/2018 12:36 PM CDT [facility] Blood BLOOD SPECIMEN / Unknown Lab Venipuncture / Unknown 07/20/2018 10:17 AM CDT 07/20/2018 11:35 AM CDT Genesis Maradiaga DO LAB - CHEMISTRY ANA MARIA CARRASQUILLO Performing Organization Address City/[facility]/[place] [address], [facility] [phone] * CK BLOOD (07/20/2018 10:17 AM CDT) CK Total 37 30 - 200 Units/L 07/20/2018 11:15 AM CDT [facility] Blood BLOOD SPECIMEN / Unknown Lab Venipuncture / Unknown 07/20/2018 10:17 AM CDT 07/20/2018 10:52 AM CDT Genesis Maradiaga DO LAB - CHEMISTRY ANA MARIA [place]ARR[place] Performing Organization Address City/[facility]/ZIP Co de Phone Number [address] [phone] * TSH (07/20/2018 10:17 AM CDT) Pathologist [facility] TSH 0.872 0.350 - 4.940 uIU/mL 07/20/2018 11:35 AM CDT [facility] Blood BLOOD SPECIMEN / Unknown Lab Venipuncture / Unknown 07/20/2018 10:17 AM CDT 07/20/2018 10:52 AM CDT Genesis Maradiaga DO LAB - CHEMISTRY ANA MARIA CARRASQUILLO Performing Organization Address [facility]/[place] [address], [facility] [phone] * T4 FREE (07/20/2018 10:17 AM CDT) [facility] T4 Free 1.0 0.7 - 1.5 ng/dL 07/20/2018 1:13 PM CDT [facility] Blood BLOOD SPECIMEN / Unknown Lab Venipuncture / Unknown 07/20/2018 10:17 AM CDT 07/20/2018 11:35 AM CDT Genesis Maradiaga DO LAB - CHEMISTRY ANA MARIA CARRASQUILLO Performing Organization Address City/[facility]/[place] [address], [facility] [phone] * HEPATITIS C ANTIBODY (07/20/2018 10:17 AM CDT) Pathologist [facility] Hepatitis C Antibody Non-react adriana Non-reac tive 07/20/2018 12:38 PM CDT [facility] Comment: Hepatitis C Antibody [...] DO LAB - CHEMISTRY ANA MARIA CARRASQUILLO [facility] Organization Address City/State/ZIP Co de Phone Number [address] [phone] Care Teams Lemon Picker Relationship Specialty Start Date End Date Negro Hein MD [address] [place] [id number] PCP - General 12/23/17
--- OUTSIDE RECORDS SUMMARY | 2024-05-23 15:11 | XMS_ITS | Clinical Summary ---
Author Organization [facility] Address [address] [place] [id number] Care Team Providers Care Director [facility] Name Role Phone Unavailable Primary Care Provider [...]
--- OUTSIDE RECORDS SUMMARY | 2024-05-23 15:11 | XMS_ITS ---
Author Organization Unknown Address [address] [place] [phone] Phone Care Team Providers Care Primary Grade Teacher Name Role Phone TAISHA MOSES Attending Unavailable [...] 208 CVX Pneumococcal conjugate PCV20 , polysaccharide BCK623 conjugate, adjuvant, PF 07/31/2022 Completed 216 CVX [...] Jameel Teague M.D. RB: PAUL Report ID: [id number] Reading Location: [id number] Social History Type Status Start Date End Date Code Code Syst em Sex Female Hospital Discharge Instructions Should you have any questions prior to discharge, please contact a member of your healthcare team. If you have left the hospital and have any questions, please contact your primary care physician. Reason For Referral No Data Found Plan of Treatment Kidney & Bladder (09651) 02/09/2024 Encounters Encounter Diagnosis Start Date Code Code Sys tem Proteinuria 02/09/2024 [id number] SNOMED-CT Personal Care Team Section Performer Name Performer Role Active Date Inactive Da te Imaging Narrative Notes
--- OUTSIDE RECORDS SUMMARY | 2024-05-23 15:11 | XMS_ITS | Clinical Summary ---
Author Organization [facility] Address [address] [place] [address] Care Team Providers Care Safety Council Director Name Role Phone Negro Hein MD Primary Care Provider [phone] Source Comments [facility],non-owned Affiliates and Associated Physician Practices is amultiple site organization consisting of ambulatory clinics and hospital sitesin [place], [place], [place] and [place]. This disclosure is being madepursuant to the Care Everywhere program and may not contain all information available regarding this patient. Last updated 17.[facility] Allergies Active Allergy Reactions Criticality Noted Date [...] Active vitamin D, ergocalciferol, (DRISDOL) 1.25 MG (08320 UT) capsuleIndication s:Hypovitaminosis D Take 1 capsule [...] Comments Blood Pressure 158/72 05/24/2019 12:10 PM [facility] Pulse 84 05/24/2019 12:10 PM [facility] Temperature 36.9 C (98.4 F) 05/24/2019 12:10 PM [facility] [facility] Respiratory Rate - - Oxygen Saturation - - Inhaled Oxygen Concentration - - Weight 83.5 kg (184 lb) 05/24/2019 12:10 PM [facility] [facility] Height 167.6 cm (5' 6 ) 05/24/2019 12:10 PM [facility] [facility] Body Mass Index 29.7 05/24/2019 12:10 PM [facility] Plan of Treatment Health Maintenance Due Date [...] ANTIGEN/ANTIBODY (07/20/2018 10:17 AM CDT) Pathologist [facility] HIV Antigen/Antibod y 1 & 2 Non-reacti ve Non-react adriana 07/20/2018 12:38 PM CDT [facility] Comment: Neither HIV-1 p24 Antigen nor HIV-1/HIV-2 Antibodies are detected. Blood BLOOD SPECIMEN / Unknown Lab Venipuncture / Unknown 07/20/2018 10:17 AM CDT 07/20/2018 11:36 AM CDT Genesis Maradiaga DO LAB - HEMATOLOGY ORD ERABLES Performing Organization Address City/State/[facility] Co de Phone Number [facility] [address] [place] [address] * (ABNORMAL) COMPREHENSIVE METABOLIC PANEL (07/20/2018 10:17 AM CDT) Pathologist [facility] BUN 12 7 - 26 mg/dL 07/20/2018 11:15 AM [facility] Creatinine 0.5(L) 0.6 - 1.2 mg/dL 07/20/2018 11:15 AM [facility] Sodium 140 136 - 145 mmol/L 07/20/2018 11:15 AM [facility] Potassium 3.7 3.5 - 4.5 mmol/L 07/20/2018 11:15 AM [facility] Chloride 98 98 - 107 mmol/L 07/20/2018 11:15 AM [facility] CO2 28 22 - 29 mmol/L 07/20/2018 11:15 AM [facility] Glucose 199(H) 70 - 115 mg/dL 07/20/2018 11:15 AM [facility] Calcium 9.0 8.4 - 10.2 mg/dL 07/20/2018 11:15 AM [facility] Protein Total 7.7 6.0 - 8.3 g/dL 07/20/2018 11:15 AM [facility] Albumin 3.0(L) 3.4 - 5.0 g/dL 07/20/2018 11:15 AM [facility] Bilirubin Total 0.4 0.2 - 1.2 mg/dL 07/20/2018 11:15 AM [facility] Alkaline Phosphatase 151(H) 40 - 150 Units/L 07/20/2018 11:15 AM [facility] ALT 12 0 - 55 Units/L 07/20/2018 11:15 AM [facility] AST 12 5 - 34 Units/L 07/20/2018 11:15 AM [facility] Anion Gap 18 8 - 18 07/20/2018 11:15 AM [facility] BUN/Creatinine Ratio 24(H) 7 - 23 07/20/2018 11:15 AM [facility] Osmolality Calculated 295 270 - 300 mOsm/kg 07/20/2018 11:15 AM [facility] Albumin/Globulin Ratio 0.6(L) 1.1 - 2.3 07/20/2018 11:15 AM [facility] eGFR >60 >60 mL/min/1.7 3 m2 07/20/2018 11:15 AM [facility] Blood BLOOD SPECIMEN / Unknown Lab Venipuncture / Unknown 07/20/2018 10:17 AM CDT 07/20/2018 10:52 AM [facility] Genesis Maradiaga DO LAB - CHEMISTRY ANA MARIA CARRASQUILLO [facility] Organization Address City/State/[facility] Co de Phone Number [facility] [address] [place] [address] * HEPATITIS C ANTIBODY (07/20/2018 10:17 AM CDT) Hepatitis C Antibody Non-react adriana Non-reac tive 07/20/2018 12:38 PM [facility] Comment: Hepatitis C Antibody screen indicates [...] DO LAB - CHEMISTRY ANA [place] [address], [facility] [phone] from Last 3 Months or Most Recently Relevant to Health Maintenance Care Teams Safety Council Director Relationship Specialty Start Date End Date Negro Hein MD [address] [place] [phone] PCP - General 12/23/17
== END 2024-05-23 13:16 | disposition home or self-care (01) ==
LOC: CHSLAB 13:19
PROVIDERS: PCP Family Medicine
DX: N39.0 Urinary tract infection, site not specified (principal)
CPT/HCPCS: 81001; 87086

== ENCOUNTER 2024-06-03 12:30 | Outpatient (CLI) | payer OTHER, SELFPAY ==
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
--- OUTSIDE RECORDS SUMMARY | 2024-06-03 12:52 | XMS_ITS | Clinical Summary ---
Author Organization [facility] Address [address] [place] [address] Care Team Providers Care Rigging Loft Repairer Name Role Phone Negro Hein MD Primary Care Provider [phone] Allergies Active Allergy Reactions Criticality Noted Date [...] (1 - 1-dose 75+ series) 11/01/2035 Insurance [facility] [id number] [facility] MCR [facility] [id number] [facility] Care Teams Rigging Loft Repairer Relationship Specialty Start Date End Date Negro Hein MD [address] [place] [address] PCP - General Family Practice 05/06/21
--- OUTSIDE RECORDS SUMMARY | 2024-06-03 12:52 | XMS_ITS | Clinical Summary ---
Author Organization [facility] Address [address] [place] [address] Care Team Providers Care Fish Straightener Name Role Phone Negro Hein MD Primary Care Provider [phone] Source Comments [facility],non-owned Affiliates and Associated Physician Practices is amultiple site organization consisting of ambulatory clinics and hospital sitesin [place], [place], [place] and [place]. This disclosure is being madepursuant to the Care Everywhere program and may not contain all information available regarding this patient. Last updated 17.[employer] [facility] Allergies Active Allergy Reactions Criticality Noted Date [...] Active vitamin D, ergocalciferol, (DRISDOL) 1.25 MG (31909 UT) capsuleIndication s:Hypovitaminosis D Take 1 capsule [...] Comments Blood Pressure 158/72 05/24/2019 12:10 PM [employer]IST Pulse 84 05/24/2019 12:10 PM [employer] Temperature 36.9 C (98.4 F) 05/24/2019 12:10 PM [employer]IST Respiratory Rate - - Oxygen Saturation - - Inhaled Oxygen Concentration - - Weight 83.5 kg (184 lb) 05/24/2019 12:10 PM [employer]IST[employer]IST Height 167.6 cm (5' 6 ) 05/24/2019 12:10 PM [employer]IST Body Mass Index 29.7 05/24/2019 12:10 PM [employer] SPECIALIST Plan of Treatment Health Maintenance Due Date [...] HIV-2 ANTIGEN/ANTIBODY (07/20/2018 10:17 AM CDT) Pathologist [facility] HIV Antigen/Antibod y 1 & 2 Non-reacti ve Non-react adriana 07/20/2018 12:38 PM CDT [facility] Comment: Neither HIV-1 p24 Antigen nor HIV-1/HIV-2 Antibodies are detected. Blood BLOOD SPECIMEN / Unknown Lab Venipuncture / Unknown 07/20/2018 10:17 AM CDT 07/20/2018 11:36 AM CDT Genesis Maradiaga DO LAB - HEMATOLOGY ORD ERABLES Performing Organization Address City/State/[facility] Co de Phone Number [facility] [address] [place] [address] * (ABNORMAL) COMPREHENSIVE METABOLIC PANEL (07/20/2018 10:17 AM CDT) Pathologist [facility] BUN 12 7 - 26 mg/dL 07/20/2018 11:15 AM [facility] Creatinine 0.5(L) 0.6 - 1.2 mg/dL 07/20/2018 11:15 AM [facility] Sodium 140 136 - 145 mmol/L 07/20/2018 11:15 AM [facility] Potassium 3.7 3.5 - 4.5 mmol/L 07/20/2018 11:15 AM [facility] Chloride 98 98 - 107 mmol/L 07/20/2018 11:15 AM [facility] CO2 28 22 - 29 mmol/L 07/20/2018 11:15 AM [facility] Glucose 199(H) 70 - 115 mg/dL 07/20/2018 11:15 AM [facility] Calcium 9.0 8.4 - 10.2 mg/dL 07/20/2018 11:15 AM [facility] Protein Total 7.7 6.0 - 8.3 g/dL 07/20/2018 11:15 AM [facility] Albumin 3.0(L) 3.4 - 5.0 g/dL 07/20/2018 11:15 AM [facility] Bilirubin Total 0.4 0.2 - 1.2 mg/dL 07/20/2018 11:15 AM [facility] Alkaline Phosphatase 151(H) 40 - 150 Units/L 07/20/2018 11:15 AM [facility] ALT 12 0 - 55 Units/L 07/20/2018 11:15 AM [facility] AST 12 5 - 34 Units/L 07/20/2018 11:15 AM [facility] Anion Gap 18 8 - 18 07/20/2018 11:15 AM [facility] BUN/Creatinine Ratio 24(H) 7 - 23 07/20/2018 11:15 AM [facility] Osmolality Calculated 295 270 - 300 mOsm/kg 07/20/2018 11:15 AM [facility] Albumin/Globulin Ratio 0.6(L) 1.1 - 2.3 07/20/2018 11:15 AM [facility] eGFR >60 >60 mL/min/1.7 3 m2 07/20/2018 11:15 AM [facility] Blood BLOOD SPECIMEN / Unknown Lab Venipuncture / Unknown 07/20/2018 10:17 AM CDT 07/20/2018 10:52 AM [facility] Genesis Maradiaga DO LAB - CHEMISTRY ANA MARIA CARRASQUILLO [facility] Organization Address City/State/[facility] Co de Phone Number [facility] [address] [place] [address] * HEPATITIS C ANTIBODY (07/20/2018 10:17 AM CDT) Hepatitis C Antibody Non-react adriana Non-reac tive 07/20/2018 12:38 PM [facility] Comment: Hepatitis C Antibody screen indicates [...] DO LAB - CHEMISTRY ANA [place] [address], [facility] [phone] from Last 3 Months or Most Recently Relevant to Health Maintenance Care Teams Fish Straightener Relationship Specialty Start Date End Date Negro Hein MD [address] [place] [address] PCP - General 12/23/17
--- OUTSIDE RECORDS SUMMARY | 2024-06-03 12:52 | XMS_ITS | Clinical Summary ---
Author Organization [facility] Address [address] [place] [id number] Care Team Providers Care Weaver Hand Name Role Phone Unavailable Primary Care Provider [...]
--- OUTSIDE RECORDS SUMMARY | 2024-06-03 12:52 | XMS_ITS | Patient Health Summary ---
Author Organization [facility] [employer] Address [address] [place] [address] Care Team Providers Care Tie Mill Operator Name Role Phone Negro Hein MD Primary Care Provider [phone] Note from [facility],non-owned Affiliates and Associated Physician Practices is amultiple site organization consisting of ambulatory clinics and hospital sitesin [place], [place], [place] and [place]. This disclosure is being madepursuant to the Care Everywhere program and may not contain all information available regarding this patient. Last updated 17.[facility] [employer] Allergies * Clindamycin(Urticaria) -Medium Criticality * Lisinopril(Rash) [...] * vitamin D, ergocalciferol, (DRISDOL) 1.25 MG (03770 UT) capsule(Started 09/15/2019) Take 1 capsule by [...] Comments Blood Pressure 158/72 05/24/2019 12:10 PM OPERATING ROOM SCHEDULER Pulse 84 05/24/2019 12:10 PM OPERATING ROOM SCHEDULER Temperature 36.9 C (98.4 F) 05/24/2019 12:10 PM OPERATING ROOM SCHEDULER Respiratory Rate - - Oxygen Saturation - - Inhaled Oxygen Concentration - - Weight 83.5 kg (184 lb) 05/24/2019 12:10 PM OPERATING ROOM SCHEDULER Height 167.6 cm (5' 6 ) 05/24/2019 12:10 PM OPERATING ROOM SCHEDULER Body Mass Index 29.7 05/24/2019 12:10 PM OPERATING ROOM SCHEDULER Procedures * XR KNEE LEFT 2VW OR [...] forefoot. Report dictated by Mallory Jeffries MD (transporter radiology). I, Dr. DAVID NOLAN MD have personally [...] third metacarpophalangeal joint where there is essentially mwgc-me-ohii contact. A lytic lesion is present in [...] third metacarpophalangeal joint where there is essentially rtbn-qj-ihgo contact. A lytic lesion is present in [...] forefoot. Report dictated by Mallory Jeffries MD (transporter radiology). Dr. DAVID Mayen MD have personally reviewed [...] forefoot. Report dictated by Mallory Jeffries MD (transporter radiology). Dr. DAVID Mayen MD have personally reviewed [...] third metacarpophalangeal joint where there is essentially bcrj-yo-gsqv contact. A lytic lesion is present in [...] third metacarpophalangeal joint where there is essentially ptmh-ou-aemw contact. A lytic lesion is present in [...] forefoot. Report dictated by Mallory Jeffries MD (transporter radiology). Dr. DAVID Mayen MD have personally reviewed [...] forefoot. Report dictated by Mallory Jeffries MD (transporter radiology). IDr. DAVID MD have personally reviewed and [...] third metacarpophalangeal joint where there is essentially fhzb-oc-jois contact. A lytic lesion is present in [...] third metacarpophalangeal joint where there is essentially hbeh-bq-uslt contact. A lytic lesion is present in [...] in the forefoot. Report dictated by Mallory Jfefries MD (transporter radiology). I, Dr. DAVID NOLAN MD have personally reviewed and interpreted this examination/study. This report was electronically signed by DAVID NOLAN MD on07/21/2018 9:16 AM . Genesis Toelntino Hiren DO DIAGNOSTIC IMAGING O RDERABLES * [...] forefoot. Report dictated by Mallory Jeffries MD (transporter radiology). I, Dr. DAVID NOLAN MD have personally [...] third metacarpophalangeal joint where there is essentially mjaq-fo-gyef contact. A lytic lesion is present in [...] third metacarpophalangeal joint where there is essentially zfkm-ax-jill contact. A lytic lesion is present in [...] forefoot. Report dictated by Mallory Jeffries MD (transporter radiology). I, Dr. DAVID NOLAN MD have personally [...] forefoot. Report dictated by Mallory Jeffries MD (transporter radiology). I, Dr. DAVID NOLAN MD have personally [...] third metacarpophalangeal joint where there is essentially rbih-qx-nvcw contact. A lytic lesion is present in [...] third metacarpophalangeal joint where there is essentially xqhf-tc-tvfo contact. A lytic lesion is present in [...] forefoot. Report dictated by Mallory Jeffries MD (transporter radiology). I, Dr. DAVID NOLAN MD have personally [...] forefoot. Report dictated by Mallory Jeffries MD (transporter radiology). I, Dr. DAVID NOLAN MD have personally [...] third metacarpophalangeal joint where there is essentially dsbx-dm-gsro contact. A lytic lesion is present in [...] third metacarpophalangeal joint where there is essentially ifpt-ap-zxid contact. A lytic lesion is present in [...] forefoot. Report dictated by Mallory Jeffries MD (transporter radiology). I, Dr. DAVID NOLAN MD have personally [...] forefoot. Report dictated by Mallory Jeffries MD (transporter radiology). I, Dr. DAVID NOLAN MD have personally [...] third metacarpophalangeal joint where there is essentially ahuo-sl-khyw contact. A lytic lesion is present in [...] third metacarpophalangeal joint where there is essentially fdme-cf-ldlv contact. A lytic lesion is present in [...] forefoot. Report dictated by Mallory Jeffries MD (transporter radiology). I, Dr. DAVID NOLAN MD have personally [...] forefoot. Report dictated by Mallory Jeffries MD (transporter radiology). I, Dr. DAVID NOLAN MD have personally [...] third metacarpophalangeal joint where there is essentially gbon-rz-bpeb contact. A lytic lesion is present in [...] third metacarpophalangeal joint where there is essentially yise-xk-wtpg contact. A lytic lesion is present in [...] forefoot. Report dictated by Mallory Jeffries MD (transporter radiology). Dr. DAVID Mayen MD have personally reviewed [...] forefoot. Report dictated by Mallory Jeffries MD (transporter radiology). Dr. DAVID Mayen MD have personally reviewed [...] third metacarpophalangeal joint where there is essentially uwjp-pi-sbbc contact. A lytic lesion is present in [...] third metacarpophalangeal joint where there is essentially ynzn-rf-ifrt contact. A lytic lesion is present in [...] forefoot. Report dictated by Mallory Jeffries MD (transporter radiology). I, Dr. DAVID NOLAN MD have personally [...] forefoot. Report dictated by Mallory Jeffries MD (transporter radiology). I, Dr. DAVID NOLAN MD have personally [...] third metacarpophalangeal joint where there is essentially mqpg-lh-taua contact. A lytic lesion is present in [...] third metacarpophalangeal joint where there is essentially ejpv-er-axlh contact. A lytic lesion is present in [...] forefoot. Report dictated by Mallory Jeffries MD (transporter radiology). I, Dr. DAVID NOLAN MD have personally [...] forefoot. Report dictated by Mallory Jeffries MD (transporter radiology). I, Dr. DAVID NOLAN MD have personally [...] third metacarpophalangeal joint where there is essentially csjk-pu-gqqn contact. A lytic lesion is present in [...] third metacarpophalangeal joint where there is essentially ezfa-bl-jxhy contact. A lytic lesion is present in [...] forefoot. Report dictated by Mallory Jeffries MD (transporter radiology). I, Dr. DAVID NOLAN MD have personally [...] forefoot. Report dictated by Mallory Jeffries MD (transporter radiology). I, Dr. DAVID NOLAN MD have personally [...] third metacarpophalangeal joint where there is essentially sjoy-bc-yorx contact. A lytic lesion is present in [...] third metacarpophalangeal joint where there is essentially ngja-hg-sdlq contact. A lytic lesion is present in [...] forefoot. Report dictated by Mallory Jeffries MD (transporter radiology). I, Dr. DAVID NOLAN MD have personally [...] ve Non-react adriana 07/20/2018 12:38 PM CDT [facility] Comment: Neither HIV-1 p24 Antigen nor HIV-1/HIV-2 Antibodies are detected. Blood BLOOD SPECIMEN / Unknown Lab Venipuncture / Unknown 07/20/2018 10:17 AM CDT 07/20/2018 11:36 AM CDT Genesis Maradiaga DO LAB - HEMATOLOGY ORD ERABLES Performing Organization Address City/State/[facility] Co de Phone Number [address] [phone] * QUANTIFERON-TB GOLD PLUS 4-TUBE (07/20/2018 10:17 AM CDT) Pathologist [facility] QuantiFERON Criteria Comment 07/22/2018 6:07 PM CDT [facility] ([facility]) Comment: The QuantiFERON-TB Gold Plus result is determined by subtracting the Nil value from either TB antigen (Ag) tube. The mitogen tube serves as a control for the test. QuantiFERON TB1 Ag Value 0.03 IU/mL 07/22/2018 6:07 PM CDT [facility] ([facility]) QuantiFERON TB2 Ag Value 0.03 IU/mL 07/22/2018 6:07 PM CDT [facility] ([facility]) QuantiFERON Nil Value 0.04 IU/mL 07/22/2018 6:07 PM CDT [facility] ([facility]) QuantiFERON Mitogen Value >10.00 IU/mL 07/22/2018 6:07 PM CDT [facility] ([facility]) QuantiFERON-TB Gold Plus Negative Negative 07/22/2018 6:07 PM CDT [facility] ([facility]) Comment: The specimen received for QuantiFERON [...] 10:17 AM CDT 07/20/2018 10:50 AM CDT [facility] ([facility]) - 07/22/2018 6:07 PM CDT Performed at: [address] [id number] Systems Software Developer: Dar Garcia PhD, Phone: [phone] Genesis Maradiaga DO LAB - CHEMISTRY ORDE NEIDA Performing Organization Address [facility] Co de Phone Number [facility] ([facility]) [address] [place] [address], [facility] * (ABNORMAL) CYCLIC CITRUL PEPTIDE ANTIBODY IGG/IGA (CCP) (07/20/2018 10:17 AM CDT) Pathologist [facility] CCP Antibodies IgG/IgA 139(H) 0 - 19 units 07/21/2018 11:05 PM CDT [facility] ([facility]) Comment: Negative <20 Weak positive 20 - 39 Moderate positive 40 - 59 Strong positive >59 Blood BLOOD SPECIMEN / Unknown Lab Venipuncture / Unknown 07/20/2018 10:17 AM CDT 07/20/2018 11:01 AM CDT [facility] ([facility]) - 07/21/2018 11:05 PM CDT Performed at: [address] [place] [id number] Systems Software Developer: Van Parada MD, Phone: [phone] Genesis Maradiaga DO LAB - SEROLOGY ORDER OSBALDO Performing Organization Address [facility] Co de Phone Number [facility] ([facility]) [address] [place] [address], [facility] * (ABNORMAL) FLOYD STAINING PATTERNS REFLEXED (07/20/2018 10:17 AM CDT) Pathologist [facility] Homogeneous Pattern 1:640(H) 07/21/2018 2:11 PM CDT [facility] ([facility]) Speckled Pattern 1:640(H) 07/22/19 19 2:11 PM CDT [facility] ([facility]) Note Comment 07/21/2018 2:11 PM CDT [facility] ([facility]) Comment: A positive ANNA result may occur in healthy individuals (low titer) or be associated with a variety of diseases. See interpretation chart which is not all inclusive: Pattern Antigen Detected Suggested Disease Association Homogeneous DNA(ds,ss), SLE - High titers Nucleosomes, Histones Drug-induced SLE Speckled Sm, ASSEMBLER MOVEMENT, SCL-70, SLE,MCTD,PSS (diffuse form), SS-A/SS-B Sjogrens Nucleolar SCL-70, PM-1/SCL High titers Scleroderma, PM/DM Centromere Centromere PSS (limited form) w/Crest syndrome variable Nuclear Dot Sp100,c10-ivwcac Primary Biliary Cirrhosis Nuclear GP210, Primary Biliary Cirrhosis Membrane nia A,B,C Blood BLOOD SPECIMEN / Unknown Lab Venipuncture / Unknown 07/20/2018 10:17 AM CDT 07/20/2018 10:52 AM CDT Narrative [facility] ([facility]) - 07/21/2018 2:11 PM CDT Performed at: [address] [place] [address] [address] [place], [place] [id number] Systems Software Developer: Dar Garcia PhD, Phone: [phone] Genesis Maradiaga DO LAB - PATHOLOGY/CYTO LOGY ORDERABLES Performing Organization Address City/[facility]/ZIP Co de Phone Number [facility]) [address] [place] [address], [facility] * URIC ACID BLOOD (07/20/2018 10:17 AM CDT) Pathologist [facility] Uric Acid 5.3 2.6 - 7.2 mg/dL 07/20/2018 11:15 AM CDT [facility] Blood BLOOD SPECIMEN / Unknown Lab Venipuncture / Unknown 07/20/2018 10:17 AM CDT 07/20/2018 10:52 AM CDT Genesis Maradiaga DO LAB - CHEMISTRY ORDE NEIDA [address] [phone] * (ABNORMAL) RHEUMATOID FACTOR BLOOD QUANTITATIVE (07/20/2018 10:17 AM CDT) Rheumatoid Factor >200(H) <30 IU/mL 07/20/2018 11:28 AM CDT [facility] Comment: Result obtained by dilution. Blood BLOOD SPECIMEN / Unknown Lab Venipuncture / Unknown 07/20/2018 10:17 AM CDT 07/20/2018 10:52 AM CDT Genesis Maradiaga DO LAB - CHEMISTRY ANA MARIA CARRASQUILLO Performing Organization Address [facility]/ZIP Co de Phone Number [address] [phone] * (ABNORMAL) C-REACTIVE PROTEIN (07/20/2018 10:17 AM CDT) C-Reactive Protein 3.9(H) <=0.5 mg/dL 07/20/2018 12:21 PM CDT [facility] Blood BLOOD SPECIMEN / Unknown Lab Venipuncture / Unknown 07/20/2018 10:17 AM CDT 07/20/2018 11:36 AM CDT Genesis Maradiaga DO LAB - CHEMISTRY ANA MARIA CARRASQUILLO Performing Organization Address [facility] Co de Phone Number [address] [phone] * (ABNORMAL) ANNA BLOOD SCREEN W/REFLEX TITER (07/20/2018 10:17 AM CDT) Pathologist [facility] ANNA Positive( A) 07/21/2018 2:11 PM CDT [facility] ([facility]) Comment: Negative <1:80 Borderline 1:80 Positive >1:80 Speckled cytoplasmic fluorescence is present. The antibodies noted in this pattern may be associated with, but not restricted to, primary biliary cirrhosis (PBC), polymyositis and dermatomyositis (PM/DM), and/or systemic lupus erythematosus (SLE). Blood BLOOD SPECIMEN / Unknown Lab Venipuncture / Unknown 07/20/2018 10:17 AM CDT 07/20/2018 10:52 AM CDT Narrative [facility] ([facility]) - 07/21/2018 2:11 PM CDT Performed at: [address] [place] [id number] Systems Software Developer: Dar Garcia PhD, Phone: [phone] Genesis Maradiaga DO LAB - CHEMISTRY ANA MARIA CARRASQUILLO Performing Organization Address [facility] Co de Phone Number [facility] ([facility]) [address] [place] [address] * THYROID PEROXIDASE ANTIBODY (07/20/2018 10:17 AM CDT) Thyroid Peroxidase TPO Antibody 23 0 - 34 IU/mL 07/21/2018 9:14 AM CDT [facility] ([facility]) Blood BLOOD SPECIMEN / Unknown Lab Venipuncture / Unknown 07/20/2018 10:17 AM CDT 07/20/2018 10:52 AM CDT Narrative [facility] ([facility]) - 07/21/2018 9:14 AM CDT Performed at: [address] [place] [id number] Systems Software Developer: Dar Garcia PhD, Phone: [phone] Genesis Maradiaga DO LAB - CHEMISTRY ANA MARIA CARRASQUILLO Performing Organization Address [facility] de Phone Number [facility] ([facility]) [address] [place] [address] * THYROGLOBULIN ANTIBODY (07/20/2018 10:17 AM CDT) Thyroglobulin Antibody <1.0 0.0 - 0.9 IU/mL 07/21/2018 1:08 PM CDT [facility] ([facility]) Comment:Thyroglobulin Antibo dy measured by Shazia Keasbey Method[employer] Blood BLOOD SPECIMEN / Unknown Lab Venipuncture / Unknown 07/20/2018 10:17 AM CDT 07/20/2018 11:34 AM CDT Narrative [facility] ([facility]) - 07/21/2018 1:08 PM CDT Performed at: [address] [place] [id number] Systems Software Developer: Dar Garcia PhD, Phone: [phone] Genesis Maradiaga DO LAB - CHEMISTRY ANA MARIA CARRASQUILLO [facility] ([facility]) [address] [place] [address] * HLA TYPING B27 (07/20/2018 10:17 AM CDT) HLA-B27 Negative Negative 07/22/2018 5:36 PM CDT [facility] [employer] ([facility]) Comment: INTERPRETIVE INFORMATION: HLA-B27 HLA-B27 is a serologically defined allele of the human HLA-B locus. The presence of the HLA-B27 antigen is strongly associated with ankylosing spondylitis and related disorders. Test developed and characteristics determined by [employer]. See Compliance Statement B: [employer] Performed by [employer], [address] [place] [address] [email or web address], James Spivey MD, Lab. Director Blood BLOOD SPECIMEN / Unknown Lab Venipuncture / Unknown 07/20/2018 10:17 AM CDT 07/20/2018 10:55 AM CDT Genesis Maradiaga DO LAB - CHEMISTRY ANA MARIA CARRASQUILLO Performing Organization Address [facility] Co de Phone Number [employer] ([facility]) [address] [place] [address] * SS-B (SJOGRENS'S) ANTIBODY (07/20/2018 10:17 AM CDT) SS-B LA Antibody 4.9 0.0 - 19.9 Units 07/23/2018 12:24 PM CDT [facility] Comment: JUSTIN Antibody Numeric Result Interpretation: <20.0 Units: Negative 20.0 - 39.0 Units: Weakly Positive >39.0 Units: Positive Blood BLOOD SPECIMEN / Unknown Lab Venipuncture / Unknown 07/20/2018 10:17 AM CDT 07/20/2018 11:35 AM CDT Genesis Maradiaga DO LAB - CHEMISTRY ANA MARIA CARRASQUILLO [facility] [address] [place] [address] * SS-A (SJOGREN'S) ANTIBODY (07/20/2018 10:17 AM CDT) Pathologist [facility] SS-A (Ro) Antibody 5.3 0.0 - 19.9 Units 07/23/2018 12:23 PM CDT [facility] Comment: JUSTIN Antibody Numeric Result Interpretation: <20.0 Units: Negative 20.0 - 39.0 Units: Weakly Positive >39.0 Units: Positive Blood BLOOD SPECIMEN / Unknown Lab Venipuncture / Unknown 07/20/2018 10:17 AM CDT 07/20/2018 11:35 AM CDT Genesis A Hiren BISHOP LAB - CHEMISTRY [facility] Performing Organization Address [facility] Co de Phone Number [address] [phone] * (ABNORMAL) VITAMIN D 25-HYDROXY (07/20/2018 10:17 AM CDT) [facility] Vitamin D, 25 Hydroxy 5.7(L) See comment: ng/mL 07/20/2018 11:36 AM CDT [facility] Comment: The recommendations for 25-Hydroxy [...] - CHEMISTRY KYREEAime CARRASQUILLO Performing Organization Address [facility]/ZIP Co de Phone Number [address] [phone] * (ABNORMAL) ALDOLASE (07/20/2018 10:17 AM CDT) Aldolase 12.7(H) 3.3 - 10.3 U/L 07/21/2018 2:11 PM CDT [facility] ([facility]) Blood BLOOD SPECIMEN / Unknown Lab Venipuncture / Unknown 07/20/2018 10:17 AM CDT 07/20/2018 10:52 AM CDT Narrative [facility] ([facility]) - 07/21/2018 2:11 PM CDT Performed at: [facility] [address] [place], [place] [id number] Systems Software Developer: Dar Garcia PhD, Phone: [phone] Genesis Maradiaga DO LAB - CHEMISTRY ANA MARIA CARRASQUILLO [facility] ([facility]) [address] [place] [address] * (ABNORMAL) ERYTHROCYTE SEDIMENTATION RATE (07/20/2018 10:17 AM CDT) Pathologist [facility] Erythrocyte Sedimentation Rate Westergren 88(H) 0 - 30 MM/HR 07/20/2018 11:51 AM CDT [facility] Blood BLOOD SPECIMEN / Unknown Lab Venipuncture / Unknown 07/20/2018 10:17 AM CDT 07/20/2018 11:35 AM CDT Genesis Maradiaga DO LAB - HEMATOLOGY ORD ABAD [facility] [address] [place] [address] * (ABNORMAL) RBC MORPHOLOGY (07/20/2018 10:17 AM CDT) Anisocytosis 2+(A) None 07/20/2018 12:20 PM CDT [facility] Microcytes 2+(A) None 07/20/2018 12:20 PM CDT [facility] Hypochromia 2+(A) None 07/20/2018 12:20 PM CDT [facility] Ovalocytes 1+(A) None 07/20/2018 12:20 PM CDT [facility] Blood BLOOD SPECIMEN / Unknown Lab Venipuncture / Unknown 07/20/2018 10:17 AM CDT 07/20/2018 11:35 AM CDT Genesis Maradiaga DO LAB - HEMATOLOGY ORD ERABLES [facility] [address] [phone] * (ABNORMAL) CBC WITH DIFFERENTIAL (07/20/2018 10:17 AM CDT) WBC 16.5(H) 3.5 - 10.5 10 3/uL 07/20/2018 11:45 AM [facility] RBC 6.55(H) 3.90 - 5.00 10 6/uL 07/20/2018 11:45 AM [facility] Hemoglobin 13.0 12.0 - 15.5 g/dL 07/20/2018 11:45 AM [facility] Hematocrit 49.5(H) 35.0 - 45.0 % 07/20/2018 11:45 AM [facility] MCV 75.6(L) 81.0 - 97.0 fL 07/20/2018 11:45 AM [facility] MCH 19.8(L) 28.0 - 34.0 pg 07/20/2018 11:45 AM [facility] MCHC 26.3(L) 32.0 - 36.0 g/dL 07/20/2018 11:45 AM [facility] Platelet Count 374 150 - 400 10 3/uL 07/20/2018 11:45 AM [facility] RDW-SD 65.4(H) 36.0 - 50.0 fL 07/20/2018 11:45 AM [facility] RDW-CV 25.1(H) 11.2 - 14.8 % 07/20/2018 11:45 AM [facility] MPV 10.1 9.3 - 12.8 fL 07/20/2018 11:45 AM [facility] nRBC Absolute 0.00 0 10 3/uL 07/20/2018 11:45 AM [facility] nRBC Auto 0.0 0 /100 WBC 07/20/2018 11:45 AM [facility] Neutrophils % 83.6(H) 35.0 - 70.0 % 07/20/2018 11:45 AM [facility] Lymphocytes % 9.2(L) 19.7 - 55.1 % 07/20/2018 11:45 AM [facility] Monocytes % 5.5 3.0 - 15.0 % 07/20/2018 11:45 AM [facility] Eosinophils % 0.5 0.0 - 6.0 % 07/20/2018 11:45 AM [facility] Basophil % 0.8 0.0 - 1.5 % 07/20/2018 11:45 AM [facility] Neutrophils Absolute 13.7(H) 1.6 - 7.0 10 3/uL 07/20/2018 11:45 AM [facility] Lymphocyte Absolute 1.5 0.8 - 2.9 10 3/uL 07/20/2018 11:45 AM [facility] Monocytes Absolute 0.91(H) 0.14 - 0.66 10 3/uL 07/20/2018 11:45 AM [facility] Eosinophils Absolute 0.09 0.00 - 0.45 10 3/uL 07/20/2018 11:45 AM [facility] Basophils Absolute 0.13(H) 0.00 - 0.06 10 3/uL 07/20/2018 11:45 AM [facility] Reflex Status Morphology review to follow. 07/20/2018 11:45 AM [facility] Immature Granulocytes % 0.4 0.0 - 1.0 % 07/20/2018 11:45 AM [facility] Blood BLOOD SPECIMEN / Unknown Lab Venipuncture / Unknown 07/20/2018 10:17 AM CDT 07/20/2018 11:35 AM CDT Genesis Maradiaga DO LAB - HEMATOLOGY ORD ERABLES [facility] [address] [place] [address] * (ABNORMAL) COMPREHENSIVE METABOLIC PANEL (07/20/2018 10:17 AM CDT) BUN 12 7 - 26 mg/dL 07/20/2018 11:15 AM [facility] Creatinine 0.5(L) 0.6 - 1.2 mg/dL 07/20/2018 11:15 AM [facility] Sodium 140 136 - 145 mmol/L 07/20/2018 11:15 AM [facility] Potassium 3.7 3.5 - 4.5 mmol/L 07/20/2018 11:15 AM [facility] Chloride 98 98 - 107 mmol/L 07/20/2018 11:15 AM [facility] CO2 28 22 - 29 mmol/L 07/20/2018 11:15 AM [facility] Glucose 199(H) 70 - 115 mg/dL 07/20/2018 11:15 AM [facility] Calcium 9.0 8.4 - 10.2 mg/dL 07/20/2018 11:15 AM [facility] Protein Total 7.7 6.0 - 8.3 g/dL 07/20/2018 11:15 AM [facility] Albumin 3.0(L) 3.4 - 5.0 g/dL 07/20/2018 11:15 AM [facility] Bilirubin Total 0.4 0.2 - 1.2 mg/dL 07/20/2018 11:15 AM [facility] Alkaline Phosphatase 151(H) 40 - 150 Units/L 07/20/2018 11:15 AM [facility] ALT 12 0 - 55 Units/L 07/20/2018 11:15 AM [facility] AST 12 5 - 34 Units/L 07/20/2018 11:15 AM [facility] Anion Gap 18 8 - 18 07/20/2018 11:15 AM [facility] BUN/Creatinine Ratio 24(H) 7 - 23 07/20/2018 11:15 AM [facility] Osmolality Calculated 295 270 - 300 mOsm/kg 07/20/2018 11:15 AM [facility] Albumin/Globulin Ratio 0.6(L) 1.1 - 2.3 07/20/2018 11:15 AM [facility] eGFR >60 >60 mL/min/1.7 3 m2 07/20/2018 11:15 AM CDT [facility] Blood BLOOD SPECIMEN / Unknown Lab Venipuncture / Unknown 07/20/2018 10:17 AM CDT 07/20/2018 10:52 AM CDT Genesis Maradiaga DO LAB - CHEMISTRY ANA MARIA CARRASQUILLO [address] [phone] * (ABNORMAL) LDH BLOOD (07/20/2018 10:17 AM CDT) [facility] Total 367(H) 125 - 243 Units/L 07/20/2018 11:15 AM CDT [facility] Blood BLOOD SPECIMEN / Unknown Lab Venipuncture / Unknown 07/20/2018 10:17 AM CDT 07/20/2018 10:52 AM CDT Genesis Maradiaga DO LAB - CHEMISTRY ANA MARIA CARRASQUILLO Performing Organization Address [facility]/ZIP Co de Phone Number [address] [phone] * HEPATITIS B SURFACE ANTIGEN W RFLX CONFIRMATION (07/20/2018 10:17 AM CDT) Pathologist [facility] Hepatitis B Virus Surface Antigen Non-reacti ve Non-reacti ve 07/20/2018 12:36 PM CDT [facility] Blood BLOOD SPECIMEN / Unknown Lab Venipuncture / Unknown 07/20/2018 10:17 AM CDT 07/20/2018 11:35 AM CDT Genesis Maradiaga DO LAB - CHEMISTRY ANA MARIA CARRASQUILLO Performing Organization Address City/[facility]/[place]IP [place] [address], [facility] [phone] * CK BLOOD (07/20/2018 10:17 AM CDT) CK Total 37 30 - 200 Units/L 07/20/2018 11:15 AM CDT [facility] Blood BLOOD SPECIMEN / Unknown Lab Venipuncture / Unknown 07/20/2018 10:17 AM CDT 07/20/2018 10:52 AM CDT Genesis Maradiaga DO LAB - CHEMISTRY ANA MARIA CARRASQUILLO Performing Organization Address City/[facility]/ZIP Co de Phone Number [address] [phone] * TSH (07/20/2018 10:17 AM CDT) Pathologist [facility] TSH 0.872 0.350 - 4.940 uIU/mL 07/20/2018 11:35 AM CDT [facility] Blood BLOOD SPECIMEN / Unknown Lab Venipuncture / Unknown 07/20/2018 10:17 AM CDT 07/20/2018 10:52 AM CDT Genesis Maradiaga DO LAB - CHEMISTRY ANA MARIA CARRASQUILLO Performing Organization Address [facility]/[place] [address], [facility] [phone] * T4 FREE (07/20/2018 10:17 AM CDT) [facility] T4 Free 1.0 0.7 - 1.5 ng/dL 07/20/2018 1:13 PM CDT [facility] Blood BLOOD SPECIMEN / Unknown Lab Venipuncture / Unknown 07/20/2018 10:17 AM CDT 07/20/2018 11:35 AM CDT Genesis Maradiaga DO LAB - CHEMISTRY ANA MARIA CARRASQUILLO Performing Organization Address City/[facility]/ZIP [place] [address], [facility] [phone] * HEPATITIS C ANTIBODY (07/20/2018 10:17 AM CDT) Pathologist [facility] Hepatitis C Antibody Non-react adriana Non-reac tive 07/20/2018 12:38 PM CDT [facility] Comment: Hepatitis C Antibody screen [...] DO LAB - CHEMISTRY ANA MARIA CARRASQUILLO [facility] Organization Address City/State/ZIP Co de Phone Number [address] [phone] Care Teams Tie Mill Operator Relationship Specialty Start Date End Date Negro Hein MD [address] [place] [phone] PCP - General 12/23/17
--- OUTSIDE RECORDS SUMMARY | 2024-06-03 12:52 | XMS_ITS | Referral Summary ---
Author Organization [facility] [employer] Address [address] [place] [address] Care Team Providers Care Title Insurance Examiner Name Role Phone Negro Hein MD Primary Care Provider [phone] Source Comments [facility] [employer],non-owned Affiliates and Associated Physician Practices is amultiple site organization consisting of ambulatory clinics and hospital sitesin [place], [place], [place] and [place]. This disclosure is being madepursuant to the Care Everywhere program and may not contain all information available regarding this patient. Last updated 17.[facility] [employer] Allergies Active Allergy Reactions Criticality Noted Date [...] Active vitamin D, ergocalciferol, (DRISDOL) 1.25 MG (86649 UT) capsuleIndication s:Hypovitaminosis D Take 1 capsule [...] Comments Blood Pressure 158/72 05/24/2019 12:10 PM DIRECTOR OF STUDENT SERVICES Pulse 84 05/24/2019 12:10 PM DIRECTOR OF STUDENT SERVICES Temperature 36.9 C (98.4 F) 05/24/2019 12:10 PM DIRECTOR OF STUDENT SERVICES Respiratory Rate - - Oxygen Saturation - - Inhaled Oxygen Concentration - - Weight 83.5 kg (184 lb) 05/24/2019 12:10 PM DIRECTOR OF STUDENT SERVICES Height 167.6 cm (5' 6 ) 05/24/2019 12:10 PM DIRECTOR OF STUDENT SERVICES Body Mass Index 29.7 05/24/2019 12:10 PM DIRECTOR OF STUDENT SERVICES Plan of Treatment Not on file Procedures [...] ve Non-react adriana 07/20/2018 12:38 PM CDT [facility] Comment: Neither HIV-1 p24 Antigen nor HIV-1/HIV-2 Antibodies are detected. Blood BLOOD SPECIMEN / Unknown Lab Venipuncture / Unknown 07/20/2018 10:17 AM CDT 07/20/2018 11:36 AM CDT Genesis Maradiaga DO LAB - HEMATOLOGY ORD ERABLES [facility] [address] [place] [address] * (ABNORMAL) COMPREHENSIVE METABOLIC PANEL (07/20/2018 10:17 AM CDT) Pathologist [facility] BUN 12 7 - 26 mg/dL 07/20/2018 11:15 AM T [facility] Creatinine 0.5(L) 0.6 - 1.2 mg/dL 07/20/2018 11:15 AM [facility] Sodium 140 136 - 145 mmol/L 07/20/2018 11:15 AM [facility] Potassium 3.7 3.5 - 4.5 mmol/L 07/20/2018 11:15 AM [facility] Chloride 98 98 - 107 mmol/L 07/20/2018 11:15 AM [facility] CO2 28 22 - 29 mmol/L 07/20/2018 11:15 AM [facility] Glucose 199(H) 70 - 115 mg/dL 07/20/2018 11:15 AM [facility] Calcium 9.0 8.4 - 10.2 mg/dL 07/20/2018 11:15 AM [facility] Protein Total 7.7 6.0 - 8.3 g/dL 07/20/2018 11:15 AM [facility] Albumin 3.0(L) 3.4 - 5.0 g/dL [...] 10:17 AM CDT 07/20/2018 10:52 AM [facility] Genesis Maradiaga DO LAB - CHEMISTRY ANA [address] Street Organization Address City/State/ZIP Co de Phone Number [facility] [address] [phone] * HEPATITIS C ANTIBODY (07/20/2018 10:17 AM [...] DO LAB - CHEMISTRY ANA MARIA CARRASQUILLO [facility] [address] [phone] from Last 3 Months or Most Recently Relevant to Health Maintenance Care Teams Title Insurance Examiner Relationship Specialty Start Date End Date Negro Hein MD [address] [place] [phone] PCP - General 12/23/17
--- OUTSIDE RECORDS SUMMARY | 2024-06-03 12:52 | XMS_ITS ---
Author Organization Unknown Address [address] [place] [phone] Phone Care Team Providers Care Food Service Sales Representatives Name Role Phone TAISHA MOSES Attending Unavailable [...] 208 CVX Pneumococcal conjugate PCV20 , polysaccharide [id number] conjugate, adjuvant, PF 07/31/2022 Completed 216 CVX [...] Jameel Teague M.D. RB: PAUL Report ID: [id number] Reading Location: [id number] Social History Type Status Start Date End Date Code Code Syst em Sex Female Hospital Discharge Instructions Should you have any questions prior to discharge, please contact a member of your healthcare team. If you have left the hospital and have any questions, please contact your primary care physician. Reason For Referral No Data Found Plan of Treatment Kidney & Bladder (69545) 02/09/2024 Encounters Encounter Diagnosis Start Date Code Code Sys tem Proteinuria 02/09/2024 [id number] SNOMED-CT Personal Care Team Section Performer Name Performer Role Active Date Inactive Da te Imaging Narrative Notes
[2024-06-03 12:54] LABS: Basophils Absolute Auto 0.12 K/mm3 (0.00-0.10); Basophils Percent Auto 1.3 % (0.0-1.0); Eosinophils Absolute Auto 0.43 K/mm3 (0.02-0.50); Eosinophils Percent Auto 4.5 % (1.0-6.0); Hematocrit 45.7 % (35.0-49.0); Hemoglobin 14.3 g/dL (12.0-15.0); Immature Granulocyte Absolute 0.03 K/mm3 (0.00-0.00); Immature Granulocyte Percent A 0.3 % (0.0-0.0); Lymphocytes Absolute Auto 2.65 K/mm3 (1.10-4.50); Lymphocytes Percent Auto 27.9 % (18.0-42.0); Mean Corpuscular HGB Conc 31.3 g/dL (32-36); Mean Corpuscular Hemoglobin 28.7 pg (27.0-31.0); Mean Corpuscular Volume 91.6 fL (78.0-102.0); Mean Platelet Volume 9.7 fl (9.2-11.8); Monocytes Absolute Auto 0.77 K/mm3 (0.10-0.90); Monocytes Percent Auto 8.1 % (2.0-11.0); Neutrophils Percent Auto 57.9 % (50.0-70.0); Platelet Count Result 379 K/mm3 (150-420); Red Blood Count 4.99 M/mm3 (4.20-5.40); Red Cell Distribution Width 13.9 % (11.6-14.4); White Blood Count 9.5 K/mm3 (4.8-10.8)
[2024-06-03 13:04] LABS: Hemoglobin A1C 10.5 % (<5.7)
[2024-06-03 13:45] LABS: Alanine Aminotransferase 33 U/L (14-59); Albumin Level 3.9 g/dL (3.4-5.0); Alkaline Phosphatase 165 U/L (46-116); Anion Gap 9 mmol/L (4-12); Aspartate Amino Transferase 12 U/L (15-37); Bilirubin,Total 0.4 mg/dL (0.00-1.00); Blood Urea Nitrogen 12 mg/dL (7-18); Calcium 9.6 mg/dL (8.5-10.1); Carbon Dioxide 28 mmol/L (21-32); Chloride 102 mmol/L (98-108); Estimated Glomerular Filt Rate > 60; Glucose 292 mg/dL (70-99); Osmolality Calculated 298 mOsm/kg (285-295); Potassium 5.2 mmol/L (3.5-5.1); Sodium 139 mmol/L (136-145); Total Protein 7.6 g/dL (6.4-8.2)
== END 2024-06-03 12:31 | disposition home or self-care (01) ==
LOC: CHSLAB 12:32
PROVIDERS: PCP Family Medicine; Visit Provider Family Medicine
DX: E11.9 Type 2 diabetes mellitus without complications (principal)
CPT/HCPCS: 36415; 80053; 83036; 85025

== ENCOUNTER 2024-06-28 12:42 | Outpatient (CLI) | payer OTHER, SELFPAY ==
[2024-06-28 13:47] LABS: Anion Gap 10 mmol/L (4-12); Blood Urea Nitrogen 13 mg/dL (7-18); Calcium 10.3 mg/dL (8.5-10.1); Carbon Dioxide 28 mmol/L (21-32); Chloride 102 mmol/L (98-108); Estimated Glomerular Filt Rate > 60; Glucose 187 mg/dL (70-99); Osmolality Calculated 295 mOsm/kg (285-295); Sodium 140 mmol/L (136-145)
[2024-06-28 13:48] LABS: Potassium 5.4 mmol/L (3.5-5.1)
--- OUTSIDE RECORDS SUMMARY | 2024-06-28 13:48 | XMS_ITS | Clinical Summary ---
Author Organization [facility] Address [address] [place] [address] Care Team Providers Care Doubler Operator Name Role Phone Unavailable Primary Care Provider [...]
--- OUTSIDE RECORDS SUMMARY | 2024-06-28 13:48 | XMS_ITS | Clinical Summary ---
Author Organization [facility] [employer] Address [address] [place] [address] Care Team Providers Care Enrobing Machine Corder Name Role Phone Negro Hein MD Primary Care Provider [phone] Source Comments [facility] [employer],non-owned Affiliates and Associated Physician Practices is amultiple site organization consisting of ambulatory clinics and hospital sitesin [place], [place], [place] and [place]. This disclosure is being madepursuant to the Care Everywhere program and may not contain all information available regarding this patient. Last updated 17.[facility] [employer] Allergies Active Allergy Reactions Criticality Noted Date [...] Active vitamin D, ergocalciferol, (DRISDOL) 1.25 MG (15601 UT) capsuleIndication s:Hypovitaminosis D Take 1 capsule [...] Comments Blood Pressure 158/72 05/24/2019 12:10 PM MOVING PICTURE OPERATOR Pulse 84 05/24/2019 12:10 PM MOVING PICTURE OPERATOR Temperature 36.9 C (98.4 F) 05/24/2019 12:10 PM MOVING PICTURE OPERATOR Respiratory Rate - - Oxygen Saturation - - Inhaled Oxygen Concentration - - Weight 83.5 kg (184 lb) 05/24/2019 12:10 PM MOVING PICTURE OPERATOR Height 167.6 cm (5' 6 ) 05/24/2019 12:10 PM MOVING PICTURE OPERATOR Body Mass Index 29.7 05/24/2019 12:10 PM MOVING PICTURE OPERATOR Plan of Treatment Health Maintenance Due Date [...] VACCINE (1 - 2023-2 5 season) 2023 DEPRESSION SCREENING 03/30/2024 INFLUENZA VACCINE (Season Ended) 2024 01/12/20 Respiratory Syncytial Virus (RSV) Vaccine Pt: or [...] to complete this topic MENINGOCOCCAL (Group B) VACC INE SHARED DECISION-MAKING Aged Out No longer eligibl e based on patient's age to complete this topic MENINGOCOCCAL GROUPS A/C/Y/W VACCINE Aged Out No longer eligible b ased on patient's age to complete this topic Procedures Procedure Name Priority Date/Time Associated Diagnosis Comments COMPREHENSIVE METABOLIC PANEL Routine 07/20/2018 10:17 AM CDT Inflammatory arthritis Rheumatoid nodule 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 Tobacco use disorder HEPATITIS C ANTIBODY Routine 07/20/2018 10:17 AM CDT Inflammatory arthritis Rheumatoid nodule 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 Tobacco use disorder HIV-1 HIV-2 ANTIGEN/ANTIBODY Routine 07/20/2018 10:17 AM CDT Inflammatory arthritis Rheumatoid nodule 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 Tobacco use disorder from Last 3 Months or Most Recently Relevant to Health Maintenance Results * HIV-1 HIV-2 ANTIGEN/ANTIBODY (07/20/2018 10:17 AM CDT) Pathologist [facility] HIV Antigen/Antibod y 1 & 2 Non-reacti ve Non-react adriana 07/20/2018 12:38 PM [facility] Comment: Neither HIV-1 p24 Antigen nor HIV-1/HIV-2 Antibodies are detected. Blood BLOOD SPECIMEN / Unknown Lab Venipuncture / Unknown 07/20/2018 10:17 AM CDT 07/20/2018 11:36 AM CDT Genesis Maradiaga DO LAB - HEMATOLOGY ORD ERABLES Performing Organization Address City/State/[facility] Co de Phone Number [facility] [address] [place] [address] * (ABNORMAL) COMPREHENSIVE METABOLIC PANEL (07/20/2018 10:17 AM CDT) Pathologist [facility] BUN 12 7 - 26 mg/dL 07/20/2018 11:15 AM [facility] Creatinine 0.5(L) 0.6 - 1.2 mg/dL 07/20/2018 11:15 AM [facility] Sodium 140 136 - 145 mmol/L 07/20/2018 11:15 AM [facility] Potassium 3.7 3.5 - 4.5 mmol/L 07/20/2018 11:15 AM [facility] Chloride 98 98 - 107 mmol/L 07/20/2018 11:15 AM [facility] CO2 28 22 - 29 mmol/L 07/20/2018 11:15 AM [facility] Glucose 199(H) 70 - 115 mg/dL 07/20/2018 11:15 AM [facility] Calcium 9.0 8.4 - 10.2 mg/dL 07/20/2018 11:15 AM [facility] Protein Total 7.7 6.0 - 8.3 g/dL [...] 07/20/2018 10:17 AM CDT 07/20/2018 10:[address] [facility] Genesis Maradiaga DO LAB - CHEMISTRY ANA MARIA CARRASQUILLO [facility] Organization Address City/State/ZIP Co de Phone Number [facility] [address] [place] [address] * HEPATITIS C ANTIBODY (07/20/2018 10:17 AM CDT) Hepatitis C Antibody Non-react adriana Non-reac tive 07/20/2018 12:38 PM [facility] Comment: Hepatitis C Antibody screen indicates [...] DO LAB - CHEMISTRY [place]NA [place] [address], [facility] [phone] from Last 3 Months or Most Recently Relevant to Health Maintenance Care Teams Enrobing Machine Corder Relationship Specialty Start Date End Date Negro Hein MD [address] [place] [phone] PCP - General 12/23/17
--- OUTSIDE RECORDS SUMMARY | 2024-06-28 13:48 | XMS_ITS | Clinical Summary ---
Author Organization [facility] Address [address] [place] [address] Care Team Providers Care Sales Outfitter Name Role Phone Negro Hein MD Primary Care Provider [phone] Allergies Active Allergy Reactions Criticality Noted Date [...] Comments DTAP/TDAP/TD VACCINES (1 - Tdap) 11/01/1979 PAP SMEAR 1990 BREAST CANCER SCREENING 2000 COLORECTAL SCREENING 2005 Colorectal Cancer Screening 2005 FIT-DNA Q 3 years 2005 FIT/FOBT Q 1 year 2005 Flex Sig/CT Colonography Q 5 years 2005 ZOSTER VACCINE (1 of 2) 2010 INFLUENZA VACCINE (#1) 2023 01/11/2019 RSV VACCINE (60+ or ) (1 - 1-dose 75+ series) 11/01/2035 Insurance [facility] [id number] [facility] MCR [facility] [id number] [facility] MCR Care Teams Sales Outfitter Relationship Specialty Start Date End Date Negro Hein MD [address] [place] [address] PCP - General Family Practice 05/06/21
--- OUTSIDE RECORDS SUMMARY | 2024-06-28 13:49 | XMS_ITS ---
Author Organization Unknown Address [address] [place] [phone] Phone Care Team Providers Care Dice Person Name Role Phone TAISHA MOSES Attending Unavailable [...] 208 CVX Pneumococcal conjugate PCV20 , polysaccharide [id number] conjugate, adjuvant, PF 07/31/2022 Completed 216 CVX [...] Jameel Teague M.D. RB: PAUL Report ID: [id number] Reading Location: [id number] Social History Type Status Start Date End Date Code Code Syst em Sex Female Hospital Discharge Instructions Should you have any questions prior to discharge, please contact a member of your healthcare team. If you have left the hospital and have any questions, please contact your primary care physician. Reason For Referral No Data Found Plan of Treatment Kidney & Bladder (50462) 02/09/2024 Encounters Encounter Diagnosis Start Date Code Code Sys tem Proteinuria 02/09/2024 [id number] SNOMED-CT Personal Care Team Section Performer Name Performer Role Active Date Inactive Da te Imaging Narrative Notes
== END 2024-06-28 12:43 | disposition home or self-care (01) ==
LOC: CHSLAB 12:43
PROVIDERS: PCP Family Medicine; Visit Provider Family Medicine
DX: I10 Essential (primary) hypertension (principal)
CPT/HCPCS: 36415; 80048

== ENCOUNTER 2024-07-15 11:42 | Outpatient (CLI) | payer OTHER, SELFPAY ==
--- OUTSIDE RECORDS SUMMARY | 2024-07-15 11:46 | XMS_ITS ---
Author Organization Unknown Address [address] [place] [phone] Phone Care Team Providers Care Molder Wax Ball Name Role Phone TAISHA MOSES Attending Unavailable [...] 208 CVX Pneumococcal conjugate PCV20 , polysaccharide [id number] conjugate, adjuvant, PF 07/31/2022 Completed 216 CVX [...] Jameel Teague M.D. RB: PAUL Report ID: [id number] Reading Location: [id number] Social History Type Status Start Date End Date Code Code Syst em Sex Female Hospital Discharge Instructions Should you have any questions prior to discharge, please contact a member of your healthcare team. If you have left the hospital and have any questions, please contact your primary care physician. Reason For Referral No Data Found Plan of Treatment Kidney & Bladder (61486) 02/09/2024 Encounters Encounter Diagnosis Start Date Code Code Sys tem Proteinuria 02/09/2024 [id number] SNOMED-CT Personal Care Team Section Performer Name Performer Role Active Date Inactive Da te Imaging Narrative Notes
--- OUTSIDE RECORDS SUMMARY | 2024-07-15 11:46 | XMS_ITS | Clinical Summary ---
Author Organization [facility] [employer] Address [address] [place] [address] Care Team Providers Care Failure Analysis Engineer Name Role Phone Negro Hein MD Primary Care Provider [phone] Source Comments [facility] [employer],non-owned Affiliates and Associated Physician Practices is amultiple site organization consisting of ambulatory clinics and hospital sitesin [place], [place], [place] and [place]. This disclosure is being madepursuant to the Care Everywhere program and may not contain all information available regarding this patient. Last updated 17.[employer] Allergies Active Allergy Reactions Criticality Noted Date Comments Clindamycin Urticaria Medium 02/06/2017 Lisinopril Rash Medium 05/04/2019 Medications * Be aware that medications may not be up to date on this document. Alwaysverify current medications with the patient. citalopram (CELEXA) 40 MG tablet Take 40 mg by mouth once daily 9 Active losartan (COZAAR) 50 MG tablet Take by mouth once daily 9 Active metFORMIN (GLUCOPHAGE) 500 MG tablet 500 mg 2 times daily with morning and evening meal 9 Active albuterol HFA (PROVENTIL;YANELIS TOLIN;PROAIR) 108 (90 Base) MCG/ACT inhaler Inhale 2 puffs by mouth every 6 hours 9 Active acetaminophen (TYLENOL) 500 MG tablet Take 500 mg by mouth every 4 hours as needed for Fever or Pain Maximum allowable Acetaminophen amount = 4 Grams (4000 mg) / 24 hours. Active aspirin (ASPIRIN) 81 MG tablet Take 81 mg by mouth once daily Active ANORO ELLIPTA 62.5-25 MCG/INH inhaler Inhale 62.5 mcg by mouth 2 times daily as needed 9 Active hydroxychloroq uine (PLAQUENIL) 200 MG tablet Take 1 tablet by mouth 2 times daily 60 tablet 3 0 Active sulfaSALAzine (AZULFIDINE) 500 MG tabletIndicati ons:Seropositi ve rheumatoid arthritis (HCC),Pulmonar y HTN (HCC),Bone erosion,Rheuma toid nodule (HCC),Synoviti s,Joint swelling,[place] summer aldolase level,Elevated LDH,Positive ANNA (antinuclear antibody),TMJ arthritis Take 3 tablets by mouth 2 times daily 180 tablet 3 0 Active vitamin D, ergocalciferol , (DRISDOL) 1.25 MG (83681 UT) capsuleIndicat ions:Hypovitam inosis D Take 1 capsule by mouth once a week 12 capsule 0 Active Active Problems No known active problems Immunizations Immunization Administration Dates Next Due INFLUENZA VACCINE, QUADR. [...] at Not on file Legal Sex Female 6:12 AM LYE PEEL OPERATOR Gender Identity Not on file Sexual Orientation Not on file Last Filed Vital Signs Vital Sign Reading Time Taken Comments Blood Pressure 158/72 05/24/2019 12:10 PM LYE PEEL OPERATOR Pulse 84 05/24/2019 12:10 PM LYE PEEL OPERATOR Temperature 36.9 C (98.4 F) 05/24/2019 12:10 PM LYE PEEL OPERATOR Respiratory Rate - - Oxygen Saturation - - Inhaled Oxygen Concentration - - Weight 83.5 kg (184 lb) 05/24/2019 12:10 PM LYE PEEL OPERATOR Height 167.6 cm (5' 6 ) 05/24/2019 12:10 PM LYE PEEL OPERATOR Body Mass Index 29.7 05/24/2019 12:10 PM LYE PEEL OPERATOR Plan of Treatment Health Maintenance Due Date Last Done Comments COLOGUARD (AGES 45-75) - COL ON CA SCREENING 1960 COLON MONITORING 1960 COLONOSCOPY - COLON CA SCREENING 1960 CT COLONOGRAPHY - COLON CA SCREENING 1960 Colorectal Cancer Screening 1960 FIT - COLON CA SCREENING 1960 FLEX SIG - COLON CA SCREENING 1960 LIPID TESTING 1960 MAMMOGRAM 1960 DTAP/TDAP/TD VACCINES (1 - Tdap) 11/01/1979 PNEUMOCOCCAL VACCINE 50+ (1 of 2 - PCV) 11/01/1979 LUNG CANCER SCREENING 2010 ZOSTER VACCINE (1 of 2) 2010 SCREENING FOR DIABETES 07/20/2021 07/20/2018 COVID-19 VACCINE (1 - 2023-2 5 season) 2023 DEPRESSION SCREENING 03/30/2024 INFLUENZA VACCINE (Season Ended) 2024 01/12/20 19 Respiratory Syncytial Virus (RSV) Vaccine Pt: or [...] Non-reacti ve Non-react adriana 07/20/2018 12:38 PM [facility] Comment: Neither HIV-1 p24 Antigen nor HIV-1/HIV-2 Antibodies are detected. Blood BLOOD SPECIMEN / Unknown Lab Venipuncture / Unknown 07/20/2018 10:17 AM CDT 07/20/2018 11:36 AM CDT us Genesis Maradiaga DO LAB - HEMATOLOGY ORDERABLES F inal Result Performing Organization Address City/State/[facility] Co de Phone Number [address] [phone] * (ABNORMAL) COMPREHENSIVE METABOLIC PANEL (07/20/2018 10:17 AM CDT) Pathologist [facility] BUN 12 7 - 26 mg/dL 07/20/2018 11:15 AM [facility] Creatinine 0.5(L) 0.6 - 1.2 mg/dL 07/20/2018 11:15 AM [facility] Sodium 140 136 - 145 mmol/L 07/20/2018 11:15 AM [facility] Potassium 3.7 3.5 - 4.5 mmol/L 07/20/2018 11:15 AM [facility] Chloride 98 98 - 107 mmol/L 07/20/2018 11:15 AM [facility] CO2 28 22 - 29 mmol/L 07/20/2018 11:15 AM [facility] Glucose 199(H) 70 - 115 mg/dL 07/20/2018 11:15 AM [facility] Calcium 9.0 8.4 - 10.2 mg/dL 07/20/2018 11:15 AM [facility] Protein Total 7.7 6.0 - 8.3 g/dL 07/20/2018 11:15 AM [facility] Albumin 3.0(L) 3.4 - 5.0 g/dL 07/20/2018 11:15 AM [facility] Bilirubin Total 0.4 0.2 - 1.2 mg/dL 07/20/2018 11:15 AM [facility] Alkaline Phosphatase 151(H) 40 - 150 Units/L 07/20/2018 11:15 AM [facility] ALT 12 0 - 55 Units/L 07/20/2018 11:15 AM [facility] AST 12 5 - 34 Units/L 07/20/2018 11:15 AM [facility] Anion Gap 18 8 - 18 07/20/2018 11:15 AM [facility] BUN/Creatinine Ratio 24(H) 7 - 23 07/20/2018 11:15 AM [facility] Osmolality Calculated 295 270 - 300 mOsm/kg 07/20/2018 11:15 AM [facility] Albumin/Globulin Ratio 0.6(L) 1.1 - 2.3 07/20/2018 11:15 AM [facility] eGFR >60 >60 mL/min/1.7 3 m2 07/20/2018 11:15 AM [facility] Blood BLOOD SPECIMEN / Unknown Lab Venipuncture / Unknown 07/20/2018 10:17 AM CDT 07/20/2018 10:52 AM [facility] us Genesis Maradiaga DO LAB - CHEMISTRY ORDERABLES Fi nal Result [facility] [address] [place] [address] * HEPATITIS C ANTIBODY (07/20/2018 10:17 AM [facility]) Hepatitis C Antibody Non-react adriana Non-reac tive 07/20/2018 12:38 PM [facility] Comment: Hepatitis C Antibody screen indicates no [...] 10:17 AM CDT 07/20/2018 11:36 AM CDT us Genesis Maradiaga DO LAB - CHEMISTRY ORDERABLES nal Result [address] [phone] from Last 3 Months or Most Recently Relevant to Health Maintenance Insurance [facility] [address] Care Teams Failure Analysis Engineer Relationship Specialty Start Date End Date Negro Hein MD [address] [place] [phone] PCP - General 12/23/17
--- OUTSIDE RECORDS SUMMARY | 2024-07-15 11:46 | XMS_ITS | Clinical Summary ---
Author Organization [facility] Address [address] [address] Care Team Providers Care Fish Farm Laborer Name Role Phone Negro Hein MD Primary Care Provider [phone] Allergies Active Allergy Reactions Criticality Noted Date [...] (1 - 1-dose 75+ series) 11/01/2035 Insurance [facility] MCR MCR Care Teams Fish Farm Laborer Relationship Specialty Start Date End Date Negro Hein MD [address] [place] [address] PCP - General Family Practice 05/06/21
--- OUTSIDE RECORDS SUMMARY | 2024-07-15 11:46 | XMS_ITS | Clinical Summary ---
Author Organization [facility] Address [address] [place] [id number] Care Team Providers Care Service Electrician Name Role Phone Unavailable Primary Care Provider [...] Screening with HPV 1990 Mammogram Screening 2000 Pneumococcal Vaccine: 50+ Ye ars (1 of 1 - PCV) 2010 Zoster Vaccines (1 of 2) 2010 COVID-19 Vaccine (2023-2 5 season) 2023 RSV Immunization or 60+ Years (1 [...]
[2024-07-15 12:15] LABS: Anion Gap 10 mmol/L (4-12); Blood Urea Nitrogen 13 mg/dL (7-18); Calcium 9.5 mg/dL (8.5-10.1); Carbon Dioxide 26 mmol/L (21-32); Chloride 104 mmol/L (98-108); Estimated Glomerular Filt Rate > 60; Glucose 202 mg/dL (70-99); Osmolality Calculated 296 mOsm/kg (285-295); Potassium 4.7 mmol/L (3.5-5.1); Sodium 140 mmol/L (136-145)
== END 2024-07-15 11:43 | disposition home or self-care (01) ==
LOC: CHSLAB 11:44
PROVIDERS: PCP Family Medicine; Visit Provider Family Medicine
DX: E11.9 Type 2 diabetes mellitus without complications (principal)
CPT/HCPCS: 36415; 80048

== ENCOUNTER 2024-07-19 14:05 | Outpatient (RCR) | payer OTHER, SELFPAY ==
--- NOTE | 2024-07-19 15:02 | OPREHPOC ---
Outpatient Therapy Plan of Care This is a Multidisciplinary Plan of Care that may contain components documented by all disciplines (PT, OT, and ST.) PT Problem 1 PT Problem #1 Knowledge Deficit PT Goal 1 Goal / Goal Update The patient will demonstrate independence in a home exercise program. Target Visit 3 PT Problem 2 PT Problem #2 Pain PT Goal 1 Goal / Goal Update The patient will report no greater than 3/10 low back pain with standing for 15 minutes to perform daily tasks. Target Visit 10 PT Problem 3 PT Problem #3 Impaired Functional Mobility PT Goal 1 Goal / Goal Update The patient will demonstrate 40% or less self perceived disability per the Back Index questionnaire. Target Visit 10 PT Problem 4 PT Problem #4 Impaired Range of Motion PT Goal 1 Goal / Goal Update The patient will demonstrate pain free lumbar flexion to the ankles to don/doff socks and shoes with increased ease. Target Visit 10 PT Problem 5 PT Problem #5 Impaired Strength PT Goal 1 Goal / Goal Update The patient will demonstrate 5/5 hip strength without pain elicited to improve functional mobility. Target Visit 10
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
--- NOTE | 2024-08-18 15:19 | OPREHPOC ---
Outpatient Therapy Plan of Care This is a Multidisciplinary Plan of Care that may contain components documented by all disciplines (PT, OT, and ST.) PT Problem 1 PT Problem #1 Knowledge Deficit PT Goal 1 Goal / Goal Update The patient will demonstrate independence in a home exercise program. Target Visit 3 Progress Met PT Problem 2 PT Problem #2 Pain PT Goal 1 Goal / Goal Update The patient will report no greater than 3/10 low back pain with standing for 15 minutes to perform daily tasks. Target Visit 10 Progress Not Met PT Problem 3 PT Problem #3 Impaired Functional Mobility PT Goal 1 Goal / Goal Update The patient will demonstrate 40% or less self perceived disability per the Back Index questionnaire. Target Visit 10 Progress Not Met PT Problem 4 PT Problem #4 Impaired Range of Motion PT Goal 1 Goal / Goal Update The patient will demonstrate pain free lumbar flexion to the ankles to don/doff socks and shoes with increased ease. Target Visit 10 Progress Not Met PT Problem 5 PT Problem #5 Impaired Strength PT Goal 1 Goal / Goal Update The patient will demonstrate 5/5 hip strength without pain elicited to improve functional mobility. Target Visit 10 Progress Not Met
--- NOTE | 2024-08-18 15:20 | PTOPDC ---
Assessment and note entered by Selam Hill, PT Evaluation Information Assessment Status Discharge ICD-10 Condition Codes (PT) Pain in low back M54.50 Onset 07/14/24 Subjective Information Minda Francois reports her lower back pain is about the same. She is limited to 10 minutes or less of standing which limits cooking and cleaning capabilities. She also continues to have pain down into the calf causing limitations with sleeping. She reports while walking in the grocery store last week both of her knees gave out and she would have fallen if she didn't have a cart. She is not scheduled to see her pain management doctor again until 11/24/24. She is hoping she can get a MRI. Reported Pain Level Pain Score 6: Self Report Assessment PT Clinical Summary Minda Francois has completed 10 skilled PT visits for chronic low back pain. She is reporting no change in symptoms since initiating PT and she still has difficulty with standing of 10 minutes or more, cooking, cleaning, lifting, and sleeping . She objectively demonstrates decreased and painful lumbar AROM, decreased core and hip strength, tenderness in the left gluteal structures, and positive straight leg raise test indicating lumbar nerve root irritation. She will be discharged to an independent [facility]. Plan of Care PT Services Indicated Yes
== END 2024-08-18 15:55 | disposition home or self-care (01) ==
LOC: CHSPT 14:05
PROVIDERS: PCP Family Medicine
DX: M06.9 Rheumatoid arthritis, unspecified (principal)
CPT/HCPCS: 97014; 97110; 97112; 97140; 97161; G0283

== ENCOUNTER 2024-08-20 11:32 | Outpatient (CLI) | payer OTHER, SELFPAY ==
--- OUTSIDE RECORDS SUMMARY | 2024-08-20 11:41 | XMS_ITS | Data Portability ---
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 ([place]/Francisco vazquez) Labs today: Renal function panel, CBC, microalbumin, UPEP, SPEP, iPTH, renal ultrasound with post void residual HepBSag, Hep C Ab, ANCA, ANNA, C3, C4, anti-glomerular basement antibody , urine eosinophils, urinalysis Farxiga 5 mg daily (please give samples) Labs prior to return: Renal function panel, CBC, microalbumin. [facility]. 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 Labs prior to return: Renal function panel, CBC, microalbumin, ANNA. [facility] labs. 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 [id number] arteriosclerosis, and focal arteriolar hyalinosis. Mild interstitial [...] to return: Renal function panel, CBC, microalbumin [facility] labs. desire Not available 05/25/2024 14:16:38 Plan of Treatment Reminders Order Date Submit Date Provider Last Modified By Organization Details Last Modified Time Details [facility]ointments [facility] 15.EST 2024 01:30P Ricci Wheeler Naaigor [...] DIAGN OSIS* The diagn osis from the [facility] Kidne y; biops y: [...] a END OF REPOR T Not Available Tn Only - [facility] [address] [place] [address], [id number], 04/21/2024 12:07:20 05/25/1905/25/2024 CBC CBC Not Available [facility] [address] [place] [address], [id number], 05/25/2024 18:29:56 05/25/1905/25/2024 CBC WBC 10.5 K/uL 3.8-11 .2 Not Available [facility] [address] [place] [address], [id number], 05/25/2024 18:29:56 05/25/19 25 05/25/2024 CBC RBC 5.03 M/uL 3.92-5 .10 Not Available [facility] Only - [facility] [address], [id number], 05/25/2024 18:29:56 05/25/19 25 05/25/2024 CBC HGB 14.8 g/dL 11.8-1 5.3 Not Available [facility] - [facility] [address] [place] [address], [id number], 05/25/2024 18:29:56 05/25/19 25 05/25/2024 CBC HCT 46.0 % 36.5-4 4.8 high Not Available [facility] [address] [place] [address], [id number], 05/25/2024 18:29:56 05/25/19 25 05/25/2024 CBC MCV 91.5 fL 80.0-9 9.0 Not Available [facility] [address] [place] [address], [id number], 05/25/2024 18:29:56 05/25/19 25 05/25/2024 CBC MCH 29.4 pg 25.5-3 3.6 Not Available [facility] [address] [place] [address], [id number], 05/25/2024 18:29:56 05/25/19 25 05/25/2024 CBC MCHC 32.2 g/dL 32.0-3 6.0 Not Available [facility] [address] [place] [address], [id number], 05/25/2024 18:29:56 05/25/19 25 05/25/2024 CBC RDW-SD 46.8 fL 35.1 - 46.3 high Not Available [facility] [address] [place] [address], [id number], 05/25/2024 18:29:56 05/25/19 25 05/25/2024 CBC plt 409 K/uL 130-40 0 high Not Available [facility] - [facility] [address] [place] [address], [id number], 05/25/2024 18:29:56 05/25/19 25 05/25/2024 CBC MPV 10.5 fL 9.3-12 .8 Not Available [facility] Only - [facility] [address] [place] [address], [id number], 05/25/2024 18:29:56 05/25/1905/25/2024 renal funct ion panel , serum renal function panel Not Available Tn On y - [facility] [address] [place] [address], [id number], 05/25/2024 19:09:16 05/25/1905/25/2024 renal funct ion panel , serum sodium 140 mmol/ L 136-14 6 Not Available [facility] Only [facility] [address] [place] [address], [id number], 05/25/2024 19:09:16 05/25/1905/25/2024 renal funct ion panel , serum potassium 4.8 mmol/ L 3.5-5. 1 Not Available [facility] Only [facility] [address] [place] [address], [id number], 05/25/2024 19:09:16 05/25/1905/25/2024 renal funct ion panel , serum chloride 102 mmol/ L 98-110 Not Available [facility] [address] [place] [address], [id number], 05/25/2024 19:09:16 05/25/1905/25/2024 renal funct ion panel , serum CO2 27 mEq/L 20-32 Not Available [facility] - [facility] [address] [place] [address], [id number], 05/25/2024 19:09:16 05/25/1905/25/2024 renal funct ion panel , serum anion gap 16 mmol/ L 10-22 Not Available [facility] - [facility] [address] [place] [address], [id number], 05/25/2024 19:09:16 05/25/19 25 05/25/2024 renal funct ion panel , serum glucose 306 mg/dL 70-100 high Not Available [facility] - [facility] [address] [place] [address], [id number], 05/25/2024 19:09:16 05/25/1905/25/2024 renal funct ion panel , serum calcium 10.1 mg/dL 8.4-10 .4 Not Available [facility] [address] [place] [address], [address], 05/25/2024 19:09:16 05/25/1905/25/2024 renal funct ion panel , serum albumin 5.0 g/dL 3.5-5. 3 Not Available [facility] [address] [place] [address], [id number], 05/25/2024 19:09:16 05/25/1905/25/2024 renal funct ion panel , serum phosphorus 3.8 mg/dL 2.7-4. 5 Not Available [facility] Only - [facility] [address] [place] [address], [id number], 05/25/2024 19:09:16 05/25/1905/25/2024 renal funct ion panel , serum BUN 13 mg/dL 7-21 Not Available [facility] Only - [facility] [address] [place] [address], [id number], 05/25/2024 19:09:16 05/25/1905/25/2024 renal funct ion panel , serum creatinine 0.9 mg/dL 0.7-1. 3 Not Available [facility] [address] [place] [address], [id number], 05/25/2024 19:09:16 05/25/1905/25/2024 renal funct ion panel , serum CKD-epi GFR 72 eGFR was calcu lated using the 2020 CKD-E PI equat ion. (Tube Molder [employer]erglass sarai Kidne y Disea se has an eGFR less than 60 mL/mi n/1.7 3mm for a perio d of three month s or more. ) This calcu latio n has not been valid ated for patie nt ages <18 or >90 years old. Not Available [facility] [address] [place] [address], [id number], 05/25/2024 19:09:16 05/25/1905/25/2024 micro album in, urine microalbumin ,random panel Not Available [facility] [address] [place] [address], [address], 05/25/2024 19:51:09 05/25/1905/25/2024 micro album in, urine microalbumin random 40.5 mg/dL Not Available [facility] [address] [place] [address], 285[address], 05/25/2024 19:51:09 05/25/1905/25/2024 micro album in, urine creatinine, urine random 36 mg/dL Refer ence range not estab lishe d for other than 24 hour colle ction . Not Available [facility] Only - [facility] [address] [place] [address], [id number], 05/25/2024 19:51:09 05/25/1905/25/2024 micro album in, urine [...] in or Creat inine .) Not Available [facility] - [facility] [address] [place] [address], [id number], 05/25/2024 19:51:09 05/25/1905/26/2024 ANNA (anti nucle ar antib odies ) scree n, serum ANNA screen NEGATI VE negati ve Perfo rmed by Bio-R ad enzym e immun oassa y Not Available [facility] Only - [facility] [address] [place] [address], [address], 05/26/2024 14:59:40 06/23/19 25 02/09/2024 US, kidne y No observ ation record ed. [email or web address] Not Available 2024 08:32:57 Result Notes None recorded. Problems Name Problem SNOMED Code Status Onset Date Resolution Date Notes Provider Name and Address Organization Details Recorded Time Microalbuminur ia 015954416 Active 2023 [facility] 4 14:13:37 Type 2 diabetes mellitus without complication 396435413 Active 2023 [facility] 4 14:14:01 Essential hypertension 01095700 Active 2023 [facility] 4 14:14:20 Hyperlipidemia 68007786 Active 2023 [facility] 4 14:14:30 Chronic obstructive pulmonary disease 75859668 Active 2023 [facility] 4 14:14:38 Sleep apnea 43653686 Active 2023 [facility] 4 14:14:51 Rheumatoid arthritis 50745568 Active 2023 [facility] 4 14:15:12 Coronary arterioscleros is 62766159 Active 2023 [facility] 4 14:15:26 Urinary tract infectious disease 92575213 Active 2024 [facility] 5 16:47:55 Problem Notes None recorded. Medical Equipment None Reported. Allergies Allergen ID Allergen Name Allergen Category Reaction Reaction Severity Criticality Documentation Date Start Date Code Code System Note Provider Name and Address Organization Details Recorded Time 3926256 clindamyc in Not available Not available Not available Not available 01/19/[address] [facility] 4 14:17:17 9845676 lisinopri l medicatio n rash Not available Not available 01/19/[address] [facility] 4 14:17:27 [id number] clarithro mycin medicatio n Not available Not available Not available 01/19/[address] [facility] 4 14:17:37 Medications Name Sig Start Date Stop Date [...] in Arterial blood by Pulse oximetry Systolic And Diastolic Provider Name and Address Organization Details Last Updated DateTime 5 23434.1 7 g 105 /min 96 % 96 % 136/80 mm[Hg] [facility] 5 13:58:27 Date Recorded Body weight Heart rate Oxygen saturation Oxygen saturation in Arterial blood by Pulse oximetry Systolic And Diastolic Provider Name and Address Organization Details Last Updated DateTime 4 21488.3 6 g 91 /min 95 % 95 % 118/78 mm[Hg] [facility] 4 13:59:29 Date Recorded Body weight Heart rate Oxygen saturation Oxygen saturation in Arterial blood by Pulse oximetry Systolic And Diastolic Provider Name and Address Organization Details Last Updated DateTime 4 35602.5 4 g 112 /min 94 % 94 % 126/82 mm[Hg] [facility] 4 12:19:20 Social History None recorded. Functional Status None recorded. Mental Status None recorded. Family History Relationship Description Onset Age of this Age Resolved Age Notes LastModified by Organization Details LastModified Time Father Myocardial infarction Not available 01/18 14:15:50 Father Rheumatoid arthritis Not available 2023 14:16:19 Brother Leukemia Not availab le 01/19/2024 14:16:00 Medical History No medical history recorded. Gynecological HistoryNo gynecological history recorded. Obstetrics History GPAL:G 0 P 0 0 0 0 Past Encounters Encounter ID Performer Location Encounter Start Date Encounter Closed Date Diagnosis/Indication Diagnosis SNOMED-CT Code Diagnosis ICD10 Code Diagnosis Note [id number] Neel Ferreira MD [facility] ([place]) [address] [place] [address] 01/20/2024 13:23:18 01/20/2024 14:26:24 Microalbuminuria 539781240 R80.9 [id number] Summer Jamison APRN, COLLEGE PHYSICS INSTRUCTOR [facility] ([place]) [address] [place] [address] 03/21/2024 12:04:30 03/21/2024 12:34:08 Microalbuminuria 959631931 R80.9 Essential hypertension 25781201 I10 [id number] Summer Jamison APRN, COLLEGE PHYSICS INSTRUCTOR [facility] [address] [place] [address] 05/25/2024 13:51:13 05/25/2024 15:05:58 Microalbuminuria 265316192 R80.9 Essential hypertension 65363466 I10 Health Concerns Section Related Observation LastModified by Organization Detai ls LastModified Time None Recorded Concern Status LastModified by Organization Details LastModified Time None Recorded Advance Directives Directive None Recorded Payers Insurance Date Sequence Insurance Name Policy Number Policy Cisneros Covered Member ID Cisneros Member ID Guarantor Name 06/11/2024 1 UNSPECIFIED REMIT PAYOR Minda L Day 08/19/2024 1 [facility] (MEDICARE REPLACEMENT/AD VANTAGE - HMO) Minda L Day [id number] Minda L Day 08/19/2024 2 [place] Minda L Day [id number] Minda L Day Notes Date Note Type Note Provider Name and Address Organization Details Recorded Time 01/20/2024 text/html 63-year-old wido wed woman, now with a boyfriend mother from [facility], 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 Is very [...] when she is physically active. COPD. Summer Jamiosn, MARIA DE JESUS, COLLEGE PHYSICS INSTRUCTOR [address] , [place], [address], [facility] 03/21/2024 13:16:47 05/25/2024 text/html 1. Blood pressur [...] shortness of breath is stable. Summer Jamison, HOSPICE COORDINATOR, COLLEGE PHYSICS INSTRUCTOR [address] [place] [address], [phone], [facility] 05/25/2024 14:17:15 OBGyn Episode No OBEpisode recorded.
--- OUTSIDE RECORDS SUMMARY | 2024-08-20 11:41 | XMS_ITS | Clinical Summary ---
Author Organization [facility] Address [address] [place] [address] Care Team Providers Care Wall Crane Operator Name Role Phone Negro Hein MD Primary Care Provider [phone] Allergies Active Allergy Reactions Criticality Noted Date [...] 10:50 AM CDT Height 167.6 cm (5' 6) 11/20/2021 1:15 PM CDT Body Mass Index 32.6 11/20/2021 1:15 PM CDT Plan of Treatment Health Maintenance Due Date Last Done Comments DTAP/TDAP/TD VACCINES (1 - Tdap) 11/01/1979 BREAST CANCER SCREENING 2000 COLORECTAL SCREENING 2005 Colorectal Cancer Screening 2005 FIT-DNA Q 3 years 2005 FIT/FOBT Q 1 year 2005 Flex Sig/CT Colonography Q 5 years 2005 ZOSTER VACCINE (1 of 2) 2010 INFLUENZA VACCINE (#1) 2023 01/11/2019 RSV VACCINE (60+ or ) (1 - 1-dose 75+ series) 11/01/2035 Insurance [facility] MCR [facility] MCR Care Teams Wall Crane Operator Relationship Specialty Start Date End Date Negro Hein MD [address] [place] [address] PCP - General Family Practice 05/06/21
--- OUTSIDE RECORDS SUMMARY | 2024-08-20 11:41 | XMS_ITS | Clinical Summary ---
Author Organization [facility] Address [address] [place] [address] Care Team Providers Care Turner Machine Name Role Phone Negro Hein MD Primary Care Provider [phone] Source Comments [facility],non-owned Affiliates and Associated Physician Practices is amultiple site organization consisting of ambulatory clinics and hospital sitesin [place], [place], [place] and [place]. This disclosure is being madepursuant to the Care Everywhere program and may not contain all information available regarding this patient. Last updated 17.[facility] Allergies Active Allergy Reactions Criticality Noted Date [...] HTN (HCC),Bone erosion,Rheuma toid nodule (HCC),Synoviti s,Joint swelling,[place] summer aldolase level,Elevated LDH,Positive ANNA (antinuclear antibody),TMJ arthritis Take 3 tablets by mouth 2 times daily 180 tablet 3 0 Active vitamin D, ergocalciferol , (DRISDOL) 1.25 MG (53221 UT) capsuleIndicat ions:Hypovitam inosis D Take 1 [...] on file Legal Sex Female 6:12 AM [employer]ANT LO[employer] Gender Identity Not on file Sexual Orientation Not on file Last Filed Vital Signs Vital Sign Reading Time Taken Comments Blood Pressure 158/72 05/24/2019 12:10 PM [employer] Pulse 84 05/24/2019 12:10 PM [employer] Temperature 36.9 C (98.4 F) 05/24/2019 12:10 PM [employer] Respiratory Rate - - Oxygen Saturation - - Inhaled Oxygen Concentration - - Weight 83.5 kg (184 lb) 05/24/2019 12:10 PM [employer] Height 167.6 cm (5' 6) 05/24/2019 12:10 PM [employer] Body Mass Index 29.7 05/24/2019 12:10 PM [employer] Plan of Treatment Health Maintenance Due Date [...] Non-reacti ve Non-react adriana 07/20/2018 12:[address] [facility] Comment: Neither HIV-1 p24 Antigen nor HIV-1/HIV-2 Antibodies are detected. Blood BLOOD SPECIMEN / Unknown Lab Venipuncture / Unknown 07/20/2018 10:17 AM CDT 07/20/2018 11:36 AM CDT us Genesis Maradiaga DO LAB - HEMATOLOGY ORDERABLES F inal Result Performing Organization Address City/State/[facility] Co de Phone Number [address] [phone] * (ABNORMAL) COMPREHENSIVE METABOLIC PANEL (07/20/2018 10:17 AM CDT) Pathologist [facility] BUN 12 7 - 26 mg/dL 07/20/2018 11:[address] [facility] Creatinine 0.5(L) 0.6 - 1.2 mg/dL 07/20/2018 11:15 AM [facility] Sodium 140 136 - 145 mmol/L 07/20/2018 11:[address] [facility] Potassium 3.7 3.5 - 4.5 mmol/L 07/20/2018 11:[address] [facility] Chloride 98 98 - 107 mmol/L 07/20/2018 11:[address] [facility] CO2 28 22 - 29 mmol/L 07/20/2018 11:[address] [facility] Glucose 199(H) 70 - 115 mg/dL 07/20/2018 11:[address] [facility] Calcium 9.0 8.4 - 10.2 mg/dL 07/20/2018 11:[address] [facility] Protein Total 7.7 6.0 - 8.3 g/dL 07/20/2018 11:15 AM [facility] Albumin 3.0(L) 3.4 - 5.0 g/dL 07/20/2018 11:15 AM [facility] Bilirubin Total 0.4 0.2 - 1.2 mg/dL 07/20/2018 11:15 AM [facility] Alkaline Phosphatase 151(H) 40 - 150 Units/L 07/20/2018 11:15 AM [facility] ALT 12 0 - 55 Units/L 07/20/2018 11:15 AM [facility] AST 12 5 - 34 Units/L 07/20/2018 11:15 AM [facility] Anion Gap 18 8 - 18 07/20/2018 11:15 AM [facility] BUN/Creatinine Ratio 24(H) 7 - 23 07/20/2018 11:15 AM [facility] Osmolality Calculated 295 270 - 300 mOsm/kg 07/20/2018 11:15 AM [facility] Albumin/Globulin Ratio 0.6(L) 1.1 - 2.3 07/20/2018 11:15 AM [facility] eGFR >60 >60 mL/min/1.7 3 m2 07/20/2018 11:15 AM [facility] Blood BLOOD SPECIMEN / Unknown Lab Venipuncture / Unknown 07/20/2018 10:17 AM CDT 07/20/2018 10:52 AM [facility] us Genesis Maradiaga DO LAB - CHEMISTRY ORDERABLES Fi nal Result [facility] [address] [place] [address] * HEPATITIS C ANTIBODY (07/20/2018 10:17 AM [facility]) Hepatitis C Antibody Non-react adriana Non-reac tive 07/20/2018 12:38 PM [facility] Comment: Hepatitis C Antibody screen indicates [...] DO LAB - CHEMISTRY ORDERABLES nal Result [address] [phone] from Last 3 Months or Most Recently Relevant to Health Maintenance Insurance [facility] [address] Care Teams Turner Machine Relationship Specialty Start Date End Date Negro Hein MD [address] [place] [phone] PCP - General 12/23/17
--- OUTSIDE RECORDS SUMMARY | 2024-08-20 11:41 | XMS_ITS ---
Author Organization Unknown Address [address] [place] [address] [phone] Phone Care Team Providers Care Burlap Worker Name Role Phone TAISHA MOSES Attending Unavailable [...] 208 CVX Pneumococcal conjugate PCV20 , polysaccharide [id number] conjugate, adjuvant, PF 07/31/2022 Completed 216 CVX [...] Jameel Teague M.D. RB: PAUL Report ID: [id number] Reading Location: [id number] Social History Type Status Start Date End Date Code Code Syst em Sex Female Hospital Discharge Instructions Should you have any questions prior to discharge, please contact a member of your healthcare team. If you have left the hospital and have any questions, please contact your primary care physician. Reason For Referral No Data Found Plan of Treatment Kidney & Bladder (74341) 02/09/2024 Encounters Encounter Diagnosis Start Date Code Code Sys tem Proteinuria 02/09/2024 [id number] SNOMED-CT Personal Care Team Section Performer Name Performer Role Active Date Inactive Da te Imaging Narrative Notes
[2024-08-20 12:07] LABS: Creatinine Urine 23.3 mg/dL
[2024-08-20 12:12] LABS: MALB Creatinine Ratio 345.9 mg/g (0-30); Microalbumin Urine Random 80.6 mg/L (0-16.7)
== END 2024-08-20 11:33 | disposition home or self-care (01) ==
LOC: CHSLAB 11:40
PROVIDERS: PCP Family Medicine
DX: R80.9 Proteinuria, unspecified (principal)
CPT/HCPCS: 82043

== ENCOUNTER 2024-09-07 12:50 | Outpatient (CLI) | payer OTHER, SELFPAY ==
[2024-09-07 13:03] LABS: Basophils Absolute Auto 0.13 K/mm3 (0.00-0.10); Basophils Percent Auto 1.2 % (0.0-1.0); Eosinophils Absolute Auto 0.32 K/mm3 (0.02-0.50); Hematocrit 46.8 % (35.0-49.0); Hemoglobin 14.7 g/dL (12.0-15.0); Immature Granulocyte Absolute 0.04 K/mm3 (0.00-0.00); Immature Granulocyte Percent A 0.4 % (0.0-0.0); Lymphocytes Absolute Auto 2.84 K/mm3 (1.10-4.50); Lymphocytes Percent Auto 26.2 % (18.0-42.0); Mean Corpuscular HGB Conc 31.4 g/dL (32-36); Mean Corpuscular Hemoglobin 29.2 pg (27.0-31.0); Mean Corpuscular Volume 92.9 fL (78.0-102.0); Mean Platelet Volume 9.5 fl (9.2-11.8); Monocytes Absolute Auto 0.94 K/mm3 (0.10-0.90); Monocytes Percent Auto 8.7 % (2.0-11.0); Neutrophils Absolute Auto 6.57 K/mm3 (1.70-7.20); Neutrophils Percent Auto 60.5 % (50.0-70.0); Platelet Count Result 359 K/mm3 (150-420); Red Blood Count 5.04 M/mm3 (4.20-5.40); Red Cell Distribution Width 13.6 % (11.6-14.4); White Blood Count 10.8 K/mm3 (4.8-10.8)
[2024-09-07 13:17] LABS: Alanine Aminotransferase 34 U/L (6-35); Albumin Level 4.7 g/dL (3.5-5.1); Alkaline Phosphatase 105 U/L (38-126); Anion Gap 7 mmol/L (4-12); Aspartate Amino Transferase 29 U/L (14-36); Bilirubin,Total 0.4 mg/dL (0.2-1.3); Blood Urea Nitrogen 13 mg/dL (7-17); Calcium 9.3 mg/dL (8.4-10.2); Carbon Dioxide 28 mmol/L (22-30); Chloride 105 mmol/L (98-107); Estimated Glomerular Filt Rate > 60; Glucose 143 mg/dL (65-110); Osmolality Calculated 292 mOsm/kg (285-295); Potassium 5.3 mmol/L (3.4-5.0); Sodium 140 mmol/L (137-145)
[2024-09-07 13:23] LABS: Hemoglobin A1C 7.9 % (<5.7)
--- OUTSIDE RECORDS SUMMARY | 2024-09-07 14:46 | XMS_ITS | Data Portability ---
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 ([place] [facility]) Labs today: Renal function panel, CBC, microalbumin, UPEP, SPEP, iPTH, renal ultrasound with post void residual HepBSag, Hep C Ab, ANCA, ANNA, C3, C4, anti-glomerular basement antibody , urine eosinophils, urinalysis Farxiga 5 mg daily (please give samples) Labs prior to return: Renal function panel, CBC, microalbumin. [facility] labs. 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 Labs prior to return: Renal function panel, CBC, microalbumin, ANNA. [facility] labs. 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 Hrdm-tm-bieblhqd arteriosclerosis, and focal arteriolar hyalinosis. Mild interstitial [...] to return: Renal function panel, CBC, microalbumin [facility] labs. 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 Cbnv-cz-spdrikeg arteriosclerosis, and focal arteriolar hyalinosis. Mild interstitial fibrosis and tubular atrophy. -Creatinine most recently stable at 0.9 with a current microalbumin improved at 345. - Continue Jardiance for renal protection and proteinuria -Preappointment labs not completed and will check a renal function panel today 2. Blood pressure: Stable on Losartan 50 daily. Will maximize ARB as possible. 3. Hemoglobin: Most recently stable at 14.8. Will check a CBC today. 4. Bone disease: iPTH 41, and Vitamin D level 62 5. Diabetes. Much better controlled per patient report. Currently on metformin and Jardiance. PCP is managing. 6. Disposition: Return to clinic in 6 months Labs today: Renal function panel, CBC Labs prior to return: Renal function panel, CBC, microalbumin chornback Not available 08/24/2024 14:39:11 Plan of Treatment Reminders Order Date Submit Date Provider Last Modified By Organization Details Last Modified Time Details Appointments [facility] Patient 15.EST 2024 01:15P M Summer Naaigor Not available Not available Not available [...] Order ing Provi adela: Jay Ferreira ord Patie nt Name: REHAN PEÑA sally #: [id number] /A ge/Ge nder: [id number] (Age: 63) / F Proce dure Date: 2024 SP ECIME N(S) RECEI IESHA * A:SEN D OUT, left nativ e kidne y, needl e biops y, medic al FI NAL PATHO LOGIC DIAGN OSIS* The diagn osis from the [facility] bindu [place] y; biops y: - Limit ed sampl e of renal rajni x with focal featu res of ische irvin glome rulop athy and glome rular hyper troph y - Mild- to-mo derat e arter ioscl erosi s, and focal arter iolar hyali nosis - Mild inter stiti al fibro sis and tubul ar atrop hy Pee taylor M.D. EL ECTRO NICAL LY VERIF IED BY KAVITA GODWIN MD 2024 11:06 CL INICA L HISTO RY Prote inuri a END OF REPOR T Not Available [place] [address], [address], 04/21/2024 12:07:20 05/25/19 25 05/25/2024 CBC CBC Not Available [facility] [address] [place] [address], [id number], 05/25/2024 18:29:56 05/25/19 25 05/25/2024 CBC WBC 10.5 K/uL 3.8-11 .2 Not Available [facility] [address] [place] [address], [id number], 05/25/2024 18:29:56 05/25/19 25 05/25/2024 CBC RBC 5.03 M/uL 3.92-5 .10 Not Available [facility] - [facility] [address] [place] [address], [id number], 05/25/2024 18:29:56 05/25/19 25 05/25/2024 CBC HGB 14.8 g/dL 11.8-1 5.3 Not Available [facility] [address] [place] [address], [id number], 05/25/2024 18:29:56 05/25/19 25 05/25/2024 CBC HCT 46.0 % 36.5-4 4.8 high Not Available [facility] [address] [place] [address], [id number], 05/25/2024 18:29:56 05/25/19 25 05/25/2024 CBC MCV 91.5 fL 80.0-9 9.0 Not Available [facility] [address] [place] [address], [id number], 05/25/2024 18:29:56 05/25/19 25 05/25/2024 CBC MCH 29.4 pg 25.5-3 3.6 Not Available [facility] [address] [place] [address], [id number], 05/25/2024 18:29:56 05/25/19 25 05/25/2024 CBC MCHC 32.2 g/dL 32.0-3 6.0 Not Available [facility] [address] [place] [address], [id number], 05/25/2024 18:29:56 05/25/19 25 05/25/2024 CBC RDW-SD 46.8 fL 35.1 - 46.3 high Not Available [facility] [address] [place] [address], [id number], 05/25/2024 18:29:56 05/25/19 25 05/25/2024 CBC plt 409 K/uL 130-40 0 high Not Available [facility] [address] [place] [address], [id number], 05/25/2024 18:29:56 05/25/19 25 05/25/2024 CBC MPV 10.5 fL 9.3-12 .8 Not Available [facility] [address] [place] [address], [id number], 05/25/2024 18:29:56 05/25/19 25 05/25/2024 renal funct ion panel , serum renal function panel Not Available [facility] [address] [place] [address], [id number], 05/25/2024 19:09:16 05/25/1905/25/2024 renal funct ion panel , serum sodium 140 mmol/ L 136-14 6 Not Available [facility] [address] [place] [address], [id number], 05/25/2024 19:09:16 05/25/1905/25/2024 renal funct ion panel , serum potassium 4.8 mmol/ L 3.5-5. 1 Not Available [facility] [address] [place] [address], 164[address], 05/25/2024 19:09:16 05/25/1905/25/2024 renal funct ion panel , serum chloride 102 mmol/ L 98-110 Not Available [facility] [address] [place] [address], [id number], 05/25/2024 19:09:16 05/25/1905/25/2024 renal funct ion panel , serum CO2 27 mEq/L 20-32 Not Available [facility] [address] [place] [address], [id number], 05/25/2024 19:09:16 05/25/1905/25/2024 renal funct ion panel , serum anion gap 16 mmol/ L 10-22 Not Available [facility] [address] [place] [address], [id number], 05/25/2024 19:09:16 05/25/1905/25/2024 renal funct ion panel , serum glucose 306 mg/dL 70-100 high Not Available [facility] [address] [place] [address], [id number], 05/25/2024 19:09:16 05/25/1905/25/2024 renal funct ion panel , serum calcium 10.1 mg/dL 8.4-10 .4 Not Available [facility] [address] [place] [address], [id number], 05/25/2024 19:09:16 05/25/1905/25/2024 renal funct ion panel , serum albumin 5.0 g/dL 3.5-5. 3 Not Available [facility] [address] [place] [address], [id number], 05/25/2024 19:09:16 05/25/1905/25/2024 renal funct ion panel , serum phosphorus 3.8 mg/dL 2.7-4. 5 Not Available [facility] [address] [place] [address], [id number], 05/25/2024 19:09:16 05/25/1905/25/2024 renal funct ion panel , serum BUN 13 mg/dL 7-21 Not Available [facility] [address] [place] [address], [id number], 05/25/2024 19:09:16 05/25/1905/25/2024 renal funct ion panel , serum creatinine 0.9 mg/dL 0.7-1. 3 Not Available [facility] [address] [place] [address], [id number], 05/25/2024 19:09:16 05/25/1905/25/2024 renal funct ion panel , serum CKD-epi GFR 72 eGFR was calcu lated using the 2020 CKD-E PI equat ion. (Natural Resources Extension Educator sarai Kidne y Disea se has an eGFR less than 60 mL/mi n/1.7 3mm for a perio d of three month s or more. ) This calcu latio n has not been valid ated for patie nt ages <18 or >90 years old. Not Available [facility] [address] [place] [address], [id number], 05/25/2024 19:09:16 05/25/1905/25/2024 micro album in, urine microalbumin ,random panel Not Available [facility] [address] [place] [address], [id number], 05/25/2024 19:51:09 05/25/19 25 05/25/2024 micro album in, urine microalbumin random 40.5 mg/dL Not Available [facility] [address] [place] [address], [id number], 05/25/2024 19:51:09 05/25/19 25 05/25/2024 micro album in, urine creatinine, urine random 36 mg/dL Refer ence range not estab lishe d for other than 24 hour colle ction . Not Available [facility] [address] [place] [address], [id number], 05/25/2024 19:51:09 05/25/19 25 05/25/2024 micro album in, urine microalb/cre at ratio [...] Not Available [facility] [address] [place] [address], 770[address], 05/25/2024 19:51:09 05/25/19 25 05/26/2024 ANNA (anti nucle ar antib odies ) scree n, serum ANNA screen NEGATI VE negati ve Perfo rmed by Bio-R ad enzym e immun oassa y Not Available [facility] [address] [place] [address], [id number], 05/26/2024 14:59:40 08/25/19 25 08/24/2024 CBC CBC Not Available [facility] [address] [place] [address], [id number], 08/24/2024 18:25:18 08/25/1908/24/2024 CBC WBC 11.9 K/uL 3.8-11 .2 high Not Available [facility] [address] [place] [address], 568[address], 08/24/2024 18:25:18 08/25/1908/24/2024 CBC RBC 5.22 M/uL 3.92-5 .10 high Not Available [facility] [address] [place] [address], 48[address], 08/24/2024 18:25:18 08/25/1908/24/2024 CBC HGB 15.1 g/dL 11.8-1 5.3 Not Available [facility] [address] [place] [address], 46625, 08/24/2024 18:25:18 08/25/1908/24/2024 CBC HCT 47.6 % 36.5-4 4.8 high Not Available [facility] [address] [place] [address], 64279, 08/24/2024 18:25:18 08/25/1908/24/2024 CBC MCV 91.2 fL 80.0-9 9.0 Not Available [facility] [address] [place] [address], 92761, 08/24/2024 18:25:18 08/25/1908/24/2024 CBC MCH 28.9 pg 25.5-3 3.6 Not Available [facility] [address] [place] [address], [id number], 08/24/2024 18:25:18 08/25/1908/24/2024 CBC MCHC 31.7 g/dL 32.0-3 6.0 low Not Available [facility] [address] [place] [address], [id number], 08/24/2024 18:25:18 08/25/19 25 08/24/2024 CBC RDW-SD 46.5 fL 35.1 - 46.3 high Not Available [facility] [address] [place] [address], [id number], 08/24/2024 18:25:18 08/25/19 25 08/24/2024 CBC plt 356 K/uL 130-40 0 Not Available [facility] [address] [place] [address], [id number], 08/24/2024 18:25:18 08/25/19 25 08/24/2024 CBC MPV 10.0 fL 9.3-12 .8 Not Available [facility] [address] [place] [address], 77899, 08/24/2024 18:25:18 08/25/1908/24/2024 renal funct ion panel , serum renal function panel Not Available [facility] [address] [place] [address], [id number], 08/24/2024 19:05:07 08/25/1908/24/2024 renal funct ion panel , serum sodium 142 mmol/ L 136-14 6 Not Available [facility] [address] [place] [address], [id number], 08/24/2024 19:05:07 08/25/1908/24/2024 renal funct ion panel , serum potassium 4.7 mmol/ L 3.5-5. 1 Not Available [facility] [address] [place] [address], 54348, 08/24/2024 19:05:07 08/25/19 25 08/24/2024 renal funct ion panel , serum chloride 106 mmol/ L 98-110 Not Available [facility] [address] [place] [address], 99705, 08/24/2024 19:05:07 08/25/1908/24/2024 renal funct ion panel , serum CO2 27 mEq/L 20-32 Not Available [facility] [address] [place] [address], 33152, 08/24/2024 19:05:07 08/25/1908/24/2024 renal funct ion panel , serum anion gap 14 mmol/ L 10-22 Not Available [facility] [address] [place] [address], 40663, 08/24/2024 19:05:07 08/25/1908/24/2024 renal funct ion panel , serum glucose 133 mg/dL 70-100 high Not Available [facility] [address] [place] [address], 72192, 08/24/2024 19:05:07 08/25/1908/24/2024 renal funct ion panel , serum calcium 10.2 mg/dL 8.4-10 .4 Not Available [facility] [address] [place] [address], 53068, 08/24/2024 19:05:07 08/25/1908/24/2024 renal funct ion panel , serum albumin 5.0 g/dL 3.5-5. 3 Not Available [facility] [address] [place] [address], 43496, 08/24/2024 19:05:07 08/25/1908/24/2024 renal funct ion panel , serum phosphorus 4.0 mg/dL 2.7-4. 5 Not Available [facility] [address] [place] [address], 79536, 08/24/2024 19:05:07 08/25/1908/24/2024 renal funct ion panel , serum BUN 16 mg/dL 7-21 Not Available [facility] [address] [place] [address], 74875, 08/24/2024 19:05:07 08/25/19 25 08/24/2024 renal funct ion panel , serum creatinine 0.9 mg/dL 0.7-1. 3 Not Available [facility] - [facility] [address], [address], 08/24/2024 19:05:07 08/25/19 25 08/24/2024 renal funct ion panel , serum CKD-epi GFR 71 eGFR was calcu lated using the 2020 CKD-E PI equat ion. ([employer] Resources Extension Educator sarai Kidne y Disea se has an eGFR less than 60 mL/mi n/1.7 3mm for a perio d of three month s or more. ) This calcu latio n has not been valid ated for patie nt ages <18 or >90 years old. Not Available [facility] [address], [address], 08/24/2024 19:05:07 06/23/19 25 02/09/2024 US, kidne y No observ ation record ed. [email or web address] Not Available 2024 08:32:57 Result Notes None recorded. Problems Name Problem SNOMED Code Status Onset Date Resolution Date Notes Provider Name and Address Organization Details Recorded Time Microalbuminur ia 820637303 Active [address] [facility] 4 14:13:37 Type 2 diabetes mellitus without complication 387570892 Active [address] [facility] 4 14:14:01 Essential hypertension 86749063 Active [address] [facility] 4 14:14:20 Hyperlipidemia 73515850 Active [address] [facility] 4 14:14:30 Chronic obstructive pulmonary disease 95820223 Active [address] [facility] 4 14:14:38 Sleep apnea 65864412 Active [address] [facility] 4 14:14:51 Rheumatoid arthritis 46608716 Active [address] [facility] 4 14:15:12 Coronary arterioscleros is 50661551 Active [address] [facility] 4 14:15:26 Urinary tract infectious disease 30922983 Active [address] [facility] 5 16:47:55 Problem Notes None recorded. Medical Equipment None Reported. Allergies Allergen ID Allergen Name Allergen Category Reaction Reaction Severity Criticality Documentation Date Start Date Code Code System Note Provider Name and Address Organization Details Recorded Time 0454088 clindamyc in Not available Not available Not available Not available 01/19/[address] [facility] 4 14:17:17 7804425 lisinopri l medicatio n rash Not available Not available 01/19/[address] [facility] 4 14:17:27 3337258 clarithro mycin medicatio n Not available Not available Not available 01/19/[address] [facility] [facility] 4 14:17:37 Medications Name Sig Start Date [...] Not Available Not Available No t Available fluconazole 150 mg tablet TAKE ONE TABLET BY MOUTH A ONE-TIME DOSE 08/24 completed Not Available Not Available Not Available meloxicam 15 mg tablet Take 1 tablet every day by oral route. 01/19 completed Not Available Not Available Not Available tramadol 50 mg tablet TAKE 1 TABLET BY MOUTH ONCE DAILY NEEDED active Not Available Not Available No t Available magnesium oxide 400 mg (241.3 mg magnesium) tablet one tablet daily 01/19 completed Not Available Not Available Not Available Cipro 500 mg tablet one tablet daily x 5 days 08/24 completed Not Available Not Available Not Available ergocalcife rol (vitamin D2) 1,250 mcg (50,000 unit) capsule TAKE 1 CAPSULE BY MOUTH ONCE A WEEK active Not Available Not Available No t Available hydroxychlo roquine 200 mg tablet TAKE 1 TABLET BY MOUTH TWICE DAILY WITH FOOD active Not Available Not Available No t [...] 18 mcg and inhalation capsules once daily 08/24 completed Not Available Not Available Not Available folic acid 01/19 completed Not Available Not Available Not Available Tylenol Arthritis Pain PRN active Not Available Not Available Not Available Jardiance 10 mg tablet TAKE 1 TABLET BY MOUTH ONCE DAILY IN THE MORNING 08/24 completed Not Available Not Available Not Available Jardiance 25 mg tablet TAKE 1 TABLET BY MOUTH ONCE DAILY IN THE MORNING active Not Available Not Available No t Available Bevespi Aerosphere 9 mcg-4.8 mcg HFA [...] BY MOUTH TWICE DAILY FOR 5 DAYS. 08/24 completed Not Available Not Available Not Available Vitals Date Recorded Body weight Heart rate Oxygen saturation Oxygen saturation in Arterial blood by Pulse oximetry Systolic blood pressure Diastolic blood pressure Provider Name and Address Organization Details Last Updated DateTime 5 27774.1 7 g 105 /min 96 % 96 % 136 mm[Hg] 80 mm[Hg] Ct Ph[facility] 5 13:58:27 Date Recorded Oxygen saturation Oxygen saturation in Arterial blood by Pulse oximetry Inhaled oxygen flow rate Heart rate Body weight Systolic blood pressure Diastolic blood pressure Provider Name and Address Organization Details Last Updated DateTime 5 94 % 94 % 4 L/min 87 /min 09447.8 9 g 120 mm[Hg] 82 mm[Hg] Dell Thorpe [facility] 5 14:26:38 Date Recorded Body weight Heart rate Oxygen saturation Oxygen saturation in Arterial blood by Pulse oximetry Systolic blood pressure Diastolic blood pressure Provider Name and Address Organization Details Last Updated DateTime 4 78346.3 6 g 91 /min 95 % 95 % 118 mm[Hg] 78 mm[Hg] [facility] 4 13:59:29 Date Recorded Body weight Heart rate Oxygen saturation Oxygen saturation in Arterial blood by Pulse oximetry Systolic blood pressure Diastolic blood pressure Provider Name and Address Organization Details Last Updated DateTime 4 89454.5 4 g 112 /min 94 % 94 % 126 mm[Hg] 82 mm[Hg] [facility] 4 12:19:20 Social History None recorded. Functional Status None recorded. Mental Status None recorded. Family History Relationship Description Onset Age of this Age Resolved Age Notes LastModified by Organization Details LastModified Time Father Myocardial infarction [email or web address] Not available 01/18 14:15:50 Father Rheumatoid arthritis [email or web address] Not available 2023 14:16:19 Brother Leukemia [email or web address] Not availab le 01/19/2024 14:16:00 Medical History No medical history recorded. Gynecological HistoryNo gynecological history recorded. Obstetrics History GPAL:G 0 P 0 0 0 0 Past Encounters Encounter ID Performer Location Encounter Start Date Encounter Closed Date Diagnosis/Indication Diagnosis SNOMED-CT Code Diagnosis ICD10 Code Diagnosis Note [id number] Neel Ferreira MD [facility] ([place]) [address] [place] [address] 01/20/2024 13:23:18 01/20/2024 14:26:24 Microalbuminuria 310798391 R80.9 [id number] Summer Jamison APRN, TELEPHONE ORDER DISPATCHER [facility] ([place]) [address] [place] [address] 03/21/2024 12:04:30 03/21/2024 12:34:08 Microalbuminuria 354180016 R80.9 Essential hypertension 13609283 I10 [id number] Summer Jamison APRN, TELEPHONE ORDER DISPATCHER [facility] [place] [address] 05/25/2024 13:51:13 05/25/2024 15:05:58 Microalbuminuria 888700589 R80.9 Essential hypertension 98080593 I10 [id number] Summer Jamison APRN, TELEPHONE ORDER DISPATCHER [facility] [address] [place] [address] 08/24/2024 14:07:21 08/24/2024 15:08:46 Microalbuminuria 561521036 R80.9 Essential hypertension 58090970 I10 Health Concerns Section Related Observation LastModified by Organization Detai ls LastModified Time None Recorded Concern Status LastModified by Organization Details LastModified Time None Recorded Advance Directives Directive None Recorded Payers Insurance Date Sequence Insurance Name Policy Number Policy Cisneros Covered Member ID Cisneros Member ID Guarantor Name 06/11/2024 1 UNSPECIFIED REMIT PAYOR Minda Sutherland Day 08/25/2024 1 [facility] (MEDICARE REPLACEMENT/AD VANTAGE - HMO) Minda L Day [id number] Minda L Day 08/19/2024 2 [place] Minda L Day [id number] Minda Sutherland Day Notes Date Note Type Note Provider Name and Address Organization Details Recorded Time 01/20/2024 text/html 63-year-old wido wed woman, now with a boyfriend mother 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 Is [...] when she is physically active. COPD. Summer Jamison, INTEGRATION ANALYST, TELEPHONE ORDER DISPATCHER [address] , [place], [address], [facility] 03/21/2024 13:16:47 05/25/2024 text/html 1. Blood [...] her shortness of breath is stable. Summer Jamison APRN, TELEPHONE ORDER DISPATCHER [address] [place] [address], [phone], [facility] 05/25/2024 14:17:15 08/24/2024 text/html 1. Blood presskwasi e is well-controlled in the office today. She denies lightheadedness or dizziness. She denies edema. 2. She states her diabetes is much better controlled recently. She states her blood sugar this morning was 124. She is working very hard to get her diabetes well-managed. 3. She denies urinary complaint such as dysuria, urgency, or frequency. 4. She states her COPD and breathing is stable on her current oxygen of 4 L when at rest and up to 8 L when she is physically active. Summer Jamison APRN, TELEPHONE ORDER DISPATCHER [address] [place], [address], [facility] 08/24/2024 14:39:42 OBGyn Episode No OBEpisode recorded.
--- OUTSIDE RECORDS SUMMARY | 2024-09-07 14:46 | XMS_ITS | Clinical Summary ---
Author Organization [facility] Address [address] [place] [address] Care Team Providers Care Manager Track Name Role Phone Negro Hein MD Primary Care Provider [phone] Allergies Active Allergy Reactions Criticality Noted Date [...] (1 - 1-dose 75+ series) 11/01/2035 Insurance [facility] MCR [facility] M[facility] Care Teams Manager Track Relationship Specialty Start Date End Date Negro Hein MD [address] [place] [address] PCP - General Family Practice 05/06/21
--- OUTSIDE RECORDS SUMMARY | 2024-09-07 14:46 | XMS_ITS | Clinical Summary ---
Author Organization [facility] Address [address] [place] [address] Care Team Providers Care Brand Inspector Name Role Phone Negro Hein MD Primary Care Provider [phone] Source Comments [facility],non-owned Affiliates and Associated Physician Practices is amultiple site organization consisting of ambulatory clinics and hospital sitesin [place], [place], [place] and [place]. This disclosure is being madepursuant to the Care Everywhere program and may not contain all information available regarding this patient. 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 Gender Identity Not on file Sexual Orientation Not on file Last Filed Vital Signs Vital Sign Reading Time Taken Comments Blood Pressure 158/72 05/24/2019 12:10 PM PUBLIC HEALTH NUTRITIONIST Pulse 84 05/24/2019 12:10 PM PUBLIC HEALTH NUTRITIONIST Temperature 36.9 C (98.4 F) 05/24/2019 12:10 PM PUBLIC HEALTH NUTRITIONIST Respiratory Rate - - Oxygen Saturation - - Inhaled Oxygen Concentration - - Weight 83.5 kg (184 lb) 05/24/2019 12:10 PM PUBLIC HEALTH NUTRITIONIST Height 167.6 cm (5' 6) 05/24/2019 12:10 PM PUBLIC HEALTH NUTRITIONIST Body Mass Index 29.7 05/24/2019 12:10 PM PUBLIC HEALTH NUTRITIONIST Plan of Treatment Health Maintenance Due Date [...] Non-reacti ve Non-react adriana 07/20/2018 12:38 PM [facility] Comment: Neither HIV-1 p24 Antigen nor HIV-1/HIV-2 Antibodies are detected. Blood BLOOD SPECIMEN / Unknown Lab Venipuncture / Unknown 07/20/2018 10:17 AM CDT 07/20/2018 11:36 AM CDT us Genesis Maradiaga DO LAB - HEMATOLOGY ORDERABLES F inal Result Performing Organization Address City/State/[facility] Co de Phone Number [address] [phone] * (ABNORMAL) COMPREHENSIVE METABOLIC PANEL (07/20/2018 10:17 AM CDT) Pathologist [facility] BUN 12 7 - 26 mg/dL 07/20/2018 11:15 AM [facility] Creatinine 0.5(L) 0.6 - 1.2 mg/dL 07/20/2018 11:15 AM [facility] Sodium 140 136 - 145 mmol/L 07/20/2018 11:15 AM [facility] Potassium 3.7 3.5 - 4.5 mmol/L 07/20/2018 11:15 AM [facility] Chloride 98 98 - 107 mmol/L 07/20/2018 11:15 AM [facility] CO2 28 22 - 29 mmol/L 07/20/2018 11:15 AM [facility] Glucose 199(H) 70 - 115 mg/dL 07/20/2018 11:15 AM [facility] Calcium 9.0 8.4 - 10.2 mg/dL 07/20/2018 11:15 AM [facility] Protein Total 7.7 6.0 - 8.3 g/dL 07/20/2018 11:15 AM [facility] Albumin 3.0(L) 3.4 - 5.0 g/dL 07/20/2018 11:15 AM [facility] Bilirubin Total 0.4 0.2 - 1.2 mg/dL 07/20/2018 11:15 AM [facility] Alkaline Phosphatase 151(H) 40 - 150 Units/L 07/20/2018 11:15 AM [facility] ALT 12 0 - 55 Units/L 07/20/2018 11:15 AM [facility] AST 12 5 - 34 Units/L 07/20/2018 11:15 AM [facility] Anion Gap 18 8 - 18 07/20/2018 11:15 AM [facility] BUN/Creatinine Ratio 24(H) 7 - 23 07/20/2018 11:15 AM [facility] Osmolality Calculated 295 270 - 300 mOsm/kg 07/20/2018 11:15 AM [facility] Albumin/Globulin Ratio 0.6(L) 1.1 - 2.3 07/20/2018 11:15 AM [facility] eGFR >60 >60 mL/min/1.7 3 m2 07/20/2018 11:15 AM [facility] Blood BLOOD SPECIMEN / Unknown Lab Venipuncture / Unknown 07/20/2018 10:17 AM CDT 07/20/2018 10:[address] [facility] us Genesis Maradiaga DO LAB - CHEMISTRY ORDERABLES Fi nal Result [facility] [address] [place] [address] * HEPATITIS C ANTIBODY (07/20/2018 10:[address] [facility]) Hepatitis C Antibody Non-react adriana Non-reac tive 07/20/2018 12:38 PM [facility] Comment: Hepatitis C Antibody screen indicates no [...] DO LAB - CHEMISTRY ORDERABLES nal Result [address] [phone] from Last 3 Months or Most Recently Relevant to Health Maintenance Insurance [facility] [address] Care Teams Brand Inspector Relationship Specialty Start Date End Date Negro Hein MD [address] [place] [id number] PCP - General 12/23/17
--- OUTSIDE RECORDS SUMMARY | 2024-09-07 14:46 | XMS_ITS ---
Author Organization Unknown Address [address] [place] [address] [id number] Phone Care Team Providers Care Computer Operations Specialist Name Role Phone TAISHA MOSES Attending Unavailable [...] 208 CVX Pneumococcal conjugate PCV20 , polysaccharide [id number] conjugate, adjuvant, PF 07/31/2022 Completed 216 CVX [...] Jameel Teague M.D. RB: PAUL Report ID: [id number] Reading Location: [id number] Social History Type Status Start Date End Date Code Code Syst em Sex Female Hospital Discharge Instructions Should you have any questions prior to discharge, please contact a member of your healthcare team. If you have left the hospital and have any questions, please contact your primary care physician. Reason For Referral No Data Found Plan of Treatment Kidney & Bladder (05201) 02/09/2024 Encounters Encounter Diagnosis Start Date Code Code Sys tem Proteinuria 02/09/2024 [id number] SNOMED-CT Personal Care Team Section Imaging Narrative Notes
== END 2024-09-07 12:51 | disposition home or self-care (01) ==
LOC: CHSLAB 12:51
PROVIDERS: PCP Family Medicine; Visit Provider Family Medicine
DX: E11.9 Type 2 diabetes mellitus without complications (principal); I10 Essential (primary) hypertension
CPT/HCPCS: 36415; 80053; 83036; 85025

== ENCOUNTER 2024-09-26 14:17 | Outpatient (CLI) | payer OTHER, SELFPAY ==
--- OUTSIDE RECORDS SUMMARY | 2024-09-26 14:30 | XMS_ITS | Clinical Summary ---
Author Organization [facility] [employer] Address [address] [place] [address] Care Team Providers Care Mat Tester Name Role Phone Negro Hein MD Primary Care Provider [phone] Source Comments [facility] [employer] [facility] [employer],non-owned Affiliates and Associated Physician Practices is amultiple site organization consisting of ambulatory clinics and hospital sitesin [place], [place]. This disclosure is being madepursuant to the Care Everywhere program and may not contain all information available regarding this patient. 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 Gender Identity Not on file Sexual Orientation Not on file Last Filed Vital Signs Vital Sign Reading Time Taken Comments Blood Pressure 158/72 05/24/2019 12:10 PM COMMUNITY CENTER COORDINATOR Pulse 84 05/24/2019 12:10 PM COMMUNITY CENTER COORDINATOR Temperature 36.9 C (98.4 F) 05/24/2019 12:10 PM COMMUNITY CENTER COORDINATOR Respiratory Rate - - Oxygen Saturation - - Inhaled Oxygen Concentration - - Weight 83.5 kg (184 lb) 05/24/2019 12:10 PM COMMUNITY CENTER COORDINATOR Height 167.6 cm (5' 6) 05/24/2019 12:10 PM COMMUNITY CENTER COORDINATOR Body Mass Index 29.7 05/24/2019 12:10 PM COMMUNITY CENTER COORDINATOR Plan of Treatment Health Maintenance Due Date [...] Non-reacti ve Non-react adriana 07/20/2018 12:38 PM [facility] Comment: Neither HIV-1 p24 Antigen nor HIV-1/HIV-2 Antibodies are detected. Blood BLOOD SPECIMEN / Unknown Lab Venipuncture / Unknown 07/20/2018 10:17 AM CDT 07/20/2018 11:36 AM CDT us Genesis Maradiaga DO LAB - HEMATOLOGY ORDERABLES F inal Result Performing Organization Address City/State/[facility] Co de Phone Number [address] [phone] * (ABNORMAL) COMPREHENSIVE METABOLIC PANEL (07/20/2018 10:17 AM CDT) Pathologist [facility] BUN 12 7 - 26 mg/dL 07/20/2018 11:15 AM [facility] Creatinine 0.5(L) 0.6 - 1.2 mg/dL 07/20/2018 11:15 AM [facility] Sodium 140 136 - 145 mmol/L 07/20/2018 11:15 AM [facility] Potassium 3.7 3.5 - 4.5 mmol/L 07/20/2018 11:15 AM [facility] Chloride 98 98 - 107 mmol/L 07/20/2018 11:15 AM [facility] CO2 28 22 - 29 mmol/L 07/20/2018 11:15 AM [facility] Glucose 199(H) 70 - 115 mg/dL 07/20/2018 11:15 AM [facility] Calcium 9.0 8.4 - 10.2 mg/dL 07/20/2018 11:15 AM [facility] Protein Total 7.7 6.0 - 8.3 g/dL 07/20/2018 11:15 AM [facility] Albumin 3.0(L) 3.4 - 5.0 g/dL 07/20/2018 11:15 AM [facility] Bilirubin Total 0.4 0.2 - 1.2 mg/dL 07/20/2018 11:15 AM [facility] Alkaline Phosphatase 151(H) 40 - 150 Units/L 07/20/2018 11:15 AM [facility] ALT 12 0 - 55 Units/L 07/20/2018 11:15 AM [facility] AST 12 5 - 34 Units/L 07/20/2018 11:15 AM [facility] Anion Gap 18 8 - 18 07/20/2018 11:15 AM [facility] BUN/Creatinine Ratio 24(H) 7 - 23 07/20/2018 11:15 AM [facility] Osmolality Calculated 295 270 - 300 mOsm/kg 07/20/2018 11:15 AM [facility] Albumin/Globulin Ratio 0.6(L) 1.1 - 2.3 07/20/2018 11:15 AM [facility] eGFR >60 >60 mL/min/1.7 3 m2 07/20/2018 11:15 AM [facility] Blood BLOOD SPECIMEN / Unknown Lab Venipuncture / Unknown 07/20/2018 10:17 AM CDT 07/20/2018 10:52 AM [facility] us Genesis Maradiaga DO LAB - CHEMISTRY ORDERABLES Fi nal Result [facility] [address] [place] [address] * HEPATITIS C ANTIBODY (07/20/2018 10:17 AM [facility]) Hepatitis C Antibody Non-react adriana Non-reac tive 07/20/2018 12:38 PM [facility] Comment: Hepatitis C Antibody screen indicates [...] DO LAB - CHEMISTRY ORDERABLES nal Result [address] [phone] from Last 3 Months or Most Recently Relevant to Health Maintenance Insurance [facility] [address] Care Teams Mat Tester Relationship Specialty Start Date End Date Negro Hein MD [address] [place] [phone] PCP - General 12/23/17
--- OUTSIDE RECORDS SUMMARY | 2024-09-26 14:30 | XMS_ITS | Clinical Summary ---
Author Organization [facility] Address [address] [place] [id number] Care Team Providers Care Pharmacy Delivery Driver Name Role Phone Unavailable Primary Care Provider [...]
--- OUTSIDE RECORDS SUMMARY | 2024-09-26 14:30 | XMS_ITS | Data Portability ---
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 ([place]/Francisco vazquez) Labs today: Renal function panel, CBC, microalbumin, UPEP, SPEP, iPTH, renal ultrasound with post void residual HepBSag, Hep C Ab, ANCA, ANNA, C3, C4, anti-glomerular basement antibody , urine eosinophils, urinalysis Farxiga 5 mg daily (please give samples) Labs prior to return: Renal function panel, CBC, microalbumin. Critical access hospital labs. 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 Labs prior to return: Renal function panel, CBC, microalbumin, ANNA. Critical access hospital labs. 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 Lysg-at-povqudvf arteriosclerosis, and focal arteriolar hyalinosis. Mild interstitial [...] to return: Renal function panel, CBC, microalbumin Critical access hospital labs. 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 Owen-lq-ooxrnavq arteriosclerosis, and focal arteriolar hyalinosis. Mild interstitial [...] Organization Details Last Modified Time Details Appointments [facility] Patient 15.EST 2024 01:15P M Summer Jamison Not available Not available Not available Lab [...] Order ing Provi adela: Jay Ferreira ord Patiangely nt Name: REHAN PEÑA #: [id number] /A ge/Ge nder: [id number] (Age: 63) / F Proce dure Date: 2024 SP ECIME N(S) RECEI IESHA * A:SEN D OUT, left nativ e kidne y, needl e biops y, medic al FI NAL PATHO LOGIC DIAGN OSIS* The diagn osis from the [facility] y; biops y: - Limit ed [...] a END OF REPOR T Not Available [place] [facility] - [address], [id number], 04/21/2024 12:07:20 05/25/19 25 05/25/2024 CBC CBC Not Available [facility] [address] [place] [address], [id number], 05/25/2024 18:29:56 05/25/19 25 05/25/2024 CBC WBC 10.5 K/uL 3.8-11 .2 Not Available [facility] [address] [place] [address], [id number], 05/25/2024 18:29:56 05/25/19 25 05/25/2024 CBC RBC 5.03 M/uL 3.92-5 .10 Not Available [facility] [address] [place] [address], [id number], 05/25/2024 18:29:56 05/25/19 25 05/25/2024 CBC HGB 14.8 g/dL 11.8-1 5.3 Not Available [facility] [address] [place] [address], [id number], 05/25/2024 18:29:56 05/25/19 25 05/25/2024 CBC HCT 46.0 % 36.5-4 4.8 high Not Available [facility] - [facility] [address] [place] [address], [id number], 05/25/2024 18:29:56 05/25/19 25 05/25/2024 CBC MCV 91.5 fL 80.0-9 9.0 Not Available [facility] [address] [place] [address], [id number], 05/25/2024 18:29:56 05/25/19 25 05/25/2024 CBC MCH 29.4 pg 25.5-3 3.6 Not Available [facility] [address] [place] [address], [id number], 05/25/2024 18:29:56 05/25/19 25 05/25/2024 CBC MCHC 32.2 g/dL 32.0-3 6.0 Not Available [facility] [address] [place] [address], [id number], 05/25/2024 18:29:56 05/25/19 25 05/25/2024 CBC RDW-SD 46.8 fL 35.1 - 46.3 high Not Available [facility] [address] [place] [address], 7[address], 05/25/2024 18:29:56 05/25/19 25 05/25/2024 CBC plt 409 K/uL 130-40 0 high Not Available [facility] [address] [place] [address], [address], 05/25/2024 18:29:56 05/25/19 25 05/25/2024 CBC MPV 10.5 fL 9.3-12 .8 Not Available [facility] [address] [place] [address], 16855, 05/25/2024 18:29:56 05/25/19 25 05/25/2024 renal funct ion panel , serum renal function panel Not Available [facility] [address] [place] [address], [id number], 05/25/2024 19:09:16 05/25/1905/25/2024 renal funct ion panel , serum sodium 140 mmol/ L 136-14 6 Not Available [facility] [address] [place] [address], 97021, 05/25/2024 19:09:16 05/25/1905/25/2024 renal funct ion panel , serum potassium 4.8 mmol/ L 3.5-5. 1 Not Available [facility] [address] [place] [address], 16413, 05/25/2024 19:09:16 05/25/1905/25/2024 renal funct ion panel , serum chloride 102 mmol/ L 98-110 Not Available [facility] [address] [place] [address], 44859, 05/25/2024 19:09:16 05/25/1905/25/2024 renal funct ion panel , serum CO2 27 mEq/L 20-32 Not Available [facility] [address] [place] [address], 60100, 05/25/2024 19:09:16 05/25/1905/25/2024 renal funct ion panel , serum anion gap 16 mmol/ L 10-22 Not Available [facility] [address] [place] [address], 90130, 05/25/2024 19:09:16 05/25/1905/25/2024 renal funct ion panel , serum glucose 306 mg/dL 70-100 high Not Available [facility] [address] [place] [address], 95724, 05/25/2024 19:09:16 05/25/1905/25/2024 renal funct ion panel , serum calcium 10.1 mg/dL 8.4-10 .4 Not Available [facility] [address] [place] [address], 54500, 05/25/2024 19:09:16 05/25/1905/25/2024 renal funct ion panel , serum albumin 5.0 g/dL 3.5-5. 3 Not Available [facility] [address] [place] [address], 30969, 05/25/2024 19:09:16 05/25/1905/25/2024 renal funct ion panel , serum phosphorus 3.8 mg/dL 2.7-4. 5 Not Available [facility] [address] [place] [address], 62420, 05/25/2024 19:09:16 05/25/1905/25/2024 renal funct ion panel , serum BUN 13 mg/dL 7-21 Not Available [facility] [address] [place] [address], 48050, 05/25/2024 19:09:16 05/25/1905/25/2024 renal funct ion panel , serum creatinine 0.9 mg/dL 0.7-1. 3 Not Available [facility] [address] [place] [address], 67983, 05/25/2024 19:09:16 05/25/1905/25/2024 renal funct ion panel , serum CKD-epi GFR 72 eGFR was calcu lated using the 2020 CKD-E PI equat ion. ([employer] sarai Kidne y Disea se has an eGFR less than 60 mL/mi n/1.7 3mm for a perio d of three month s or more. ) This calcu latio n has not been valid ated for patie nt ages <18 or >90 years old. Not Available [facility] [address] [place] [address], 30376, 05/25/2024 19:09:16 05/25/1905/25/2024 micro album in, urine microalbumin ,random panel Not Available [facility] [address] [place] [address], 82617, 05/25/2024 19:51:09 05/25/19 25 05/25/2024 micro album in, urine microalbumin random 40.5 mg/dL Not Available [facility] [address] [place] [address], 78251, 05/25/2024 19:51:09 05/25/19 25 05/25/2024 micro album in, urine creatinine, urine random 36 mg/dL Refer ence range not estab lishe d for other than 24 hour colle ction . Not Available [facility] [address] [place] [address], [id number], 05/25/2024 19:51:09 05/25/19 25 05/25/2024 micro album [...] in or Creat inine .) Not Available [facility] [address] [place] [address], [id number], 05/25/2024 19:51:09 05/25/19 25 05/26/2024 ANNA (anti nucle ar antib odies ) scree n, serum ANNA screen NEGATI VE negati ve Perfo rmed by Bio-R ad enzym e immun oassa y Not Available [facility] [address] [place] [address], [id number], 05/26/2024 14:59:40 08/25/19 25 08/24/2024 CBC CBC Not Available [facility] - [facility] [address] [place] [address], 34836, 08/24/2024 18:25:18 08/25/1908/24/2024 CBC WBC 11.9 K/uL 3.8-11 .2 high Not Available [facility] [address] [place] [address], 44863, 08/24/2024 18:25:18 08/25/1908/24/2024 CBC RBC 5.22 M/uL 3.92-5 .10 high Not Available [facility] [address] [place] [address], 82749, 08/24/2024 18:25:18 08/25/1908/24/2024 CBC HGB 15.1 g/dL 11.8-1 5.3 Not Available [facility] [address] [place] [address], 80125, 08/24/2024 18:25:18 08/25/1908/24/2024 CBC HCT 47.6 % 36.5-4 4.8 high Not Available [facility] [address] [place] [address], 26639, 08/24/2024 18:25:18 08/25/1908/24/2024 CBC MCV 91.2 fL 80.0-9 9.0 Not Available [facility] [address] [place] [address], 01403, 08/24/2024 18:25:18 08/25/1908/24/2024 CBC MCH 28.9 pg 25.5-3 3.6 Not Available [facility] [address] [place] [address], 22350, 08/24/2024 18:25:18 08/25/1908/24/2024 CBC MCHC 31.7 g/dL 32.0-3 6.0 low Not Available [facility] [address] [place] [address], 73067, 08/24/2024 18:25:18 08/25/19 25 08/24/2024 CBC RDW-SD 46.5 fL 35.1 - 46.3 high Not Available [facility] [address] [place] [address], 26563, 08/24/2024 18:25:18 08/25/19 25 08/24/2024 CBC plt 356 K/uL 130-40 0 Not Available [facility] [address] [place] [address], 97357, 08/24/2024 18:25:18 08/25/1908/24/2024 CBC MPV 10.0 fL 9.3-12 .8 Not Available [facility] [address] [place] [address], 30608, 08/24/2024 18:25:18 08/25/19 25 08/24/2024 renal funct ion panel , serum renal function panel Not Available [facility] [address] [place] [address], [id number], 08/24/2024 19:05:07 08/25/19 25 08/24/2024 renal funct ion panel , serum sodium 142 mmol/ L 136-14 6 Not Available [facility] - [facility] [address] [place] [address], 52505, 08/24/2024 19:05:07 08/25/19 25 08/24/2024 renal funct ion panel , serum potassium 4.7 mmol/ L 3.5-5. 1 Not Available [facility] [address] [place] [address], 71642, 08/24/2024 19:05:07 08/25/19 25 08/24/2024 renal funct ion panel , serum chloride 106 mmol/ L 98-110 Not Available [facility] - [facility] [address] [place] [address], 07913, 08/24/2024 19:05:07 08/25/19 25 08/24/2024 renal funct ion panel , serum CO2 27 mEq/L 20-32 Not Available [facility] [address] [place] [address], 75926, 08/24/2024 19:05:07 08/25/19 25 08/24/2024 renal funct ion panel , serum anion gap 14 mmol/ L 10-22 Not Available [facility] - [facility] [address] [place] [address], 75049, 08/24/2024 19:05:07 08/25/19 25 08/24/2024 renal funct ion panel , serum glucose 133 mg/dL 70-100 high Not Available [facility] [address] [place] [address], [id number], 08/24/2024 19:05:07 08/25/19 25 08/24/2024 renal funct ion panel , serum calcium 10.2 mg/dL 8.4-10 .4 Not Available [facility] [address] [place] [address], 83030, 08/24/2024 19:05:07 08/25/19 25 08/24/2024 renal funct ion panel , serum albumin 5.0 g/dL 3.5-5. 3 Not Available [facility] [address] [place] [address], 55702, 08/24/2024 19:05:07 08/25/1908/24/2024 renal funct ion panel , serum phosphorus 4.0 mg/dL 2.7-4. 5 Not Available [facility] - [facility] [address] [place] [address], 02183, 08/24/2024 19:05:07 08/25/1908/24/2024 renal funct ion panel , serum BUN 16 mg/dL 7-21 Not Available [facility] [address] [place] [address], 73858, 08/24/2024 19:05:07 08/25/19 25 08/24/2024 renal funct ion panel , serum creatinine 0.9 mg/dL 0.7-1. 3 Not Available [facility] [address], [address], 08/24/2024 19:05:07 08/25/19 25 08/24/2024 renal funct ion panel , serum CKD-epi GFR 71 eGFR was calcu lated using the 2020 CKD-E PI equat ion. ([employer] sarai Kidne y Disea se has an eGFR less than 60 mL/mi n/1.7 3mm for a perio d of three month s or more. ) This calcu latio n has not been valid ated for patie nt ages <18 or >90 years old. Not Available [facility] [address], [address], 08/24/2024 19:05:07 06/23/19 25 02/09/2024 US, kidshon y No observ ation record ed. [email or web address] Not Available 2024 08:32:57 Result Notes None recorded. Problems Name Problem SNOMED Code Status Onset Date Resolution Date Notes Provider Name and Address Organization Details Recorded Time Microalbuminur ia 118177904 Active 2023 [facility] 14:13:37 Type 2 diabetes mellitus without complication 480117981 Active 2023 [facility] 4 14:14:01 Essential hypertension 36441436 Active 2023 [facility] 14:14:20 Hyperlipidemia 47397370 Active 2023 [facility] 4 14:14:30 Chronic obstructive pulmonary disease 93725213 Active 20[address] [facility] 4 14:14:38 Sleep apnea 83108207 Active 2023 [facility] 4 14:14:51 Rheumatoid arthritis 75556628 Active 20[address] [facility] 4 14:15:12 Coronary arterioscleros is 23532673 Active [address] [facility] 4 14:15:26 Urinary tract infectious disease 68726832 Active 2024 [facility] 5 16:47:55 Problem Notes None recorded. Medical Equipment None Reported. Allergies Allergen ID Allergen Name Allergen Category Reaction Reaction Severity Criticality Documentation Date Start Date Code Code System Note Provider Name and Address Organization Details Recorded Time 0906938 clindamyc in Not available Not available Not available Not available 01/19/[address] [facility] 4 14:17:17 0461036 lisinopri l medicatio n rash Not available Not available 01/19/[address] [facility] 4 14:17:27 6665799 clarithro mycin medicatio n Not available Not available Not available 01/19/2024 78241 RxBarrington [facility] 4 14:17:37 Medications Name Sig Start [...] ONE TABLET BY MOUTH A ONE-TIME DOSE 05/28 /2025 completed Not Available Not Available Not Available [...] Address Organization Details Last Updated DateTime 5 80653.1 7 g 105 /min 96 % 96 % 136 mm[Hg] 80 mm[Hg] [facility] 5 13:58:27 Date Recorded Oxygen saturation Oxygen saturation in Arterial blood by Pulse oximetry Inhaled oxygen flow rate Heart rate Body weight Systolic blood pressure Diastolic blood pressure Provider Name and Address Organization Details Last Updated DateTime 5 94 % 94 % 4 L/min 87 /min 89679.8 9 g 120 mm[Hg] 82 mm[Hg] [facility] 5 14:26:38 Date Recorded Body weight Heart rate Oxygen saturation Oxygen saturation in Arterial blood by Pulse oximetry Systolic blood pressure Diastolic blood pressure Provider Name and Address Organization Details Last Updated DateTime 4 59855.3 6 g 91 /min 95 % 95 % 118 mm[Hg] 78 mm[Hg] [facility] 4 13:59:29 Date Recorded Body weight Heart rate Oxygen saturation Oxygen saturation in Arterial blood by Pulse oximetry Systolic blood pressure Diastolic blood pressure Provider Name and Address Organization Details Last Updated DateTime 4 30275.5 4 g 112 /min 94 % 94 % 126 mm[Hg] 82 mm[Hg] [facility] 4 12:19:20 Social History None recorded. Functional Status None recorded. Mental Status None recorded. Family History Relationship Description Onset Age of this Age Resolved Age Notes LastModified by Organization Details LastModified Time Father Myocardial infarction [email or web address] Not available 01/18 14:15:50 Father Rheumatoid arthritis [email or web address] Not available 2023 14:16:19 Brother Leukemia [email or web address] Not availab le 01/19/2024 14:16:00 Medical History No medical history recorded. Gynecological HistoryNo gynecological history recorded. Obstetrics History GPAL:G 0 P 0 0 0 0 Past Encounters Encounter ID Performer Location Encounter Start Date Encounter Closed Date Diagnosis/Indication Diagnosis SNOMED-CT Code Diagnosis ICD10 Code Diagnosis Note [id number] Neel Ferreira MD [facility] ([place]) [address] [place] [address] 01/20/2024 13:23:18 01/20/2024 14:26:24 Microalbuminuria 431511154 R80.9 [id number] Summer Jamison APRN, VOCATIONAL NURSE LVN [facility] ([place] [address] [place] [address] 03/21/2024 12:04:30 03/21/2024 12:34:08 Microalbuminuria 545345579 R80.9 Essential hypertension 07824786 I10 [id number] Summer Jamison APRN, VOCATIONAL NURSE LVN [facility] [place] [address] 05/25/2024 13:51:13 05/25/2024 15:05:58 Microalbuminuria 708561511 R80.9 Essential hypertension 89277483 I10 [id number] Summer Jamison APRN, VOCATIONAL NURSE LVN [facility] [place] [address] 08/24/2024 14:07:21 08/24/2024 15:08:46 Microalbuminuria 379447121 R80.9 Essential hypertension 33347710 I10 Health Concerns Section Related Observation LastModified by Organization Detai ls LastModified Time None Recorded Concern Status LastModified by Organization Details LastModified Time None Recorded Advance Directives Directive None Recorded Payers Insurance Date Sequence Insurance Name Policy Number Policy Cisneros Covered Member ID Cisneros Member ID Guarantor Name 06/11/2024 1 UNSPECIFIED REMIT PAYOR Minda L Day 08/25/2024 1 [facility] (MEDICARE REPLACEMENT/AD VANTAGE - HMO) Minda L Day [id number] Minda L Day 08/19/2024 2 [place] Minda L Day [id number] Minda Sutherland Day Notes Date Note Type Note Provider Name and Address Organization Details Recorded Time 01/20/2024 text/html 63-year-old wido wed woman, now with a boyfriend mother from [facility], 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 [...] she is physically active. COPD. Summer Jamison, ENAMEL DIPPER, VOCATIONAL NURSE LVN [address] , [place], [address], [employer] [facility] 03/21/2024 13:16:47 05/25/2024 text/html 1. [...] of breath is stable. Summer Jamison APRN, VOCATIONAL NURSE LVN [address] [place] [address], [phone], [employer] [facility] 05/25/2024 14:17:15 08/24/2024 text/html 1. Blood presskwasi [...] she is physically active. Summer Jamison APRN, VOCATIONAL NURSE LVN [address] [place] [address], [phone], [employer] [facility] 08/24/2024 14:39:42 OBGyn Episode No OBEpisode recorded.
--- OUTSIDE RECORDS SUMMARY | 2024-09-26 14:31 | XMS_ITS | Clinical Summary ---
Author Organization [facility] Address [address] [place] [address] Care Team Providers Care Special Duty Nurse Name Role Phone Negro Hein MD Primary Care Provider [phone] Allergies Active Allergy Reactions Criticality Noted Date [...] (1 - 1-dose 75+ series) 11/01/2035 Insurance [facility] Address: [facility] [id number] [place] [phone] [facility] Address: [facility] [id number] [place] [phone] Care Teams Special Duty Nurse Relationship Specialty Start Date End Date Negro Hein MD [address] [place] [address] PCP - General Family Practice 05/06/21
--- OUTSIDE RECORDS SUMMARY | 2024-09-26 14:31 | XMS_ITS ---
Author Organization Unknown Address [address] [place] [phone] Phone Care Team Providers Care Traffic Analyst Name Role Phone TAISHA MOSES Attending Unavailable [...] 208 CVX Pneumococcal conjugate PCV20 , polysaccharide ELB851 conjugate, adjuvant, PF 07/31/2022 Completed 216 CVX [...] Jameel Teague M.D. RB: PAUL Report ID: [id number] Reading Location: [id number] Social History Type Status Start Date End Date Code Code Syst em Sex Female Hospital Discharge Instructions Should you have any questions prior to discharge, please contact a member of your healthcare team. If you have left the hospital and have any questions, please contact your primary care physician. Reason For Referral No Data Found Plan of Treatment Kidney & Bladder (79191) 02/09/2024 Encounters Encounter Diagnosis Start Date Code Code Sys tem Proteinuria 02/09/2024 11542294 SNOMED-CT Personal Care Team Section Imaging Narrative Notes
[2024-09-26 14:47] LABS: Anion Gap 7 mmol/L (4-12); Blood Urea Nitrogen 14 mg/dL (7-17); Calcium 9.5 mg/dL (8.4-10.2); Carbon Dioxide 28 mmol/L (22-30); Chloride 104 mmol/L (98-107); Estimated Glomerular Filt Rate > 60; Glucose 126 mg/dL (65-110); Osmolality Calculated 290 mOsm/kg (285-295); Sodium 139 mmol/L (137-145)
== END 2024-09-26 14:18 | disposition home or self-care (01) ==
LOC: CHSLAB 14:18
PROVIDERS: PCP Family Medicine; Visit Provider Family Medicine
DX: I10 Essential (primary) hypertension (principal)
CPT/HCPCS: 36415; 80048

== ENCOUNTER 2025-01-02 10:03 | Emergency (ER) | payer OTHER, SELFPAY ==
--- NOTE | ~2025-01-02 | XR_ITS ---
Clinical history:Neck pain EXAM:X-ray cervical spine 2-3 views TECHNIQUE:4 images of the cervical spine were obtained Comparisons:None available FINDINGS: Predental space is within normal limits. No prevertebral soft tissue swelling. Cervical vertebral body heights and alignment are within normal limits. No compression fracture in the cervical spine. Moderate degenerative change throughout the cervical facet joints and uncovertebral joints. Lateral dental intervals are within normal limits. Mild intervertebral disc space narrowing throughout the cervical spine. Moderate anterior osteophytosis in the mid cervical spine. Bones appear osteopenic. IMPRESSION: 1. No compression fracture in the cervical spine. 2. Mild to moderate degenerative change in the cervical spine If symptoms persist or worsen, consider a CT or MRI of the cervical spine for further assessment. Reviewed, dictated and finalized at location Q. IMPRESSION: 1. No compression fracture in the cervical spine. 2. Mild to moderate degenerative change in the cervical spine If symptoms persist or worsen, consider a CT or MRI of the cervical spine for f urther assessment.
[2025-01-02 10:05] VITALS: BP 134/97; PULSE 114; RESP 20; TEMP 36.6; O2SAT 94
--- NOTE | 2025-01-02 10:10 | ED.GENADULT ---
HPI - General Adult General Chief complaint: Extremity Problem,Nontraumatic Stated complaint: neck & rt. arm pain Time Seen by Provider: 01/02/25 10:08 History of Present Illness HPI narrative: Pt complains of neck pain and pain radiating down the back or her right arm to middle three fingers with some associated numbness in her fingers. Pt says the symptoms have been present for 3 weeks. Pt has been on muscle relaxers without relief. Pt has no been on prednisone to date. Pt denies specific injury prio to onset but had been mopping floor and peelinga lot of potatoes with right arm prior to symptoms. Related Data Home Medications ?Medication ?Instructions ?Recorded ?Confirmed ?Last Taken ?Type aspirin 325 mg tablet 325 mg PO DAILY 10/08/21 11/16/24 Unknown History bupropion HCl 150 mg 24 hr tablet, 150 mg PO QAM 10/08/21 11/16/24 Unknown History extended release losartan 50 mg tablet 50 mg PO DAILY 10/08/21 11/16/24 Unknown History metformin 500 mg tablet 500 mg PO BID 10/08/21 11/16/24 Unknown History vhbdugiquxug-hqhfsejk-opwzby tablet 1 tablet PO DAILY 10/08/21 11/16/24 Unknown History venlafaxine 75 mg tablet,extended 75 mg PO DAILY 10/08/21 11/16/24 Unknown History release 24 hr ergocalciferol (vitamin D2) 1,250 1,250 mcg PO WEEKLY 09/04/22 11/16/24 Unknown History mcg (50,000 unit) capsule (Vitamin D2) atorvastatin 40 mg tablet (Lipitor) 40 mg PO DAILY 11/16/24 11/16/24 Unknown History semaglutide 3 mg tablet (Rybelsus) 3 mg PO DAILY 11/16/24 11/16/24 Unknown History Allergies Allergy/AdvReac Type Severity Reaction Status Date / Time clarithromycin Allergy Unknown Rash Verified 01/02/25 10:06 clindamycin Allergy Unknown Rash Verified 01/02/25 10:06 Review of Systems Review of Systems: All systems reviewed & are unremarkable except as noted in HPI and below PMFSH Surgical History Surgical History (Updated 04/14/24 @ 00:00 by Dale England MD) H/O biopsy of kidney Social History Social History Years smoked: 40 Smoking status: Former smoker (Quit 11/08/2022) Tobacco type: cigarettes Second hand tobacco smoke exposure: Yes Smoking end date: 01/07/23 Alcohol intake: former Drinks per week: 7 Substance use: never Substance use type: does not use Lack of Transportation: No Lack of Food: Never True Current Housing: I Have Housing Concerned About Future Housing: No Difficulty Paying Gas/Electric Bills: No Difficulty Paying for Meds: No Currently Unemployed: No Education: Associate Degree Difficulty w/ Childcare or Family Care: No Spiritual care concerns: No Exam Const: General: healthy appearing Nutritional Appearance: obese Orientation/consciousness: patient oriented x3 Limitations: no limitations Other: uncomforable, tearful HENMT: Head: normal to inspection Eyes: EOM: EOMs intact bilaterally Neck: Neck: normal visual inspection and no meningeal signs Other: some tenderness low c spine Chest: Chest palpation & inspection: normal inspection of the chest Resp: Effort & Inspection: normal respiratory effort Auscultation: clear to auscultation bilaterally Cardio: Rate: regular rate Rhythm: regular rhythm GI: GI Palp: Yes Soft to palpation Auscultation: normal bowel sounds Skin: General skin exam: normal color Rashes: no rashes Neuro: General: patient oriented x3, moves all extremities, no meningeal signs, no focal motor deficits and CN's II-XI intact bilaterally Cranial nerves: Yes Nystagmus not present Speech: normal speech Extrem: General: normal to inspection and no clubbing, cyanosis or edema Psych: Mental Status: mental status grossly normal Affect: normal affect Attitude: cooperative Course Vital Signs Vital signs: Vital Signs Temperature 97.9 F 01/02/25 10:05 Pulse Rate 114 H 01/02/25 10:05 Respiratory Rate 20 01/02/25 10:05 Blood Pressure 134/97 H 01/02/25 10:05 Pulse Oximetry 94 01/02/25 10:05 Oxygen Delivery Nasal Cannula 01/02/25 10:05 Oxygen Flow Rate 4 01/02/25 10:05 Temperature 97.9 F 01/02/25 10:05 Pulse Rate 114 H 01/02/25 10:05 Respiratory Rate 20 01/02/25 10:05 Blood Pressure 134/97 H 01/02/25 10:05 Pulse Oximetry 94 01/02/25 10:05 Oxygen Delivery Nasal Cannula 01/02/25 10:05 Oxygen Flow Rate 4 01/02/25 10:05 Medical Decision Making MDM Narrative Medical decision making narrative: Pt has no weakness on exam of rue but describes c6 or 7 nerve root symptoms. could be muscle spasm in trapezius also pinching nerve but might be bulging or herniated disc, Pt needs MRI but not able to due this emergently. Will get x ray of c spine to make sure it's not a tumor of the bone and will treat with IM dilaudid and oral robaxin and prednisone. patient says pain came back after gettting x ray. will give another dose of dilaudid. will send home on prednisone wean, robaxin and a few norco with follow up for recheck and potential MRI Vital Signs Vital Signs: Vital Signs Temperature 97.9 F 01/02/25 10:05 Pulse Rate 114 H 01/02/25 10:05 Respiratory Rate 20 01/02/25 10:05 Blood Pressure 134/97 H 01/02/25 10:05 Pulse Oximetry 94 01/02/25 10:05 Oxygen Delivery Nasal Cannula 01/02/25 10:05 Oxygen Flow Rate 4 01/02/25 10:05 Temperature 97.9 F 01/02/25 10:05 Pulse Rate 114 H 01/02/25 10:05 Respiratory Rate 20 01/02/25 10:05 Blood Pressure 134/97 H 01/02/25 10:05 Pulse Oximetry 94 01/02/25 10:05 Oxygen Delivery Nasal Cannula 01/02/25 10:05 Oxygen Flow Rate 4 01/02/25 10:05 Imaging Data Attestation: I personally reviewed and interpreted this imaging study as follows: My impression: no acute fx or process noted Radiologist's impression: [facility] [address] [place] [address] XRay Report Signed Patient: Minda Francois : 1960 MR#: [id number] Age: 64 Acct:[id number] Loc: [facility] ADM Date: 01/02/[address]: Ordering Physician: Regla De Paz III, DO Date of Service: 01/02/25 Procedure(s): XR cervical spine 2-3V Accession Number(s): [id number] cc: Regla De Paz III, DO; Negro Hein MD~ Clinical history:Neck pain EXAM:X-ray cervical spine 2-3 views TECHNIQUE:4 images of the cervical spine were obtained Comparisons:None available FINDINGS: Predental space is within normal limits. No prevertebral soft tissue swelling. Cervical vertebral body heights and alignment are within normal limits. No compression fracture in the cervical spine. Moderate degenerative change throughout the cervical facet joints and uncovertebral joints. Lateral dental intervals are within normal limits. Mild intervertebral disc space narrowing throughout the cervical spine. Moderate anterior osteophytosis in the mid cervical spine. Bones appear osteopenic. IMPRESSION: 1. No compression fracture in the cervical spine. 2. Mild to moderate degenerative change in the cervical spine If symptoms persist or worsen, consider a CT or MRI of the cervical spine for further assessment. Discharge Plan Discharge Clinical Impression: Cervical radiculopathy Patient Disposition: Home Condition: Improved Instructions: Antibiotic Form, Cervical Radiculopathy (ED) Patient Language: Lao Prescriptions: New prednisone 10 mg tablet See Taper PO DAILY 15 Days Qty: 45 0RF Taper: Prednisone Taper from 50 mg;15 days 50 mg DAILY for 3 Days and 0 Hour 40 mg DAILY for 3 Days and 0 Hour 30 mg DAILY for 3 Days and 0 Hour 20 mg DAILY for 3 Days and 0 Hour 10 mg DAILY for 3 Days and 0 Hour methocarbamol 500 mg tablet 500 mg PO TID Qty: 14 0RF hydrocodone-acetaminophen 5-325 mg tablet 1 tablet PO Q6H PRN (Reason: pain) Qty: 10 0RF No Action losartan 50 mg Tablet 50 mg PO DAILY metformin 500 mg Tablet 500 mg PO BID aspirin 325 mg Tablet 325 mg PO DAILY xeprgieviucv-jxfnjjei-cbkuyr Tablet 1 tablet PO DAILY bupropion HCl 150 mg Tablet Extended Release 24 Hr 150 mg PO QAM venlafaxine 75 mg Tablet Extended Release 24hr 75 mg PO DAILY ergocalciferol (vitamin D2) [Vitamin D2] 1,250 mcg (50,000 unit) Capsule 1,250 mcg PO WEEKLY atorvastatin [Lipitor] 40 mg tablet 40 mg PO DAILY Rybelsus 3 mg tablet 3 mg PO DAILY albuterol sulfate [ProAir HFA] 90 mcg/actuation HFA aerosol inhaler 2 puff inhalation QID PRN (Reason: shortness of breath or wheezing) Qty: 8.5 0RF Bevespi Aerosphere 9-4.8 mcg HFA aerosol inhaler 2 puff inhalation BID Qty: 10.7 1RF Follow-up/Referrals: Negro Hein MD [Primary Care Provider, Internal Medicine]
[2025-01-02] MEDS: HYDROmorphone HCL INJ (*CRX) 2 MG/ML VIAL 1 MG IM (10:26)
[2025-01-02 10:30] VITALS: BP 121/79; PULSE 87; RESP 18; O2SAT 92
[2025-01-02 11:00] VITALS: BP 120/96; PULSE 79; RESP 18; O2SAT 91
--- OUTSIDE RECORDS SUMMARY | 2025-01-02 11:10 | XMS_ITS | Clinical Summary ---
Author Organization [email or web address] Address [address] [place] [address] Care Team Providers Care Data Analytics Specialist Name Role Phone Negro Hein MD Primary Care Provider [phone] Source Comments [facility] [email or web address],non-owned Affiliates and Associated Physician Practices is amultiple site organization consisting of ambulatory clinics and hospital sitesin [place], [place], [place] and [place]. This disclosure is being madepursuant to the Care Everywhere program and may not contain all information available regarding this patient. 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 Gender Identity Not on file Sexual Orientation Not on file Last Filed Vital Signs Vital Sign Reading Time Taken Comments Blood Pressure 158/72 05/24/2019 12:10 PM LUMBER SORTER MACHINE Pulse 84 05/24/2019 12:10 PM LUMBER SORTER MACHINE Temperature 36.9 C (98.4 F) 05/24/2019 12:10 PM LUMBER SORTER MACHINE Respiratory Rate - - Oxygen Saturation - - Inhaled Oxygen Concentration - - Weight 83.5 kg (184 lb) 05/24/2019 12:10 PM LUMBER SORTER MACHINE Height 167.6 cm (5' 6) 05/24/2019 12:10 PM LUMBER SORTER MACHINE Body Mass Index 29.7 05/24/2019 12:10 PM LUMBER SORTER MACHINE Plan of Treatment Health Maintenance Due Date [...] 2) 2010 SCREENING FOR DIABETES 07/20/2021 07/20/2018 DEPRESSION SCREENING 03/30/2024 COVID-19 VACCINE (1 - 2023-2 5 season) 2024 INFLUENZA VACCINE (#1) 2024 01/11/2019 Respiratory Syncytial Virus (RSV) Vaccine Pt: or [...] Non-reacti ve Non-react adriana 07/20/2018 12:38 PM [facility] Comment: Neither HIV-1 p24 Antigen nor HIV-1/HIV-2 Antibodies are detected. Blood BLOOD SPECIMEN / Unknown Lab Venipuncture / Unknown 07/20/2018 10:17 AM CDT 07/20/2018 11:36 AM CDT us Genesis Maradiaga DO LAB - HEMATOLOGY ORDERABLES F inal Result Performing Organization Address City/State/[facility] Co de Phone Number [address] [phone] * (ABNORMAL) COMPREHENSIVE METABOLIC PANEL (07/20/2018 10:17 AM CDT) Pathologist [facility] BUN 12 7 - 26 mg/dL 07/20/2018 11:15 AM [facility] Creatinine 0.5(L) 0.6 - 1.2 mg/dL 07/20/2018 11:15 AM [facility] Sodium 140 136 - 145 mmol/L 07/20/2018 11:15 AM [facility] Potassium 3.7 3.5 - 4.5 mmol/L 07/20/2018 11:15 AM [facility] Chloride 98 98 - 107 mmol/L 07/20/2018 11:15 AM [facility] CO2 28 22 - 29 mmol/L 07/20/2018 11:15 AM [facility] Glucose 199(H) 70 - 115 mg/dL 07/20/2018 11:15 AM [facility] Calcium 9.0 8.4 - 10.2 mg/dL 07/20/2018 11:15 AM [facility] Protein Total 7.7 6.0 - 8.3 [...] >60 mL/min/1.7 3 m2 07/20/2018 11:15 AM [facility] Blood BLOOD SPECIMEN / Unknown Lab Venipuncture / Unknown 07/20/2018 10:17 AM CDT 07/20/2018 10:52 AM [facility] us Genesis Maradiaga DO LAB - CHEMISTRY ORDERABLES Fi nal Result [facility] [address] [place] [address] * HEPATITIS C ANTIBODY (07/20/2018 10:17 AM T) Hepatitis C Antibody Non-react adriana Non-reac tive 07/20/2018 12:38 PM [facility] Comment: Hepatitis C Antibody screen [...] DO LAB - CHEMISTRY ORDERABLES nal Result [address] [phone] from Last 3 Months or Most Recently Relevant to Health Maintenance Insurance [facility] [address] [place] [address] Care Teams Data Analytics Specialist Relationship Specialty Start Date End Date Negro Hein MD [address] [place] [phone] (work) PCP - General 12/23/17
--- OUTSIDE RECORDS SUMMARY | 2025-01-02 11:10 | XMS_ITS | Clinical Summary ---
Author Organization [facility] Address [address] [place] [id number] Care Team Providers Care Superintendent Stevedoring Name Role Phone Unavailable Primary Care Provider [...] Vaccines (1 of 2) 2010 COVID-19 Vaccine ( - 2023-2 5 season) 2024 Influenza Adult (#1) 2024 RSV Immunization or 60+ Years (1 - 1-dose 75+ series) 11/01/2035 Meningococcal B Vaccine Aged Out No l onger eligible based on patient's age to complete this topic Meningococcal Vaccine Aged Out No faizan teresa eligible based on patient's age to complete this topic RSV Immunizations Under 20 Months Aged Out No longer eligible based on patient's age to complete this topic Insurance [employer]
--- OUTSIDE RECORDS SUMMARY | 2025-01-02 11:11 | XMS_ITS | Clinical Summary ---
Author Organization [facility] Address [address] [place] [address] Care Team Providers Care Shank Inspector Name Role Phone Negro Hein MD Primary Care Provider [phone] Allergies Active Allergy Reactions Criticality Noted Date [...] (1 of 2) 2010 INFLUENZA VACCINE (#1) 2024 01/11/2019 RSV VACCINE (60+ or ) (1 - 1-dose 75+ series) 11/01/2035 Insurance [facility] Address: [facility] [id number] [place] [id number] [facility] Address: [facility] [id number] [place] [phone] Care Teams Shank Inspector Relationship Specialty Start Date End Date Negro Hein MD [address] [place] [address] PCP - General Family Practice 05/06/21
--- NOTE | 2025-01-02 11:15 | PC.NURSE ---
Patient back in room from xray, states her pain is worse now that she had to move around, erp aware.
[2025-01-02] MEDS: HYDROmorphone HCL INJ (*CRX) 2 MG/ML VIAL 0.5 MG IM (11:26)
[2025-01-02 11:30] VITALS: BP 128/86; PULSE 84; RESP 18; O2SAT 94
[2025-01-02 12:00] VITALS: BP 115/81; PULSE 77; RESP 18; O2SAT 92
--- OUTSIDE RECORDS SUMMARY | 2025-01-02 12:09 | XMS_ITS | Clinical Summary ---
Author Organization [facility] Address [address] [place] [address] Care Team Providers Care Biomedical Instrument Technician Name Role Phone Unavailable Primary Care Provider [...] patient's age to complete this topic Insurance [place] [employer]
--- OUTSIDE RECORDS SUMMARY | 2025-01-02 12:09 | XMS_ITS | Clinical Summary ---
Author Organization [facility] Address [address] [place] [address] Care Team Providers Care Glazier Structural Glass Name Role Phone Negro Hein MD Primary Care Provider [phone] Allergies Active Allergy Reactions Criticality Noted Date [...] (1 - 1-dose 75+ series) 11/01/2035 Insurance [facility] Address: [facility] [id number] [place] [phone] [facility] Address: [facility] [id number] [place] [phone] Care Teams Glazier Structural Glass Relationship Specialty Start Date End Date Negro Hein MD [address] [place] [address] PCP - General Family Practice 05/06/21
--- OUTSIDE RECORDS SUMMARY | 2025-01-02 12:09 | XMS_ITS | Clinical Summary ---
Author Organization [facility] Address [address] [place] [address] Care Team Providers Care Roller Skate Assembler Name Role Phone Negro Hein MD Primary Care Provider [phone] Source Comments [facility],non-owned Affiliates and Associated Physician Practices is amultiple site organization consisting of ambulatory clinics and hospital sitesin [place], [place], [place] and [place]. This disclosure is being madepursuant to the Care Everywhere program and may not contain all information available regarding this patient. 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 Gender Identity Not on file Sexual Orientation Not on file Last Filed Vital Signs Vital Sign Reading Time Taken Comments Blood Pressure 158/72 05/24/2019 12:10 PM PATIENT ADMITTING CLERK Pulse 84 05/24/2019 12:10 PM PATIENT ADMITTING CLERK Temperature 36.9 C (98.4 F) 05/24/2019 12:10 PM PATIENT ADMITTING CLERK Respiratory Rate - - Oxygen Saturation - - Inhaled Oxygen Concentration - - Weight 83.5 kg (184 lb) 05/24/2019 12:10 PM PATIENT ADMITTING CLERK Height 167.6 cm (5' 6) 05/24/2019 12:10 PM PATIENT ADMITTING CLERK Body Mass Index 29.7 05/24/2019 12:10 PM PATIENT ADMITTING CLERK Plan of Treatment Health Maintenance Due Date [...] Non-reacti ve Non-react adriana 07/20/2018 12:38 PM [facility] Comment: Neither HIV-1 p24 Antigen nor HIV-1/HIV-2 Antibodies are detected. Blood BLOOD SPECIMEN / Unknown Lab Venipuncture / Unknown 07/20/2018 10:17 AM CDT 07/20/2018 11:36 AM CDT us Genesis Maradiaga DO LAB - HEMATOLOGY ORDERABLES F inal Result Performing Organization Address City/State/[facility] Co de Phone Number [address] [phone] * (ABNORMAL) COMPREHENSIVE METABOLIC PANEL (07/20/2018 10:17 AM CDT) Pathologist [facility] BUN 12 7 - 26 mg/dL 07/20/2018 11:15 AM [facility] Creatinine 0.5(L) 0.6 - 1.2 mg/dL 07/20/2018 11:15 AM [facility] Sodium 140 136 - 145 mmol/L 07/20/2018 11:15 AM [facility] Potassium 3.7 3.5 - 4.5 mmol/L 07/20/2018 11:15 AM [facility] Chloride 98 98 - 107 mmol/L 07/20/2018 11:15 AM [facility] CO2 28 22 - 29 mmol/L 07/20/2018 11:15 AM [facility] Glucose 199(H) 70 - 115 mg/dL 07/20/2018 11:15 AM [facility] Calcium 9.0 8.4 - 10.2 mg/dL 07/20/2018 11:15 AM [facility] Protein Total 7.7 6.0 - [...] 07/20/2018 10:17 AM CDT 07/20/2018 10:52 AM [facility] us Genesis Maradiaga DO LAB - CHEMISTRY ORDERABLES Fi nal Result [facility] [address] [place] [address] * HEPATITIS C ANTIBODY (07/20/2018 10:17 AM [...] DO LAB - CHEMISTRY ORDERABLES nal Result [address] [phone] from Last 3 Months or Most Recently Relevant to Health Maintenance Insurance [facility] [address] [place] [address] Care Teams Roller Skate Assembler Relationship Specialty Start Date End Date Negro Hein MD [address] [place] [phone] (work) PCP - General 12/23/17
[2025-01-02 12:12] VITALS: BP 115/81; PULSE 77; RESP 18; O2SAT 92
== END 2025-01-02 12:12 | disposition home or self-care (01) ==
PROVIDERS: Emergency Provider Emergency Medicine; PCP Family Medicine
DX: M54.12 Radiculopathy, cervical region (principal); Z87.891 Personal history of nicotine dependence
CPT/HCPCS: 72040; 96372; 99284; A9270; J1171; J7512

== ENCOUNTER 2025-01-21 08:34 | Outpatient (CLI) | payer OTHER, SELFPAY ==
--- NOTE | ~2025-01-21 | MR_ITS ---
EXAMINATION: MR cervical spine wo/w con DATE: 01/21/2025 10:02 INDICATION: Neck pain. TECHNIQUE: Magnetic resonance imaging (MRI) of the cervical spine was performed without and with 20 mL MultiHance intravenous contrast. COMPARISON: Cervical spine radiographs 01/02/2025 FINDINGS: Alignment is normal. Vertebral body heights are normal. Intervertebral disc heights are normal. The spinal cord signal intensity is normal. The following disc levels are specifically discussed: C2-C3: The disc does not extend beyond the endplate margin. There is no uncovertebral joint osteoarthritis. There is severe bilateral facet joint osteoarthritis. There is mild bilateral neural foraminal stenosis. There is no central canal stenosis. C3-C4: There is a central extrusion. There is mild right uncovertebral joint osteoarthritis. There is severe right and moderate left facet joint osteoarthritis. There is mild right neural foraminal stenosis. There is mild central canal stenosis. C4-C5: There is a central extrusion. There is moderate right and mild left uncovertebral joint osteoarthritis. There is mild right and moderate left facet joint osteoarthritis. There is no neural foraminal stenosis. There is mild central canal stenosis. C5-C6: There is a central protrusion. There is mild bilateral uncovertebral joint osteoarthritis. There is severe bilateral facet joint osteoarthritis. There is mild left neural foraminal stenosis. There is mild central canal stenosis. C6-C7: The disc is bulging with superimposed right central and foraminal zone extrusion. There is moderate bilateral uncovertebral joint osteoarthritis. There is moderate bilateral facet joint osteoarthritis. There is moderate right and mild left neural foraminal stenosis. There is moderate central canal stenosis with ventral and dorsal indentation of the spinal cord. C7-T1: The disc does not extend beyond the endplate margin. There is no uncovertebral joint osteoarthritis. There is mild bilateral facet joint osteoarthritis. There is mild left neural foraminal stenosis. There is no central canal stenosis. IMPRESSION: 1. Moderate spondylosis at C6-C7 and mild spondylosis at other levels. Reviewed, dictated and finalized at location E.
== END 2025-01-21 08:35 | disposition home or self-care (01) ==
LOC: CHSIMG 08:35
PROVIDERS: PCP Family Medicine; Visit Provider Family Medicine
DX: M54.12 Radiculopathy, cervical region (principal); M43.02 Spondylolysis, cervical region
CPT/HCPCS: 72156; A9577

== ENCOUNTER 2025-02-21 12:11 | Outpatient (CLI) | payer OTHER, SELFPAY ==
[2025-02-21 12:33] LABS: Hematocrit 48.4 % (35.0-49.0); Hemoglobin 14.8 g/dL (12.0-15.0); Immature Granulocyte Percent A 0.3 % (0.0-0.0); Lymphocytes Absolute Auto 2.18 K/mm3 (1.10-4.50); Mean Corpuscular HGB Conc 30.6 g/dL (32-36); Mean Corpuscular Hemoglobin 29.2 pg (27.0-31.0); Mean Corpuscular Volume 95.7 fL (78.0-102.0); Nucleated Red Blood Cells Absolute Auto 0.00 K/mm3 (0.00-0.00); Nucleated Red Blood Cells Perc 0.0 % (0-0.0); Platelet Count Result 404 K/mm3 (150-420); Red Blood Count 5.06 M/mm3 (4.20-5.40); White Blood Count 12.3 K/mm3 (4.8-10.8)
[2025-02-21 12:50] LABS: MALB Creatinine Ratio 274.6 mg/g (0-30)
--- OUTSIDE RECORDS SUMMARY | 2025-02-21 13:45 | XMS_ITS | Clinical Summary ---
Author Organization [facility] Address [address] [place] [address] Care Team Providers Care Cancer Program Coordinator Name Role Phone Negro Hein MD Primary Care Provider [phone] Allergies Active Allergy Reactions Criticality Noted Date [...] (1 - 1-dose 75+ series) 11/01/2035 Insurance [facility] [place] [address] MCR Care Teams Cancer Program Coordinator Relationship Specialty Start Date End Date Negro Hein MD [address] [place] [phone] PCP - General Family Practice 05/06/21
--- OUTSIDE RECORDS SUMMARY | 2025-02-21 13:45 | XMS_ITS | Clinical Summary ---
Author Organization [facility] Address [address] [place] [id number] Care Team Providers Care Senior Grants Officer Name Role Phone Unavailable Primary Care Provider [...] Vaccines (1 of 2) 2010 COVID-19 Vaccine (2024-2 6 season) 2024 Influenza Adult (#1) 2024 RSV Immunization or 60+ Years (1 - 1-dose 75+ series) 11/01/2035 Hepatitis A Vaccines Aged Out No long er eligible based on patient's age to complete this topic Meningococcal B Vaccine Aged Out No l onger eligible based on patient's age to complete this topic Meningococcal Vaccine Aged Out No faizan teresa eligible based on patient's age to complete this topic RSV Immunizations Under 20 Months Aged Out No longer eligible based on patient's age to complete this topic Insurance [employer]
--- OUTSIDE RECORDS SUMMARY | 2025-02-21 13:45 | XMS_ITS | Clinical Summary ---
Author Organization [facility] Address [address] [place] [address] Care Team Providers Care Inspector Publications Name Role Phone Negro Hein MD Primary Care Provider [phone] Source Comments [facility],non-owned Affiliates and Associated Physician Practices is amultiple site organization consisting of ambulatory clinics and hospital sitesin [place], [place], [place] and [place]. This disclosure is being madepursuant to the Care Everywhere program and may not contain all information available regarding this patient. 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 Gender Identity Not on file Sexual Orientation Not on file Last Filed Vital Signs Vital Sign Reading Time Taken Comments Blood Pressure 158/72 05/24/2019 12:10 PM SONOGRAM TECHNICIAN Pulse 84 05/24/2019 12:10 PM SONOGRAM TECHNICIAN Temperature 36.9 C (98.4 F) 05/24/2019 12:10 PM SONOGRAM TECHNICIAN Respiratory Rate - - Oxygen Saturation - - Inhaled Oxygen Concentration - - Weight 83.5 kg (184 lb) 05/24/2019 12:10 PM SONOGRAM TECHNICIAN Height 167.6 cm (5' 6) 05/24/2019 12:10 PM SONOGRAM TECHNICIAN Body Mass Index 29.7 05/24/2019 12:10 PM SONOGRAM TECHNICIAN Plan of Treatment Health Maintenance Due Date [...] 50+ (1 of 2 - PCV) 11/01/1979 PAP SMEAR 1981 Cervical Cancer Screening 1990 PAP with HPV 1990 LUNG CANCER SCREENING 2010 ZOSTER VACCINE (1 of 2) 2010 SCREENING FOR DIABETES 07/20/2021 07/20/2018 DEPRESSION SCREENING 03/30/2024 COVID-19 VACCINE (1 - 2024-2 6 season) 2024 INFLUENZA VACCINE (#1) 2024 01/11/2019 [...] ve Non-react adriana 07/20/2018 12:38 PM T [facility] Comment: Neither HIV-1 p24 Antigen nor HIV-1/HIV-2 Antibodies are detected. Blood BLOOD SPECIMEN / Unknown Lab Venipuncture / Unknown 07/20/2018 10:17 AM CDT 07/20/2018 11:36 AM CDT us Genesis Maradiaga DO LAB - HEMATOLOGY ORDERABLES F inal Result [facility] [address] [phone] * (ABNORMAL) COMPREHENSIVE METABOLIC PANEL (07/20/2018 10:17 AM CDT) [facility] BUN 12 7 - 26 mg/dL 07/20/2018 11:15 AM [facility] Creatinine 0.5(L) 0.6 - 1.2 mg/dL 07/20/2018 11:15 AM [facility] Sodium 140 136 - 145 mmol/L 07/20/2018 11:15 AM [facility] Potassium 3.7 3.5 - 4.5 mmol/L 07/20/2018 11:15 AM [facility] Chloride 98 98 - 107 mmol/L 07/20/2018 11:15 AM [facility] CO2 28 22 - 29 mmol/L 07/20/2018 11:15 AM [facility] Glucose 199(H) 70 - 115 mg/dL 07/20/2018 11:15 AM [facility] Calcium 9.0 8.4 - 10.2 mg/dL 07/20/2018 11:15 AM [facility] Protein Total 7.7 6.0 - 8.3 g/dL 07/20/2018 11:15 AM [facility] Albumin 3.0(L) 3.4 - 5.0 g/dL 07/20/2018 11:15 AM [facility] Bilirubin Total 0.4 0.2 - 1.2 mg/dL 07/20/2018 11:15 AM [facility] Alkaline Phosphatase 151(H) 40 - 150 Units/L 07/20/2018 11:15 AM [facility] ALT 12 0 - 55 Units/L 07/20/2018 11:15 AM [facility] AST 12 5 - 34 Units/L 07/20/2018 11:15 AM [facility] Anion Gap 18 8 - 18 07/20/2018 11:15 AM [facility] BUN/Creatinine Ratio 24(H) 7 - 23 07/20/2018 11:15 AM [facility] Osmolality Calculated 295 270 - 300 mOsm/kg 07/20/2018 11:15 AM [facility] Albumin/Globulin Ratio 0.6(L) 1.1 - 2.3 07/20/2018 11:15 AM [facility] eGFR >60 >60 mL/min/1.7 3 m2 07/20/2018 11:15 AM [facility] Blood BLOOD SPECIMEN / Unknown Lab Venipuncture / Unknown 07/20/2018 10:17 AM T 07/20/2018 10:52 AM [facility] us Genesis Maradiaga DO LAB - CHEMISTRY ORDERABLES Fi nal Result [address] [phone] * HEPATITIS C ANTIBODY (07/20/2018 10:17 AM [facility]) Hepatitis C Antibody Non-react adriana Non-reac tive 07/20/2018 12:38 PM [facility] Comment: Hepatitis C Antibody screen indicates [...] CDT Genesis Maradiaga DO LAB - CHEMISTRY ORDERABLES [facility] Result [address] [phone] from Last 3 Months or Most Recently Relevant to Health Maintenance Insurance [address] [place] [address] Care Teams Inspector Publications Relationship Specialty Start Date End Date Negro Hein MD [address] [place] [phone] PCP - General 12/23/17
--- OUTSIDE RECORDS SUMMARY | 2025-02-21 13:46 | XMS_ITS ---
Author Organization Unknown Address [address] [place] [phone] Phone Care Team Providers Care Compugraph Operator Name Role Phone TAISHA MOSES Attending Unavailable [...] 208 CVX Pneumococcal conjugate PCV20 , polysaccharide [id number] conjugate, adjuvant, PF 07/31/2022 Completed 216 CVX [...] Jameel Teague M.D. RB: PAUL Report ID: [id number] Reading Location: [id number] Social History Type Status Start Date End Date Code Code Syst em Sex Female Hospital Discharge Instructions Should you have any questions prior to discharge, please contact a member of your healthcare team. If you have left the hospital and have any questions, please contact your primary care physician. Reason For Referral No Data Found Plan of Treatment Kidney & Bladder (87595) 02/09/2024 Encounters Encounter Diagnosis Start Date Code Code Sys tem Proteinuria 02/09/2024 [id number] SNOMED-CT Personal Care Team Section Imaging Narrative Notes
[2025-02-27 13:26] LABS: Albumin Level 4.7 g/dL (3.5-5.1); Anion Gap 14 mmol/L (4-12); Blood Urea Nitrogen 15 mg/dL (7-17); Calcium 10.0 mg/dL (8.4-10.2); Carbon Dioxide 28 mmol/L (22-30); Chloride 104 mmol/L (98-107); Estimated Glomerular Filt Rate > 60; Glucose 182 mg/dL (65-110); Osmolality Calculated 307 mOsm/kg (285-295); Potassium 5.1 mmol/L (3.4-5.0); Sodium 146 mmol/L (137-145)
== END 2025-02-21 12:12 | disposition home or self-care (01) ==
LOC: CHSLAB 12:14
PROVIDERS: PCP Family Medicine
DX: I10 Essential (primary) hypertension (principal)
CPT/HCPCS: 36415; 80069; 82043; 85025